=== PATIENT | female | born 1955 | race Caucasian/White ===

== ENCOUNTER 2018-09-18 10:20 | Inpatient (IN) | payer BC ==
[2018-09-18] MEDS ORDERED: Lactated Ringers 1,000 ML IV ONE (11:12)
[2018-09-18] MEDS ORDERED: Insulin Regular, Human 100 Units/ML 3 ML Vial IV STA (11:13)
[2018-09-18] MEDS ORDERED: cloNIDine 0.1 MG Tab PO ONE ×2 (11:16→13:33)
--- NOTE | 2018-09-18 11:22 | EDM.PDOC ---
ED HPI GENERAL MEDICAL PROBLEM - General Chief Complaint: Cardiovascular Problem Stated Complaint: COUGH AND COLD DIABETIC AND HBP Time Seen by Provider: 09/18/18 10:42 Source of Information: Reports: Patient, Family (Daughter), RN Notes Reviewed History Limitations: Reports: No Limitations (Somewhat sleepy, but able to answer all of my questions appropriately) - History of Present Illness INITIAL COMMENTS - FREE TEXT/NARRATIVE: The patient states that she developed decreased energy, decreased appetite, lethargy, a dry cough, occasionally productive of clear sputum, and chills, 3 days ago. She has not checked her temperature, but is found to have a temperature of 101.3 here in the ED. She reports both polydipsia and polyuria. She denies dyspnea or wheezing. No abdominal pain, nausea, vomiting, constipation, or diarrhea. No recent chest pain or palpitations. No recent rash. No similarly ill family members. The patient states that she had similar symptoms several years ago, and believes that she was diagnosed with a UTI, although she denies having recent dysuria. The patient has insulin-requiring type 2 diabetes mellitus, but states that she never checks her blood sugar at home. Her blood glucose here in the ED is found to be >400. The patient's PCP is Dr. Pittman. Her [employer] is Dr. Phan. The patient states that her vaccinations are up-to-date, however, she did not receive an influenza vaccine this season. 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: Endocrine/Metabolic History: Reports: Diabetes, Type II, Obesity/BMI 30+ - Past Surgical History HEENT Surgical History: Reports: Cataract Surgery, Eye Surgery (bilateral, for retinal hemorrhages) Female Surgical History: Reports: Section (x 2), Other (See Below) ( Cervical cerclage x 2) Social & Family History - Tobacco Use Smoking Status *Q: Never Smoker Second Hand Smoke Exposure: No - Caffeine Use Caffeine Use: Reports: Coffee, Soda, Tea - Alcohol Use Alcohol Use History: No - Recreational Drug Use Recreational Drug Use: No - Living Situation & Occupation Living situation: Reports: , with Spouse Occupation: Unemployed ED ROS GENERAL - Review of Systems Review Of Systems: ROS reveals no pertinent complaints other than HPI. ED EXAM, GENERAL - Physical Exam Exam: See Below Exam Limited By: No Limitations General Appearance: WD/WN, No Apparent Distress Eye Exam: Bilateral Eye: EOMI, Normal Inspection Ears: Normal External Exam, Hearing Grossly Normal Nose: Normal Inspection Throat/Mouth: Normal Inspection, Normal Lips, Normal Voice, No Airway Compromise Head: Atraumatic, Normocephalic Neck: Normal Inspection, Full Range of Motion Respiratory/Chest: No Respiratory Distress, Lungs Clear, Normal Breath Sounds, No Accessory Muscle Use Cardiovascular: Normal Peripheral Pulses, Regular Rate, Rhythm, No Gallop, No JVD, No Murmur, No Rub Peripheral Pulses: 4+: Radial (L), Radial (R) GI/Abdominal: Normal Bowel Sounds, Soft, Non-Tender, No Organomegaly, No Distention, No Abnormal Bruit, No Mass, Other (Obese) (Female) Exam: Deferred Rectal (Female) Exam: Deferred Back Exam: Normal Inspection, Full Range of Motion, NT Extremities: Normal Inspection, Normal Range of Motion, Normal Capillary Refill Neurological: Oriented, No Motor/Sensory Deficits, Other (Appears to be sleepy) Psychiatric: Normal Affect Skin Exam: Warm, Dry, Intact, Normal Color, No Rash EKG INTERPRETATION EKG Date: 09/18/18 Time: 12:16 Rhythm: NSR Rate (Beats/Min): 69 [place]: Normal P-Wave: Enlarged (LAE) QRS: Normal (Late transition) ST-T: Normal QT: Normal Comparison: NA - No Prior EKG Course - Vital Signs Last Recorded V/S: Last Vital Signs Temp 38.5 C H 09/18/18 10:51 Pulse 66 09/18/18 10:51 Resp 13 09/18/18 10:51 BP 190/56 H 09/18/18 13:49 Pulse Ox 90 L 09/18/18 10:51 - Orders/Labs/Meds Orders: Active Orders 24 hr Category Date Time Status Accu Check [Blood Glucose Check, Bedside] [RC] ONETIME Care 09/18/18 11:09 Active Accu Check [Blood Glucose Check, Bedside] [RC] ONETIME Care 09/18/18 12:54 Active Accu Check [Blood Glucose Check, Bedside] [RC] ONETIME Care 09/18/18 14:25 Inactive EKG Documentation Completion [RC] STAT Care 09/18/18 11:11 Active Chest 2V [CR] Stat Exams 09/18/18 11:10 Taken CULTURE BLOOD [BC] Stat Lab 09/18/18 11:36 Received CULTURE BLOOD [BC] Stat Lab 09/18/18 13:40 Received Insulin Regular, Human [HumuLIN R] 100 unit Med 09/18/18 11:15 Active Sodium Chloride 0.9% [Normal Saline] 99 ml IV TITRATE Blood Culture x2 Reflex Set [OM.PC] Stat Oth 09/18/18 11:11 Ordered Medication Orders Insulin Human Regular 100 unit (/ Sodium Chloride) 100 mls @ 10.43 mls/hr IV TITRATE CLIFF; Protocol Last Admin: 09/18/18 12:15 Dose: 0.1 units/kg/hr, 10.43 mls/hr Labs: Laboratory Tests 09/18/18 09/18/18 09/18/18 Range/Units 11:00 11:00 11:36 WBC 6.36 (3.98-10.04) K/mm3 RBC 5.05 (3.98-5.22) M/mm3 Hgb 15.1 (11.2-15.7) gm/L Hct 44.8 (34.1-44.9) % MCV 88.7 (79.4-94.8) fl MCH 29.9 (25.6-32.2) pg MCHC 33.7 (32.2-35.5) g/dl RDW Std Deviation 40.6 (36.4-46.3) fL Plt Count 196 (182-369) K/mm3 MPV 11.2 (9.4-12.3) fl Neutrophils % (Manual) 76 H (40-60) % Band Neutrophils % 4 (0-10) % Lymphocytes % (Manual) 11 L (20-40) % Atypical Lymphs % 0 % Monocytes % (Manual) 9 (2-10) % Eosinophils % (Manual) 0 L (0.7-5.8) % Basophils % (Manual) 0 L (0.1-1.2) Platelet Estimate Adequate Plt Morphology Comment Normal RBC Morph Comment Normal Sodium 126 L (136-145) mEq/L Potassium 5.6 H (3.5-5.1) mEq/L Chloride 86 L (98-107) mEq/L Carbon Dioxide 24 (21-32) mEq/L Anion Gap 21.6 H (5-15) BUN 50 H (7-18) mg/dL Creatinine 2.0 H (0.55-1.02) mg/dL Est Cr Clr Drug Dosing 25.51 mL/min Estimated GFR (MDRD) 25 (>60) mL/min BUN/Creatinine Ratio 25.0 H (14-18) Glucose 563 H (80-115) mg/dL Calcium 9.5 (8.5-10.1) mg/dL Magnesium 2.1 (1.8-2.4) mg/dl Total Bilirubin 0.6 (0.2-1.0) mg/dL AST 29 (15-37) U/L ALT 28 (14-59) U/L Alkaline Phosphatase 127 H (46-116) U/L Troponin I < 0.017 (0.00-0.056) ng/mL Total Protein 7.9 (6.4-8.2) g/dl Albumin 2.9 L (3.4-5.0) g/dl Globulin 5.0 gm/dL Albumin/Globulin Ratio 0.6 L (1-2) Urine Color (Yellow) Urine Appearance (Clear) Urine pH (5.0-8.0) Ur Specific [place] (1.005-1.030) Urine Protein (Negative) Urine Glucose (UA) (Negative) Urine Ketones (Negative) Urine Occult Blood (Negative) Urine Nitrite (Negative) Urine Bilirubin (Negative) Urine Urobilinogen (0.2-1.0) Ur Leukocyte Esterase (Negative) Urine RBC (0-5) /hpf Urine WBC (0-5) /hpf Ur Epithelial Cells (0-5) /hpf Amorphous Sediment (NOT SEEN) /hpf Urine Bacteria (FEW) /hpf Urine Mucus (FEW) /hpf Ketones 2.4 (0.0-0.3) mM 09/18/18 09/18/18 Range/Units 12:23 14:51 WBC (3.98-10.04) K/mm3 RBC (3.98-5.22) M/mm3 Hgb (11.2-15.7) gm/L Hct (34.1-44.9) % MCV (79.4-94.8) fl MCH (25.6-32.2) pg MCHC (32.2-35.5) g/dl RDW Std Deviation (36.4-46.3) fL Plt Count (182-369) K/mm3 MPV (9.4-12.3) fl Neutrophils % (Manual) (40-60) % Band Neutrophils % (0-10) % Lymphocytes % (Manual) (20-40) % Atypical Lymphs % % Monocytes % (Manual) (2-10) % Eosinophils % (Manual) (0.7-5.8) % Basophils % (Manual) (0.1-1.2) Platelet Estimate Plt Morphology Comment RBC Morph Comment Sodium (136-145) mEq/L Potassium (3.5-5.1) mEq/L Chloride (98-107) mEq/L Carbon Dioxide (21-32) mEq/L Anion Gap (5-15) BUN (7-18) mg/dL Creatinine (0.55-1.02) mg/dL Est Cr Clr Drug Dosing mL/min Estimated GFR (MDRD) (>60) mL/min BUN/Creatinine Ratio (14-18) Glucose 462 H (80-115) mg/dL Calcium (8.5-10.1) mg/dL Magnesium (1.8-2.4) mg/dl Total Bilirubin (0.2-1.0) mg/dL AST (15-37) U/L ALT (14-59) U/L Alkaline Phosphatase (46-116) U/L Troponin I (0.00-0.056) ng/mL Total Protein (6.4-8.2) g/dl Albumin (3.4-5.0) g/dl Globulin gm/dL Albumin/Globulin Ratio (1-2) Urine Color Yellow (Yellow) Urine Appearance Clear (Clear) Urine pH 5.5 (5.0-8.0) Ur Specific [place] 1.020 (1.005-1.030) Urine Protein 2+ H (Negative) Urine Glucose (UA) 2+ H (Negative) Urine Ketones 2+ H (Negative) Urine Occult Blood 2+ H (Negative) Urine Nitrite Negative (Negative) Urine Bilirubin Negative (Negative) Urine Urobilinogen 0.2 (0.2-1.0) Ur Leukocyte Esterase Negative (Negative) Urine RBC 0-5 (0-5) /hpf Urine WBC 0-5 (0-5) /hpf Ur Epithelial Cells Not seen (0-5) /hpf Amorphous Sediment Few H (NOT SEEN) /hpf Urine Bacteria Few (FEW) /hpf Urine Mucus Rare H (FEW) /hpf Ketones (0.0-0.3) mM Meds: Medications Generic Name Dose Route Start Last Admin Trade Name Yina PRN Reason Stop Dose Admin Insulin Human Regular 100 unit 100 mls @ 10.43 mls/hr 09/18/18 11:15 12:15 / Sodium Chloride IV 0.1 units/kg/hr TITRATE CLIFF 10.43 mls/hr Administration Protocol 0.1 UNITS/KG/HR Discontinued Medications Generic Name Dose Route Start Last Admin Trade Name Yina PRN Reason Stop Dose Admin Clonidine HCl 0.1 mg 09/18/18 11:16 09/18/18 11:35 Catapres PO 09/18/18 11:17 0.1 mg ONETIME ONE Administration Clonidine HCl Confirm 09/18/18 11:35 09/18/18 12:24 Catapres Administered 09/18/18 11:36 Not Given Dose 0.1 mg .ROUTE .STK-MED ONE Clonidine HCl 0.1 mg 09/18/18 13:33 09/18/18 13:49 Catapres PO 09/18/18 13:34 0.1 mg ONETIME ONE Administration Lactated Ringer's 1,000 mls @ 999 mls/hr 09/18/18 11:12 09/18/18 12:14 Ringers, Lactated IV 09/18/18 12:12 999 mls/hr .BOLUS ONE Administration Insulin Human Regular 10 unit 09/18/18 11:13 09/18/18 12:19 Humulin R IV 09/18/18 11:14 10 unit ONETIME STA Administration - Re-Assessments/Exams Free Text/Narrative Re-Assessment/Exam: 09/18/18 11:17 The patient's blood glucose is >400 on Accu-Chek. Her fever and cough strongly suggest influenza. Her systolic blood pressure is high. I have ordered a workup , and in the meantime will treat with IV fluid, IV insulin, and clonidine. 09/18/18 12:00 The patient's influenza swab has returned positive for influenza A, however, the patient has been symptomatic for 3 days, therefore Tamiflu is not recommended. The patient's sodium is depressed at 126, however, her blood glucose is elevated at 563. The patient's sodium corrects to 132. Her potassium is mildly elevated at 5.6, with a BUN/Cr of 50/2.0. We do not have prior labs to compare. The patient's magnesium level is within normal limits. The patient's troponin is undetectably he low. The patient's CBC is unremarkable. 09/18/18 12:27 The patient's ketone level is mildly elevated at 2.4, consistent with ketosis, not with ketoacidosis. The patient's ECG is unremarkable. 09/18/18 12:50 2-view chest radiograph reviewed. The cardiac silhouette is within normal limits. No pulmonary vascular congestion. No pleural effusions. There appear to be bilateral interstitial infiltrates, consistent with viral pneumonia. No pneumothorax. Formal read per the Radiologist pending. 09/18/18 13:32 The patient's urinalysis is unremarkable. The patient's most recent Accu-Chek is still >400. Despite being given clonidine 0.1 mg earlier, the patient's systolic blood pressure is still 218. I will order a repeat clonidine 0.1 mg. Due to the insulin drip, the patient will need to be admitted to the ICU. 09/18/18 14:[address] Saeed at 14:31. He accepted the patient for admission to the ICU. Departure - Departure Time of Disposition: 14:33 Disposition: Admitted As Inpatient 68 Condition: Fair Clinical Impression: Influenza A, Hypertension, Chronic renal insufficiency, Hyperglycemia due to type 2 diabetes mellitus, Hyponatremia - Discharge Information *PRESCRIPTION DRUG MONITORING PROGRAM REVIEWED*: Not Applicable *COPY OF PRESCRIPTION DRUG MONITORING REPORT IN PATIENT GABBIE: Not Applicable - My Orders Last 24 Hours: My Active Orders 09/18/18 11:09 Accu Check [Blood Glucose Check, Bedside] [RC] ONETIME 09/18/18 11:10 Chest 2V [CR] Stat 09/18/18 11:11 EKG Documentation Completion [RC] STAT Blood Culture x2 Reflex Set [OM.PC] Stat 09/18/18 11:15 Insulin Regular, Human [HumuLIN R] 100 unit Sodium Chloride 0.9% [Normal Saline] 99 ml IV TITRATE 09/18/18 11:36 CULTURE BLOOD [BC] Stat 09/18/18 12:54 Accu Check [Blood Glucose Check, Bedside] [RC] ONETIME 09/18/18 13:40 CULTURE BLOOD [BC] Stat 09/18/18 14:25 Accu Check [Blood Glucose Check, Bedside] [RC] ONETIME - Assessment/Plan Last 24 Hours: My Active Orders 09/18/18 11:09 Accu Check [Blood Glucose Check, Bedside] [RC] ONETIME 09/18/18 11:10 Chest 2V [CR] Stat 09/18/18 11:11 EKG Documentation Completion [RC] STAT Blood Culture x2 Reflex Set [OM.PC] Stat 09/18/18 11:15 Insulin Regular, Human [HumuLIN R] 100 unit Sodium Chloride 0.9% [Normal Saline] 99 ml IV TITRATE 09/18/18 11:36 CULTURE BLOOD [BC] Stat 09/18/18 12:54 Accu Check [Blood Glucose Check, Bedside] [RC] ONETIME 09/18/18 13:40 CULTURE BLOOD [BC] Stat 09/18/18 14:25 Accu Check [Blood Glucose Check, Bedside] [RC] ONETIME
[2018-09-18] MEDS ORDERED: cloNIDine 0.1 MG Tab ONE (11:35)
[2018-09-18] MEDS ORDERED: Docusate Sodium 100 MG Cap PO PRN (15:14)
[2018-09-18] MEDS ORDERED: Acetaminophen/HYDROcodone 325-5 MG Tab PO PRN (15:14)
[2018-09-18] MEDS ORDERED: Promethazine 6.25 MG in Sodium Chloride 0.9% 50 ML IV PRN (15:14)
[2018-09-18] MEDS ORDERED: Metoprolol Tartrate 5 MG/5 ML SDV IVPUSH PRN (15:14)
[2018-09-18] MEDS ORDERED: Ondansetron 4 MG/2 ML SDV IV PRN (15:14)
[2018-09-18] MEDS ORDERED: LORazepam 2 MG/ML SDV IV PRN (15:14)
[2018-09-18] MEDS ORDERED: HYDROmorphone 1 MG/ML Syringe IVPUSH PRN (15:14)
[2018-09-18] MEDS ORDERED: Ibuprofen 400 MG Tab PO PRN (15:14)
[2018-09-18] MEDS ORDERED: Bisacodyl 5 MG Tab PO PRN (15:14)
--- NOTE | 2018-09-18 15:14 | PCM.HP ---
H&P History of Present Illness - General Date of Service: 09/18/18 Admit Problem/Dx: Influenza and Hyperosmolar Hyperglycemic State Source of Information: Patient, Family, Old Records, Provider, RN Notes Reviewed History Limitations: Reports: Physical Impairment - History of Present Illness Initial Comments - Free Text/Narative: This is a 63 yo white female with past medical hx/o Impaired Vision, HTN, HLD, Hx/o HF Unknown EF, CKD Unknown Stage, and Class III Obesity who comes in for evaluation of 3 day hx/o flu-like symptoms: lethargy, dry cough, feeling feverish, chills, low energy and reduced appetite. She also reports polydipsia and polyuria. She denies any GI or issues. No skin rash, sore throat or difficulty eating or drinking. She denies any sick contact in the the house. She reports of a similar episode in the past wherein she was diagnosed with UTI. On presentation to ED, she was found to have a temperature of 101.3 with a glucose level on finger stick of over 400. Her initial work up shows a CBC remarkable for Neutrophils of 76% and Lymphocytes of 11%. Her chemistry is significant for Na of 126, K of 5.6, Cl of 86, AG of 21.6, BUN of 50, Cr of 2.0 , BS of 560, Alk Phos of 127, and Albumin of 127. Her UA is not suggestive of UTI. Her ketones level is 2.4. Her chest x-ray report reads patchy increased density within both side of chest most likely representing fairly severe bronchopneumonia. Patient is being admitted for influenza infection and hyperosmolar hyperglycemic state. She is DNR/DNI. Generalized Pain Score (Numeric/FACES): 0 - Related Data Allergies/Adverse Reactions: Allergies Allergy/AdvReac Type Severity Reaction Status Date / Time No Known Allergies Allergy Verified 12/08/14 08:54 Home Medications: Home Meds Aspirin 81 mg PO DAILY 09/18/18 [History] Chlorthalidone 25 mg PO DAILY 09/18/18 [History] Furosemide 20 mg PO DAILY 09/18/18 [History] Lisinopril 20 mg PO DAILY 09/18/18 [History] Metoprolol Succinate 200 mg PO DAILY 09/18/18 [History] Verapamil HCl [Verelan Pm] 200 mg pe PO DAILY 09/18/18 [History] Past Medical History HEENT History: Reports: Glaucoma, Impaired Vision Cardiovascular History: Reports: Heart Failure, High Cholesterol (untreated), Hypertension 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 History: 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: 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/Metabolic History: Reports: Diabetes, Type II, Obesity/BMI 30+ - Past Surgical History HEENT Surgical History: Reports: Cataract Surgery, Eye Surgery (bilateral, for retinal hemorrhages) Female Surgical History: Reports: Section (x 2), Other (See Below) ( Cervical cerclage x 2) Social & Family History - Tobacco Use Smoking Status *Q: Never Smoker Second Hand Smoke Exposure: No - Caffeine Use Caffeine Use: Reports: Coffee, Soda, Tea - Recreational Drug Use Recreational Drug Use: No - Living Situation & Occupation Living situation: Reports: , with Spouse Occupation: Unemployed H&P Review of Systems - Review of Systems: Review Of Systems: ROS reveals no pertinent complaints other than HPI. Exam - Exam Exam: See Below - Vital Signs Vital Signs: Last Vital Signs Temp 38.5 C H 09/18/18 10:51 Pulse 66 09/18/18 10:51 Resp 13 09/18/18 10:51 BP 190/56 H 09/18/18 13:49 Pulse Ox 90 L 09/18/18 10:51 Weight: 104.326 kg - Exam General: Alert, Oriented, Cooperative, Moderate Distress, Lethargic, Other ( Moderately Obese) HEENT: Conjunctiva Clear, EACs Clear, EOMI, Hearing Intact, Nares Patent, Normal Nasal Septum, Posterior Pharynx Clear, Pupils Equal, Pupils Reactive. No : Mucosa Moist & [place] Neck: Supple, Trachea Midline, Other (short and thick). No: JVD, Thyromegaly Lungs: Normal Respiratory Effort, Decreased Breath Sounds Cardiovascular: Regular Rate, Regular Rhythm GI/Abdominal Exam: Normal Bowel Sounds, Soft, Non-Tender, No Organomegaly, No Distention, No Mass, Pelvis Stable, Other (Obese) (Female) Exam: Deferred Rectal (Female) Exam: Deferred Back Exam: Normal Inspection, Decreased Range of Motion Extremities: Normal Inspection, Non-Tender, No Pedal Edema, Slow Capillary Refill, Limited Range of Motion Peripheral Pulses: 2+: Posterior Tibial (L), Posterior Tibial (R), Dorsalis Pedis (L), Dorsalis Pedis (R) Skin: Warm, Dry, Intact Neuro Extensive - Mental Status: Oriented x3, Normal Cognition, Memory Intact Neuro Extensive - Motor, Sensory, Reflexes: CN II-XII Intact (limited due to generalized weakness but grossly intac), Normal Gait Psychiatric: Alert, Normal Affect, Normal Mood - Patient Data Lab Results Last 24 hrs: Laboratory Results - last 24 hr 09/18/18 09/18/18 09/18/18 Range/Units 11:00 11:00 11:36 WBC 6.36 (3.98-10.04) K/mm3 RBC 5.05 (3.98-5.22) M/mm3 Hgb 15.1 (11.2-15.7) gm/L Hct 44.8 (34.1-44.9) % MCV 88.7 (79.4-94.8) fl MCH 29.9 (25.6-32.2) pg MCHC 33.7 (32.2-35.5) g/dl RDW Std Deviation 40.6 (36.4-46.3) fL Plt Count 196 (182-369) K/mm3 MPV 11.2 (9.4-12.3) fl Neutrophils % (Manual) 76 H (40-60) % Band Neutrophils % 4 (0-10) % Lymphocytes % (Manual) 11 L (20-40) % Atypical Lymphs % 0 % Monocytes % (Manual) 9 (2-10) % Eosinophils % (Manual) 0 L (0.7-5.8) % Basophils % (Manual) 0 L (0.1-1.2) Platelet Estimate Adequate Plt Morphology Comment Normal RBC Morph Comment Normal Sodium 126 L (136-145) mEq/L Potassium 5.6 H (3.5-5.1) mEq/L Chloride 86 L (98-107) mEq/L Carbon Dioxide 24 (21-32) mEq/L Anion Gap 21.6 H (5-15) BUN 50 H (7-18) mg/dL Creatinine 2.0 H (0.55-1.02) mg/dL Est Cr Clr Drug Dosing 25.51 mL/min Estimated GFR (MDRD) 25 (>60) mL/min BUN/Creatinine Ratio 25.0 H (14-18) Glucose 563 H (80-115) mg/dL Calcium 9.5 (8.5-10.1) mg/dL Magnesium 2.1 (1.8-2.4) mg/dl Total Bilirubin 0.6 (0.2-1.0) mg/dL AST 29 (15-37) U/L ALT 28 (14-59) U/L Alkaline Phosphatase 127 H (46-116) U/L Troponin I < 0.017 (0.00-0.056) ng/mL Total Protein 7.9 (6.4-8.2) g/dl Albumin 2.9 L (3.4-5.0) g/dl Globulin 5.0 gm/dL Albumin/Globulin Ratio 0.6 L (1-2) Urine Color (Yellow) Urine Appearance (Clear) Urine pH (5.0-8.0) Ur Specific [place] (1.005-1.030) Urine Protein (Negative) Urine Glucose (UA) (Negative) Urine Ketones (Negative) Urine Occult Blood (Negative) Urine Nitrite (Negative) Urine Bilirubin (Negative) Urine Urobilinogen (0.2-1.0) Ur Leukocyte Esterase (Negative) Urine RBC (0-5) /hpf Urine WBC (0-5) /hpf Ur Epithelial Cells (0-5) /hpf Amorphous Sediment (NOT SEEN) /hpf Urine Bacteria (FEW) /hpf Urine Mucus (FEW) /hpf Ketones 2.4 (0.0-0.3) mM 09/18/18 09/18/18 Range/Units 12:23 14:51 WBC (3.98-10.04) K/mm3 RBC (3.98-5.22) M/mm3 Hgb (11.2-15.7) gm/L Hct (34.1-44.9) % MCV (79.4-94.8) fl MCH (25.6-32.2) pg MCHC (32.2-35.5) g/dl RDW Std Deviation (36.4-46.3) fL Plt Count (182-369) K/mm3 MPV (9.4-12.3) fl Neutrophils % (Manual) (40-60) % Band Neutrophils % (0-10) % Lymphocytes % (Manual) (20-40) % Atypical Lymphs % % Monocytes % (Manual) (2-10) % Eosinophils % (Manual) (0.7-5.8) % Basophils % (Manual) (0.1-1.2) Platelet Estimate Plt Morphology Comment RBC Morph Comment Sodium (136-145) mEq/L Potassium (3.5-5.1) mEq/L Chloride (98-107) mEq/L Carbon Dioxide (21-32) mEq/L Anion Gap (5-15) BUN (7-18) mg/dL Creatinine (0.55-1.02) mg/dL Est Cr Clr Drug Dosing mL/min Estimated GFR (MDRD) (>60) mL/min BUN/Creatinine Ratio (14-18) Glucose 462 H (80-115) mg/dL Calcium (8.5-10.1) mg/dL Magnesium (1.8-2.4) mg/dl Total Bilirubin (0.2-1.0) mg/dL AST (15-37) U/L ALT (14-59) U/L Alkaline Phosphatase (46-116) U/L Troponin I (0.00-0.056) ng/mL Total Protein (6.4-8.2) g/dl Albumin (3.4-5.0) g/dl Globulin gm/dL Albumin/Globulin Ratio (1-2) Urine Color Yellow (Yellow) Urine Appearance Clear (Clear) Urine pH 5.5 (5.0-8.0) Ur Specific [place] 1.020 (1.005-1.030) Urine Protein 2+ H (Negative) Urine Glucose (UA) 2+ H (Negative) Urine Ketones 2+ H (Negative) Urine Occult Blood 2+ H (Negative) Urine Nitrite Negative (Negative) Urine Bilirubin Negative (Negative) Urine Urobilinogen 0.2 (0.2-1.0) Ur Leukocyte Esterase Negative (Negative) Urine RBC 0-5 (0-5) /hpf Urine WBC 0-5 (0-5) /hpf Ur Epithelial Cells Not seen (0-5) /hpf Amorphous Sediment Few H (NOT SEEN) /hpf Urine Bacteria Few (FEW) /hpf Urine Mucus Rare H (FEW) /hpf Ketones (0.0-0.3) mM Result Diagrams: 09/19/18 05:49 09/19/18 05:49 Zbigniew Results Last 24 hrs: Microbiology 09/18/18 11:30 Influenza Type A Antigen Screen - Final Nasopharyngeal Swab Positive Influenza A Ag Influenza Type B Antigen Screen - Final NEGATIVE INFLUENZA B VIRUS AG Problem List Initiated/Reviewed/Updated: Yes Orders Last 24hrs: Active Orders 24 hr Category Date Time Status Accu Check [Blood Glucose Check, Bedside] [RC] ONETIME Care 09/18/18 11:09 Active Accu Check [Blood Glucose Check, Bedside] [RC] ONETIME Care 09/18/18 12:54 Active Accu Check [Blood Glucose Check, Bedside] [RC] ONETIME Care 09/18/18 14:25 Inactive EKG Documentation Completion [RC] STAT Care 09/18/18 11:11 Active Chest 2V [CR] Stat Exams 09/18/18 11:10 Taken CULTURE BLOOD [BC] Stat Lab 09/18/18 11:36 Received CULTURE BLOOD [BC] Stat Lab 09/18/18 13:40 Received Insulin Regular, Human [HumuLIN R] 100 unit Med 09/18/18 11:15 Active Sodium Chloride 0.9% [Normal Saline] 99 ml IV TITRATE Blood Culture x2 Reflex Set [OM.PC] Stat Oth 09/18/18 11:11 Ordered Medication Orders Insulin Human Regular 100 unit (/ Sodium Chloride) 100 mls @ 10.43 mls/hr IV TITRATE CLIFF; Protocol Last Admin: 09/18/18 12:15 Dose: 0.1 units/kg/hr, 10.43 mls/hr Assessment/Plan Comment:: Assessment/Plan: Acute: Febrile Illness - 2/2 Influenza A - Positive on screening - Will give antiviral agent to lessen duration of her symptoms - Tamiflu 75 mg po BID for pharmacy to dose pending repeat BMP - Supportive Care - Encourage to eat and drink Influenza Infection - Viral Pneumonia - Tamiflu pharmacy to dose - May consider; antibacterial agents if she is worse tomorrow Hyperosmolar Hyperglycemic State in DM2 - 2/2 poor oral and hydration status - BS in the 500s - Started on insulin drip in ED; will d/c it - Lantus 30 units SC BID and Medium dose ISS; may add sulfonylureas if still uncontrolled - Accu-check Q2 w/ ISS; if 3 consecutive levels are in the 200s then switch to AC/HS - A1C, Thyroid Panel, Vit D level, Lipid panel and Microalbumin level - Ticket Maker Malignant Hypertension - Documented BP of 246/86 on presentation to ED - Received clonidine in ED - Home meds not verified yet - PRN Hydralazine, Norvasc 5 mg po BID, HCTZ 25 mg po daily; will resume home meds once we obtain it list Generalized Weakness - 2/2 above - Vit D level and Thyroid Panel - PT/OT to assess and treat Chronic: Impaired Vision HTN HLD Hx/o HF Unknown EF CKD Unknown Stage but it looks like 3-4; no baseline levels for comparison Class II Obesity Plan: Admitted to ICU Resume Some Home Meds Routine AM Labs Diabetic and Dietary consult for weight management PT/OT to asses and treat SW/CM for d/c planning DVT/GI PPx: SCDs and H2B Code status: 1
[2018-09-18] MEDS ORDERED: Insulin Glarg,Human.Rec.Analog 100 UNIT/ML ML SUBCUT SCH (16:00)
[2018-09-18 16:03] LABS: VITAMIN D,25-HYDROXY 40.8 ng/ml (30.0-100.0)
[2018-09-18] MEDS: Insulin Lispro 100 UNIT/ML 10 ML VIAL SUBCUT SCH ×4 (16:26→22:18)
[2018-09-18] MEDS ORDERED: Sodium Chloride 0.9% 1,000 ML IV SCH (16:30)
[2018-09-18] MEDS ORDERED: Insulin Lispro 100 UNIT/ML 10 ML VIAL SUBCUT SCH (17:00)
[2018-09-18] MEDS: hydrALAZINE 20 MG/ML SDV IVPUSH PRN (17:28)
[2018-09-18] MEDS: Insulin Glarg,Human.Rec.Analog 100 UNIT/ML ML SUBCUT SCH (20:39)
[2018-09-18] MEDS: amLODIPine 10 MG Tab PO SCH (20:40)
[2018-09-18] MEDS: Oseltamivir 30 MG Cap PO SCH (20:43)
[2018-09-18] MEDS: Sodium Chloride 0.9% 1,000 ML IV SCH (20:44)
[2018-09-18] MEDS ORDERED: Oseltamivir 75 MG Cap PO SCH (21:00)
[2018-09-19] MEDS: Insulin Lispro 100 UNIT/ML 10 ML VIAL SUBCUT SCH ×6 (01:53→20:04)
[2018-09-19] MEDS: Sodium Chloride 0.9% 1,000 ML IV SCH (03:14)
[2018-09-19] MEDS ORDERED: Hydrochlorothiazide 25 MG Tab PO SCH (06:00)
[2018-09-19] MEDS ORDERED: glipiZIDE 2.5 MG Tab.ER PO SCH (07:00)
--- NOTE | 2018-09-19 08:06 | PCM.PN ---
- General Info Date of Service: 09/19/18 Admission Dx/Problem (Free Text): Influenza and Hyperglycemia Subjective Update: Follow Up Functional Status: Reports: Pain Controlled, Ambulating, Urinating. Denies: New Symptoms - Review of Systems General: Reports: Weakness, Fatigue, Malaise. Denies: Fever, Chills HEENT: Reports: No Symptoms Pulmonary: Reports: Cough, Sputum. Denies: Pleuritic Chest Pain, Hemoptysis Cardiovascular: Denies: Chest Pain, Dyspnea on Exertion, Orthopnea, Lightheadedness Gastrointestinal: Reports: Decreased Appetite. Denies: Abdominal Pain, Nausea, Vomiting 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: Reports: No Symptoms Musculoskeletal: Reports: No Symptoms Skin: Denies: Cyanosis, Mottled, Pallor, Diaphoresis, Bruising Neurological: Reports: Weakness. Denies: Confusion, Gait Disturbance Psychiatric: Denies: Depression, Anxiety, Agitation, Hallucinations Systems Review Comment:: No significant overnight issues. She slept on and off. She felt about the same. She has no appetite and feeling tired. She is afebrile w/o leukocytosis. Her Cr seems to be a little worse but she got adequate fluids in ED and still has 125cc /hr running currently. Her blood pressures have improved considerably. - Patient Data Vitals - Most Recent: Last Vital Signs Temp 37.3 C 09/19/18 03:21 Pulse 65 09/19/18 03:21 Resp 17 09/19/18 03:21 BP 119/88 09/19/18 03:21 Pulse Ox 95 09/19/18 03:21 Weight - Most Recent: 106.367 kg I&O - Last 24 Hours: Intake & Output 09/18/18 09/19/18 09/19/18 22:59 06:59 14:59 Intake Total 640 1713 Output Total 400 Balance 640 1313 Lab Results Last 24 Hours: Laboratory Results - last 24 hr 09/18/18 09/18/18 09/18/18 Range/Units 11:00 11:00 11:36 WBC 6.36 (3.98-10.04) K/mm3 RBC 5.05 (3.98-5.22) M/mm3 Hgb 15.1 (11.2-15.7) gm/L Hct 44.8 (34.1-44.9) % MCV 88.7 (79.4-94.8) fl MCH 29.9 (25.6-32.2) pg MCHC 33.7 (32.2-35.5) g/dl RDW Std Deviation 40.6 (36.4-46.3) fL Plt Count 196 (182-369) K/mm3 MPV 11.2 (9.4-12.3) fl Neut % (Auto) (34.0-71.1) % Lymph % (Auto) (19.3-51.7) % [place] % (Auto) (4.7-12.5) % Eos % (Auto) (0.7-5.8) Baso % (Auto) (0.1-1.2) % Neut # (Auto) (1.56-6.13) K/mm3 Lymph # (Auto) (1.18-3.74) K/mm3 [place] # (Auto) (0.24-0.36) K/mm3 Eos # (Auto) (0.04-0.36) K/mm3 Baso # (Auto) (0.01-0.08) K/mm3 Neutrophils % (Manual) 76 H (40-60) % Band Neutrophils % 4 (0-10) % Lymphocytes % (Manual) 11 L (20-40) % Atypical Lymphs % 0 % Monocytes % (Manual) 9 (2-10) % Eosinophils % (Manual) 0 L (0.7-5.8) % Basophils % (Manual) 0 L (0.1-1.2) Manual Slide Review Platelet Estimate Adequate Plt Morphology Comment Normal RBC Morph Comment Normal Sodium 126 L (136-145) mEq/L Potassium 5.6 H (3.5-5.1) mEq/L Chloride 86 L (98-107) mEq/L Carbon Dioxide 24 (21-32) mEq/L Anion Gap 21.6 H (5-15) BUN 50 H (7-18) mg/dL Creatinine 2.0 H (0.55-1.02) mg/dL Est Cr Clr Drug Dosing 25.51 mL/min Estimated GFR (MDRD) 25 (>60) mL/min BUN/Creatinine Ratio 25.0 H (14-18) Glucose 563 H (80-115) mg/dL POC Glucose (80-115) mg/dL Hemoglobin A1c (4.50-6.20) % Calcium 9.5 (8.5-10.1) mg/dL Magnesium 2.1 (1.8-2.4) mg/dl Total Bilirubin 0.6 (0.2-1.0) mg/dL AST 29 (15-37) U/L ALT 28 (14-59) U/L Alkaline Phosphatase 127 H (46-116) U/L Troponin I < 0.017 (0.00-0.056) ng/mL C-Reactive Protein (<1.0) mg/dL Total Protein 7.9 (6.4-8.2) g/dl Albumin 2.9 L (3.4-5.0) g/dl Globulin 5.0 gm/dL Albumin/Globulin Ratio 0.6 L (1-2) Triglycerides (<150) mg/dL Cholesterol (<200) mg/dL LDL Cholesterol Direct (<100) mg/dL HDL Cholesterol (40-59) mg/dL Vitamin D 25-Hydroxy (30.0-100.0) ng/ml Free T4 (0.76-1.46) ng/dL TSH 3rd Generation (0.358-3.74) uIU/mL Urine Color (Yellow) Urine Appearance (Clear) Urine pH (5.0-8.0) Ur Specific [place] (1.005-1.030) Urine Protein (Negative) Urine Glucose (UA) (Negative) Urine Ketones (Negative) Urine Occult Blood (Negative) Urine Nitrite (Negative) Urine Bilirubin (Negative) Urine Urobilinogen (0.2-1.0) Ur Leukocyte Esterase (Negative) Urine RBC (0-5) /hpf Urine WBC (0-5) /hpf Ur Epithelial Cells (0-5) /hpf Amorphous Sediment (NOT SEEN) /hpf Urine Bacteria (FEW) /hpf Urine Mucus (FEW) /hpf Ur Random Microalbumin (1.3-20.0) mg/L Ketones 2.4 (0.0-0.3) mM 09/18/18 09/18/18 09/18/18 Range/Units 12:23 12:23 13:40 WBC (3.98-10.04) K/mm3 RBC (3.98-5.22) M/mm3 Hgb (11.2-15.7) gm/L Hct (34.1-44.9) % MCV (79.4-94.8) fl MCH (25.6-32.2) pg MCHC (32.2-35.5) g/dl RDW Std Deviation (36.4-46.3) fL Plt Count (182-369) K/mm3 MPV (9.4-12.3) fl Neut % (Auto) (34.0-71.1) % Lymph % (Auto) (19.3-51.7) % [place] % (Auto) (4.7-12.5) % Eos % (Auto) (0.7-5.8) Baso % (Auto) (0.1-1.2) % Neut # (Auto) (1.56-6.13) K/mm3 Lymph # (Auto) (1.18-3.74) K/mm3 [place] # (Auto) (0.24-0.36) K/mm3 Eos # (Auto) (0.04-0.36) K/mm3 Baso # (Auto) (0.01-0.08) K/mm3 Neutrophils % (Manual) (40-60) % Band Neutrophils % (0-10) % Lymphocytes % (Manual) (20-40) % Atypical Lymphs % % Monocytes % (Manual) (2-10) % Eosinophils % (Manual) (0.7-5.8) % Basophils % (Manual) (0.1-1.2) Manual Slide Review Platelet Estimate Plt Morphology Comment RBC Morph Comment Sodium (136-145) mEq/L Potassium (3.5-5.1) mEq/L Chloride (98-107) mEq/L Carbon Dioxide (21-32) mEq/L Anion Gap (5-15) BUN (7-18) mg/dL Creatinine (0.55-1.02) mg/dL Est Cr Clr Drug Dosing mL/min Estimated GFR (MDRD) (>60) mL/min BUN/Creatinine Ratio (14-18) Glucose (80-115) mg/dL POC Glucose (80-115) mg/dL Hemoglobin A1c 9.00 H (4.50-6.20) % Calcium (8.5-10.1) mg/dL Magnesium (1.8-2.4) mg/dl Total Bilirubin (0.2-1.0) mg/dL AST (15-37) U/L ALT (14-59) U/L Alkaline Phosphatase (46-116) U/L Troponin I (0.00-0.056) ng/mL C-Reactive Protein (<1.0) mg/dL Total Protein (6.4-8.2) g/dl Albumin (3.4-5.0) g/dl Globulin gm/dL Albumin/Globulin Ratio (1-2) Triglycerides (<150) mg/dL Cholesterol (<200) mg/dL LDL Cholesterol Direct (<100) mg/dL HDL Cholesterol (40-59) mg/dL Vitamin D 25-Hydroxy (30.0-100.0) ng/ml Free T4 (0.76-1.46) ng/dL TSH 3rd Generation (0.358-3.74) uIU/mL Urine Color Yellow (Yellow) Urine Appearance Clear (Clear) Urine pH 5.5 (5.0-8.0) Ur Specific [place] 1.020 (1.005-1.030) Urine Protein 2+ H (Negative) Urine Glucose (UA) 2+ H (Negative) Urine Ketones 2+ H (Negative) Urine Occult Blood 2+ H (Negative) Urine Nitrite Negative (Negative) Urine Bilirubin Negative (Negative) Urine Urobilinogen 0.2 (0.2-1.0) Ur Leukocyte Esterase Negative (Negative) Urine RBC 0-5 (0-5) /hpf Urine WBC 0-5 (0-5) /hpf Ur Epithelial Cells Not seen (0-5) /hpf Amorphous Sediment Few H (NOT SEEN) /hpf Urine Bacteria Few (FEW) /hpf Urine Mucus Rare H (FEW) /hpf Ur Random Microalbumin 1148.8 H (1.3-20.0) mg/L Ketones (0.0-0.3) mM 09/18/18 09/18/18 09/18/18 Range/Units 13:40 14:51 16:13 WBC (3.98-10.04) K/mm3 RBC (3.98-5.22) M/mm3 Hgb (11.2-15.7) gm/L Hct (34.1-44.9) % MCV (79.4-94.8) fl MCH (25.6-32.2) pg MCHC (32.2-35.5) g/dl RDW Std Deviation (36.4-46.3) fL Plt Count (182-369) K/mm3 MPV (9.4-12.3) fl Neut % (Auto) (34.0-71.1) % Lymph % (Auto) (19.3-51.7) % [place] % (Auto) (4.7-12.5) % Eos % (Auto) (0.7-5.8) Baso % (Auto) (0.1-1.2) % Neut # (Auto) (1.56-6.13) K/mm3 Lymph # (Auto) (1.18-3.74) K/mm3 [place] # (Auto) (0.24-0.36) K/mm3 Eos # (Auto) (0.04-0.36) K/mm3 Baso # (Auto) (0.01-0.08) K/mm3 Neutrophils % (Manual) (40-60) % Band Neutrophils % (0-10) % Lymphocytes % (Manual) (20-40) % Atypical Lymphs % % Monocytes % (Manual) (2-10) % Eosinophils % (Manual) (0.7-5.8) % Basophils % (Manual) (0.1-1.2) Manual Slide Review Platelet Estimate Plt Morphology Comment RBC Morph Comment Sodium (136-145) mEq/L Potassium (3.5-5.1) mEq/L Chloride (98-107) mEq/L Carbon Dioxide (21-32) mEq/L Anion Gap (5-15) BUN (7-18) mg/dL Creatinine (0.55-1.02) mg/dL Est Cr Clr Drug Dosing mL/min Estimated GFR (MDRD) (>60) mL/min BUN/Creatinine Ratio (14-18) Glucose 462 H (80-115) mg/dL POC Glucose 386 H (80-115) mg/dL Hemoglobin A1c (4.50-6.20) % Calcium (8.5-10.1) mg/dL Magnesium (1.8-2.4) mg/dl Total Bilirubin (0.2-1.0) mg/dL AST (15-37) U/L ALT (14-59) U/L Alkaline Phosphatase (46-116) U/L Troponin I (0.00-0.056) ng/mL C-Reactive Protein 22.8 H* (<1.0) mg/dL Total Protein (6.4-8.2) g/dl Albumin (3.4-5.0) g/dl Globulin gm/dL Albumin/Globulin Ratio (1-2) Triglycerides (<150) mg/dL Cholesterol (<200) mg/dL LDL Cholesterol Direct (<100) mg/dL HDL Cholesterol (40-59) mg/dL Vitamin D 25-Hydroxy 40.8 (30.0-100.0) ng/ml Free T4 1.29 (0.76-1.46) ng/dL TSH 3rd Generation 0.538 (0.358-3.74) uIU/mL Urine Color (Yellow) Urine Appearance (Clear) Urine pH (5.0-8.0) Ur Specific [place] (1.005-1.030) Urine Protein (Negative) Urine Glucose (UA) (Negative) Urine Ketones (Negative) Urine Occult Blood (Negative) Urine Nitrite (Negative) Urine Bilirubin (Negative) Urine Urobilinogen (0.2-1.0) Ur Leukocyte Esterase (Negative) Urine RBC (0-5) /hpf Urine WBC (0-5) /hpf Ur Epithelial Cells (0-5) /hpf Amorphous Sediment (NOT SEEN) /hpf Urine Bacteria (FEW) /hpf Urine Mucus (FEW) /hpf Ur Random Microalbumin (1.3-20.0) mg/L Ketones (0.0-0.3) mM 09/18/18 09/18/18 09/18/18 Range/Units 18:11 19:59 22:12 WBC (3.98-10.04) K/mm3 RBC (3.98-5.22) M/mm3 Hgb (11.2-15.7) gm/L Hct (34.1-44.9) % MCV (79.4-94.8) fl MCH (25.6-32.2) pg MCHC (32.2-35.5) g/dl RDW Std Deviation (36.4-46.3) fL Plt Count (182-369) K/mm3 MPV (9.4-12.3) fl Neut % (Auto) (34.0-71.1) % Lymph % (Auto) (19.3-51.7) % [place] % (Auto) (4.7-12.5) % Eos % (Auto) (0.7-5.8) Baso % (Auto) (0.1-1.2) % Neut # (Auto) (1.56-6.13) K/mm3 Lymph # (Auto) (1.18-3.74) K/mm3 [place] # (Auto) (0.24-0.36) K/mm3 Eos # (Auto) (0.04-0.36) K/mm3 Baso # (Auto) (0.01-0.08) K/mm3 Neutrophils % (Manual) (40-60) % Band Neutrophils % (0-10) % Lymphocytes % (Manual) (20-40) % Atypical Lymphs % % Monocytes % (Manual) (2-10) % Eosinophils % (Manual) (0.7-5.8) % Basophils % (Manual) (0.1-1.2) Manual Slide Review Platelet Estimate Plt Morphology Comment RBC Morph Comment Sodium 131 L (136-145) mEq/L Potassium 4.4 (3.5-5.1) mEq/L Chloride 91 L (98-107) mEq/L Carbon Dioxide 26 (21-32) mEq/L Anion Gap 18.4 H (5-15) BUN 49 H (7-18) mg/dL Creatinine 2.0 H (0.55-1.02) mg/dL Est Cr Clr Drug Dosing 25.51 mL/min Estimated GFR (MDRD) 25 (>60) mL/min BUN/Creatinine Ratio 24.5 H (14-18) Glucose 380 H 355 H (80-115) mg/dL POC Glucose 245 H (80-115) mg/dL Hemoglobin A1c (4.50-6.20) % Calcium 8.9 (8.5-10.1) mg/dL Magnesium 1.8 (1.8-2.4) mg/dl Total Bilirubin (0.2-1.0) mg/dL AST (15-37) U/L ALT (14-59) U/L Alkaline Phosphatase (46-116) U/L Troponin I (0.00-0.056) ng/mL C-Reactive Protein (<1.0) mg/dL Total Protein (6.4-8.2) g/dl Albumin (3.4-5.0) g/dl Globulin gm/dL Albumin/Globulin Ratio (1-2) Triglycerides (<150) mg/dL Cholesterol (<200) mg/dL LDL Cholesterol Direct (<100) mg/dL HDL Cholesterol (40-59) mg/dL Vitamin D 25-Hydroxy (30.0-100.0) ng/ml Free T4 (0.76-1.46) ng/dL TSH 3rd Generation (0.358-3.74) uIU/mL Urine Color (Yellow) Urine Appearance (Clear) Urine pH (5.0-8.0) Ur Specific [place] (1.005-1.030) Urine Protein (Negative) Urine Glucose (UA) (Negative) Urine Ketones (Negative) Urine Occult Blood (Negative) Urine Nitrite (Negative) Urine Bilirubin (Negative) Urine Urobilinogen (0.2-1.0) Ur Leukocyte Esterase (Negative) Urine RBC (0-5) /hpf Urine WBC (0-5) /hpf Ur Epithelial Cells (0-5) /hpf Amorphous Sediment (NOT SEEN) /hpf Urine Bacteria (FEW) /hpf Urine Mucus (FEW) /hpf Ur Random Microalbumin (1.3-20.0) mg/L Ketones (0.0-0.3) mM 09/18/18 09/19/18 09/19/18 Range/Units 23:49 01:49 05:49 WBC 5.03 (3.98-10.04) K/mm3 RBC 4.28 (3.98-5.22) M/mm3 Hgb 12.8 (11.2-15.7) gm/L Hct 38.5 (34.1-44.9) % MCV 90.0 (79.4-94.8) fl MCH 29.9 (25.6-32.2) pg MCHC 33.2 (32.2-35.5) g/dl RDW Std Deviation 41.6 (36.4-46.3) fL Plt Count 209 (182-369) K/mm3 MPV 10.8 (9.4-12.3) fl Neut % (Auto) 74.2 H (34.0-71.1) % Lymph % (Auto) 16.7 L (19.3-51.7) % [place] % (Auto) 8.5 (4.7-12.5) % Eos % (Auto) 0 L (0.7-5.8) Baso % (Auto) 0.4 (0.1-1.2) % Neut # (Auto) 3.73 (1.56-6.13) K/mm3 Lymph # (Auto) 0.84 L (1.18-3.74) K/mm3 [place] # (Auto) 0.43 H (0.24-0.36) K/mm3 Eos # (Auto) 0.00 L (0.04-0.36) K/mm3 Baso # (Auto) 0.02 (0.01-0.08) K/mm3 Neutrophils % (Manual) (40-60) % Band Neutrophils % (0-10) % Lymphocytes % (Manual) (20-40) % Atypical Lymphs % % Monocytes % (Manual) (2-10) % Eosinophils % (Manual) (0.7-5.8) % Basophils % (Manual) (0.1-1.2) Manual Slide Review Normal smear Platelet Estimate Plt Morphology Comment RBC Morph Comment Sodium (136-145) mEq/L Potassium (3.5-5.1) mEq/L Chloride (98-107) mEq/L Carbon Dioxide (21-32) mEq/L Anion Gap (5-15) BUN (7-18) mg/dL Creatinine (0.55-1.02) mg/dL Est Cr Clr Drug Dosing mL/min Estimated GFR (MDRD) (>60) mL/min BUN/Creatinine Ratio (14-18) Glucose (80-115) mg/dL POC Glucose 235 H 185 H (80-115) mg/dL Hemoglobin A1c (4.50-6.20) % Calcium (8.5-10.1) mg/dL Magnesium (1.8-2.4) mg/dl Total Bilirubin (0.2-1.0) mg/dL AST (15-37) U/L ALT (14-59) U/L Alkaline Phosphatase (46-116) U/L Troponin I (0.00-0.056) ng/mL C-Reactive Protein (<1.0) mg/dL Total Protein (6.4-8.2) g/dl Albumin (3.4-5.0) g/dl Globulin gm/dL Albumin/Globulin Ratio (1-2) Triglycerides (<150) mg/dL Cholesterol (<200) mg/dL LDL Cholesterol Direct (<100) mg/dL HDL Cholesterol (40-59) mg/dL Vitamin D 25-Hydroxy (30.0-100.0) ng/ml Free T4 (0.76-1.46) ng/dL TSH 3rd Generation (0.358-3.74) uIU/mL Urine Color (Yellow) Urine Appearance (Clear) Urine pH (5.0-8.0) Ur Specific [place] (1.005-1.030) Urine Protein (Negative) Urine Glucose (UA) (Negative) Urine Ketones (Negative) Urine Occult Blood (Negative) Urine Nitrite (Negative) Urine Bilirubin (Negative) Urine Urobilinogen (0.2-1.0) Ur Leukocyte Esterase (Negative) Urine RBC (0-5) /hpf Urine WBC (0-5) /hpf Ur Epithelial Cells (0-5) /hpf Amorphous Sediment (NOT SEEN) /hpf Urine Bacteria (FEW) /hpf Urine Mucus (FEW) /hpf Ur Random Microalbumin (1.3-20.0) mg/L Ketones (0.0-0.3) mM 09/19/18 09/19/18 Range/Units 05:49 05:49 WBC (3.98-10.04) K/mm3 RBC (3.98-5.22) M/mm3 Hgb (11.2-15.7) gm/L Hct (34.1-44.9) % MCV (79.4-94.8) fl MCH (25.6-32.2) pg MCHC (32.2-35.5) g/dl RDW Std Deviation (36.4-46.3) fL Plt Count (182-369) K/mm3 MPV (9.4-12.3) fl Neut % (Auto) (34.0-71.1) % Lymph % (Auto) (19.3-51.7) % [place] % (Auto) (4.7-12.5) % Eos % (Auto) (0.7-5.8) Baso % (Auto) (0.1-1.2) % Neut # (Auto) (1.56-6.13) K/mm3 Lymph # (Auto) (1.18-3.74) K/mm3 [place] # (Auto) (0.24-0.36) K/mm3 Eos # (Auto) (0.04-0.36) K/mm3 Baso # (Auto) (0.01-0.08) K/mm3 Neutrophils % (Manual) (40-60) % Band Neutrophils % (0-10) % Lymphocytes % (Manual) (20-40) % Atypical Lymphs % % Monocytes % (Manual) (2-10) % Eosinophils % (Manual) (0.7-5.8) % Basophils % (Manual) (0.1-1.2) Manual Slide Review Platelet Estimate Plt Morphology Comment RBC Morph Comment Sodium 133 L (136-145) mEq/L Potassium 3.9 (3.5-5.1) mEq/L Chloride 96 L (98-107) mEq/L Carbon Dioxide 30 (21-32) mEq/L Anion Gap 10.9 (5-15) BUN 54 H (7-18) mg/dL Creatinine 2.4 H (0.55-1.02) mg/dL Est Cr Clr Drug Dosing 21.26 mL/min Estimated GFR (MDRD) 21 (>60) mL/min BUN/Creatinine Ratio 22.5 H (14-18) Glucose 97 (80-115) mg/dL POC Glucose 115 (80-115) mg/dL Hemoglobin A1c (4.50-6.20) % Calcium 8.4 L (8.5-10.1) mg/dL Magnesium 1.9 (1.8-2.4) mg/dl Total Bilirubin (0.2-1.0) mg/dL AST (15-37) U/L ALT (14-59) U/L Alkaline Phosphatase (46-116) U/L Troponin I (0.00-0.056) ng/mL C-Reactive Protein 24.3 H* (<1.0) mg/dL Total Protein (6.4-8.2) g/dl Albumin (3.4-5.0) g/dl Globulin gm/dL Albumin/Globulin Ratio (1-2) Triglycerides 137 (<150) mg/dL Cholesterol 140 (<200) mg/dL LDL Cholesterol Direct 96 (<100) mg/dL HDL Cholesterol 22.0 L (40-59) mg/dL Vitamin D 25-Hydroxy (30.0-100.0) ng/ml Free T4 (0.76-1.46) ng/dL TSH 3rd Generation (0.358-3.74) uIU/mL Urine Color (Yellow) Urine Appearance (Clear) Urine pH (5.0-8.0) Ur Specific [place] (1.005-1.030) Urine Protein (Negative) Urine Glucose (UA) (Negative) Urine Ketones (Negative) Urine Occult Blood (Negative) Urine Nitrite (Negative) Urine Bilirubin (Negative) Urine Urobilinogen (0.2-1.0) Ur Leukocyte Esterase (Negative) Urine RBC (0-5) /hpf Urine WBC (0-5) /hpf Ur Epithelial Cells (0-5) /hpf Amorphous Sediment (NOT SEEN) /hpf Urine Bacteria (FEW) /hpf Urine Mucus (FEW) /hpf Ur Random Microalbumin (1.3-20.0) mg/L Ketones (0.0-0.3) mM Zbigniew Results Last 24 Hours: Microbiology 09/18/18 11:30 Influenza Type A Antigen Screen - Final Nasopharyngeal Swab Positive Influenza A Ag Influenza Type B Antigen Screen - Final NEGATIVE INFLUENZA B VIRUS AG Med Orders - Current: Current Medications Hydrocodone Bitart/Acetaminophen ([place] 325-5 Mg) 1 tab PO Q4H PRN PRN Reason: Pain (moderate 4-6) Last Admin: 09/19/18 03:19 Dose: 1 tab Albuterol/Ipratropium (Duoneb 3.0-0.5 Mg/3 Ml) 3 ml NEB Q4H PRN PRN Reason: Shortness Of Breath/wheezing Amlodipine Besylate (Norvasc) 5 mg PO BID [facility] Last Admin: 09/18/18 20:40 Dose: 5 mg Aspirin (Halfprin) 81 mg PO DAILY [facility] Bisacodyl (Dulcolax) 5 mg PO DAILY PRN PRN Reason: Constipation Docusate Sodium (Colace) 100 mg PO BID PRN PRN Reason: Constipation Glipizide (Glucotrol Xl) 2.5 mg PO BID [facility] Hydralazine HCl (Apresoline) 20 mg IVPUSH Q4H PRN PRN Reason: Hypertension Last Admin: 09/18/18 17:28 Dose: 20 mg Hydromorphone HCl (Dilaudid) 0.25 mg IVPUSH Q2H PRN PRN Reason: Pain (severe 7-10) Insulin Human Regular 100 unit (/ Sodium Chloride) 100 mls @ 10.43 mls/hr IV TITRATE [facility]; Protocol Last Titration: 09/18/18 16:27 Dose: 0 units/kg/hr, 0 mls/hr Promethazine HCl 6.25 mg/ (Sodium Chloride) 50.25 mls @ 100 mls/hr IV Q6H PRN PRN Reason: Nausea/Vomiting Sodium Chloride (Normal Saline) 1,000 mls @ 150 mls/hr IV ASDIRECTED [facility] Last Admin: 09/19/18 03:14 Dose: 150 mls/hr Insulin Glargine (Lantus) 30 unit SUBCUT BID [facility] Last Admin: 09/18/18 20:39 Dose: 30 units Insulin Human Lispro (Humalog) 0 unit SUBCUT QIDACANDBED [facility]; Protocol Last Admin: 09/19/18 06:35 Dose: Not Given Lisinopril (Prinivil) 20 mg PO DAILY [facility] Lorazepam (Ativan) 0.25 mg IV Q6H PRN PRN Reason: Anxiety Magnesium Sulfate (Pharmacy To Dose - Magnesium Replacement) 1 dose .XX ASDIRECTED [facility] Metoprolol Succinate (Toprol Xl) 200 mg PO DAILY [facility] Metoprolol Tartrate (Lopressor) 5 mg IVPUSH Q4H PRN PRN Reason: Tachycardia Non-Formulary Medication (Verapamil Hcl [Verelan Pm]) 200 mg pe PO DAILY [facility] Non-Formulary Medication (Chlorthalidone) 25 mg PO DAILY [facility] Ondansetron HCl (Zofran) 4 mg IV Q6H PRN PRN Reason: Nausea/Vomiting Oseltamivir Phosphate (Tamiflu) 30 mg PO Q24H [facility] Last Admin: 09/18/18 20:43 Dose: 30 mg Potassium Chloride (Pharmacy To Dose - Potassium Replacement) 1 dose .XX ASDIRECTED [facility] Senna/Docusate Sodium (Senna Plus) 1 tab PO BID PRN PRN Reason: Constipation Temazepam (Restoril) 7.5 mg PO BEDTIME PRN PRN Reason: Sleep Discontinued Medications Clonidine HCl (Catapres) 0.1 mg PO ONETIME ONE Stop: 09/18/18 11:17 Last Admin: 09/18/18 11:35 Dose: 0.1 mg Clonidine HCl (Catapres) Confirm Administered Dose 0.1 mg .ROUTE .STK-MED ONE Stop: 09/18/18 11:36 Last Admin: 09/18/18 12:24 Dose: Not Given Clonidine HCl (Catapres) 0.1 mg PO ONETIME ONE Stop: 09/18/18 13:34 Last Admin: 09/18/18 13:49 Dose: 0.1 mg Glipizide (Glucotrol Xl) 2.5 mg PO BIDMEALS CLIFF Glipizide (Glucotrol Xl) 5 mg PO BID CLIFF Hydrochlorothiazide (Hydrochlorothiazide) 25 mg PO BIDDIURETIC CLIFF Lactated Ringer's (Ringers, Lactated) 1,000 mls @ 999 mls/hr IV .BOLUS ONE Stop: 09/18/18 12:12 Last Admin: 09/18/18 12:14 Dose: 999 mls/hr Sodium Chloride (Normal Saline) 1,000 mls @ 25 mls/hr IV ASDIRECTED [facility] Last Admin: 09/18/18 18:04 Dose: 25 mls/hr Ibuprofen (Motrin) 400 mg PO Q6H PRN PRN Reason: Pain (mild 1-3) Last Admin: 09/18/18 17:27 Dose: 400 mg Insulin Glargine (Lantus) 30 unit SUBCUT BIDAC [facility] Last Admin: 09/18/18 16:16 Dose: Not Given Insulin Human Lispro (Humalog) 0 unit SUBCUT QIDACANDBED [facility]; Protocol Insulin Human Lispro (Humalog) 0 unit SUBCUT Q2H [facility]; Protocol Last Admin: 09/19/18 01:53 Dose: 2 units Insulin Human Regular (Humulin R) 10 unit IV ONETIME STA Stop: 09/18/18 11:14 Last Admin: 09/18/18 12:19 Dose: 10 unit Losartan Potassium (Cozaar) 25 mg PO DAILY CLIFF Oseltamivir Phosphate (Tamiflu) 75 mg PO BID CLIFF - Exam Quality Assessment: No: Supplemental Oxygen General: Alert, Oriented, Cooperative, Mild Distress, Other (looks worn out) HEENT: Pupils Equal, Pupils Reactive, EOMI. No: Mucous Membr. Moist/[place]: Supple, Trachea Midline, No JVD, No Thyromegaly, Other (short and thicl) Lungs: Normal Respiratory Effort, Decreased Breath Sounds, Crackles Cardiovascular: Regular Rate, Regular Rhythm GI/Abdominal Exam: Normal Bowel Sounds, Soft, Non-Tender, No Organomegaly, No Distention, No Abnormal Bruit, No Mass, Other (obese) (Female) Exam: Deferred Back Exam: Normal Inspection, Decreased Range of Motion Extremities: Normal Inspection, Normal Range of Motion, Non-Tender, No Pedal Edema, Normal Capillary Refill Peripheral Pulses: 2+: Dorsalis Pedis (L), Dorsalis Pedis (R) Skin: Warm, Dry, Intact Neurological: No New Focal Deficit (limited due to generalized weakness), Normal Gait Psy/Mental Status: Alert, Normal Affect, Normal Mood. No: Anxious, Depressed, Agitated, Hallucinations, Withdrawal Symptoms - Problem List Review Problem List Initiated/Reviewed/Updated: Yes - My Orders Last 24 Hours: My Active Orders 09/18/18 15:14 Height and Weight [RC] 04 Oxygen Therapy [RC] PRN Up With Assistance [RC] ASDIRECTED Up ad Yaima [RC] ASDIRECTED VTE/DVT Education [RC] , Vital Signs [RC] Q4HR Consult to Diabetic Nurse Specialist [CONS] Routine Consult to Qa Tech [CONS] Routine OT Evaluation and Treatment [CONS] Routine PT Evaluation and Treatment [CONS] Routine Acetaminophen/HYDROcodone [[place] 325-5 MG] 1 tab PO Q4H PRN Albuterol/Ipratropium [DuoNeb 3.0-0.5 MG/3 ML] 3 ml NEB Q4H PRN Bisacodyl [Dulcolax] 5 mg PO DAILY PRN Docusate Sodium [Colace] 100 mg PO BID PRN Docusate Sodium/Sennosides [Senna Plus] 1 tab PO BID PRN HYDROmorphone [Dilaudid] 0.25 mg IVPUSH Q2H PRN LORazepam [Ativan] 0.25 mg IV Q6H PRN Metoprolol Tartrate [Lopressor] 5 mg IVPUSH Q4H PRN Ondansetron [Zofran] 4 mg IV Q6H PRN Promethazine [Phenergan] 6.25 mg Sodium Chloride 0.9% [Normal Saline] 50 ml IV Q6H Temazepam [Restoril] 7.5 mg PO BEDTIME PRN hydrALAZINE [Apresoline] 20 mg IVPUSH Q4H PRN Resuscitation Status Routine 09/18/18 15:15 Cardiac Monitoring [RC] CONTINUOUS Intake and Output [RC] 04,16 Pharmacy to Dose - Magnesium R [Pharmacy to Dose - Magnesium Replacement] 1 dose .XX ASDIRECTED Pharmacy to Dose - Potassium R [Pharmacy to Dose - Potassium Replacement] 1 dose .XX ASDIRECTED 09/18/18 15:16 RT Aerosol Therapy [RC] ASDIRECTED 09/18/18 17:40 RESPIRATORY PANEL Stat 09/18/18 20:00 Oseltamivir [Tamiflu] 30 mg PO Q24H Sodium Chloride 0.9% [Normal Saline] 1,000 ml IV ASDIRECTED 09/18/18 21:00 Insulin Glarg,Human.Rec.Analog [LantUS] 30 unit SUBCUT BID amLODIPine [Norvasc] 5 mg PO BID 09/18/18 21:18 Antiembolic Devices [RC] PER UNIT ROUTINE SCD [Sequential Compression Device] [OM.PC] Routine 09/18/18 Dinner Consistent Carbohydrate Diet [DIET] Heart Healthy Diet [DIET] 09/19/18 01:59 Blood Glucose Check, Bedside [RC] QIDACANDBED 09/19/18 07:00 Insulin Lispro [HumaLOG] See Protocol SUBCUT QIDACANDBED 09/19/18 09:00 Aspirin [Halfprin] 81 mg PO DAILY Chlorthalidone 25 mg PO DAILY Lisinopril [Prinivil] 20 mg PO DAILY Metoprolol Succinate [Toprol XL] 200 mg PO DAILY Verapamil HCl [Verelan Pm] 200 mg pe PO DAILY glipiZIDE [Glucotrol XL] 2.5 mg PO BID 09/20/18 05:11 BASIC METABOLIC PANEL,BMP [CHEM] AM C-REACTIVE PROTEIN [CHEM] AM CBC WITH AUTO DIFF [HEME] AM MAGNESIUM [CHEM] AM 09/21/18 05:11 BASIC METABOLIC PANEL,BMP [CHEM] AM C-REACTIVE PROTEIN [CHEM] AM CBC WITH AUTO DIFF [HEME] AM MAGNESIUM [CHEM] AM 09/22/18 05:11 BASIC METABOLIC PANEL,BMP [CHEM] AM C-REACTIVE PROTEIN [CHEM] AM CBC WITH AUTO DIFF [HEME] AM MAGNESIUM [CHEM] AM 09/23/18 05:11 BASIC METABOLIC PANEL,BMP [CHEM] AM C-REACTIVE PROTEIN [CHEM] AM CBC WITH AUTO DIFF [HEME] AM MAGNESIUM [CHEM] AM - Plan Plan:: Assessment/Plan: Acute: Influenza Infection - Tamiflu 30 mg po daily has CKD likely from long standing diabetes - Still complaints of generalized malaise and no appetite - Permissive hyperglycemia since she is not eating - Continue supportive care Malignant Hypertension, Improved - Documented BP of 246/86 on presentation to ED - Received clonidine in ED; PRN clonidine - Home meds not verified yet - PRN Hydralazine, Norvasc 5 mg po BID, HCTZ 25 mg po daily; resumed home meds Pulmonary Edema - Currently on NS at 125 cc/hr; She is not eating or drinking - Saline lock and Bumex 1mg IVP x1 now; may repeat 0.5 mg IVP x1 at 1800 Cough/Bronchitis - Coughs up pinkish colored sputum - Sputum Cx, Mycoplasma and Strep Ag test - Decongestant/Expectorant - FV/SV as directed - Iv Azithromycin 500 mg daily Generalized Weakness - 2/2 above - Vit D level and Thyroid Panel- both wnl - PT/OT to assess and treat - Encourage to eat anything and drink Class III Obesity - BMI of 40.3 - Dietary consult for weight management Resolved: S/p Hyperosmolar Hyperglycemic State in DM2 - 2/2 poor oral and hydration status - BS in the 500s; now the 200s - Started on insulin drip in ED; will d/c it - Lantus 30 units SC BID and Medium dose ISS; may add sulfonylureas if still uncontrolled - Accu-check Q2 w/ ISS; if 3 consecutive levels are in the 200s then switch to AC/HS - A1C is 9.0 - Thyroid Panel and Vit D level- wnl - Lipid panel- low HLD level - Microalbumin level- 1148 (high) already on ARB but will hold it for now - Glove [place] S/p Febrile Illness - 2/2 Influenza A - Positive on screening - Will give antiviral agent to lessen duration of her symptoms - Tamiflu 75 mg po BID for pharmacy to dose pending repeat BMP; 30 mg po daily due CKD - Supportive Care - Encourage to eat and drink Chronic: Impaired Vision HTN HLD Hx/o HF Unknown EF CKD Unknown Stage but it looks like 3-4; no baseline levels for comparison Class III Obesity Plan: Essentially she looks about the same if not a little worse than yesterday Routine AM Labs Diabetic and Dietary consult for weight management PT/OT to asses and treat SW/CM for d/c planning DVT/GI PPx: SCDs and H2B Encourage to eat and drink Code status: 1 Prognosis is guarded
[2018-09-19] MEDS: amLODIPine 10 MG Tab PO SCH ×2 (08:48→20:02)
[2018-09-19] MEDS: Aspirin 81 MG Tab.EC PO SCH (08:54)
[2018-09-19] MEDS: Metoprolol Succinate 50 MG Tab.ER PO SCH (08:54)
[2018-09-19] MEDS: Insulin Glarg,Human.Rec.Analog 100 UNIT/ML ML SUBCUT SCH ×2 (08:57→20:04)
[2018-09-19] MEDS ORDERED: Lisinopril 20 MG Tab PO SCH (09:00)
[2018-09-19] MEDS ORDERED: VERAPAMIL HCL 200 MG PO SCH (09:00)
[2018-09-19] MEDS ORDERED: glipiZIDE 5 MG Tab.ER PO SCH (09:00)
[2018-09-19] MEDS ORDERED: Losartan 25 MG Tab PO SCH (09:00)
[2018-09-19] MEDS: CHLORTHALIDONE 25 MG PO SCH (09:09)
[2018-09-19] MEDS: glipiZIDE 2.5 MG Tab.ER PO SCH ×2 (09:12→20:01)
[2018-09-19] MEDS: Albuterol/Ipratropium 3.0-0.5 MG/3 ML Neb Soln NEB PRN ×2 (09:34→20:50)
[2018-09-19] MEDS ORDERED: guaiFENesin/Dextromethorphan 100-10 MG/5 ML Soln 5 ML Cup PO STA (09:38)
--- NOTE | 2018-09-19 10:45 | CR ---
Chest: Portable view of the chest was obtained. Comparison: Previous chest x-ray of 09/18/18. Heart size and mediastinum are within normal limits. Diffuse increasing parenchymal densities are noted on both sides of the chest as an interval finding from previous chest x-ray. Bony structures are grossly intact. Impression: 1. Worsening appearance of the chest from prior chest x-ray. Findings presumably represent worsening infection possibly becoming more prominent because of increased hydration. Diagnostic code #3
[2018-09-19] MEDS ORDERED: Bumetanide 1 MG/4 ML MDV IVPUSH ONE (13:08)
[2018-09-19] MEDS ORDERED: Sodium Chloride 0.9% 10 ML Syringe FLUSH PRN (13:08)
[2018-09-19] MEDS ORDERED: Hydrochlorothiazide 12.5 MG Cap PO STA (13:09)
[2018-09-19] MEDS: guaiFENesin/Dextromethorphan 100-10 MG/5 ML Soln 5 ML Cup PO SCH ×2 (13:42→20:03)
--- NOTE | 2018-09-19 13:59 | CR ---
Chest: Two views of the chest are obtained. Comparison: No prior chest x-ray. Cardiothymic silhouette is normal. Patchy increased density is seen on both sides of the chest. Slight scoliosis is noted within the spine. Mild degenerative change is scattered within the spine. Impression: 1. Patchy increased density within both sides of chest most likely representing fairly severe bronchopneumonia. Diagnostic code #3
[2018-09-19] MEDS ORDERED: cloNIDine 0.3 MG/Day Transdermal Patch TRDERM SCH (14:30)
[2018-09-19] MEDS ORDERED: cloNIDine 0.1 MG Tab PO ONE (16:30)
[2018-09-19] MEDS ORDERED: Labetalol 100 MG/20 ML MDV IVPUSH PRN (16:33)
[2018-09-19] MEDS ORDERED: Azithromycin 500 MG Vial ONE (16:55)
[2018-09-19] MEDS: Azithromycin 500 MG in Sodium Chloride 0.9% 250 ML IV SCH (17:17)
[2018-09-19] MEDS: cefTRIAXone 1 GM in Sodium Chloride 0.9% 100 ML IV SCH (18:53)
[2018-09-19] MEDS: Saccharomyces Boulardii (Probiotic) 250 MG Cap PO SCH (20:01)
[2018-09-19] MEDS: Oseltamivir 30 MG Cap PO SCH (20:01)
[2018-09-19] MEDS: Bumetanide 1 MG/4 ML MDV IVPUSH SCH (20:03)
[2018-09-19] MEDS: Temazepam 7.5 MG Cap PO PRN (20:03)
[2018-09-19] MEDS: VERAPAMIL HCL 200 MG PO SCH (20:05)
[2018-09-20] MEDS: Insulin Lispro 100 UNIT/ML 10 ML VIAL SUBCUT SCH ×4 (05:59→21:16)
[2018-09-20] MEDS: Bumetanide 1 MG/4 ML MDV IVPUSH SCH ×2 (08:32→21:15)
[2018-09-20] MEDS: Aspirin 81 MG Tab.EC PO SCH (08:47)
[2018-09-20] MEDS: Insulin Glarg,Human.Rec.Analog 100 UNIT/ML ML SUBCUT SCH ×2 (08:47→21:16)
[2018-09-20] MEDS: Saccharomyces Boulardii (Probiotic) 250 MG Cap PO SCH ×2 (08:47→20:59)
[2018-09-20] MEDS: Hydrochlorothiazide 12.5 MG Cap PO SCH (08:47)
[2018-09-20] MEDS: glipiZIDE 2.5 MG Tab.ER PO SCH ×2 (08:48→20:59)
[2018-09-20] MEDS: guaiFENesin/Dextromethorphan 100-10 MG/5 ML Soln 5 ML Cup PO SCH ×3 (08:48→21:00)
[2018-09-20] MEDS: Metoprolol Succinate 50 MG Tab.ER PO SCH (08:48)
[2018-09-20] MEDS: amLODIPine 10 MG Tab PO SCH ×2 (08:48→20:58)
[2018-09-20] MEDS: CHLORTHALIDONE 25 MG PO SCH (08:49)
--- NOTE | 2018-09-20 08:55 | CR ---
Chest: Portable view of the chest was obtained. Comparison: Prior chest x-ray of 09/19/18. Patchy areas of increased density are noted within both sides of the chest. Findings are slightly improved from previous exam. Heart is mildly enlarged. Bony structures are grossly intact. Impression: 1. Slightly improving chest x-ray from previous exam. Diagnostic code #3
--- NOTE | 2018-09-20 12:21 | PCM.PN ---
- General Info Date of Service: 09/20/18 Admission Dx/Problem (Free Text): Influenza and Hyperosmolar Hyperglycemic State Subjective Update: Follow Up Functional Status: Reports: Pain Controlled, Tolerating Diet, Ambulating, Urinating. Denies: New Symptoms - Review of Systems General: Reports: Weakness, Fatigue. Denies: Fever, Chills HEENT: Reports: No Symptoms Pulmonary: Reports: Shortness of Breath (with ambulation), Cough. Denies: Sputum Cardiovascular: Denies: Chest Pain, Dyspnea on Exertion, Lightheadedness Gastrointestinal: Denies: Abdominal Pain, Nausea, Vomiting 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: Reports: No Symptoms Musculoskeletal: Reports: No Symptoms Skin: Denies: Cyanosis, Mottled, Diaphoresis, Other Neurological: Reports: Weakness, Gait Disturbance. Denies: Confusion, Difficulty Walking Psychiatric: Denies: Depression, Anxiety, Agitation, Hallucinations Systems Review Comment:: She slept good and feeling better. She also starting to eat. Her supplemental O2 is now down to 2L from 4. Her HR is in the upper 50s, she has had clonidine and also took her high dose Metoprolol this morning. Her BS overall has improved. She is febrile w/o leukoctyosis. - Patient Data Vitals - Most Recent: Last Vital Signs Temp 36.4 C 09/20/18 11:27 Pulse 54 L 09/20/18 11:00 Resp 20 09/20/18 11:27 BP 118/52 L 09/20/18 11:27 Pulse Ox 94 L 09/20/18 11:27 Weight - Most Recent: 107.275 kg I&O - Last 24 Hours: Intake & Output 09/19/18 09/20/18 09/20/18 22:59 06:59 14:59 Intake Total 2270 300 400 Output Total 1100 450 Balance 1170 -150 400 Lab Results Last 24 Hours: Laboratory Results - last 24 hr 09/19/18 09/19/18 09/20/18 Range/Units 16:43 19:38 05:46 WBC 3.99 (3.98-10.04) K/mm3 RBC 4.53 (3.98-5.22) M/mm3 Hgb 13.5 (11.2-15.7) gm/L Hct 40.8 (34.1-44.9) % MCV 90.1 (79.4-94.8) fl MCH 29.8 (25.6-32.2) pg MCHC 33.1 (32.2-35.5) g/dl RDW Std Deviation 42.0 (36.4-46.3) fL Plt Count 229 (182-369) K/mm3 MPV 11.3 (9.4-12.3) fl Neut % (Auto) 52.8 (34.0-71.1) % Lymph % (Auto) 35.3 (19.3-51.7) % [place] % (Auto) 10.3 (4.7-12.5) % Eos % (Auto) 0 L (0.7-5.8) Baso % (Auto) 1.3 H (0.1-1.2) % Neut # (Auto) 2.11 (1.56-6.13) K/mm3 Lymph # (Auto) 1.41 (1.18-3.74) K/mm3 [place] # (Auto) 0.41 H (0.24-0.36) K/mm3 Eos # (Auto) 0.00 L (0.04-0.36) K/mm3 Baso # (Auto) 0.05 (0.01-0.08) K/mm3 Manual Slide Review Abnormal smear Sodium (136-145) mEq/L Potassium (3.5-5.1) mEq/L Chloride (98-107) mEq/L Carbon Dioxide (21-32) mEq/L Anion Gap (5-15) BUN (7-18) mg/dL Creatinine (0.55-1.02) mg/dL Est Cr Clr Drug Dosing mL/min Estimated GFR (MDRD) (>60) mL/min BUN/Creatinine Ratio (14-18) Glucose (80-115) mg/dL POC Glucose 356 H 298 H (80-115) mg/dL Calcium (8.5-10.1) mg/dL Magnesium (1.8-2.4) mg/dl C-Reactive Protein (<1.0) mg/dL 09/20/18 09/20/18 09/20/18 Range/Units 05:46 05:46 11:19 WBC (3.98-10.04) K/mm3 RBC (3.98-5.22) M/mm3 Hgb (11.2-15.7) gm/L Hct (34.1-44.9) % MCV (79.4-94.8) fl MCH (25.6-32.2) pg MCHC (32.2-35.5) g/dl RDW Std Deviation (36.4-46.3) fL Plt Count (182-369) K/mm3 MPV (9.4-12.3) fl Neut % (Auto) (34.0-71.1) % Lymph % (Auto) (19.3-51.7) % [place] % (Auto) (4.7-12.5) % Eos % (Auto) (0.7-5.8) Baso % (Auto) (0.1-1.2) % Neut # (Auto) (1.56-6.13) K/mm3 Lymph # (Auto) (1.18-3.74) K/mm3 [place] # (Auto) (0.24-0.36) K/mm3 Eos # (Auto) (0.04-0.36) K/mm3 Baso # (Auto) (0.01-0.08) K/mm3 Manual Slide Review Sodium 131 L (136-145) mEq/L Potassium 3.8 (3.5-5.1) mEq/L Chloride 93 L (98-107) mEq/L Carbon Dioxide 30 (21-32) mEq/L Anion Gap 11.8 (5-15) BUN 55 H (7-18) mg/dL Creatinine 2.0 H (0.55-1.02) mg/dL Est Cr Clr Drug Dosing 25.51 mL/min Estimated GFR (MDRD) 25 (>60) mL/min BUN/Creatinine Ratio 27.5 H (14-18) Glucose 125 H (80-115) mg/dL POC Glucose 136 H 306 H (80-115) mg/dL Calcium 8.4 L (8.5-10.1) mg/dL Magnesium 1.9 (1.8-2.4) mg/dl C-Reactive Protein 23.2 H* (<1.0) mg/dL Zbigniew Results Last 24 Hours: Microbiology 09/18/18 11:36 Aerobic Blood Culture - Preliminary Blood - Venous NO GROWTH AFTER 2 DAYS Anaerobic Blood Culture - Final 09/19/18 09:40 Gram Stain - Final Sputum - Expectorated Sputum Culture - Preliminary 09/18/18 13:40 Aerobic Blood Culture - Preliminary Blood - Venous - Lab Draw NO GROWTH AFTER 1 DAY Anaerobic Blood Culture - Preliminary NO GROWTH AFTER 1 DAY Med Orders - Current: Current Medications Hydrocodone Bitart/Acetaminophen ([place] 325-5 Mg) 1 tab PO Q4H PRN PRN Reason: Pain (moderate 4-6) Last Admin: 09/19/18 03:19 Dose: 1 tab Albuterol/Ipratropium (Duoneb 3.0-0.5 Mg/3 Ml) 3 ml NEB Q4H PRN PRN Reason: Shortness Of Breath/wheezing Last Admin: 09/19/18 20:50 Dose: 3 ml Amlodipine Besylate (Norvasc) 5 mg PO BID [facility] Last Admin: 09/20/18 08:48 Dose: 5 mg Aspirin (Halfprin) 81 mg PO DAILY [facility] Last Admin: 09/20/18 08:47 Dose: 81 mg Bisacodyl (Dulcolax) 5 mg PO DAILY PRN PRN Reason: Constipation Bumetanide (Bumex) 0.5 mg IVPUSH BID [facility] Stop: 09/21/18 09:01 Last Admin: 09/20/18 08:32 Dose: 0.5 mg Clonidine HCl (Catapres-Tts 3) 0.3 mg TRDERM Q7D [facility] Last Admin: 09/19/18 14:39 Dose: 0.3 mg Docusate Sodium (Colace) 100 mg PO BID PRN PRN Reason: Constipation Glipizide (Glucotrol Xl) 2.5 mg PO BID [facility] Last Admin: 09/20/18 08:48 Dose: 2.5 mg Guaifenesin/Phenylephrine HCl (Robitussin Dm) 10 ml PO TID@0900,1400,2100 [facility] Last Admin: 09/20/18 08:48 Dose: 10 ml Hydralazine HCl (Apresoline) 20 mg IVPUSH Q4H PRN PRN Reason: Hypertension Last Admin: 09/18/18 17:28 Dose: 20 mg Hydrochlorothiazide (Hydrochlorothiazide) 12.5 mg PO DAILY [facility] Stop: 09/22/18 09:01 Last Admin: 09/20/18 08:47 Dose: 12.5 mg Hydromorphone HCl (Dilaudid) 0.25 mg IVPUSH Q2H PRN PRN Reason: Pain (severe 7-10) Promethazine HCl 6.25 mg/ (Sodium Chloride) 50.25 mls @ 100 mls/hr IV Q6H PRN PRN Reason: Nausea/Vomiting Azithromycin 500 mg/ Sodium (Chloride) 250 mls @ 250 mls/hr IV Q24H [facility] Last Admin: 09/19/18 17:17 Dose: 250 mls/hr Ceftriaxone Sodium 1 gm/ (Sodium Chloride) 100 mls @ 200 mls/hr IV Q24H [facility] Last Admin: 09/19/18 18:53 Dose: 200 mls/hr Insulin Glargine (Lantus) 30 unit SUBCUT BID [facility] Last Admin: 09/20/18 08:47 Dose: Not Given Insulin Human Lispro (Humalog) 0 unit SUBCUT TIDAC [facility]; Protocol Last Admin: 09/20/18 11:24 Dose: 12 units Insulin Human Lispro (Humalog) 0 unit SUBCUT BEDTIME [facility]; Protocol Last Admin: 09/19/18 20:04 Dose: 9 units Labetalol HCl (Normodyne) 20 mg IVPUSH Q6H PRN; Protocol PRN Reason: Hypertension Lorazepam (Ativan) 0.25 mg IV Q6H PRN PRN Reason: Anxiety Magnesium Sulfate (Pharmacy To Dose - Magnesium Replacement) 0 dose .XX ASDIRECTED PRN PRN Reason: RX TO WATCH MAG Metoprolol Succinate (Toprol Xl) 200 mg PO DAILY [facility] Last Admin: 09/20/18 08:48 Dose: 200 mg Metoprolol Tartrate (Lopressor) 5 mg IVPUSH Q4H PRN PRN Reason: Tachycardia Miscellaneous Information (Remove Patch) 1 ea TRDERM Q7D [facility] Ondansetron HCl (Zofran) 4 mg IV Q6H PRN PRN Reason: Nausea/Vomiting Oseltamivir Phosphate (Tamiflu) 30 mg PO Q24H [facility] Last Admin: 09/19/18 20:01 Dose: 30 mg Chlorthalidone 25 Mg (Ptom) 0 each PO DAILY [facility] Last Admin: 09/20/18 08:49 Dose: 1 each Verapamil Hcl [ Verelan Pm] 200 Mg * *Ptom 0 each PO BEDTIME [facility] Last Admin: 09/19/18 20:05 Dose: Not Given Potassium Chloride (Pharmacy To Dose - Potassium Replacement) 0 dose .XX ASDIRECTED PRN PRN Reason: RX TO WATCH K Saccharomyces Boulardii (Florastor) 250 mg PO BID [facility] Last Admin: 09/20/18 08:47 Dose: 250 mg Senna/Docusate Sodium (Senna Plus) 1 tab PO BID PRN PRN Reason: Constipation Sodium Chloride (Saline Flush) 10 ml FLUSH ASDIRECTED PRN PRN Reason: Keep Vein Open Temazepam (Restoril) 7.5 mg PO BEDTIME PRN PRN Reason: Sleep Last Admin: 09/19/18 20:03 Dose: 7.5 mg Discontinued Medications Azithromycin (Zithromax) Confirm Administered Dose 500 mg .ROUTE .STK-MED ONE Stop: 09/19/18 16:56 Last Admin: 09/19/18 17:03 Dose: Not Given Bumetanide (Bumex) 1 mg IVPUSH ONETIME ONE Stop: 09/19/18 13:09 Last Admin: 09/19/18 13:43 Dose: 1 mg Clonidine HCl (Catapres) 0.1 mg PO ONETIME ONE Stop: 09/18/18 11:17 Last Admin: 09/18/18 11:35 Dose: 0.1 mg Clonidine HCl (Catapres) Confirm Administered Dose 0.1 mg .ROUTE .STK-MED ONE Stop: 09/18/18 11:36 Last Admin: 09/18/18 12:24 Dose: Not Given Clonidine HCl (Catapres) 0.1 mg PO ONETIME ONE Stop: 09/18/18 13:34 Last Admin: 09/18/18 13:49 Dose: 0.1 mg Clonidine HCl (Catapres) 0.1 mg PO ONETIME ONE Stop: 09/19/18 16:31 Last Admin: 09/19/18 17:04 Dose: 0.1 mg Glipizide (Glucotrol Xl) 2.5 mg PO BIDMEALS [facility] Glipizide (Glucotrol Xl) 5 mg PO BID [facility] Guaifenesin/Phenylephrine HCl (Robitussin Dm) 10 ml PO TID@0700,1400,2100 [facility] Last Admin: 09/19/18 20:03 Dose: 10 ml Guaifenesin/Phenylephrine HCl (Robitussin Dm) 10 ml PO NOW STA Stop: 09/19/18 09:39 Last Admin: 09/19/18 10:39 Dose: 10 ml Hydrochlorothiazide (Hydrochlorothiazide) 25 mg PO BIDDIURETIC [facility] Hydrochlorothiazide (Hydrochlorothiazide) 12.5 mg PO NOW [facility] Stop: 09/19/18 13:10 Last Admin: 09/19/18 13:42 Dose: 12.5 mg Insulin Human Regular 100 unit (/ Sodium Chloride) 100 mls @ 10.43 mls/hr IV TITRATE [facility]; Protocol Last Titration: 09/18/18 16:27 Dose: 0 units/kg/hr, 0 mls/hr Lactated Ringer's (Ringers, Lactated) 1,000 mls @ 999 mls/hr IV .BOLUS ONE Stop: 09/18/18 12:12 Last Admin: 09/18/18 12:14 Dose: 999 mls/hr Sodium Chloride (Normal Saline) 1,000 mls @ 25 mls/hr IV ASDIRECTED [facility] Last Admin: 09/18/18 18:04 Dose: 25 mls/hr Sodium Chloride (Normal Saline) 1,000 mls @ 150 mls/hr IV ASDIRECTED [facility] Last Admin: 09/19/18 03:14 Dose: 150 mls/hr Ibuprofen (Motrin) 400 mg PO Q6H PRN PRN Reason: Pain (mild 1-3) Last Admin: 09/18/18 17:27 Dose: 400 mg Insulin Glargine (Lantus) 30 unit SUBCUT BIDAC [facility] Last Admin: 09/18/18 16:16 Dose: Not Given Insulin Human Lispro (Humalog) 0 unit SUBCUT QIDACANDBED [facility]; Protocol Insulin Human Lispro (Humalog) 0 unit SUBCUT Q2H [facility]; Protocol Last Admin: 09/19/18 01:53 Dose: 2 units Insulin Human Lispro (Humalog) 0 unit SUBCUT QIDACANDBED [facility]; Protocol Last Admin: 09/19/18 17:04 Dose: 15 units Insulin Human Regular (Humulin R) 10 unit IV ONETIME [facility] Stop: 09/18/18 11:14 Last Admin: 09/18/18 12:19 Dose: 10 unit Lisinopril (Prinivil) 20 mg PO DAILY [facility] Last Admin: 09/19/18 08:51 Dose: 20 mg Losartan Potassium (Cozaar) 25 mg PO DAILY [facility] Oseltamivir Phosphate (Tamiflu) 75 mg PO BID [facility] Verapamil Hcl [ Verelan Pm] 200 Mg * *Ptom 0 each PO DAILY [facility] Last Admin: 09/19/18 09:07 Dose: Not Given - Exam Quality Assessment: Supplemental Oxygen General: Alert, Oriented, Cooperative, No Acute Distress, Other (Obese) HEENT: Pupils Equal, Pupils Reactive, EOMI, Mucous Membr. Moist/[place] Neck: Supple, Trachea Midline, No JVD, No Thyromegaly Lungs: Normal Respiratory Effort, Decreased Breath Sounds, Crackles (minimal) Cardiovascular: Regular Rhythm, Bradycardia GI/Abdominal Exam: Normal Bowel Sounds, Soft, Non-Tender, No Organomegaly, No Distention, No Abnormal Bruit, Other (Obese) (Female) Exam: Deferred Back Exam: Normal Inspection, Decreased Range of Motion Extremities: Normal Inspection, Normal Range of Motion, Non-Tender, No Pedal Edema, Normal Capillary Refill Peripheral Pulses: 2+: Dorsalis Pedis (L), Dorsalis Pedis (R) Skin: Warm, Dry, Intact Neurological: No New Focal Deficit (limited due to generalized weakness). No: Normal Gait Psy/Mental Status: Alert, Normal Affect, Normal Mood - Problem List Review Problem List Initiated/Reviewed/Updated: Yes - My Orders Last 24 Hours: My Active Orders 09/19/18 13:08 Flutter Valve Therapy [RT Chest Physiotherapy] [RC] ASDIRECTED Incentive Spirometry [RT Incentive Spirometry] [RC] Q2HWA Sodium Chloride 0.9% [Saline Flush] 10 ml FLUSH ASDIRECTED PRN Saline Lock Insert [OM.PC] Routine 09/19/18 14:30 cloNIDine [Catapres-TTS 3] 0.3 mg TRDERM Q7D 09/19/18 16:33 Labetalol [Normodyne] 20 mg IVPUSH Q6H PRN 09/19/18 17:00 Azithromycin [Zithromax] 500 mg Sodium Chloride 0.9% [Normal Saline] 250 ml IV Q24H 09/19/18 18:00 cefTRIAXone [Rocephin] 1 gm Sodium Chloride 0.9% [Normal Saline] 100 ml IV Q24H 09/19/18 21:00 Bumetanide [Bumex] 0.5 mg IVPUSH BID Insulin Lispro [HumaLOG] 0 unit SUBCUT BEDTIME Patient's Own Medication [Ptom] 0 each PO BEDTIME Saccharomyces Boulardii [Florastor] 250 mg PO BID 09/20/18 07:00 Insulin Lispro [HumaLOG] 0 unit SUBCUT TIDAC 09/20/18 09:00 Dextromethorphan/guaiFENesin [Robitussin DM] 10 ml PO TID@0900,1400,2100 hydroCHLOROthiazide 12.5 mg PO DAILY 09/21/18 05:11 BASIC METABOLIC PANEL,BMP [CHEM] AM C-REACTIVE PROTEIN [CHEM] AM CBC WITH AUTO DIFF [HEME] AM MAGNESIUM [CHEM] AM 09/22/18 05:11 BASIC METABOLIC PANEL,BMP [CHEM] AM C-REACTIVE PROTEIN [CHEM] AM CBC WITH AUTO DIFF [HEME] AM MAGNESIUM [CHEM] AM 09/23/18 05:11 BASIC METABOLIC PANEL,BMP [CHEM] AM C-REACTIVE PROTEIN [CHEM] AM CBC WITH AUTO DIFF [HEME] AM MAGNESIUM [CHEM] AM 09/26/18 14:30 Remove Patch 1 ea TRDERM Q7D - Plan Plan:: Assessment/Plan: Acute: Bronchopneumonia - Viral vs Bacterial - CXR shows worsening appearance of the chest from previous study - Continue 1 gram IV Rocephin and IV 500 mg Azithromycin daily plus probiotic - Sputum Cx- preliminary; Blood Cx negative so far - Mycoplasma- negative; Strep Ag test- pending - FV/SV as directed - Decongestant/Expectorant - Repeat CXR this AM shows improved lungs Influenza Infection - Tamiflu 30 mg po daily has CKD likely from long standing diabetes - Still complaints of generalized malaise and no appetite - Permissive hyperglycemia since she is not eating - Continue supportive care Hyperglycemia with DM2 - A1C 9.0 - BS is still not controlled; she just started eating this AM; refused Lantus this morning - Lantus 30 units SC BID and Medium dose ISS plus Glucotrol 2.5 mg po BID - Accu-check AC/HS plus ISS - [employer] and Dietary consult - Provided reading material for GLP1 and SGLT2 Inhibitors Generalized Weakness - 2/2 above - Vit D level and Thyroid Panel- both wnl - PT/OT to assess and treat - Encourage to eat anything and drink Class III Obesity - BMI of 40.3 - Dietary consult for weight management Resolved: S/p Hyperosmolar Hyperglycemic State in DM2 - 2/2 poor oral and hydration status - BS in the 500s; now the 200s - Started on insulin drip in ED; will d/c it - Lantus 30 units SC BID and Medium dose ISS; may add sulfonylureas if still uncontrolled - Accu-check Q2 w/ ISS; if 3 consecutive levels are in the 200s then switch to AC/HS - A1C is 9.0 - Thyroid Panel and Vit D level- wnl - Lipid panel- low HLD level - Microalbumin level- 1148 (high) already on ARB but will hold it for now - [employer] S/p Febrile Illness - 2/2 Influenza A - Positive on screening - Will give antiviral agent to lessen duration of her symptoms - Tamiflu 75 mg po BID for pharmacy to dose pending repeat BMP; 30 mg po daily due CKD - Supportive Care - Encourage to eat and drink S/p Malignant Hypertension - Documented BP of 246/86 on presentation to ED - Received clonidine in ED; PRN clonidine; d/c Clonidine - Home meds not verified yet - PRN Hydralazine, Norvasc 5 mg po BID, HCTZ 25 mg po daily; resumed home meds S/p Pulmonary Edema - Currently on NS at 125 cc/hr; She is not eating or drinking - Saline lock and Bumex 1mg IVP x1 now; may repeat 0.5 mg IVP x1 at 1800 Chronic: Impaired Vision HTN HLD Hx/o HF Unknown EF CKD Unknown Stage but it looks like 3-4; no baseline levels for comparison Class III Obesity Plan: She definitely look much better clinically Routine AM Labs Diabetic and Dietary consult for weight management PT/OT to asses and treat SW/CM for d/c planning DVT/GI PPx: SCDs and H2B Encourage to eat and drink as well as ambulate as tolerated Code status: 1
[2018-09-20] MEDS: Azithromycin 500 MG in Sodium Chloride 0.9% 250 ML IV SCH (17:02)
[2018-09-20] MEDS: cefTRIAXone 1 GM in Sodium Chloride 0.9% 100 ML IV SCH (18:05)
[2018-09-20] MEDS: Oseltamivir 30 MG Cap PO SCH (20:59)
[2018-09-20] MEDS: Temazepam 7.5 MG Cap PO PRN (21:17)
[2018-09-20] MEDS: VERAPAMIL HCL 200 MG PO SCH (22:46)
[2018-09-21] MEDS: Insulin Lispro 100 UNIT/ML 10 ML VIAL SUBCUT SCH ×4 (06:14→21:17)
[2018-09-21] MEDS: Albuterol/Ipratropium 3.0-0.5 MG/3 ML Neb Soln NEB PRN ×2 (08:24→15:20)
[2018-09-21] MEDS ORDERED: Potassium Chloride 20 MEQ Tab.ER PO ONE (09:00)
--- NOTE | 2018-09-21 09:39 | PCM.PN ---
- General Info Date of Service: 09/21/18 Admission Dx/Problem (Free Text): Influenza and Hyperosmolar Hyperglycemic State Subjective Update: Follow Up Functional Status: Reports: Pain Controlled, Tolerating Diet, Ambulating, Urinating. Denies: New Symptoms - Review of Systems General: Reports: Malaise. Denies: Fever, Weakness, Fatigue, Chills HEENT: Reports: Glasses Pulmonary: Reports: Cough. Denies: Shortness of Breath, Sputum Cardiovascular: Denies: Chest Pain, Dyspnea on Exertion, Lightheadedness Gastrointestinal: Denies: Abdominal Pain, Decreased Appetite, Nausea, Vomiting 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: Reports: No Symptoms Musculoskeletal: Reports: No Symptoms Skin: Reports: No Symptoms, Cyanosis Neurological: Denies: Confusion, Weakness, Gait Disturbance Psychiatric: Denies: Depression, Anxiety, Agitation, Hallucinations Systems Review Comment:: No significant overnight issues. However her glucose drop to as low as 59 this AM but she is asymptomatic (only got 12 units of ISS and 30 of LA insulin; never the oral agent). Her appetite has been inconsistent and may be picky with her diet. She is afebrile w/o leukocytosis. But overall she feels like she is getting better. She ambulated today down the lau with no issues. - Patient Data Vitals - Most Recent: Last Vital Signs Temp 36.9 C 09/21/18 07:52 Pulse 56 L 09/21/18 07:52 Resp 19 09/21/18 07:52 BP 145/49 H 09/21/18 07:52 Pulse Ox 93 L 09/21/18 08:24 Weight - Most Recent: 106.322 kg I&O - Last 24 Hours: Intake & Output 09/20/18 09/21/18 09/21/18 22:59 06:59 14:59 Intake Total 1030 500 Output Total 200 Balance 1030 500 -200 Lab Results Last 24 Hours: Laboratory Results - last 24 hr 09/18/18 09/20/18 09/20/18 Range/Units 17:40 05:46 11:19 WBC (3.98-10.04) K/mm3 RBC (3.98-5.22) M/mm3 Hgb (11.2-15.7) gm/L Hct (34.1-44.9) % MCV (79.4-94.8) fl MCH (25.6-32.2) pg MCHC (32.2-35.5) g/dl RDW Std Deviation (36.4-46.3) fL Plt Count (182-369) K/mm3 MPV (9.4-12.3) fl Neut % (Auto) (34.0-71.1) % Lymph % (Auto) (19.3-51.7) % [place] % (Auto) (4.7-12.5) % Eos % (Auto) (0.7-5.8) Baso % (Auto) (0.1-1.2) % Neut # (Auto) (1.56-6.13) K/mm3 Lymph # (Auto) (1.18-3.74) K/mm3 [place] # (Auto) (0.24-0.36) K/mm3 Eos # (Auto) (0.04-0.36) K/mm3 Baso # (Auto) (0.01-0.08) K/mm3 Manual Slide Review Sodium (136-145) mEq/L Potassium (3.5-5.1) mEq/L Chloride (98-107) mEq/L Carbon Dioxide (21-32) mEq/L Anion Gap (5-15) BUN (7-18) mg/dL Creatinine (0.55-1.02) mg/dL Est Cr Clr Drug Dosing mL/min Estimated GFR (MDRD) (>60) mL/min BUN/Creatinine Ratio (14-18) Glucose (80-115) mg/dL POC Glucose 136 H 306 H (80-115) mg/dL Calcium (8.5-10.1) mg/dL Magnesium (1.8-2.4) mg/dl C-Reactive Protein (<1.0) mg/dL Adenovirus (PCR) Not detected (Not Detected) B. pertussis DNA (PCR) Not detected (Not Detected) B.parapertussis DNA PCR Not detected (Not Detected) C. pneumoniae DNA (PCR) Not detected (Not Detected) Coronavirus (PCR) Not detected (Not Detected) Human Metapneumovir PCR Not detected (Not Detected) Influ A (H1N1/09) PCR Detected H (Not Detected) Influenza B (RT-PCR) Not detected (Not Detected) M. pneumoniae (PCR) Not detected (Not Detected) Parainfluen 1,2,3,4 PCR Not detected (Not Detected) RSV (PCR) Not detected (Not Detected) Entero/Rhino (PCR) Not detected (Not Detected) 09/20/18 09/20/18 09/21/18 Range/Units 17:19 21:04 06:12 WBC (3.98-10.04) K/mm3 RBC (3.98-5.22) M/mm3 Hgb (11.2-15.7) gm/L Hct (34.1-44.9) % MCV (79.4-94.8) fl MCH (25.6-32.2) pg MCHC (32.2-35.5) g/dl RDW Std Deviation (36.4-46.3) fL Plt Count (182-369) K/mm3 MPV (9.4-12.3) fl Neut % (Auto) (34.0-71.1) % Lymph % (Auto) (19.3-51.7) % [place] % (Auto) (4.7-12.5) % Eos % (Auto) (0.7-5.8) Baso % (Auto) (0.1-1.2) % Neut # (Auto) (1.56-6.13) K/mm3 Lymph # (Auto) (1.18-3.74) K/mm3 [place] # (Auto) (0.24-0.36) K/mm3 Eos # (Auto) (0.04-0.36) K/mm3 Baso # (Auto) (0.01-0.08) K/mm3 Manual Slide Review Sodium (136-145) mEq/L Potassium (3.5-5.1) mEq/L Chloride (98-107) mEq/L Carbon Dioxide (21-32) mEq/L Anion Gap (5-15) BUN (7-18) mg/dL Creatinine (0.55-1.02) mg/dL Est Cr Clr Drug Dosing mL/min Estimated GFR (MDRD) (>60) mL/min BUN/Creatinine Ratio (14-18) Glucose (80-115) mg/dL POC Glucose 248 H 312 H 59 L (80-115) mg/dL Calcium (8.5-10.1) mg/dL Magnesium (1.8-2.4) mg/dl C-Reactive Protein (<1.0) mg/dL Adenovirus (PCR) (Not Detected) B. pertussis DNA (PCR) (Not Detected) B.parapertussis DNA PCR (Not Detected) C. pneumoniae DNA (PCR) (Not Detected) Coronavirus (PCR) (Not Detected) Human Metapneumovir PCR (Not Detected) Influ A (H1N1/09) PCR (Not Detected) Influenza B (RT-PCR) (Not Detected) M. pneumoniae (PCR) (Not Detected) Parainfluen 1,2,3,4 PCR (Not Detected) RSV (PCR) (Not Detected) Entero/Rhino (PCR) (Not Detected) 09/21/18 09/21/18 09/21/18 Range/Units 06:18 06:18 08:30 WBC 5.27 (3.98-10.04) K/mm3 RBC 4.63 (3.98-5.22) M/mm3 Hgb 13.7 (11.2-15.7) gm/L Hct 41.3 (34.1-44.9) % MCV 89.2 (79.4-94.8) fl MCH 29.6 (25.6-32.2) pg MCHC 33.2 (32.2-35.5) g/dl RDW Std Deviation 41.0 (36.4-46.3) fL Plt Count 257 (182-369) K/mm3 MPV 11.0 (9.4-12.3) fl Neut % (Auto) 52.6 (34.0-71.1) % Lymph % (Auto) 32.8 (19.3-51.7) % [place] % (Auto) 10.8 (4.7-12.5) % Eos % (Auto) 0.6 L (0.7-5.8) Baso % (Auto) 2.8 H (0.1-1.2) % Neut # (Auto) 2.77 (1.56-6.13) K/mm3 Lymph # (Auto) 1.73 (1.18-3.74) K/mm3 [place] # (Auto) 0.57 H (0.24-0.36) K/mm3 Eos # (Auto) 0.03 L (0.04-0.36) K/mm3 Baso # (Auto) 0.15 H (0.01-0.08) K/mm3 Manual Slide Review Abnormal smear Sodium 132 L (136-145) mEq/L Potassium 3.2 L (3.5-5.1) mEq/L Chloride 95 L (98-107) mEq/L Carbon Dioxide 30 (21-32) mEq/L Anion Gap 10.2 (5-15) BUN 64 H (7-18) mg/dL Creatinine 1.9 H (0.55-1.02) mg/dL Est Cr Clr Drug Dosing 26.85 mL/min Estimated GFR (MDRD) 27 (>60) mL/min BUN/Creatinine Ratio 33.7 H (14-18) Glucose 58 L (80-115) mg/dL POC Glucose 106 (80-115) mg/dL Calcium 8.3 L (8.5-10.1) mg/dL Magnesium 1.9 (1.8-2.4) mg/dl C-Reactive Protein 11.0 H* (<1.0) mg/dL Adenovirus (PCR) (Not Detected) B. pertussis DNA (PCR) (Not Detected) B.parapertussis DNA PCR (Not Detected) C. pneumoniae DNA (PCR) (Not Detected) Coronavirus (PCR) (Not Detected) Human Metapneumovir PCR (Not Detected) Influ A (H1N1/09) PCR (Not Detected) Influenza B (RT-PCR) (Not Detected) M. pneumoniae (PCR) (Not Detected) Parainfluen 1,2,3,4 PCR (Not Detected) RSV (PCR) (Not Detected) Entero/Rhino (PCR) (Not Detected) Zbigniew Results Last 24 Hours: Microbiology 09/18/18 13:40 Aerobic Blood Culture - Preliminary Blood - Venous - Lab Draw NO GROWTH AFTER 2 DAYS Anaerobic Blood Culture - Preliminary NO GROWTH AFTER 2 DAYS 09/18/18 11:36 Aerobic Blood Culture - Preliminary Blood - Venous NO GROWTH AFTER 2 DAYS Anaerobic Blood Culture - Final 09/19/18 09:40 Gram Stain - Final Sputum - Expectorated Sputum Culture - Preliminary Med Orders - Current: Current Medications Hydrocodone Bitart/Acetaminophen ([place] 325-5 Mg) 1 tab PO Q4H PRN PRN Reason: Pain (moderate 4-6) Last Admin: 09/19/18 03:19 Dose: 1 tab Albuterol/Ipratropium (Duoneb 3.0-0.5 Mg/3 Ml) 3 ml NEB Q4H PRN PRN Reason: Shortness Of Breath/wheezing Last Admin: 09/21/18 08:24 Dose: 3 ml Amlodipine Besylate (Norvasc) 5 mg PO BID [facility] Last Admin: 09/20/18 20:58 Dose: 5 mg Aspirin (Halfprin) 81 mg PO DAILY [facility] Last Admin: 09/20/18 08:47 Dose: 81 mg Bisacodyl (Dulcolax) 5 mg PO DAILY PRN PRN Reason: Constipation Docusate Sodium (Colace) 100 mg PO BID PRN PRN Reason: Constipation Guaifenesin/Phenylephrine HCl (Robitussin Dm) 10 ml PO TID@0900,1400,2100 [facility] Last Admin: 09/20/18 21:00 Dose: Not Given Hydralazine HCl (Apresoline) 20 mg IVPUSH Q4H PRN PRN Reason: Hypertension Last Admin: 09/18/18 17:28 Dose: 20 mg Hydrochlorothiazide (Hydrochlorothiazide) 12.5 mg PO DAILY [facility] Stop: 09/22/18 09:01 Last Admin: 09/20/18 08:47 Dose: 12.5 mg Hydromorphone HCl (Dilaudid) 0.25 mg IVPUSH Q2H PRN PRN Reason: Pain (severe 7-10) Promethazine HCl 6.25 mg/ (Sodium Chloride) 50.25 mls @ 100 mls/hr IV Q6H PRN PRN Reason: Nausea/Vomiting Azithromycin 500 mg/ Sodium (Chloride) 250 mls @ 250 mls/hr IV Q24H [facility] Last Admin: 09/20/18 17:02 Dose: 250 mls/hr Ceftriaxone Sodium 1 gm/ (Sodium Chloride) 100 mls @ 200 mls/hr IV Q24H [facility] Last Admin: 09/20/18 18:05 Dose: 200 mls/hr Insulin Glargine (Lantus) 20 unit SUBCUT BID [facility] Insulin Human Lispro (Humalog) 0 unit SUBCUT TIDAC [facility]; Protocol Last Admin: 09/21/18 06:14 Dose: Not Given Insulin Human Lispro (Humalog) 0 unit SUBCUT BEDTIME [facility]; Protocol Last Admin: 09/20/18 21:16 Dose: 12 units Labetalol HCl (Normodyne) 20 mg IVPUSH Q6H PRN; Protocol PRN Reason: Hypertension Lorazepam (Ativan) 0.25 mg IV Q6H PRN PRN Reason: Anxiety Magnesium Sulfate (Pharmacy To Dose - Magnesium Replacement) 0 dose .XX ASDIRECTED PRN PRN Reason: RX TO WATCH MAG Metoprolol Succinate (Toprol Xl) 100 mg PO DAILY [facility] Metoprolol Tartrate (Lopressor) 5 mg IVPUSH Q4H PRN PRN Reason: Tachycardia Miscellaneous Information (Remove Patch) 1 ea TRDERM Q7D [facility] Ondansetron HCl (Zofran) 4 mg IV Q6H PRN PRN Reason: Nausea/Vomiting Oseltamivir Phosphate (Tamiflu) 30 mg PO Q24H [facility] Last Admin: 09/20/18 20:59 Dose: 30 mg Chlorthalidone 25 Mg (Ptom) 0 each PO DAILY [facility] Last Admin: 09/20/18 08:49 Dose: 1 each Verapamil Hcl [ Verelan Pm] 200 Mg * *Ptom 0 each PO BEDTIME [facility] Last Admin: 09/20/18 22:46 Dose: Not Given Potassium Chloride (Pharmacy To Dose - Potassium Replacement) 0 dose .XX ASDIRECTED PRN PRN Reason: RX TO WATCH K Saccharomyces Boulardii (Florastor) 250 mg PO BID [facility] Last Admin: 09/20/18 20:59 Dose: 250 mg Senna/Docusate Sodium (Senna Plus) 1 tab PO BID PRN PRN Reason: Constipation Sodium Chloride (Saline Flush) 10 ml FLUSH ASDIRECTED PRN PRN Reason: Keep Vein Open Temazepam (Restoril) 7.5 mg PO BEDTIME PRN PRN Reason: Sleep Last Admin: 09/20/18 21:17 Dose: 7.5 mg Discontinued Medications Azithromycin (Zithromax) Confirm Administered Dose 500 mg .ROUTE .STK-MED ONE Stop: 09/19/18 16:56 Last Admin: 09/19/18 17:03 Dose: Not Given Bumetanide (Bumex) 1 mg IVPUSH ONETIME ONE Stop: 09/19/18 13:09 Last Admin: 09/19/18 13:43 Dose: 1 mg Bumetanide (Bumex) 0.5 mg IVPUSH BID [facility] Stop: 09/21/18 09:01 Last Admin: 09/20/18 21:15 Dose: 0.5 mg Clonidine HCl (Catapres) 0.1 mg PO ONETIME ONE Stop: 09/18/18 11:17 Last Admin: 09/18/18 11:35 Dose: 0.1 mg Clonidine HCl (Catapres) Confirm Administered Dose 0.1 mg .ROUTE .STK-MED ONE Stop: 09/18/18 11:36 Last Admin: 09/18/18 12:24 Dose: Not Given Clonidine HCl (Catapres) 0.1 mg PO ONETIME ONE Stop: 09/18/18 13:34 Last Admin: 09/18/18 13:49 Dose: 0.1 mg Clonidine HCl (Catapres-Tts 3) 0.3 mg TRDERM Q7D [facility] Last Admin: 09/19/18 14:39 Dose: 0.3 mg Clonidine HCl (Catapres) 0.1 mg PO ONETIME ONE Stop: 09/19/18 16:31 Last Admin: 09/19/18 17:04 Dose: 0.1 mg Glipizide (Glucotrol Xl) 2.5 mg PO BIDMEALS [facility] Glipizide (Glucotrol Xl) 5 mg PO BID [facility] Glipizide (Glucotrol Xl) 2.5 mg PO BID [facility] Last Admin: 09/20/18 20:59 Dose: 2.5 mg Guaifenesin/Phenylephrine HCl (Robitussin Dm) 10 ml PO TID@0700,1400,2100 [facility] Last Admin: 09/19/18 20:03 Dose: 10 ml Guaifenesin/Phenylephrine HCl (Robitussin Dm) 10 ml PO NOW STA Stop: 09/19/18 09:39 Last Admin: 09/19/18 10:39 Dose: 10 ml Hydrochlorothiazide (Hydrochlorothiazide) 25 mg PO BIDDIURETIC [facility] Hydrochlorothiazide (Hydrochlorothiazide) 12.5 mg PO NOW STA Stop: 09/19/18 13:10 Last Admin: 09/19/18 13:42 Dose: 12.5 mg Insulin Human Regular 100 unit (/ Sodium Chloride) 100 mls @ 10.43 mls/hr IV TITRATE [facility]; Protocol Last Titration: 09/18/18 16:27 Dose: 0 units/kg/hr, 0 mls/hr Lactated Ringer's (Ringers, Lactated) 1,000 mls @ 999 mls/hr IV .BOLUS ONE Stop: 09/18/18 12:12 Last Admin: 09/18/18 12:14 Dose: 999 mls/hr Sodium Chloride (Normal Saline) 1,000 mls @ 25 mls/hr IV ASDIRECTED [facility] Last Admin: 09/18/18 18:04 Dose: 25 mls/hr Sodium Chloride (Normal Saline) 1,000 mls @ 150 mls/hr IV ASDIRECTED [facility] Last Admin: 09/19/18 03:14 Dose: 150 mls/hr Ibuprofen (Motrin) 400 mg PO Q6H PRN PRN Reason: Pain (mild 1-3) Last Admin: 09/18/18 17:27 Dose: 400 mg Insulin [facility]) [facility] Last Admin: 09/18/18 16:16 Dose: Not Given Insulin Glargine (Lantus) 30 unit SUBCUT BID [facility] Last Admin: 09/20/18 21:16 Dose: 30 units Insulin Human Lispro (Humalog) 0 unit SUBCUT QIDACANDBED [facility]; Protocol Insulin Human Lispro (Humalog) 0 unit SUBCUT Q2H [facility]; Protocol Last Admin: 09/19/18 01:53 Dose: 2 units Insulin Human Lispro (Humalog) 0 unit SUBCUT QIDACANDBED [facility]; Protocol Last Admin: 09/19/18 17:04 Dose: 15 units Insulin Human Regular (Humulin R) 10 unit IV ONETIME STA Stop: 09/18/18 11:14 Last Admin: 09/18/18 12:19 Dose: 10 unit Lisinopril (Prinivil) 20 mg PO DAILY [facility] Last Admin: 09/19/18 08:51 Dose: 20 mg Losartan Potassium (Cozaar) 25 mg PO DAILY [facility] Metoprolol Succinate (Toprol Xl) 200 mg PO DAILY [facility] Last Admin: 09/20/18 08:48 Dose: 200 mg Oseltamivir Phosphate (Tamiflu) 75 mg PO BID [facility] Verapamil Hcl [ Verelan Pm] 200 Mg * *Ptom 0 each PO DAILY [facility] Last Admin: 09/19/18 09:07 Dose: Not Given Potassium Chloride (Klor-Con M20) 40 meq PO ONETIME ONE Stop: 09/21/18 09:01 - Exam Quality Assessment: Supplemental Oxygen General: Alert, Oriented, Cooperative, No Acute Distress, Other (Obese) HEENT: Pupils Equal, Pupils Reactive, EOMI, Mucous Membr. Moist/[place] Neck: Supple, Trachea Midline, No JVD, No Thyromegaly Lungs: Clear to Auscultation (upper lungs), Normal Respiratory Effort, Decreased Breath Sounds Cardiovascular: Regular Rate, Regular Rhythm GI/Abdominal Exam: Normal Bowel Sounds, Soft, Non-Tender, No Organomegaly, No Distention, No Abnormal Bruit (Female) Exam: Deferred Back Exam: Normal Inspection, Decreased Range of Motion Extremities: Normal Inspection, Normal Range of Motion, Non-Tender, No Pedal Edema, Normal Capillary Refill Peripheral Pulses: 2+: Dorsalis Pedis (L), Dorsalis Pedis (R) Skin: Warm, Dry, Intact Neurological: No New Focal Deficit, Normal Gait Psy/Mental Status: Alert, Normal Affect, Normal Mood - Problem List Review Problem List Initiated/Reviewed/Updated: Yes - My Orders Last 24 Hours: My Active Orders 09/20/18 09:00 Dextromethorphan/guaiFENesin [Robitussin DM] 10 ml PO TID@0900,1400,2100 hydroCHLOROthiazide 12.5 mg PO DAILY 09/21/18 09:00 Insulin Glarg,Human.Rec.Analog [LantUS] 20 unit SUBCUT BID 09/22/18 05:11 BASIC METABOLIC PANEL,BMP [CHEM] AM C-REACTIVE PROTEIN [CHEM] AM CBC WITH AUTO DIFF [HEME] AM MAGNESIUM [CHEM] AM 09/22/18 09:00 Metoprolol Succinate [Toprol XL] 100 mg PO DAILY 09/23/18 05:11 BASIC METABOLIC PANEL,BMP [CHEM] AM C-REACTIVE PROTEIN [CHEM] AM CBC WITH AUTO DIFF [HEME] AM MAGNESIUM [CHEM] AM 09/26/18 14:30 Remove Patch 1 ea TRDERM Q7D - Plan Plan:: Assessment/Plan: Acute: Bronchopneumonia - Viral vs Bacterial - CXR 09/19/2018 shows worsening appearance of the chest from previous study; Repeat CXR this AM 09/20/2018 shows improved lungs - Continue 1 gram IV Rocephin and IV 500 mg Azithromycin daily plus probiotic - Sputum Cx- preliminary; Blood Cx negative so far - Mycoplasma- negative; Strep Ag test- pending - Continue FV/SV as directed; Decongestant/Expectorant - On 2L NC; goal titrate to come off - Repeat CXR in AM Influenza Infection - Tamiflu 30 mg po daily has CKD likely from long standing diabetes - Still complaints of generalized malaise and no appetite - Permissive hyperglycemia since she is not eating - Continue supportive care Hyperglycemia with DM2; Labile - A1C 9.0 - BS is still not controlled; her appetite is erratic - Change Lantus 20 units SC BID and Medium dose ISS and discontinued Glucotrol 2.5 mg po BID - Accu-check AC/HS plus ISS - Quality Improvement Specialist and Dietary consult - Provided reading material for GLP1 and SGLT2 Inhibitors Sinus Bradycardia - On Telemetry; HR IN the upper 50s - She is on Metoprolol Succinate 200 mg po daily; plan to cut it to 100 mg po daily with parameters Generalized Weakness, Improved - 2/2 above - Vit D level and Thyroid Panel- both wnl - PT/OT to assess and treat - Encourage to eat anything and drink Class III Obesity - BMI of 40.3 - Dietary consult for weight management Resolved: S/p Hyperosmolar Hyperglycemic State in DM2 - 2/2 poor oral and hydration status - BS in the 500s; now the 200s - Started on insulin drip in ED; will d/c it - Lantus 30 units SC BID and Medium dose ISS; may add sulfonylureas if still uncontrolled - Accu-check Q2 w/ ISS; if 3 consecutive levels are in the 200s then switch to AC/HS - A1C is 9.0 - Thyroid Panel and Vit D level- wnl - Lipid panel- low HLD level - Microalbumin level- 1148 (high) already on ARB but will hold it for now - Quality Improvement Specialist S/p Febrile Illness - 2/2 Influenza A - Positive on screening - Will give antiviral agent to lessen duration of her symptoms - Tamiflu 75 mg po BID for pharmacy to dose pending repeat BMP; 30 mg po daily due CKD - Supportive Care - Encourage to eat and drink S/p Malignant Hypertension - Documented BP of 246/86 on presentation to ED - Received clonidine in ED; PRN clonidine; d/c Clonidine - Home meds not verified yet - PRN Hydralazine, Norvasc 5 mg po BID, HCTZ 25 mg po daily; resumed home meds S/p Pulmonary Edema - Currently on NS at 125 cc/hr; She is not eating or drinking - Saline lock and Bumex 1mg IVP x1 now; may repeat 0.5 mg IVP x1 at 1800 Chronic: Impaired Vision HTN HLD Hx/o HF Unknown EF CKD Unknown Stage but it looks like 3-4; no baseline levels for comparison Class III Obesity Plan: She is doing much better today Routine AM Labs Diabetic and Dietary consult for weight management PT/OT to asses and treat SW/CM for d/c planning DVT/GI PPx: SCDs and H2B Encourage to eat and drink as well as ambulate as tolerated Code status: 1
[2018-09-21] MEDS: amLODIPine 10 MG Tab PO SCH ×2 (09:53→21:18)
[2018-09-21] MEDS: guaiFENesin/Dextromethorphan 100-10 MG/5 ML Soln 5 ML Cup PO SCH ×3 (09:53→21:19)
[2018-09-21] MEDS: Saccharomyces Boulardii (Probiotic) 250 MG Cap PO SCH ×2 (09:54→21:16)
[2018-09-21] MEDS: Aspirin 81 MG Tab.EC PO SCH (09:54)
[2018-09-21] MEDS: Hydrochlorothiazide 12.5 MG Cap PO SCH (09:54)
[2018-09-21] MEDS: Bumetanide 1 MG/4 ML MDV IVPUSH SCH (09:55)
[2018-09-21] MEDS: Insulin Glarg,Human.Rec.Analog 100 UNIT/ML ML SUBCUT SCH ×2 (09:59→21:16)
[2018-09-21] MEDS: CHLORTHALIDONE 25 MG PO SCH (10:00)
[2018-09-21] MEDS: Azithromycin 500 MG in Sodium Chloride 0.9% 250 ML IV SCH (17:48)
[2018-09-21] MEDS: cefTRIAXone 1 GM in Sodium Chloride 0.9% 100 ML IV SCH (19:04)
[2018-09-21] MEDS: Oseltamivir 30 MG Cap PO SCH (20:51)
[2018-09-21] MEDS: Temazepam 7.5 MG Cap PO PRN (21:16)
[2018-09-21] MEDS: VERAPAMIL HCL 200 MG PO SCH (21:19)
[2018-09-22] MEDS ORDERED: 50% Dextrose in Water 50 ML Syringe IVPUSH PRN (02:24)
--- NOTE | 2018-09-22 08:10 | CR ---
Chest: Portable view of the chest was obtained. Comparison: Prior chest x-ray of 09/20/18. Diffuse parenchymal densities are seen within both sides of the chest. When allowing for slight differences in technique, no appreciable change is seen from previous study. Heart is slightly enlarged. Bony structures are grossly intact. Impression: 1. No appreciable change is seen from prior chest x-ray of 09/20/18 Diagnostic code #3
[2018-09-22] MEDS ORDERED: Insulin Glarg,Human.Rec.Analog 100 UNIT/ML ML SUBCUT SCH ×2 (09:00)
[2018-09-22] MEDS: amLODIPine 10 MG Tab PO SCH ×2 (09:11→22:34)
[2018-09-22] MEDS: Metoprolol Succinate 50 MG Tab.ER PO SCH ×2 (09:11→23:39)
[2018-09-22] MEDS: Hydrochlorothiazide 12.5 MG Cap PO SCH (09:12)
[2018-09-22] MEDS: Oseltamivir 30 MG Cap PO SCH ×2 (09:12→22:34)
[2018-09-22] MEDS: Insulin Lispro 100 UNIT/ML 10 ML VIAL SUBCUT SCH (09:13)
[2018-09-22] MEDS: Aspirin 81 MG Tab.EC PO SCH (09:13)
[2018-09-22] MEDS: Saccharomyces Boulardii (Probiotic) 250 MG Cap PO SCH ×2 (09:13→22:34)
[2018-09-22] MEDS: CHLORTHALIDONE 25 MG PO SCH (09:18)
[2018-09-22] MEDS ORDERED: Insulin Lispro 100 Units/ML 3 ML Vial SUBCUT SCH (10:19)
[2018-09-22] MEDS: Insulin Lispro 100 Units/ML 3 ML Vial SUBCUT SCH ×2 (12:30→17:47)
[2018-09-22] MEDS: cefTRIAXone 1 GM in Sodium Chloride 0.9% 100 ML IV SCH (18:03)
[2018-09-22] MEDS: Azithromycin 250 MG Tab PO SCH (18:03)
[2018-09-22] MEDS: hydrALAZINE 20 MG/ML SDV IVPUSH PRN (18:15)
--- NOTE | 2018-09-22 18:42 | PCM.PN ---
- General Info Date of Service: 09/22/18 Functional Status: Reports: Pain Controlled, Tolerating Diet, Ambulating, Urinating - Review of Systems General: Reports: Weakness HEENT: Reports: No Symptoms Pulmonary: Reports: No Symptoms Cardiovascular: Reports: No Symptoms Gastrointestinal: Reports: No Symptoms 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: Reports: No Symptoms Musculoskeletal: Reports: No Symptoms Skin: Reports: No Symptoms Neurological: Reports: No Symptoms Psychiatric: Reports: No Symptoms - Patient Data Vitals - Most Recent: Last Vital Signs Temp 37.0 C 09/22/18 16:00 Pulse 61 09/22/18 16:00 Resp 16 09/22/18 12:00 BP 176/50 H 09/22/18 18:09 Pulse Ox 94 L 09/22/18 12:00 Weight - Most Recent: 107.229 kg I&O - Last 24 Hours: Intake & Output 09/22/18 09/22/18 09/22/18 06:59 14:59 22:59 Intake Total 846 113 7970 Output Total 150 1200 Balance 350 300 -180 Lab Results Last 24 Hours: Laboratory Results - last 24 hr 09/21/18 09/22/18 09/22/18 Range/Units 20:56 02:11 02:42 WBC (3.98-10.04) K/mm3 RBC (3.98-5.22) M/mm3 Hgb (11.2-15.7) gm/L Hct (34.1-44.9) % MCV (79.4-94.8) fl MCH (25.6-32.2) pg MCHC (32.2-35.5) g/dl RDW Std Deviation (36.4-46.3) fL Plt Count (182-369) K/mm3 MPV (9.4-12.3) fl Neut % (Auto) (34.0-71.1) % Lymph % (Auto) (19.3-51.7) % [place] % (Auto) (4.7-12.5) % Eos % (Auto) (0.7-5.8) Baso % (Auto) (0.1-1.2) % Neut # (Auto) (1.56-6.13) K/mm3 Lymph # (Auto) (1.18-3.74) K/mm3 [place] # (Auto) (0.24-0.36) K/mm3 Eos # (Auto) (0.04-0.36) K/mm3 Baso # (Auto) (0.01-0.08) K/mm3 Manual Slide Review Sodium (136-145) mEq/L Potassium (3.5-5.1) mEq/L Chloride (98-107) mEq/L Carbon Dioxide (21-32) mEq/L Anion Gap (5-15) BUN (7-18) mg/dL Creatinine (0.55-1.02) mg/dL Est Cr Clr Drug Dosing mL/min Estimated GFR (MDRD) (>60) mL/min BUN/Creatinine Ratio (14-18) Glucose (80-115) mg/dL POC Glucose 318 H 43 L 103 (80-115) mg/dL Calcium (8.5-10.1) mg/dL Magnesium (1.8-2.4) mg/dl C-Reactive Protein (<1.0) mg/dL 09/22/18 09/22/18 09/22/18 Range/Units 05:42 05:42 06:20 WBC 6.32 (3.98-10.04) K/mm3 RBC 4.39 (3.98-5.22) M/mm3 Hgb 13.2 (11.2-15.7) gm/L Hct 39.5 (34.1-44.9) % MCV 90.0 (79.4-94.8) fl MCH 30.1 (25.6-32.2) pg MCHC 33.4 (32.2-35.5) g/dl RDW Std Deviation 41.3 (36.4-46.3) fL Plt Count 275 (182-369) K/mm3 MPV 10.9 (9.4-12.3) fl Neut % (Auto) 62.8 (34.0-71.1) % Lymph % (Auto) 20.7 (19.3-51.7) % [place] % (Auto) 14.9 H (4.7-12.5) % Eos % (Auto) 0.8 (0.7-5.8) Baso % (Auto) 0.5 (0.1-1.2) % Neut # (Auto) 3.97 (1.56-6.13) K/mm3 Lymph # (Auto) 1.31 (1.18-3.74) K/mm3 [place] # (Auto) 0.94 H (0.24-0.36) K/mm3 Eos # (Auto) 0.05 (0.04-0.36) K/mm3 Baso # (Auto) 0.03 (0.01-0.08) K/mm3 Manual Slide Review Normal smear Sodium 134 L (136-145) mEq/L Potassium 4.3 (3.5-5.1) mEq/L Chloride 98 (98-107) mEq/L Carbon Dioxide 30 (21-32) mEq/L Anion Gap 10.3 (5-15) BUN 63 H (7-18) mg/dL Creatinine 1.6 H (0.55-1.02) mg/dL Est Cr Clr Drug Dosing 31.88 mL/min Estimated GFR (MDRD) 33 (>60) mL/min BUN/Creatinine Ratio 39.4 H (14-18) Glucose 221 H (80-115) mg/dL POC Glucose 254 H (80-115) mg/dL Calcium 8.2 L (8.5-10.1) mg/dL Magnesium 2.0 (1.8-2.4) mg/dl C-Reactive Protein 7.1 H* (<1.0) mg/dL 09/22/18 Range/Units 11:58 WBC (3.98-10.04) K/mm3 RBC (3.98-5.22) M/mm3 Hgb (11.2-15.7) gm/L Hct (34.1-44.9) % MCV (79.4-94.8) fl MCH (25.6-32.2) pg MCHC (32.2-35.5) g/dl RDW Std Deviation (36.4-46.3) fL Plt Count (182-369) K/mm3 MPV (9.4-12.3) fl Neut % (Auto) (34.0-71.1) % Lymph % (Auto) (19.3-51.7) % [place] % (Auto) (4.7-12.5) % Eos % (Auto) (0.7-5.8) Baso % (Auto) (0.1-1.2) % Neut # (Auto) (1.56-6.13) K/mm3 Lymph # (Auto) (1.18-3.74) K/mm3 [place] # (Auto) (0.24-0.36) K/mm3 Eos # (Auto) (0.04-0.36) K/mm3 Baso # (Auto) (0.01-0.08) K/mm3 Manual Slide Review Sodium (136-145) mEq/L Potassium (3.5-5.1) mEq/L Chloride (98-107) mEq/L Carbon Dioxide (21-32) mEq/L Anion Gap (5-15) BUN (7-18) mg/dL Creatinine (0.55-1.02) mg/dL Est Cr Clr Drug Dosing mL/min Estimated GFR (MDRD) (>60) mL/min BUN/Creatinine Ratio (14-18) Glucose (80-115) mg/dL POC Glucose 229 H (80-115) mg/dL Calcium (8.5-10.1) mg/dL Magnesium (1.8-2.4) mg/dl C-Reactive Protein (<1.0) mg/dL Zbigniew Results Last 24 Hours: Microbiology 09/19/18 09:40 Gram Stain - Final Sputum - Expectorated Sputum Culture - Final Normal Itzel 09/18/18 12:23 Streptococcus pneumoniae Antigen (M - Final Urine 09/18/18 13:40 Aerobic Blood Culture - Preliminary Blood - Venous - Lab Draw NO GROWTH AFTER 4 DAYS Anaerobic Blood Culture - Preliminary NO GROWTH AFTER 4 DAYS 09/18/18 11:36 Aerobic Blood Culture - Preliminary Blood - Venous NO GROWTH AFTER 4 DAYS Anaerobic Blood Culture - Final Med Orders - Current: Current Medications Hydrocodone Bitart/Acetaminophen ([place] 325-5 Mg) 1 tab PO Q4H PRN PRN Reason: Pain (moderate 4-6) Last Admin: 09/19/18 03:19 Dose: 1 tab Albuterol/Ipratropium (Duoneb 3.0-0.5 Mg/3 Ml) 3 ml NEB Q4H PRN PRN Reason: Shortness Of Breath/wheezing Last Admin: 09/21/18 15:20 Dose: 3 ml Amlodipine Besylate (Norvasc) 5 mg PO BID [facility] Last Admin: 09/22/18 09:11 Dose: 5 mg Aspirin (Halfprin) 81 mg PO DAILY [facility] Last Admin: 09/22/18 09:13 Dose: 81 mg Azithromycin (Zithromax) 250 mg PO Q24H [facility] Last Admin: 09/22/18 18:03 Dose: 250 mg Bisacodyl (Dulcolax) 5 mg PO DAILY PRN PRN Reason: Constipation Dextrose/Water (Dextrose 50% In Water) 50 ml IVPUSH ASDIRECTED PRN PRN Reason: Hypoglycemia Docusate Sodium (Colace) 100 mg PO BID PRN PRN Reason: Constipation Hydralazine HCl (Apresoline) 20 mg IVPUSH Q4H PRN PRN Reason: Hypertension Last Admin: 09/22/18 18:15 Dose: 20 mg Hydromorphone HCl (Dilaudid) 0.25 mg IVPUSH Q2H PRN PRN Reason: Pain (severe 7-10) Promethazine HCl 6.25 mg/ (Sodium Chloride) 50.25 mls @ 100 mls/hr IV Q6H PRN PRN Reason: Nausea/Vomiting Ceftriaxone Sodium 1 gm/ (Sodium Chloride) 100 mls @ 200 mls/hr IV Q24H [facility] Last Admin: 09/22/18 18:03 Dose: 200 mls/hr Insulin Glargine (Lantus) 28 unit SUBCUT DAILY [facility] Insulin Glargine (Lantus) 20 unit SUBCUT BEDTIME [facility] Insulin Human Lispro (Humalog) 0 unit SUBCUT TIDAC [facility]; Protocol Last Admin: 09/22/18 17:47 Dose: 2 units Labetalol HCl (Normodyne) 20 mg IVPUSH Q6H PRN; Protocol PRN Reason: Hypertension Lorazepam (Ativan) 0.25 mg IV Q6H PRN PRN Reason: Anxiety Metoprolol Succinate (Toprol Xl) 100 mg PO DAILY [facility] Last Admin: 09/22/18 09:11 Dose: 100 mg Metoprolol Tartrate (Lopressor) 5 mg IVPUSH Q4H PRN PRN Reason: Tachycardia Miscellaneous Information (Remove Patch) 1 ea TRDERM Q7D [facility] Ondansetron HCl (Zofran) 4 mg IV Q6H PRN PRN Reason: Nausea/Vomiting Oseltamivir Phosphate (Tamiflu) 30 mg PO BID [facility] Last Admin: 09/22/18 09:12 Dose: 30 mg Chlorthalidone 25 Mg (Ptom) 0 each PO DAILY [facility] Last Admin: 09/22/18 09:18 Dose: 1 each Verapamil Hcl [ Verelan Pm] 200 Mg * *Ptom 0 each PO BEDTIME [facility] Last Admin: 09/21/18 21:19 Dose: Not Given Saccharomyces Boulardii (Florastor) 250 mg PO BID [facility] Last Admin: 09/22/18 09:13 Dose: 250 mg Senna/Docusate Sodium (Senna Plus) 1 tab PO BID PRN PRN Reason: Constipation Sodium Chloride (Saline Flush) 10 ml FLUSH ASDIRECTED PRN PRN Reason: Keep Vein Open Temazepam (Restoril) 7.5 mg PO BEDTIME PRN PRN Reason: Sleep Last Admin: 09/21/18 21:16 Dose: 7.5 mg Discontinued Medications Azithromycin (Zithromax) Confirm Administered Dose 500 mg .ROUTE .STK-MED ONE Stop: 09/19/18 16:56 Last Admin: 09/19/18 17:03 Dose: Not Given Bumetanide (Bumex) 1 mg IVPUSH ONETIME ONE Stop: 09/19/18 13:09 Last Admin: 09/19/18 13:43 Dose: 1 mg Bumetanide (Bumex) 0.5 mg IVPUSH BID [facility] Stop: 09/21/18 09:01 Last Admin: 09/21/18 09:55 Dose: 0.5 mg Clonidine HCl (Catapres) 0.1 mg PO ONETIME ONE Stop: 09/18/18 11:17 Last Admin: 09/18/18 11:35 Dose: 0.1 mg Clonidine HCl (Catapres) Confirm Administered Dose 0.1 mg .ROUTE .STK-MED ONE Stop: 09/18/18 11:36 Last Admin: 09/18/18 12:24 Dose: Not Given Clonidine HCl (Catapres) 0.1 mg PO ONETIME ONE Stop: 09/18/18 13:34 Last Admin: 09/18/18 13:49 Dose: 0.1 mg Clonidine HCl (Catapres-Tts 3) 0.3 mg TRDERM Q7D [facility] Last Admin: 09/19/18 14:39 Dose: 0.3 mg Clonidine HCl (Catapres) 0.1 mg PO ONETIME ONE Stop: 09/19/18 16:31 Last Admin: 09/19/18 17:04 Dose: 0.1 mg Glipizide (Glucotrol Xl) 2.5 mg PO BIDMEALS CLIFF Glipizide (Glucotrol Xl) 5 mg PO BID CLIFF Glipizide (Glucotrol Xl) 2.5 mg PO BID CLIFF Last Admin: 09/20/18 20:59 Dose: 2.5 mg Guaifenesin/Phenylephrine HCl (Robitussin Dm) 10 ml PO TID@0700,1400,2100 CLIFF Last Admin: 09/19/18 20:03 Dose: 10 ml Guaifenesin/Phenylephrine HCl (Robitussin Dm) 10 ml PO NOW STA Stop: 09/19/18 09:39 Last Admin: 09/19/18 10:39 Dose: 10 ml Guaifenesin/Phenylephrine HCl (Robitussin Dm) 10 ml PO TID@0900,1400,2100 [facility] Last Admin: 09/21/18 21:19 Dose: Not Given Hydrochlorothiazide (Hydrochlorothiazide) 25 mg PO BIDDIURETIC [facility] Hydrochlorothiazide (Hydrochlorothiazide) 12.5 mg PO NOW STA Stop: 09/19/18 13:10 Last Admin: 09/19/18 13:42 Dose: 12.5 mg Hydrochlorothiazide (Hydrochlorothiazide) 12.5 mg PO DAILY CLIFF Stop: 09/22/18 09:01 Last Admin: 09/22/18 09:12 Dose: 12.5 mg Insulin Human Regular 100 unit (/ Sodium Chloride) 100 mls @ 10.43 mls/hr IV TITRATE CLIFF; Protocol Last Titration: 09/18/18 16:27 Dose: 0 units/kg/hr, 0 mls/hr Lactated Ringer's (Ringers, Lactated) 1,000 mls @ 999 mls/hr IV .BOLUS ONE Stop: 09/18/18 12:12 Last Admin: 09/18/18 12:14 Dose: 999 mls/hr Sodium Chloride (Normal Saline) 1,000 mls @ 25 mls/hr IV ASDIRECTED CLIFF Last Admin: 09/18/18 18:04 Dose: 25 mls/hr Sodium Chloride (Normal Saline) 1,000 mls @ 150 mls/hr IV ASDIRECTED CLIFF Last Admin: 09/19/18 03:14 Dose: 150 mls/hr Azithromycin 500 mg/ Sodium (Chloride) 250 mls @ 250 mls/hr IV Q24H CLIFF Stop: 09/21/18 20:00 Last Admin: 09/21/18 17:48 Dose: 250 mls/hr Ibuprofen (Motrin) 400 mg PO Q6H PRN PRN Reason: Pain (mild 1-3) Last Admin: 09/18/18 17:27 Dose: 400 mg Insulin Glargine (Lantus) 30 unit SUBCUT BIDAC [facility] Last Admin: 09/18/18 16:16 Dose: Not Given Insulin Glargine (Lantus) 30 unit SUBCUT BID [facility] Last Admin: 09/20/18 21:16 Dose: 30 units Insulin Glargine (Lantus) 20 unit SUBCUT BID [facility] Last Admin: 09/21/18 21:16 Dose: 20 units Insulin Glargine (Lantus) 30 unit SUBCUT BID CLIFF Insulin Glargine (Lantus) 25 unit SUBCUT BID [facility] Last Admin: 09/22/18 09:06 Dose: 25 units Insulin Human Lispro (Humalog) 0 unit SUBCUT QIDACANDBED [facility]; Protocol Insulin Human Lispro (Humalog) 0 unit SUBCUT Q2H [facility]; Protocol Last Admin: 09/19/18 01:53 Dose: 2 units Insulin Human Lispro (Humalog) 0 unit SUBCUT QIDACANDBED [facility]; Protocol Last Admin: 09/19/18 17:04 Dose: 15 units Insulin Human Lispro (Humalog) 0 unit SUBCUT TIDAC [facility]; Protocol Last Admin: 09/22/18 09:13 Dose: 6 units Insulin Human Lispro (Humalog) 0 unit SUBCUT BEDTIME [facility]; Protocol Last Admin: 09/21/18 21:17 Dose: 12 units Insulin Human Lispro (Humalog) 0 unit SUBCUT TIDAC [facility]; Protocol Insulin Human Regular (Humulin R) 10 unit IV ONETIME STA Stop: 09/18/18 11:14 Last Admin: 09/18/18 12:19 Dose: 10 unit Lisinopril (Prinivil) 20 mg PO DAILY [facility] Last Admin: 09/19/18 08:51 Dose: 20 mg Losartan Potassium (Cozaar) 25 mg PO DAILY [facility] Magnesium Sulfate (Pharmacy To Dose - Magnesium Replacement) 0 dose .XX ASDIRECTED PRN PRN Reason: RX TO WATCH MAG Metoprolol Succinate (Toprol Xl) 200 mg PO DAILY [facility] Last Admin: 09/20/18 08:48 Dose: 200 mg Oseltamivir Phosphate (Tamiflu) 75 mg PO BID [facility] Oseltamivir Phosphate (Tamiflu) 30 mg PO Q24H [facility] Last Admin: 09/21/18 20:51 Dose: 30 mg Verapamil Hcl [ Verelan Pm] 200 Mg * *Ptom 0 each PO DAILY [facility] Last Admin: 09/19/18 09:07 Dose: Not Given Potassium Chloride (Pharmacy To Dose - Potassium Replacement) 0 dose .XX ASDIRECTED PRN PRN Reason: RX TO WATCH K Potassium Chloride (Klor-Con M20) 40 meq PO ONETIME ONE Stop: 09/21/18 09:01 Last Admin: 09/21/18 09:53 Dose: 40 meq - Exam Quality Assessment: Supplemental Oxygen, DVT Prophylaxis General: Alert, Oriented, Cooperative, No Acute Distress HEENT: Pupils Equal, Pupils Reactive, EOMI Neck: Trachea Midline, No JVD Lungs: Normal Respiratory Effort Cardiovascular: Regular Rate, Regular Rhythm GI/Abdominal Exam: Normal Bowel Sounds, Soft, Non-Tender, No Organomegaly, No Distention (Female) Exam: Deferred Back Exam: Normal Inspection Extremities: Normal Inspection, Non-Tender, Normal Capillary Refill Skin: Warm Neurological: No New Focal Deficit, Normal Gait, Normal Speech Psy/Mental Status: Alert, Normal Affect, Normal Mood - Problem List Review Problem List Initiated/Reviewed/Updated: Yes - My Orders Last 24 Hours: My Active Orders 09/22/18 21:00 Insulin Glarg,Human.Rec.Analog [LantUS] 20 unit SUBCUT BEDTIME 09/23/18 05:00 LACTIC ACID [CHEM] DAILY 09/23/18 09:00 Insulin Glarg,Human.Rec.Analog [LantUS] 28 unit SUBCUT DAILY 09/24/18 05:00 LACTIC ACID [CHEM] DAILY 09/25/18 05:00 LACTIC ACID [CHEM] DAILY 09/26/18 05:00 LACTIC ACID [CHEM] DAILY - Plan Plan:: Assessment/Plan: Acute: Bronchopneumonia - Viral vs Bacterial - CXR 09/19/2018 shows worsening appearance of the chest from previous study; Repeat CXR this AM 09/20/2018 shows improved lungs - Continue 1 gram IV Rocephin and IV 500 mg Azithromycin daily plus probiotic - Sputum Cx- preliminary; Blood Cx negative so far - Mycoplasma- negative; Strep Ag test- pending - Continue FV/SV as directed; Decongestant/Expectorant - On 2L NC; goal titrate to come off - Repeat CXR in AM Influenza Infection - Tamiflu 30 mg po daily has CKD likely from long standing diabetes - Still complaints of generalized malaise and no appetite - Permissive hyperglycemia since she is not eating - Continue supportive care Hyperglycemia with DM2; Labile - A1C 9.0 - BS is still not controlled; her appetite is erratic - Change Lantus 20 units SC BID and Medium dose ISS and discontinued Glucotrol 2.5 mg po BID - Accu-check AC/HS plus ISS - General Studies Program Chair and Dietary consult - Provided reading material for GLP1 and SGLT2 Inhibitors Sinus Bradycardia - On Telemetry; HR IN the upper 50s - She is on Metoprolol Succinate 200 mg po daily; plan to cut it to 100 mg po daily with parameters Generalized Weakness, Improved - 2/2 above - Vit D level and Thyroid Panel- both wnl - PT/OT to assess and treat - Encourage to eat anything and drink Class III Obesity - BMI of 40.3 - Dietary consult for weight management Resolved: S/p Hyperosmolar Hyperglycemic State in DM2 - 2/2 poor oral and hydration status - BS in the 500s; now the 200s - Started on insulin drip in ED; will d/c it - Lantus 30 units SC BID and Medium dose ISS; may add sulfonylureas if still uncontrolled - Accu-check Q2 w/ ISS; if 3 consecutive levels are in the 200s then switch to AC/HS - A1C is 9.0 - Thyroid Panel and Vit D level- wnl - Lipid panel- low HLD level - Microalbumin level- 1148 (high) already on ARB but will hold it for now - General Studies Program Chair S/p Febrile Illness - 2/2 Influenza A - Positive on screening - Will give antiviral agent to lessen duration of her symptoms - Tamiflu 75 mg po BID for pharmacy to dose pending repeat BMP; 30 mg po daily due CKD - Supportive Care - Encourage to eat and drink S/p Malignant Hypertension - Documented BP of 246/86 on presentation to ED - Received clonidine in ED; PRN clonidine; d/c Clonidine - Home meds not verified yet - PRN Hydralazine, Norvasc 5 mg po BID, HCTZ 25 mg po daily; resumed home meds S/p Pulmonary Edema - Currently on NS at 125 cc/hr; She is not eating or drinking - Saline lock and Bumex 1mg IVP x1 now; may repeat 0.5 mg IVP x1 at 1800 Chronic: Impaired Vision HTN HLD Hx/o HF Unknown EF CKD Unknown Stage but it looks like 3-4; no baseline levels for comparison Class III Obesity Plan: She is doing much better today Routine AM Labs Diabetic and Dietary consult for weight management PT/OT to asses and treat SW/CM for d/c planning DVT/GI PPx: SCDs and H2B Encourage to eat and drink as well as ambulate as tolerated Code status: 1 LOS>96 hours with slow response to therapy, DC 24-48 hours
[2018-09-22] MEDS: Temazepam 7.5 MG Cap PO PRN (22:34)
[2018-09-22] MEDS: VERAPAMIL HCL 200 MG PO SCH (22:38)
[2018-09-22] MEDS: Insulin Glarg,Human.Rec.Analog 100 UNIT/ML ML SUBCUT SCH ×2 (22:41→23:39)
[2018-09-22] MEDS: glipiZIDE 2.5 MG Tab.ER PO SCH (23:39)
[2018-09-23] MEDS: hydrALAZINE 20 MG/ML SDV IVPUSH PRN ×2 (06:24→16:30)
[2018-09-23] MEDS: Saccharomyces Boulardii (Probiotic) 250 MG Cap PO SCH ×2 (09:06→21:38)
[2018-09-23] MEDS: Metoprolol Succinate 50 MG Tab.ER PO SCH (09:06)
[2018-09-23] MEDS: amLODIPine 10 MG Tab PO SCH ×2 (09:09→21:39)
[2018-09-23] MEDS: Aspirin 81 MG Tab.EC PO SCH (09:10)
[2018-09-23] MEDS: Insulin Glarg,Human.Rec.Analog 100 UNIT/ML ML SUBCUT SCH ×2 (09:11→21:37)
[2018-09-23] MEDS: CHLORTHALIDONE 25 MG PO SCH (09:15)
[2018-09-23] MEDS: Insulin Lispro 100 Units/ML 3 ML Vial SUBCUT SCH ×3 (09:15→18:00)
[2018-09-23] MEDS: Oseltamivir 30 MG Cap PO SCH ×2 (09:15→21:38)
--- NOTE | 2018-09-23 17:33 | PCM.PN ---
- General Info Date of Service: 09/23/18 Functional Status: Reports: Pain Controlled, Tolerating Diet, Ambulating, Urinating - Review of Systems General: Reports: No Symptoms HEENT: Reports: No Symptoms Pulmonary: Reports: No Symptoms Cardiovascular: Reports: No Symptoms Gastrointestinal: Reports: No Symptoms 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: Reports: No Symptoms Musculoskeletal: Reports: No Symptoms Skin: Reports: No Symptoms Neurological: Reports: No Symptoms Psychiatric: Reports: No Symptoms - Patient Data Vitals - Most Recent: Last Vital Signs Temp 37.2 C 09/23/18 15:46 Pulse 76 09/23/18 15:46 Resp 20 09/23/18 15:46 BP 163/72 H 09/23/18 16:00 Pulse Ox 95 09/23/18 15:46 Weight - Most Recent: 105.432 kg I&O - Last 24 Hours: Intake & Output 09/23/18 09/23/18 09/23/18 06:59 14:59 22:59 Intake Total 500 500 Output Total 800 Balance -300 500 Lab Results Last 24 Hours: Laboratory Results - last 24 hr 09/22/18 09/22/18 09/23/18 Range/Units 17:41 22:43 06:28 WBC (3.98-10.04) K/mm3 RBC (3.98-5.22) M/mm3 Hgb (11.2-15.7) gm/L Hct (34.1-44.9) % MCV (79.4-94.8) fl MCH (25.6-32.2) pg MCHC (32.2-35.5) g/dl RDW Std Deviation (36.4-46.3) fL Plt Count (182-369) K/mm3 MPV (9.4-12.3) fl Neut % (Auto) (34.0-71.1) % Lymph % (Auto) (19.3-51.7) % [place] % (Auto) (4.7-12.5) % Eos % (Auto) (0.7-5.8) Baso % (Auto) (0.1-1.2) % Neut # (Auto) (1.56-6.13) K/mm3 Lymph # (Auto) (1.18-3.74) K/mm3 [place] # (Auto) (0.24-0.36) K/mm3 Eos # (Auto) (0.04-0.36) K/mm3 Baso # (Auto) (0.01-0.08) K/mm3 Manual Slide Review Sodium (136-145) mEq/L Potassium (3.5-5.1) mEq/L Chloride (98-107) mEq/L Carbon Dioxide (21-32) mEq/L Anion Gap (5-15) BUN (7-18) mg/dL Creatinine (0.55-1.02) mg/dL Est Cr Clr Drug Dosing mL/min Estimated GFR (MDRD) (>60) mL/min BUN/Creatinine Ratio (14-18) Glucose (80-115) mg/dL POC Glucose 153 H 323 H 181 H (80-115) mg/dL Lactic Acid (0.4-2.0) mmol/L Calcium (8.5-10.1) mg/dL Magnesium (1.8-2.4) mg/dl C-Reactive Protein (<1.0) mg/dL 09/23/18 09/23/18 09/23/18 Range/Units 06:35 06:35 06:35 WBC 6.11 (3.98-10.04) K/mm3 RBC 4.45 (3.98-5.22) M/mm3 Hgb 13.4 (11.2-15.7) gm/L Hct 40.1 (34.1-44.9) % MCV 90.1 (79.4-94.8) fl MCH 30.1 (25.6-32.2) pg MCHC 33.4 (32.2-35.5) g/dl RDW Std Deviation 41.6 (36.4-46.3) fL Plt Count 354 (182-369) K/mm3 MPV 10.9 (9.4-12.3) fl Neut % (Auto) 55.5 (34.0-71.1) % Lymph % (Auto) 23.6 (19.3-51.7) % [place] % (Auto) 16.7 H (4.7-12.5) % Eos % (Auto) 3.1 (0.7-5.8) Baso % (Auto) 0.3 (0.1-1.2) % Neut # (Auto) 3.39 (1.56-6.13) K/mm3 Lymph # (Auto) 1.44 (1.18-3.74) K/mm3 [place] # (Auto) 1.02 H (0.24-0.36) K/mm3 Eos # (Auto) 0.19 (0.04-0.36) K/mm3 Baso # (Auto) 0.02 (0.01-0.08) K/mm3 Manual Slide Review Normal smear Sodium 135 L (136-145) mEq/L Potassium 4.9 (3.5-5.1) mEq/L Chloride 98 (98-107) mEq/L Carbon Dioxide 28 (21-32) mEq/L Anion Gap 13.9 (5-15) BUN 44 H (7-18) mg/dL Creatinine 1.3 H (0.55-1.02) mg/dL Est Cr Clr Drug Dosing 39.24 mL/min Estimated GFR (MDRD) 42 (>60) mL/min BUN/Creatinine Ratio 33.8 H (14-18) Glucose 180 H (80-115) mg/dL POC Glucose (80-115) mg/dL Lactic Acid 1.6 (0.4-2.0) mmol/L Calcium 8.9 (8.5-10.1) mg/dL Magnesium 2.0 (1.8-2.4) mg/dl C-Reactive Protein 5.6 H* (<1.0) mg/dL 09/23/18 Range/Units 11:05 WBC (3.98-10.04) K/mm3 RBC (3.98-5.22) M/mm3 Hgb (11.2-15.7) gm/L Hct (34.1-44.9) % MCV (79.4-94.8) fl MCH (25.6-32.2) pg MCHC (32.2-35.5) g/dl RDW Std Deviation (36.4-46.3) fL Plt Count (182-369) K/mm3 MPV (9.4-12.3) fl Neut % (Auto) (34.0-71.1) % Lymph % (Auto) (19.3-51.7) % [place] % (Auto) (4.7-12.5) % Eos % (Auto) (0.7-5.8) Baso % (Auto) (0.1-1.2) % Neut # (Auto) (1.56-6.13) K/mm3 Lymph # (Auto) (1.18-3.74) K/mm3 [place] # (Auto) (0.24-0.36) K/mm3 Eos # (Auto) (0.04-0.36) K/mm3 Baso # (Auto) (0.01-0.08) K/mm3 Manual Slide Review Sodium (136-145) mEq/L Potassium (3.5-5.1) mEq/L Chloride (98-107) mEq/L Carbon Dioxide (21-32) mEq/L Anion Gap (5-15) BUN (7-18) mg/dL Creatinine (0.55-1.02) mg/dL Est Cr Clr Drug Dosing mL/min Estimated GFR (MDRD) (>60) mL/min BUN/Creatinine Ratio (14-18) Glucose (80-115) mg/dL POC Glucose 317 H (80-115) mg/dL Lactic Acid (0.4-2.0) mmol/L Calcium (8.5-10.1) mg/dL Magnesium (1.8-2.4) mg/dl C-Reactive Protein (<1.0) mg/dL Zbigniew Results Last 24 Hours: Microbiology 09/18/18 13:40 Aerobic Blood Culture - Preliminary Blood - Venous - Lab Draw NO GROWTH AFTER 5 DAYS Anaerobic Blood Culture - Preliminary NO GROWTH AFTER 5 DAYS 09/18/18 11:36 Aerobic Blood Culture - Preliminary Blood - Venous NO GROWTH AFTER 5 DAYS Anaerobic Blood Culture - Final 09/19/18 09:40 Gram Stain - Final Sputum - Expectorated Sputum Culture - Final Normal Itzel 09/18/18 12:23 Streptococcus pneumoniae Antigen (M - Final Urine Med Orders - Current: Current Medications Hydrocodone Bitart/Acetaminophen ([place] 325-5 Mg) 1 tab PO Q4H PRN PRN Reason: Pain (moderate 4-6) Last Admin: 09/19/18 03:19 Dose: 1 tab Albuterol/Ipratropium (Duoneb 3.0-0.5 Mg/3 Ml) 3 ml NEB Q4H PRN PRN Reason: Shortness Of Breath/wheezing Last Admin: 09/21/18 15:20 Dose: 3 ml Amlodipine Besylate (Norvasc) 5 mg PO BID [facility] Last Admin: 09/23/18 09:09 Dose: 5 mg Aspirin (Halfprin) 81 mg PO DAILY [facility] Last Admin: 09/23/18 09:10 Dose: 81 mg Azithromycin (Zithromax) 250 mg PO Q24H [facility] Last Admin: 09/22/18 18:03 Dose: 250 mg Bisacodyl (Dulcolax) 5 mg PO DAILY PRN PRN Reason: Constipation Cephalexin (Keflex) 500 mg PO Q8H [facility] Dextrose/Water (Dextrose 50% In Water) 50 ml IVPUSH ASDIRECTED PRN PRN Reason: Hypoglycemia Docusate Sodium (Colace) 100 mg PO BID PRN PRN Reason: Constipation Hydralazine HCl (Apresoline) 20 mg IVPUSH Q4H PRN PRN Reason: Hypertension Last Admin: 09/23/18 16:30 Dose: 20 mg Hydromorphone HCl (Dilaudid) 0.25 mg IVPUSH Q2H PRN PRN Reason: Pain (severe 7-10) Promethazine HCl 6.25 mg/ (Sodium Chloride) 50.25 mls @ 100 mls/hr IV Q6H PRN PRN Reason: Nausea/Vomiting Insulin Glargine (Lantus) 28 unit SUBCUT DAILY [facility] Last Admin: 09/23/18 09:11 Dose: 28 unit Insulin Glargine (Lantus) 20 unit SUBCUT BEDTIME [facility] Last Admin: 09/22/18 22:41 Dose: 20 units Insulin Human Lispro (Humalog) 0 unit SUBCUT TIDAC [facility]; Protocol Last Admin: 09/23/18 12:55 Dose: 8 units Labetalol HCl (Normodyne) 20 mg IVPUSH Q6H PRN; Protocol PRN Reason: Hypertension Lorazepam (Ativan) 0.25 mg IV Q6H PRN PRN Reason: Anxiety Metoprolol Succinate (Toprol Xl) 100 mg PO DAILY [facility] Last Admin: 09/23/18 09:06 Dose: 100 mg Metoprolol Tartrate (Lopressor) 5 mg IVPUSH Q4H PRN PRN Reason: Tachycardia Miscellaneous Information (Remove Patch) 1 ea TRDERM Q7D [facility] Ondansetron HCl (Zofran) 4 mg IV Q6H PRN PRN Reason: Nausea/Vomiting Oseltamivir Phosphate (Tamiflu) 30 mg PO BID [facility] Last Admin: 09/23/18 09:15 Dose: 30 mg Chlorthalidone 25 Mg (Ptom) 0 each PO DAILY [facility] Last Admin: 09/23/18 09:15 Dose: 1 each Verapamil Hcl [ Verelan Pm] 200 Mg * *Ptom 0 each PO BEDTIME [facility] Last Admin: 09/22/18 22:38 Dose: 1 each Saccharomyces Boulardii (Florastor) 250 mg PO BID [facility] Last Admin: 09/23/18 09:06 Dose: 250 mg Senna/Docusate Sodium (Senna Plus) 1 tab PO BID PRN PRN Reason: Constipation Sodium Chloride (Saline Flush) 10 ml FLUSH ASDIRECTED PRN PRN Reason: Keep Vein Open Temazepam (Restoril) 7.5 mg PO BEDTIME PRN PRN Reason: Sleep Last Admin: 09/22/18 22:34 Dose: 7.5 mg Discontinued Medications Azithromycin (Zithromax) Confirm Administered Dose 500 mg .ROUTE .STK-MED ONE Stop: 09/19/18 16:56 Last Admin: 09/19/18 17:03 Dose: Not Given Bumetanide (Bumex) 1 mg IVPUSH ONETIME ONE Stop: 09/19/18 13:09 Last Admin: 09/19/18 13:43 Dose: 1 mg Bumetanide (Bumex) 0.5 mg IVPUSH BID [facility] Stop: 09/21/18 09:01 Last Admin: 09/21/18 09:55 Dose: 0.5 mg Clonidine HCl (Catapres) 0.1 mg PO ONETIME ONE Stop: 09/18/18 11:17 Last Admin: 09/18/18 11:35 Dose: 0.1 mg Clonidine HCl (Catapres) Confirm Administered Dose 0.1 mg .ROUTE .STK-MED ONE Stop: 09/18/18 11:36 Last Admin: 09/18/18 12:24 Dose: Not Given Clonidine HCl (Catapres) 0.1 mg PO ONETIME ONE Stop: 09/18/18 13:34 Last Admin: 09/18/18 13:49 Dose: 0.1 mg Clonidine HCl (Catapres-Tts 3) 0.3 mg TRDERM Q7D [facility] Last Admin: 09/19/18 14:39 Dose: 0.3 mg Clonidine HCl (Catapres) 0.1 mg PO ONETIME ONE Stop: 09/19/18 16:31 Last Admin: 09/19/18 17:04 Dose: 0.1 mg Glipizide (Glucotrol Xl) 2.5 mg PO BIDMEALS [facility] Glipizide (Glucotrol Xl) 5 mg PO BID [facility] Glipizide (Glucotrol Xl) 2.5 mg PO BID [facility] Last Admin: 09/22/18 23:39 Dose: Not Given Guaifenesin/Phenylephrine HCl (Robitussin Dm) 10 ml PO TID@0700,1400,2100 [facility] Last Admin: 09/19/18 20:03 Dose: 10 ml Guaifenesin/Phenylephrine HCl (Robitussin Dm) 10 ml PO NOW STA Stop: 09/19/18 09:39 Last Admin: 09/19/18 10:39 Dose: 10 ml Guaifenesin/Phenylephrine HCl (Robitussin Dm) 10 ml PO TID@0900,1400,2100 [facility] Last Admin: 09/21/18 21:19 Dose: Not Given Hydrochlorothiazide (Hydrochlorothiazide) 25 mg PO BIDDIURETIC [facility] Hydrochlorothiazide (Hydrochlorothiazide) 12.5 mg PO NOW STA Stop: 09/19/18 13:10 Last Admin: 09/19/18 13:42 Dose: 12.5 mg Hydrochlorothiazide (Hydrochlorothiazide) 12.5 mg PO DAILY [facility] Stop: 09/22/18 09:01 Last Admin: 09/22/18 09:12 Dose: 12.5 mg Insulin Human Regular 100 unit (/ Sodium Chloride) 100 mls @ 10.43 mls/hr IV TITRATE [facility]; Protocol Last Titration: 09/18/18 16:27 Dose: 0 units/kg/hr, 0 mls/hr Lactated Ringer's (Ringers, Lactated) 1,000 mls @ 999 mls/hr IV .BOLUS ONE Stop: 09/18/18 12:12 Last Admin: 09/18/18 12:14 Dose: 999 mls/hr Sodium Chloride (Normal Saline) 1,000 mls @ 25 mls/hr IV ASDIRECTED [facility] Last Admin: 09/18/18 18:04 Dose: 25 mls/hr Sodium Chloride (Normal Saline) 1,000 mls @ 150 mls/hr IV ASDIRECTED [facility] Last Admin: 09/19/18 03:14 Dose: 150 mls/hr Azithromycin 500 mg/ Sodium (Chloride) 250 mls @ 250 mls/hr IV Q24H [facility] Stop: 09/21/18 20:00 Last Admin: 09/21/18 17:48 Dose: 250 mls/hr Ceftriaxone Sodium 1 gm/ (Sodium Chloride) 100 mls @ 200 mls/hr IV Q24H [facility] Last Admin: 09/22/18 18:03 Dose: 200 mls/hr Ibuprofen (Motrin) 400 mg PO Q6H PRN PRN Reason: Pain (mild 1-3) Last Admin: 09/18/18 17:27 Dose: 400 mg Insulin Glargine (Lantus) 30 unit SUBCUT BIDAC [facility] Last Admin: 09/18/18 16:16 Dose: Not Given Insulin Glargine (Lantus) 30 unit SUBCUT BID [facility] Last Admin: 09/22/18 23:39 Dose: Not Given Insulin Glargine (Lantus) 20 unit SUBCUT BID [facility] Last Admin: 09/21/18 21:16 Dose: 20 units Insulin Glargine (Lantus) 30 unit SUBCUT BID [facility] Insulin Glargine (Lantus) 25 unit SUBCUT BID [facility] Last Admin: 09/22/18 09:06 Dose: 25 units Insulin Human Lispro (Humalog) 0 unit SUBCUT QIDACANDBED [facility]; Protocol Insulin Human Lispro (Humalog) 0 unit SUBCUT Q2H [facility]; Protocol Last Admin: 09/19/18 01:53 Dose: 2 units Insulin Human Lispro (Humalog) 0 unit SUBCUT QIDACANDBED [facility]; Protocol Last Admin: 09/19/18 17:04 Dose: 15 units Insulin Human Lispro (Humalog) 0 unit SUBCUT TIDAC [facility]; Protocol Last Admin: 09/22/18 09:13 Dose: 6 units Insulin Human Lispro (Humalog) 0 unit SUBCUT BEDTIME [facility]; Protocol Last Admin: 09/21/18 21:17 Dose: 12 units Insulin Human Lispro (Humalog) 0 unit SUBCUT TIDAC [facility]; Protocol Insulin Human Regular (Humulin R) 10 unit IV ONETIME STA Stop: 09/18/18 11:14 Last Admin: 09/18/18 12:19 Dose: 10 unit Lisinopril (Prinivil) 20 mg PO DAILY [facility] Last Admin: 09/19/18 08:51 Dose: 20 mg Losartan Potassium (Cozaar) 25 mg PO DAILY [facility] Magnesium Sulfate (Pharmacy To Dose - Magnesium Replacement) 0 dose .XX ASDIRECTED PRN PRN Reason: RX TO WATCH MAG Metoprolol Succinate (Toprol Xl) 200 mg PO DAILY [facility] Last Admin: 09/22/18 23:39 Dose: Not Given Oseltamivir Phosphate (Tamiflu) 75 mg PO BID [facility] Oseltamivir Phosphate (Tamiflu) 30 mg PO Q24H [facility] Last Admin: 09/21/18 20:51 Dose: 30 mg Verapamil Hcl [ Verelan Pm] 200 Mg * *Ptom 0 each PO DAILY [facility] Last Admin: 09/19/18 09:07 Dose: Not Given Potassium Chloride (Pharmacy To Dose - Potassium Replacement) 0 dose .XX ASDIRECTED PRN PRN Reason: RX TO WATCH K Potassium Chloride (Klor-Con M20) 40 meq PO ONETIME ONE Stop: 09/21/18 09:01 Last Admin: 09/21/18 09:53 Dose: 40 meq - Exam Quality Assessment: Supplemental Oxygen, DVT Prophylaxis General: Alert, Oriented, Cooperative, No Acute Distress HEENT: Pupils Equal, Pupils Reactive, EOMI Neck: Trachea Midline, No JVD Lungs: Normal Respiratory Effort Cardiovascular: Regular Rate, Regular Rhythm GI/Abdominal Exam: Normal Bowel Sounds, Soft, Non-Tender, No Organomegaly, No Distention (Female) Exam: Deferred Back Exam: Normal Inspection Extremities: Normal Inspection, Non-Tender, Normal Capillary Refill Skin: Warm Neurological: No New Focal Deficit Psy/Mental Status: Alert, Normal Affect, Normal Mood - Problem List Review Problem List Initiated/Reviewed/Updated: Yes - My Orders Last 24 Hours: My Active Orders 09/22/18 19:34 Admission Status [Patient Status] [ADT] Routine 09/22/18 21:00 Insulin Glarg,Human.Rec.Analog [LantUS] 20 unit SUBCUT BEDTIME 09/23/18 09:00 Insulin Glarg,Human.Rec.Analog [LantUS] 28 unit SUBCUT DAILY 09/23/18 20:00 cephALEXin [Keflex] 500 mg PO Q8H 09/24/18 05:00 LACTIC ACID [CHEM] DAILY 09/25/18 05:00 LACTIC ACID [CHEM] DAILY 09/26/18 05:00 LACTIC ACID [CHEM] DAILY - Plan Plan:: Assessment/Plan: Acute: Bronchopneumonia - Viral vs Bacterial - CXR 09/19/2018 shows worsening appearance of the chest from previous study; Repeat CXR this AM 09/20/2018 shows improved lungs - Continue 1 gram IV Rocephin and IV 500 mg Azithromycin daily plus probiotic - Sputum Cx- preliminary; Blood Cx negative so far - Mycoplasma- negative; Strep Ag test- pending - Continue FV/SV as directed; Decongestant/Expectorant - On 2L NC; goal titrate to come off - Repeat CXR in AM Influenza Infection - Tamiflu 30 mg po daily has CKD likely from long standing diabetes - Still complaints of generalized malaise and no appetite - Permissive hyperglycemia since she is not eating - Continue supportive care Hyperglycemia with DM2; Labile - A1C 9.0 - BS is still not controlled; her appetite is erratic - Change Lantus 20 units SC BID and Medium dose ISS and discontinued Glucotrol 2.5 mg po BID - Accu-check AC/HS plus ISS - Call Out Operator and Dietary consult - Provided reading material for GLP1 and SGLT2 Inhibitors Sinus Bradycardia - On Telemetry; HR IN the upper 50s - She is on Metoprolol Succinate 200 mg po daily; plan to cut it to 100 mg po daily with parameters Generalized Weakness, Improved - 2/2 above - Vit D level and Thyroid Panel- both wnl - PT/OT to assess and treat - Encourage to eat anything and drink Class III Obesity - BMI of 40.3 - Dietary consult for weight management Resolved: S/p Hyperosmolar Hyperglycemic State in DM2 - 2/2 poor oral and hydration status - BS in the 500s; now the 200s - Started on insulin drip in ED; will d/c it - Lantus 30 units SC BID and Medium dose ISS; may add sulfonylureas if still uncontrolled - Accu-check Q2 w/ ISS; if 3 consecutive levels are in the 200s then switch to AC/HS - A1C is 9.0 - Thyroid Panel and Vit D level- wnl - Lipid panel- low HLD level - Microalbumin level- 1148 (high) already on ARB but will hold it for now - Call Out Operator S/p Febrile Illness - 2/2 Influenza A - Positive on screening - Will give antiviral agent to lessen duration of her symptoms - Tamiflu 75 mg po BID for pharmacy to dose pending repeat BMP; 30 mg po daily due CKD - Supportive Care - Encourage to eat and drink S/p Malignant Hypertension - Documented BP of 246/86 on presentation to ED - Received clonidine in ED; PRN clonidine; d/c Clonidine - Home meds not verified yet - PRN Hydralazine, Norvasc 5 mg po BID, HCTZ 25 mg po daily; resumed home meds S/p Pulmonary Edema - Currently on NS at 125 cc/hr; She is not eating or drinking - Saline lock and Bumex 1mg IVP x1 now; may repeat 0.5 mg IVP x1 at 1800 Chronic: Impaired Vision HTN HLD Hx/o HF Unknown EF CKD Unknown Stage but it looks like 3-4; no baseline levels for comparison Class III Obesity Plan: She is doing much better today Routine AM Labs Diabetic and Dietary consult for weight management PT/OT to asses and treat SW/CM for d/c planning DVT/GI PPx: SCDs and H2B Encourage to eat and drink as well as ambulate as tolerated Code status: 1 LOS>96 hours with slow response to therapy DC 09/24/18
[2018-09-23] MEDS: Azithromycin 250 MG Tab PO SCH (17:48)
[2018-09-23] MEDS: Temazepam 7.5 MG Cap PO PRN (21:38)
[2018-09-23] MEDS: Cephalexin 500 MG Cap PO SCH (21:38)
[2018-09-23] MEDS: VERAPAMIL HCL 200 MG PO SCH (21:39)
[2018-09-24] MEDS: Cephalexin 500 MG Cap PO SCH ×2 (05:58→11:39)
[2018-09-24] MEDS: Insulin Lispro 100 Units/ML 3 ML Vial SUBCUT SCH ×2 (06:08→11:39)
--- NOTE | 2018-09-24 07:34 | PCM.DCSUM1 ---
Discharge Summary - Hospital Course Free Text/Narrative:: 63 year old female with PMH of DM type 1, was treated for Influenza A which was complicated with bacterial PNA. At DC, she required O2 to maintain an O2 sat>92 %. However the patient declined, stating that her insurance does not cover it, and she will not pay out of pocket. The patient remained hospitalized greater than 96 hours with acute resp distress, hypoxia requiring ICU care. She was seen by multiple consultants, see notes for complete details. Suggestions for self care regarding DM were offered but declined. The patient had been seen by the diabetic ed provider, but declined suggestions to improve diabetic management. On admission, she has a documented HA1C of 9. She was DCd to home in stable conditions; home meds were resumed. Recommendations/Meds at DC 1. CXR 2 View, week of 10/08/18 2. O2 via nc 2 l/m with activity 3. Zithromax 250 mg QD. 4. Keflex 500 mg Q 8H 5. TamiFlu 30 mg BID 6. Florstar 250 mg BID HPI Initial Comments: This is a 63 yo white female with past medical hx/o Impaired Vision, HTN, HLD, Hx/o HF Unknown EF, CKD Unknown Stage, and Class III Obesity who comes in for evaluation of 3 day hx/o flu-like symptoms: lethargy, dry cough, feeling feverish, chills, low energy and reduced appetite. She also reports polydipsia and polyuria. She denies any GI or issues. No skin rash, sore throat or difficulty eating or drinking. She denies any sick contact in the the house. She reports of a similar episode in the past wherein she was diagnosed with UTI. On presentation to ED, she was found to have a temperature of 101.3 with a glucose level on finger stick of over 400. Her initial work up shows a CBC remarkable for Neutrophils of 76% and Lymphocytes of 11%. Her chemistry is significant for Na of 126, K of 5.6, Cl of 86, AG of 21.6, BUN of 50, Cr of 2.0 , BS of 560, Alk Phos of 127, and Albumin of 127. Her UA is not suggestive of UTI. Her ketones level is 2.4. Her chest x-ray report reads patchy increased density within both side of chest most likely representing fairly severe bronchopneumonia. Patient is being admitted for influenza infection and hyperosmolar hyperglycemic state. She is DNR/DNI. Diagnosis: Stroke: No - Discharge Data Discharge Date: 09/24/18 Discharge Disposition: Home, Self-Care 01 Condition: Good - Patient Summary/Data Consults: Consultations 09/18/18 15:14 Consult to Diabetic Nurse Specialist [CONS] Routine Consult to Grain Broker [CONS] Routine OT Evaluation and Treatment [CONS] Routine PT Evaluation and Treatment [CONS] Routine - Patient Instructions Diet: Diabetic Diet Activity: As Tolerated Driving: Do Not Drive Showering/Bathing: May Shower Notify Provider of: Fever, Increased Pain, Nausea and/or Vomiting - Discharge Plan *PRESCRIPTION DRUG MONITORING PROGRAM REVIEWED*: Not Applicable *COPY OF PRESCRIPTION DRUG MONITORING REPORT IN PATIENT GABBIE: Not Applicable Prescriptions/Med Rec: Albuterol/Ipratropium [Combivent Respimat] 4 gm IH QID PRN #1 aer.w.adap PRN Reason: Shortness Of Breath Azithromycin [Zithromax] 250 mg PO Q24H #5 tablet cephALEXin [Keflex] 500 mg PO Q8H #15 cap Oseltamivir [Tamiflu] 30 mg PO BID #10 cap Saccharomyces Boulardii [Florastor] 250 mg PO BID #14 cap Home Medications: Home Meds Aspirin 81 mg PO DAILY 09/18/18 [History] Chlorthalidone 25 mg PO DAILY 09/18/18 [History] Furosemide 20 mg PO DAILY 09/18/18 [History] Lisinopril 20 mg PO DAILY 09/18/18 [History] Metoprolol Succinate 200 mg PO DAILY 09/18/18 [History] Verapamil HCl [Verelan Pm] 200 mg pe PO DAILY 09/18/18 [History] Insulin Aspart [NovoLOG] 6 unit SQ 0600 09/20/18 [History] Insulin Aspart [NovoLOG] 14 units SQ 1100 09/20/18 [History] Insulin Aspart [NovoLOG] 20 units SQ 1700 09/20/18 [History] Insulin Glarg,Human.Rec.Analog [Lantus] 30 unit SUBCUT QPM 09/20/18 [History] Albuterol/Ipratropium [Combivent Respimat] 4 gm IH QID PRN #1 aer.w.adap [Rx] Azithromycin [Zithromax] 250 mg PO Q24H #5 tablet 09/24/18 [Rx] Oseltamivir [Tamiflu] 30 mg PO BID #10 cap 09/24/18 [Rx] Saccharomyces Boulardii [Florastor] 250 mg PO BID #14 cap 09/24/18 [Rx] cephALEXin [Keflex] 500 mg PO Q8H #15 cap 09/24/18 [Rx] Oxygen Therapy Mode: Nasal Cannula Oxygen Flow Rate (L/min): 1 (w/ activity) Patient Handouts: Viral Respiratory Infection Referrals: López Pittman MD [Primary Care Provider] - 10/01/18 11:30 am (Please follow up with Dr. Pittman on ThursdayOctober 01 at 11:30 am) - Discharge Summary/Plan Comment DC Time >30 min.: No Discharge Summary/Plan Comment: Assessment/Plan: Acute: Bronchopneumonia - Viral vs Bacterial - CXR 09/19/2018 shows worsening appearance of the chest from previous study; Repeat CXR this AM 09/20/2018 shows improved lungs - Continue 1 gram IV Rocephin and IV 500 mg Azithromycin daily plus probiotic - Sputum Cx- preliminary; Blood Cx negative so far - Mycoplasma- negative; Strep Ag test- pending - Continue FV/SV as directed; Decongestant/Expectorant - On 2L NC; goal titrate to come off - Repeat CXR in AM Influenza Infection - Tamiflu 30 mg po daily has CKD likely from long standing diabetes - Still complaints of generalized malaise and no appetite - Permissive hyperglycemia since she is not eating - Continue supportive care Hyperglycemia with DM2; Labile - A1C 9.0 - BS is still not controlled; her appetite is erratic - Change Lantus 20 units SC BID and Medium dose ISS and discontinued Glucotrol 2.5 mg po BID - Accu-check AC/HS plus ISS - Global Marketing Specialist and Dietary consult - Provided reading material for GLP1 and SGLT2 Inhibitors Sinus Bradycardia - On Telemetry; HR IN the upper 50s - She is on Metoprolol Succinate 200 mg po daily; plan to cut it to 100 mg po daily with parameters Generalized Weakness, Improved - 2/2 above - Vit D level and Thyroid Panel- both wnl - PT/OT to assess and treat - Encourage to eat anything and drink Class III Obesity - BMI of 40.3 - Dietary consult for weight management Resolved: S/p Hyperosmolar Hyperglycemic State in DM2 - 2/2 poor oral and hydration status - BS in the 500s; now the 200s - Started on insulin drip in ED; will d/c it - Lantus 30 units SC BID and Medium dose ISS; may add sulfonylureas if still uncontrolled - Accu-check Q2 w/ ISS; if 3 consecutive levels are in the 200s then switch to AC/HS - A1C is 9.0 - Thyroid Panel and Vit D level- wnl - Lipid panel- low HLD level - Microalbumin level- 1148 (high) already on ARB but will hold it for now - Global Marketing Specialist S/p Febrile Illness - 2/2 Influenza A - Positive on screening - Will give antiviral agent to lessen duration of her symptoms - Tamiflu 75 mg po BID for pharmacy to dose pending repeat BMP; 30 mg po daily due CKD - Supportive Care - Encourage to eat and drink S/p Malignant Hypertension - Documented BP of 246/86 on presentation to ED - Received clonidine in ED; PRN clonidine; d/c Clonidine - Home meds not verified yet - PRN Hydralazine, Norvasc 5 mg po BID, HCTZ 25 mg po daily; resumed home meds S/p Pulmonary Edema - Currently on NS at 125 cc/hr; She is not eating or drinking - Saline lock and Bumex 1mg IVP x1 now; may repeat 0.5 mg IVP x1 at 1800 Chronic: Impaired Vision HTN HLD Hx/o HF Unknown EF CKD Unknown Stage but it looks like 3-4; no baseline levels for comparison Class III Obesity Plan: She is doing much better today Routine AM Labs Diabetic and Dietary consult for weight management PT/OT to asses and treat SW/CM for d/c planning DVT/GI PPx: SCDs and H2B Encourage to eat and drink as well as ambulate as tolerated Code status: 1 LOS>96 hours with slow response to therapy DC 09/24/18 PATIENT WAS ASSESSED FOR O2 NEED AT REST AND WITH EXERTION, REQUIRES 2L/M TO MAINTAIN O2 SAT>92% WITH EXERTION. PATIENT IS REFUSING OXYGEN THERAPY. SEE DOCUMENTATION IN NURSING NOTES. RISK OF HYPOXIA WAS EXPLAINED BY SEVERAL PROVIDERS OF CARE BEFORE DC, PATIENT ADAMANTLY REFUSED. DID NOT WANT TO PAY FOR IT OUT OF POCKET. - General Info Date of Service: 09/18/18 Functional Status: Reports: Tolerating Diet, Ambulating, Urinating - Review of Systems General: Reports: No Symptoms HEENT: Reports: No Symptoms Pulmonary: Reports: No Symptoms Cardiovascular: Reports: No Symptoms Gastrointestinal: Reports: No Symptoms 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: Reports: No Symptoms Musculoskeletal: Reports: No Symptoms Skin: Reports: No Symptoms Neurological: Reports: No Symptoms Psychiatric: Reports: No Symptoms - Patient Data Vitals - Most Recent: Last Vital Signs Temp 36.9 C 09/24/18 05:47 Pulse 68 09/24/18 05:47 Resp 18 09/24/18 05:47 BP 135/55 L 09/24/18 05:47 Pulse Ox 94 L 09/24/18 05:47 Weight - Most Recent: 105.233 kg I&O - Last 24 hours: Intake & Output 09/23/18 09/24/18 09/24/18 22:59 06:59 14:59 Intake Total 970 800 Output Total 1050 3 Balance -80 797 Lab Results - Last 24 hrs: Laboratory Results - last 24 hr 09/23/18 09/23/18 09/23/18 Range/Units 06:35 06:35 11:05 WBC 6.11 (3.98-10.04) K/mm3 RBC 4.45 (3.98-5.22) M/mm3 Hgb 13.4 (11.2-15.7) gm/L Hct 40.1 (34.1-44.9) % MCV 90.1 (79.4-94.8) fl MCH 30.1 (25.6-32.2) pg MCHC 33.4 (32.2-35.5) g/dl RDW Std Deviation 41.6 (36.4-46.3) fL Plt Count 354 (182-369) K/mm3 MPV 10.9 (9.4-12.3) fl Neut % (Auto) 55.5 (34.0-71.1) % Lymph % (Auto) 23.6 (19.3-51.7) % [place] % (Auto) 16.7 H (4.7-12.5) % Eos % (Auto) 3.1 (0.7-5.8) Baso % (Auto) 0.3 (0.1-1.2) % Neut # (Auto) 3.39 (1.56-6.13) K/mm3 Lymph # (Auto) 1.44 (1.18-3.74) K/mm3 [place] # (Auto) 1.02 H (0.24-0.36) K/mm3 Eos # (Auto) 0.19 (0.04-0.36) K/mm3 Baso # (Auto) 0.02 (0.01-0.08) K/mm3 Manual Slide Review Normal smear Sodium 135 L (136-145) mEq/L Potassium 4.9 (3.5-5.1) mEq/L Chloride 98 (98-107) mEq/L Carbon Dioxide 28 (21-32) mEq/L Anion Gap 13.9 (5-15) BUN 44 H (7-18) mg/dL Creatinine 1.3 H (0.55-1.02) mg/dL Est Cr Clr Drug Dosing 39.24 mL/min Estimated GFR (MDRD) 42 (>60) mL/min BUN/Creatinine Ratio 33.8 H (14-18) Glucose 180 H (80-115) mg/dL POC Glucose 317 H (80-115) mg/dL Lactic Acid (0.4-2.0) mmol/L Calcium 8.9 (8.5-10.1) mg/dL Magnesium 2.0 (1.8-2.4) mg/dl C-Reactive Protein 5.6 H* (<1.0) mg/dL 09/23/18 09/23/18 09/24/18 Range/Units 17:55 21:27 05:43 WBC (3.98-10.04) K/mm3 RBC (3.98-5.22) M/mm3 Hgb (11.2-15.7) gm/L Hct (34.1-44.9) % MCV (79.4-94.8) fl MCH (25.6-32.2) pg MCHC (32.2-35.5) g/dl RDW Std Deviation (36.4-46.3) fL Plt Count (182-369) K/mm3 MPV (9.4-12.3) fl Neut % (Auto) (34.0-71.1) % Lymph % (Auto) (19.3-51.7) % [place] % (Auto) (4.7-12.5) % Eos % (Auto) (0.7-5.8) Baso % (Auto) (0.1-1.2) % Neut # (Auto) (1.56-6.13) K/mm3 Lymph # (Auto) (1.18-3.74) K/mm3 [place] # (Auto) (0.24-0.36) K/mm3 Eos # (Auto) (0.04-0.36) K/mm3 Baso # (Auto) (0.01-0.08) K/mm3 Manual Slide Review Sodium (136-145) mEq/L Potassium (3.5-5.1) mEq/L Chloride (98-107) mEq/L Carbon Dioxide (21-32) mEq/L Anion Gap (5-15) BUN (7-18) mg/dL Creatinine (0.55-1.02) mg/dL Est Cr Clr Drug Dosing mL/min Estimated GFR (MDRD) (>60) mL/min BUN/Creatinine Ratio (14-18) Glucose (80-115) mg/dL POC Glucose 311 H 272 H 121 H (80-115) mg/dL Lactic Acid (0.4-2.0) mmol/L Calcium (8.5-10.1) mg/dL Magnesium (1.8-2.4) mg/dl C-Reactive Protein (<1.0) mg/dL 09/24/18 Range/Units 05:45 WBC (3.98-10.04) K/mm3 RBC (3.98-5.22) M/mm3 Hgb (11.2-15.7) gm/L Hct (34.1-44.9) % MCV (79.4-94.8) fl MCH (25.6-32.2) pg MCHC (32.2-35.5) g/dl RDW Std Deviation (36.4-46.3) fL Plt Count (182-369) K/mm3 MPV (9.4-12.3) fl Neut % (Auto) (34.0-71.1) % Lymph % (Auto) (19.3-51.7) % [place] % (Auto) (4.7-12.5) % Eos % (Auto) (0.7-5.8) Baso % (Auto) (0.1-1.2) % Neut # (Auto) (1.56-6.13) K/mm3 Lymph # (Auto) (1.18-3.74) K/mm3 [place] # (Auto) (0.24-0.36) K/mm3 Eos # (Auto) (0.04-0.36) K/mm3 Baso # (Auto) (0.01-0.08) K/mm3 Manual Slide Review Sodium (136-145) mEq/L Potassium (3.5-5.1) mEq/L Chloride (98-107) mEq/L Carbon Dioxide (21-32) mEq/L Anion Gap (5-15) BUN (7-18) mg/dL Creatinine (0.55-1.02) mg/dL Est Cr Clr Drug Dosing mL/min Estimated GFR (MDRD) (>60) mL/min BUN/Creatinine Ratio (14-18) Glucose (80-115) mg/dL POC Glucose (80-115) mg/dL Lactic Acid 1.0 (0.4-2.0) mmol/L Calcium (8.5-10.1) mg/dL Magnesium (1.8-2.4) mg/dl C-Reactive Protein (<1.0) mg/dL DENNIS Results - Last 24 hrs: Microbiology 09/18/18 13:40 Aerobic Blood Culture - Preliminary Blood - Venous - Lab Draw NO GROWTH AFTER 5 DAYS Anaerobic Blood Culture - Preliminary NO GROWTH AFTER 5 DAYS 09/18/18 11:36 Aerobic Blood Culture - Preliminary Blood - Venous NO GROWTH AFTER 5 DAYS Anaerobic Blood Culture - Final Med Orders - Current: Current Medications Hydrocodone Bitart/Acetaminophen ([place] 325-5 Mg) 1 tab PO Q4H PRN PRN Reason: Pain (moderate 4-6) Last Admin: 09/19/18 03:19 Dose: 1 tab Albuterol/Ipratropium (Duoneb 3.0-0.5 Mg/3 Ml) 3 ml NEB Q4H PRN PRN Reason: Shortness Of Breath/wheezing Last Admin: 09/21/18 15:20 Dose: 3 ml Amlodipine Besylate (Norvasc) 5 mg PO BID [facility] Last Admin: 09/23/18 21:39 Dose: 5 mg Aspirin (Halfprin) 81 mg PO DAILY [facility] Last Admin: 09/23/18 09:10 Dose: 81 mg Azithromycin (Zithromax) 250 mg PO Q24H [facility] Last Admin: 09/23/18 17:48 Dose: 250 mg Bisacodyl (Dulcolax) 5 mg PO DAILY PRN PRN Reason: Constipation Cephalexin (Keflex) 500 mg PO Q8H [facility] Last Admin: 09/24/18 05:58 Dose: 500 mg Dextrose/Water (Dextrose 50% In Water) 50 ml IVPUSH ASDIRECTED PRN PRN Reason: Hypoglycemia Docusate Sodium (Colace) 100 mg PO BID PRN PRN Reason: Constipation Hydralazine HCl (Apresoline) 20 mg IVPUSH Q4H PRN PRN Reason: Hypertension Last Admin: 09/23/18 16:30 Dose: 20 mg Hydromorphone HCl (Dilaudid) 0.25 mg IVPUSH Q2H PRN PRN Reason: Pain (severe 7-10) Promethazine HCl 6.25 mg/ (Sodium Chloride) 50.25 mls @ 100 mls/hr IV Q6H PRN PRN Reason: Nausea/Vomiting Insulin Glargine (Lantus) 28 unit SUBCUT DAILY [facility] Last Admin: 09/23/18 09:11 Dose: 28 unit Insulin Glargine (Lantus) 20 unit SUBCUT BEDTIME [facility] Last Admin: 09/23/18 21:37 Dose: 20 units Insulin Human Lispro (Humalog) 0 unit SUBCUT TIDAC [facility]; Protocol Last Admin: 09/24/18 06:08 Dose: Not Given Labetalol HCl (Normodyne) 20 mg IVPUSH Q6H PRN; Protocol PRN Reason: Hypertension Lorazepam (Ativan) 0.25 mg IV Q6H PRN PRN Reason: Anxiety Metoprolol Succinate (Toprol Xl) 100 mg PO DAILY [facility] Last Admin: 09/23/18 09:06 Dose: 100 mg Metoprolol Tartrate (Lopressor) 5 mg IVPUSH Q4H PRN PRN Reason: Tachycardia Miscellaneous Information (Remove Patch) 1 ea TRDERM Q7D [facility] Ondansetron HCl (Zofran) 4 mg IV Q6H PRN PRN Reason: Nausea/Vomiting Last Admin: 09/23/18 17:45 Dose: 4 mg Oseltamivir Phosphate (Tamiflu) 30 mg PO BID [facility] Last Admin: 09/23/18 21:38 Dose: 30 mg Chlorthalidone 25 Mg (Ptom) 0 each PO DAILY [facility] Last Admin: 09/23/18 09:15 Dose: 1 each Verapamil Hcl [ Verelan Pm] 200 Mg * *Ptom 0 each PO BEDTIME [facility] Last Admin: 09/23/18 21:39 Dose: 1 each Saccharomyces Boulardii (Florastor) 250 mg PO BID [facility] Last Admin: 09/23/18 21:38 Dose: 250 mg Senna/Docusate Sodium (Senna Plus) 1 tab PO BID PRN PRN Reason: Constipation Sodium Chloride (Saline Flush) 10 ml FLUSH ASDIRECTED PRN PRN Reason: Keep Vein Open Temazepam (Restoril) 7.5 mg PO BEDTIME PRN PRN Reason: Sleep Last Admin: 09/23/18 21:38 Dose: 7.5 mg Discontinued Medications Azithromycin (Zithromax) Confirm Administered Dose 500 mg .ROUTE .STK-MED ONE Stop: 09/19/18 16:56 Last Admin: 09/19/18 17:03 Dose: Not Given Bumetanide (Bumex) 1 mg IVPUSH ONETIME ONE Stop: 09/19/18 13:09 Last Admin: 09/19/18 13:43 Dose: 1 mg Bumetanide (Bumex) 0.5 mg IVPUSH BID [facility] Stop: 09/21/18 09:01 Last Admin: 09/21/18 09:55 Dose: 0.5 mg Clonidine HCl (Catapres) 0.1 mg PO ONETIME ONE Stop: 09/18/18 11:17 Last Admin: 09/18/18 11:35 Dose: 0.1 mg Clonidine HCl (Catapres) Confirm Administered Dose 0.1 mg .ROUTE .STK-MED ONE Stop: 09/18/18 11:36 Last Admin: 09/18/18 12:24 Dose: Not Given Clonidine HCl (Catapres) 0.1 mg PO ONETIME ONE Stop: 09/18/18 13:34 Last Admin: 09/18/18 13:49 Dose: 0.1 mg Clonidine HCl (Catapres-Tts 3) 0.3 mg TRDERM Q7D [facility] Last Admin: 09/19/18 14:39 Dose: 0.3 mg Clonidine HCl (Catapres) 0.1 mg PO ONETIME ONE Stop: 09/19/18 16:31 Last Admin: 09/19/18 17:04 Dose: 0.1 mg Glipizide (Glucotrol Xl) 2.5 mg PO BIDMEALS [facility] Glipizide (Glucotrol Xl) 5 mg PO BID [facility] Glipizide (Glucotrol Xl) 2.5 mg PO BID [facility] Last Admin: 09/22/18 23:39 Dose: Not Given Guaifenesin/Phenylephrine HCl (Robitussin Dm) 10 ml PO TID@0700,1400,2100 [facility] Last Admin: 09/19/18 20:03 Dose: 10 ml Guaifenesin/Phenylephrine HCl (Robitussin Dm) 10 ml PO NOW STA Stop: 09/19/18 09:39 Last Admin: 09/19/18 10:39 Dose: 10 ml Guaifenesin/Phenylephrine HCl (Robitussin Dm) 10 ml PO TID@0900,1400,2100 [facility] Last Admin: 09/21/18 21:19 Dose: Not Given Hydrochlorothiazide (Hydrochlorothiazide) 25 mg PO BIDDIURETIC [facility] Hydrochlorothiazide (Hydrochlorothiazide) 12.5 mg PO NOW STA Stop: 09/19/18 13:10 Last Admin: 09/19/18 13:42 Dose: 12.5 mg Hydrochlorothiazide (Hydrochlorothiazide) 12.5 mg PO DAILY [facility] Stop: 09/22/18 09:01 Last Admin: 09/22/18 09:12 Dose: 12.5 mg Insulin Human Regular 100 unit (/ Sodium Chloride) 100 mls @ 10.43 mls/hr IV TITRATE [facility]; Protocol Last Titration: 09/18/18 16:27 Dose: 0 units/kg/hr, 0 mls/hr Lactated Ringer's (Ringers, Lactated) 1,000 mls @ 999 mls/hr IV .BOLUS ONE Stop: 09/18/18 12:12 Last Admin: 09/18/18 12:14 Dose: 999 mls/hr Sodium Chloride (Normal Saline) 1,000 mls @ 25 mls/hr IV ASDIRECTED [facility] Last Admin: 09/18/18 18:04 Dose: 25 mls/hr Sodium Chloride (Normal Saline) 1,000 mls @ 150 mls/hr IV ASDIRECTED [facility] Last Admin: 09/19/18 03:14 Dose: 150 mls/hr Azithromycin 500 mg/ Sodium (Chloride) 250 mls @ 250 mls/hr IV Q24H [facility] Stop: 09/21/18 20:00 Last Admin: 09/21/18 17:48 Dose: 250 mls/hr Ceftriaxone Sodium 1 gm/ (Sodium Chloride) 100 mls @ 200 mls/hr IV Q24H [facility] Last Admin: 09/22/18 18:03 Dose: 200 mls/hr Ibuprofen (Motrin) 400 mg PO Q6H PRN PRN Reason: Pain (mild 1-3) Last Admin: 09/18/18 17:27 Dose: 400 mg Insulin Glargine (Lantus) 30 unit SUBCUT BIDAC [facility] Last Admin: 09/18/18 16:16 Dose: Not Given Insulin Glargine (Lantus) 30 unit SUBCUT BID [facility] Last Admin: 09/22/18 23:39 Dose: Not Given Insulin Glargine (Lantus) 20 unit SUBCUT BID [facility] Last Admin: 09/21/18 21:16 Dose: 20 units Insulin Glargine (Lantus) 30 unit SUBCUT BID [facility] Insulin Glargine (Lantus) 25 unit SUBCUT BID [facility] Last Admin: 09/22/18 09:06 Dose: 25 units Insulin Human Lispro (Humalog) 0 unit SUBCUT QIDACANDBED [facility]; Protocol Insulin Human Lispro (Humalog) 0 unit SUBCUT Q2H [facility]; Protocol Last Admin: 09/19/18 01:53 Dose: 2 units Insulin Human Lispro (Humalog) 0 unit SUBCUT QIDACANDBED [facility]; Protocol Last Admin: 09/19/18 17:04 Dose: 15 units Insulin Human Lispro (Humalog) 0 unit SUBCUT TIDAC [facility]; Protocol Last Admin: 09/22/18 09:13 Dose: 6 units Insulin Human Lispro (Humalog) 0 unit SUBCUT BEDTIME [facility]; Protocol Last Admin: 09/21/18 21:17 Dose: 12 units Insulin Human Lispro (Humalog) 0 unit SUBCUT TIDAC [facility]; Protocol Insulin Human Regular (Humulin R) 10 unit IV ONETIME STA Stop: 09/18/18 11:14 Last Admin: 09/18/18 12:19 Dose: 10 unit Lisinopril (Prinivil) 20 mg PO DAILY [facility] Last Admin: 09/19/18 08:51 Dose: 20 mg Losartan Potassium (Cozaar) 25 mg PO DAILY [facility] Magnesium Sulfate (Pharmacy To Dose - Magnesium Replacement) 0 dose .XX ASDIRECTED PRN PRN Reason: RX TO WATCH MAG Metoprolol Succinate (Toprol Xl) 200 mg PO DAILY [facility] Last Admin: 09/22/18 23:39 Dose: Not Given Oseltamivir Phosphate (Tamiflu) 75 mg PO BID [facility] Oseltamivir Phosphate (Tamiflu) 30 mg PO Q24H [facility] Last Admin: 09/21/18 20:51 Dose: 30 mg Verapamil Hcl [ Verelan Pm] 200 Mg * *Ptom 0 each PO DAILY [facility] Last Admin: 09/19/18 09:07 Dose: Not Given Potassium Chloride (Pharmacy To Dose - Potassium Replacement) 0 dose .XX ASDIRECTED PRN PRN Reason: RX TO WATCH K Potassium Chloride (Klor-Con M20) 40 meq PO ONETIME ONE Stop: 09/21/18 09:01 Last Admin: 09/21/18 09:53 Dose: 40 meq - Exam Quality Assessment: Reports: Supplemental Oxygen (w/ activity), DVT Prophylaxis General: Reports: Alert, Oriented, Cooperative, No Acute Distress HEENT: Reports: Pupils Equal, Pupils Reactive, EOMI Neck: Reports: Trachea Midline, No JVD Lungs: Reports: Normal Respiratory Effort Cardiovascular: Reports: Regular Rate, Regular Rhythm GI/Abdominal Exam: Normal Bowel Sounds, Soft, Non-Tender, No Organomegaly, No Distention (Female) Exam: Deferred Rectal (Female) Exam: Deferred Back Exam: Reports: Normal Inspection Extremities: Normal Inspection, Non-Tender, Normal Capillary Refill Skin: Reports: Warm Neurological: Reports: No New Focal Deficit Psy/Mental Status: Reports: Alert, Normal Affect, Normal Mood
[2018-09-24] MEDS: Aspirin 81 MG Tab.EC PO SCH (08:10)
[2018-09-24] MEDS: Oseltamivir 30 MG Cap PO SCH (08:10)
[2018-09-24] MEDS: Metoprolol Succinate 50 MG Tab.ER PO SCH (08:10)
[2018-09-24] MEDS: Saccharomyces Boulardii (Probiotic) 250 MG Cap PO SCH (08:10)
[2018-09-24] MEDS: Insulin Glarg,Human.Rec.Analog 100 UNIT/ML ML SUBCUT SCH (08:11)
[2018-09-24] MEDS: amLODIPine 10 MG Tab PO SCH (08:11)
[2018-09-24] MEDS: CHLORTHALIDONE 25 MG PO SCH (08:11)
== END 2018-09-24 12:46 | disposition home or self-care (01) | DRG 139 ==
LOC: JD.ED 10:20 → UNDOADMIN 15:08 → JD.ICU 15:08 → JD.MS 09-22 19:34
PROVIDERS: ADMIT Internal Medicine; ATTEND Internal Medicine
DX: J10.08 Influenza due to other identified influenza virus with other specified pneumonia (principal); E11.00 Type 2 diabetes mellitus with hyperosmolarity without nonketotic hyperglycemic-hyperosmolar coma (NKHHC); E11.22 Type 2 diabetes mellitus with diabetic chronic kidney disease; I13.0 Hypertensive heart and chronic kidney disease with heart failure and stage 1 through stage 4 chronic kidney disease, or unspecified chronic kidney disease; N18.4 Chronic kidney disease, stage 4 (severe); I50.9 Heart failure, unspecified; Z68.41 Body mass index [BMI] 40.0-44.9, adult; E87.1 Hypo-osmolality and hyponatremia; H54.7 Unspecified visual loss; J15.9 Unspecified bacterial pneumonia; N18.9 Chronic kidney disease, unspecified; R00.1 Bradycardia, unspecified; R09.02 Hypoxemia; H40.9 Unspecified glaucoma; E78.00 Pure hypercholesterolemia, unspecified; E78.5 Hyperlipidemia, unspecified; Z98.891 History of uterine scar from previous surgery; Z91.19 Patient's noncompliance with other medical treatment and regimen; Z79.82 Long term (current) use of aspirin; Z66 Do not resuscitate; Z91.14 Patient's other noncompliance with medication regimen
CPT/HCPCS: 36415; 71045; 71045-26; 71046; 71046-26; 80048; 80053; 80061; 81001; 82009; 82044; 82306; 82947; 82962; 83036; 83605; 83735; 84439; 84443; 84484; 85007; 85025; 85027; 86140; 86738; 87040; 87070; 87205; 87486; 87581; 87632; 87798; 87804; 87899; 93005; 93010; 94640; 94667; 94668; 94761; 96365; 96366; 97161-GP; 97165-GO; 97535-GO; 99285; 99285-25; A9270-GY; J0360; J0456; J0696; J1815-GY; J2405; J3490; J7030; J7040; J7050; J7120; J7620-GY

== ENCOUNTER 2019-08-04 05:48 | Inpatient (IN) | payer BC ==
--- NOTE | 2019-08-04 06:26 | EDM.PDOC ---
ED HPI GENERAL MEDICAL PROBLEM - General Chief Complaint: Gastrointestinal Problem Stated Complaint: CHILLS VOMITING NAUSEA Time Seen by Provider: 08/04/19 06:01 Source of Information: Reports: Patient, Family () History Limitations: Reports: No Limitations - History of Present Illness INITIAL COMMENTS - FREE TEXT/NARRATIVE: Mrs. Vieyra is a pleasant 64-year-old woman with a past medical history significant for hypertension, untreated dyslipidemia, CHF, diabetes, and diabetic nephropathy, who states that she has had malaise, fatigue, and lassitude for about a week, and that she just can't take it anymore. She reports having a cough productive of a small amount of sputum for the past week , and dyspnea on exertion, nausea and vomiting since 08/02/2019. No recent fever, constipation, diarrhea, or urinary symptoms. She states that she took some Coricidin HBP last week, and that it helped, but her last dose was on 07/30/2019, because she didn't like how it made her feel. The patient ordinarily checks her blood glucose twice a day, with her usual range being between 130 and 150. She reports that she has not checked it for the past few days, however, due to her fatigue. The patient's PCP is Dr. López Pittman. Her Master Control Operator is Dr. Arias Phan. She received an influenza vaccine in April 2019. - Related Data Allergies Allergy/AdvReac Type Severity Reaction Status Date / Time No Known Allergies Allergy Verified 08/04/19 05:55 Home Meds: Home Meds Aspirin 81 mg PO DAILY 09/18/18 [History] Chlorthalidone 25 mg PO DAILY 09/18/18 [History] Furosemide 20 mg PO DAILY 09/18/18 [History] Lisinopril 10 mg PO DAILY 09/18/18 [History] Metoprolol Succinate 200 mg PO DAILY 09/18/18 [History] Verapamil HCl [Verelan Pm] 200 mg pe PO DAILY 09/18/18 [History] Insulin Aspart [NovoLOG] 6 unit SQ 0600 09/20/18 [History] Insulin Aspart [NovoLOG] 14 units SQ 1100 09/20/18 [History] Insulin Aspart [NovoLOG] 20 units SQ 1700 09/20/18 [History] Insulin Glarg,Human.Rec.Analog [Lantus] 32 unit SUBCUT QPM 09/20/18 [History] Doxazosin [Doxazosin Mesylate] 1 mg PO DAILY 08/04/19 [History] Timolol [Betimol] 1 drop EYEBOTH DAILY 08/04/19 [History] Past Medical History HEENT History: Reports: Glaucoma, Impaired Vision Cardiovascular History: Reports: Heart Failure, High Cholesterol (untreated), Hypertension 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 History: Reports: Diabetic Nephropathy CABLE WIRER History: Reports: Endocrine/Metabolic History: Reports: Diabetes, Type II, Obesity/BMI 30+ - Past Surgical History HEENT Surgical History: Reports: Cataract Surgery (bilateral), Laser Surgery ( bilateral, for retinal hemorrhages) Female Surgical History: Reports: Section (x 2), Other (See Below) ( Cervical cerclage x 2) Social & Family History - Tobacco Use Smoking Status *Q: Never Smoker - Caffeine Use Caffeine Use: Reports: Coffee, Soda, Tea - Alcohol Use Alcohol Use History: No - Recreational Drug Use Recreational Drug Use: No - Living Situation & Occupation Living situation: Reports: , with Spouse Occupation: Unemployed ED ROS GENERAL - Review of Systems Review Of Systems: Comprehensive ROS is negative, except as noted in HPI. ED EXAM, GENERAL - Physical Exam Exam: See Below Exam Limited By: No Limitations General Appearance: WD/WN, No Apparent Distress, Other (Appers fatigued) Eye Exam: Bilateral Eye: EOMI, Normal Inspection Ears: Normal External Exam, Hearing Grossly Normal Nose: Normal Inspection Throat/Mouth: Normal Inspection, Normal Lips, Normal Voice, No Airway Compromise Head: Atraumatic, Normocephalic Neck: Normal Inspection, Full Range of Motion Respiratory/Chest: No Respiratory Distress, No Accessory Muscle Use, Crackles ( lower half of left lung field). No: Rhonchi, Wheezing, Prolonged Expiration Cardiovascular: Normal Peripheral Pulses, Regular Rate, Rhythm, No Edema, No Gallop, No JVD, No Murmur, No Rub Peripheral Pulses: 4+: Radial (L), Radial (R) GI/Abdominal: Normal Bowel Sounds, Soft, Non-Tender, No Organomegaly, No Distention, No Abnormal Bruit, No Mass (Female) Exam: Deferred Rectal (Female) Exam: Deferred Back Exam: Normal Inspection, Full Range of Motion, NT Extremities: Normal Inspection, Normal Range of Motion, No Pedal Edema, Normal Capillary Refill Neurological: Oriented, Normal Cognition, No Motor/Sensory Deficits Psychiatric: Flat Affect Skin Exam: Warm, Dry, Intact, Normal Color, No Rash Course - Vital Signs Last Recorded V/S: Last Vital Signs Temp 36.8 C 08/04/19 05:55 Pulse 70 08/04/19 05:55 Resp 16 08/04/19 05:55 BP 187/61 H 08/04/19 05:55 Pulse Ox 89 L 08/04/19 05:55 - Orders/Labs/Meds Orders: Active Orders 24 hr Category Date Time Status CULTURE BLOOD [BC] Stat Lab 08/04/19 07:25 Received CULTURE BLOOD [BC] Stat Lab 08/04/19 07:40 Received UA W/MICROSCOPIC [URIN] Stat Lab 08/04/19 06:20 Ordered Blood Culture x2 Reflex Set [OM.PC] Stat Oth 08/04/19 06:20 Ordered Labs: Laboratory Tests 08/04/19 08/04/19 08/04/19 Range/Units 07:25 07:25 07:25 WBC 20.95 H (3.98-10.04) K/mm3 RBC 3.93 L (3.98-5.22) M/mm3 Hgb 11.7 (11.2-15.7) gm/dl Hct 35.5 (34.1-44.9) % MCV 90.3 (79.4-94.8) fl MCH 29.8 (25.6-32.2) pg MCHC 33.0 (32.2-35.5) g/dl RDW Std Deviation 41.9 (36.4-46.3) fL Plt Count 232 D (182-369) K/mm3 MPV 11.4 (9.4-12.3) fl Neutrophils % (Manual) 90 H (40-60) % Band Neutrophils % 0 (0-10) % Lymphocytes % (Manual) 5 L (20-40) % Atypical Lymphs % 0 % Immat Monocytes % (Man) 0 Monocytes % (Manual) 5 (2-10) % Eosinophils % (Manual) 0 L (0.7-5.8) % Basophils % (Manual) 0 L (0.1-1.2) Metamyelocytes % 0 Myelocytes % 0 Promyelocytes % 0 Blast Cells % 0 Plasma Cell % (Manual) 0 Nucleated RBCs 0.0 % Platelet Estimate Adequate RBC Morph Comment Normal Puncture Site ABG pH (7.35-7.45) ABG pCO2 (35.0-45.0) mmHg ABG pO2 (80.0-100.0) mmHg ABG HCO3 (22.0-26.0) meq/L ABG O2 Saturation (96.0-97.0) % ABG Base Excess (-2-2.0) A-a Gradient mmHg O2 Delivery Device Oxygen Flow Rate FiO2 (21.00-100.00) % Sodium 129 L (136-145) mEq/L Potassium 4.4 (3.5-5.1) mEq/L Chloride 91 L (98-107) mEq/L Carbon Dioxide 26 (21-32) mEq/L Anion Gap 16.4 H (5-15) BUN 41 H (7-18) mg/dL Creatinine 1.8 H (0.55-1.02) mg/dL Est Cr Clr Drug Dosing 27.98 mL/min Estimated GFR (MDRD) 29 (>60) mL/min BUN/Creatinine Ratio 22.8 H (14-18) Glucose 401 H (80-115) mg/dL Lactic Acid (0.4-2.0) mmol/L Calcium 9.0 (8.5-10.1) mg/dL Magnesium 1.8 (1.8-2.4) mg/dl Total Bilirubin 0.9 (0.2-1.0) mg/dL AST 28 (15-37) U/L ALT 46 (14-59) U/L Alkaline Phosphatase 131 H (46-116) U/L Troponin I < 0.017 (0.00-0.056) ng/mL NT-Pro-B Natriuret Pep 3826 H (0-125) pg/mL Total Protein 6.9 (6.4-8.2) g/dl Albumin 2.9 L (3.4-5.0) g/dl Globulin 4.0 gm/dL Albumin/Globulin Ratio 0.7 L (1-2) 08/04/19 08/04/19 Range/Units 07:25 09:09 WBC (3.98-10.04) K/mm3 RBC (3.98-5.22) M/mm3 Hgb (11.2-15.7) gm/dl Hct (34.1-44.9) % MCV (79.4-94.8) fl MCH (25.6-32.2) pg MCHC (32.2-35.5) g/dl RDW Std Deviation (36.4-46.3) fL Plt Count (182-369) K/mm3 MPV (9.4-12.3) fl Neutrophils % (Manual) (40-60) % Band Neutrophils % (0-10) % Lymphocytes % (Manual) (20-40) % Atypical Lymphs % % Immat Monocytes % (Man) Monocytes % (Manual) (2-10) % Eosinophils % (Manual) (0.7-5.8) % Basophils % (Manual) (0.1-1.2) Metamyelocytes % Myelocytes % Promyelocytes % Blast Cells % Plasma Cell % (Manual) Nucleated RBCs % Platelet Estimate RBC Morph Comment Puncture Site Rt radial ABG pH 7.44 (7.35-7.45) ABG pCO2 35.3 (35.0-45.0) mmHg ABG pO2 69.0 L (80.0-100.0) mmHg ABG HCO3 23.3 (22.0-26.0) meq/L ABG O2 Saturation 92.2 L (96.0-97.0) % ABG Base Excess -0.1 (-2-2.0) A-a Gradient 37 mmHg O2 Delivery Device Room air Oxygen Flow Rate 0.0 FiO2 21.00 (21.00-100.00) % Sodium (136-145) mEq/L Potassium (3.5-5.1) mEq/L Chloride (98-107) mEq/L Carbon Dioxide (21-32) mEq/L Anion Gap (5-15) BUN (7-18) mg/dL Creatinine (0.55-1.02) mg/dL Est Cr Clr Drug Dosing mL/min Estimated GFR (MDRD) (>60) mL/min BUN/Creatinine Ratio (14-18) Glucose (80-115) mg/dL Lactic Acid 1.7 (0.4-2.0) mmol/L Calcium (8.5-10.1) mg/dL Magnesium (1.8-2.4) mg/dl Total Bilirubin (0.2-1.0) mg/dL AST (15-37) U/L ALT (14-59) U/L Alkaline Phosphatase (46-116) U/L Troponin I (0.00-0.056) ng/mL NT-Pro-B Natriuret Pep (0-125) pg/mL Total Protein (6.4-8.2) g/dl Albumin (3.4-5.0) g/dl Globulin gm/dL Albumin/Globulin Ratio (1-2) Meds: Medications Discontinued Medications Generic Name Dose Route Start Last Admin Trade Name Yina PRN Reason Stop Dose Admin Insulin Human Regular 7 unit 08/04/19 08:51 08/04/19 09:12 Humulin R SUBCUT 08/04/19 08:52 7 unit ONETIME STA Administration Ondansetron HCl 4 mg 08/04/19 06:27 08/04/19 07:41 Zofran IVPUSH 08/04/19 06:28 4 mg ONETIME ONE Administration - Re-Assessments/Exams Free Text/Narrative Re-Assessment/Exam: 08/04/19 06:23 As above, the patient is presenting with a week of cough, and 2 days of dyspnea on exertion, nausea, and vomiting. She is primarily complaining of malaise, fatigue, and lassitude. Her oxygen saturation is noted to be 89% on room air, and there are crackles to the lower half of her left lung field on auscultation. A bedside Accu-Chek is greater than 400, therefore concern for pneumonia or other infectious process is present. I have ordered a workup that includes blood work, a lactic acid level, an ABG, 2 sets of blood cultures, a urinalysis, a chest x-ray, and an influenza swab. I will order IV Zofran, but because of the patient's history of CHF, I am not going to order any IV fluid until I see her chest x-ray. 08/04/19 07:50 2-view chest radiograph reviewed. The cardiac silhouette is within normal limits. No pulmonary vascular congestion. No pleural effusion, however, both the horizontal and oblique fissures are visible. No focal infiltrate. No pneumothorax. Formal read per the Radiologist pending. 08/04/19 08:52 The patient's CBC is remarkable for a WBC count elevated at 20.95, but with 0% bandemia and 90% neutrophilia. The remainder of her CBC is unremarkable. Her CMP is remarkable for a sodium depressed at 129. Her anion gap is mildly elevated at 16.4 with a bicarbonate normal at 26. Her BUN/Cr are elevated at 41/ 1.8, and her blood glucose is elevated at 401. Her alkaline phosphatase is mildly elevated at 131, with the remainder of her CMP being unremarkable. Her magnesium level is within normal limits at 1.8. Her troponin is undetectably low. Her lactic acid level is within normal limits at 1.7. Her BNP is elevated at 3826. Her influenza swab is negative. The patient's sodium corrects to 133. Her BUN/Cr were 38/1.3 on 09/24/2018. The patient's elevated BNP is consistent with her chest x-ray, suggesting vascular fullness just shy of overload. Because of this, I am not ordering IV fluid, however, I have ordered 7 units of regular insulin SQ. The patient's ABG and urinalysis are still pending. 08/04/19 09:39 The patient's ABG shows no acid base derangement her oxygen saturation is 92.2% on room air. The patient's urinalysis is being collected at this time. Test results discussed with the patient and her . Unless the patient turns out to have a urinary tract infection, she is likely suffering from a viral illness. No source of bacterial infection has been found. I am recommending admission to the hospital to treat her hyperglycemia. The patient agreed. Case discussed with Dr. Saeed at 09:38. He accepted the patient for admission to the medical floor. He will check on the urinalysis results. Departure - Departure Time of Disposition: 09:40 Disposition: Admitted As Inpatient 68 Condition: Good Clinical Impression: Hyperglycemia, Lassitude, Acute on chronic renal failure - Discharge Information *PRESCRIPTION DRUG MONITORING PROGRAM REVIEWED*: Not Applicable *COPY OF PRESCRIPTION DRUG MONITORING REPORT IN PATIENT GABBIE: Not Applicable Referrals: López Pittman MD [Primary Care Provider] - Arias Phan MD [Ordering Only Provider] - Forms: ED Department Discharge Sepsis Event Note - Evaluation Sepsis Screening Result: No Definite Risk - Focused Exam Vital Signs: Vital Signs Temp Pulse Resp BP Pulse Ox 08/04/19 05:55 36.8 C 70 16 187/61 H 89 L Date Exam was Performed: 08/04/19 Time Exam was Performed: 09:39 - My Orders Last 24 Hours: My Active Orders 08/04/19 06:20 UA W/MICROSCOPIC [URIN] Stat Blood Culture x2 Reflex Set [OM.PC] Stat 08/04/19 07:25 CULTURE BLOOD [BC] Stat 08/04/19 07:40 CULTURE BLOOD [BC] Stat - Assessment/Plan Last 24 Hours: My Active Orders 08/04/19 06:20 UA W/MICROSCOPIC [URIN] Stat Blood Culture x2 Reflex Set [OM.PC] Stat 08/04/19 07:25 CULTURE BLOOD [BC] Stat 08/04/19 07:40 CULTURE BLOOD [BC] Stat
[2019-08-04] MEDS ORDERED: Ondansetron 4 MG/2 ML SDV IVPUSH ONE (06:27)
--- NOTE | 2019-08-04 07:49 | PCM.SN ---
- Free Text/Narrative Note: [id number]:Called for difficult IV start in the emergency room for Cailin. metal room dental technician in room on arrival needing blood cultures and specimen as well. 20 ga IV started with 2 attempts in the right AC with ultrasound. Flushed with 20 ml 0.9NS. Good blood return. Prepped and secured with IV start kit. Transparent dressing over site. Tolerated the procedure well. Report to nursing staff. Scott Thomas OIL RIG DRILLER
[2019-08-04] MEDS ORDERED: Insulin Regular, Human 100 Units/ML 3 ML Vial SUBCUT STA (08:51)
--- NOTE | 2019-08-04 09:08 | CR ---
Chest: Two views of the chest were obtained. Comparison: Prior chest x-ray of 09/22/18. Heart size and mediastinum are within normal limits. Lungs are clear with no acute parenchymal change. Degenerative endplate spurring is seen throughout the spine. Impression: 1. Nothing acute is appreciated on two-view chest x-ray. Diagnostic code #2 This report was dictated in [place] Standard Time
--- NOTE | 2019-08-04 12:15 | PCM.HP.2 ---
H&P History of Present Illness - General Date of Service: 08/04/19 Admit Problem/Dx: Admission Diagnosis/Problem Admission Diagnosis/Problem Hyperglycemia Source of Information: Patient, Old Records, Provider, RN Notes Reviewed History Limitations: Reports: No Limitations - History of Present Illness Initial Comments - Free Text/Narative: This is 64 yo white female with past medical hx/o HTN, HLD, HF with Unknown EF, DM2, Diabetic Nephropathy, CKD Stage 3, and Obesity who comes in for evaluation of generalized weakness primarily due to malaise, fatigue, and reduced appetite that have been going on for about a week now. She endorses a mild productive cough, dyspneas, as well as nausea and vomiting. She took OTC Coricidin to improve her symptoms but it she states she did not like how it made her feel. She denies any other GI/ symptoms. Her initial work up in ED shows a CBC remarkable for WBC of 20.95, RBC of 3.93, Neutrophils of 90%, and Lymphocytes of 5%. Her Chemistry is significant for Na of 129, Cl of 91, AG of 16.4, BUN of 41, Cr of 1.8, BS of 401, Alk Phos 131, and ProBNP of 3826. Her UA is not suggestive of UTI. Her CRX report read as nothing acute is appreciated. Patient received initial treatment in ED prior to coming in for further management. - Related Data Allergies/Adverse Reactions: Allergies Allergy/AdvReac Type Severity Reaction Status Date / Time No Known Allergies Allergy Verified 08/04/19 13:00 Home Medications: Home Meds Aspirin 81 mg PO DAILY 09/18/18 [History] Chlorthalidone 25 mg PO DAILY 09/18/18 [History] Furosemide 20 - 40 mg PO DAILY 09/18/18 [History] Lisinopril 10 mg PO DAILY 09/18/18 [History] Metoprolol Succinate 200 mg PO DAILY 09/18/18 [History] Verapamil HCl [Verelan Pm] 200 mg pe PO DAILY 09/18/18 [History] Insulin Aspart [NovoLOG] 6 unit SQ 0600 09/20/18 [History] Insulin Aspart [NovoLOG] 14 units SQ 1100 09/20/18 [History] Insulin Aspart [NovoLOG] 20 units SQ 1700 09/20/18 [History] Insulin Glarg,Human.Rec.Analog [Lantus] 32 unit SUBCUT QPM 02/25/19 [History] Doxazosin [Doxazosin Mesylate] 1 mg PO DAILY 08/04/19 [History] Timolol [Betimol] 1 drop EYEBOTH DAILY 08/04/19 [History] Past Medical History HEENT History: Reports: Glaucoma, Impaired Vision Cardiovascular History: Reports: Heart Failure, High Cholesterol (untreated), Hypertension 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 History: Reports: Diabetic Nephropathy 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: Endocrine/Metabolic History: Reports: Diabetes, Type II, Obesity/BMI 30+ - Past Surgical History HEENT Surgical History: Reports: Cataract Surgery (bilateral), Laser Surgery ( bilateral, for retinal hemorrhages) Female Surgical History: Reports: Section (x 2), Other (See Below) ( Cervical cerclage x 2) Social & Family History - Tobacco Use Smoking Status *Q: Never Smoker - Caffeine Use Caffeine Use: Reports: Coffee, Soda, Tea - Recreational Drug Use Recreational Drug Use: No - Living Situation & Occupation Living situation: Reports: , with Spouse Occupation: Unemployed H&P Review of Systems - Review of Systems: Review Of Systems: See Below General: Reports: Malaise, Weakness, Fatigue, Decreased Appetite. Denies: Fever , Chills HEENT: Reports: No Symptoms Pulmonary: Denies: Shortness of Breath, Pleuritic Chest Pain, Other Cardiovascular: Reports: Dyspnea on Exertion. Denies: Chest Pain, Lightheadedness Gastrointestinal: Reports: Decreased Appetite, Nausea, Vomiting. Denies: Abdominal Pain 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: Reports: No Symptoms Musculoskeletal: Reports: No Symptoms Skin: Denies: Cyanosis, Diaphoresis, Bruising, Pruritis, Rash Psychiatric: Denies: Depression, Anxiety, Agitation, Hallucinations Neurological: Denies: Confusion, Pre-Existing Deficit, Difficulty Walking, Weakness, Gait Disturbance Hematologic/Lymphatic: Reports: No Symptoms Immunologic: Reports: No Symptoms Exam - Exam Exam: See Below - Vital Signs Vital Signs: Last Vital Signs Temp 36.8 C 08/04/19 05:55 Pulse 70 08/04/19 05:55 Resp 16 08/04/19 05:55 BP 187/61 H 08/04/19 05:55 Pulse Ox 89 L 08/04/19 05:55 Weight: 104.326 kg - Exam General: Alert, Oriented, Cooperative, Other (Obese) HEENT: Conjunctiva Clear, EACs Clear, EOMI, Hearing Intact, Mucosa Moist & [place] , Nares Patent, Normal Nasal Septum, Posterior Pharynx Clear, Pupils Equal, Pupils Reactive Neck: Supple, Trachea Midline, Full Range of Motion, Other (neck short and thick ) Lungs: Clear to Auscultation, Normal Respiratory Effort, Decreased Breath Sounds Cardiovascular: Regular Rate, Regular Rhythm GI/Abdominal Exam: Normal Bowel Sounds, Soft, Non-Tender, No Organomegaly, No Distention, No Abnormal Bruit, Other (Obese) (Female) Exam: Deferred Rectal (Female) Exam: Deferred Back Exam: Normal Inspection, Decreased Range of Motion Extremities: Normal Inspection, Normal Range of Motion, Non-Tender, No Pedal Edema, Normal Capillary Refill Peripheral Pulses: 2+: Posterior Tibial (L), Posterior Tibial (R), Dorsalis Pedis (L), Dorsalis Pedis (R) Skin: Warm, Dry, Intact Neuro Extensive - Mental Status: Oriented x3, Normal Cognition, Memory Intact Neuro Extensive - Motor, Sensory, Reflexes: CN II-XII Intact (limited but grossly intact), Normal Gait Psychiatric: Alert, Normal Affect, Normal Mood - Patient Data Lab Results Last 24 hrs: Laboratory Results - last 24 hr 08/04/19 08/04/19 08/04/19 Range/Units 07:25 07:25 07:25 WBC 20.95 H (3.98-10.04) K/mm3 RBC 3.93 L (3.98-5.22) M/mm3 Hgb 11.7 (11.2-15.7) gm/dl Hct 35.5 (34.1-44.9) % MCV 90.3 (79.4-94.8) fl MCH 29.8 (25.6-32.2) pg MCHC 33.0 (32.2-35.5) g/dl RDW Std Deviation 41.9 (36.4-46.3) fL Plt Count 232 D (182-369) K/mm3 MPV 11.4 (9.4-12.3) fl Neutrophils % (Manual) 90 H (40-60) % Band Neutrophils % 0 (0-10) % Lymphocytes % (Manual) 5 L (20-40) % Atypical Lymphs % 0 % Immat Monocytes % (Man) 0 Monocytes % (Manual) 5 (2-10) % Eosinophils % (Manual) 0 L (0.7-5.8) % Basophils % (Manual) 0 L (0.1-1.2) Metamyelocytes % 0 Myelocytes % 0 Promyelocytes % 0 Blast Cells % 0 Plasma Cell % (Manual) 0 Nucleated RBCs 0.0 % Platelet Estimate Adequate RBC Morph Comment Normal Puncture Site ABG pH (7.35-7.45) ABG pCO2 (35.0-45.0) mmHg ABG pO2 (80.0-100.0) mmHg ABG HCO3 (22.0-26.0) meq/L ABG O2 Saturation (96.0-97.0) % ABG Base Excess (-2-2.0) A-a Gradient mmHg O2 Delivery Device Oxygen Flow Rate FiO2 (21.00-100.00) % Sodium 129 L (136-145) mEq/L Potassium 4.4 (3.5-5.1) mEq/L Chloride 91 L (98-107) mEq/L Carbon Dioxide 26 (21-32) mEq/L Anion Gap 16.4 H (5-15) BUN 41 H (7-18) mg/dL Creatinine 1.8 H (0.55-1.02) mg/dL Est Cr Clr Drug Dosing 27.98 mL/min Estimated GFR (MDRD) 29 (>60) mL/min BUN/Creatinine Ratio 22.8 H (14-18) Glucose 401 H (80-115) mg/dL POC Glucose (80-115) mg/dL Lactic Acid (0.4-2.0) mmol/L Calcium 9.0 (8.5-10.1) mg/dL Magnesium 1.8 (1.8-2.4) mg/dl Total Bilirubin 0.9 (0.2-1.0) mg/dL AST 28 (15-37) U/L ALT 46 (14-59) U/L Alkaline Phosphatase 131 H (46-116) U/L Troponin I < 0.017 (0.00-0.056) ng/mL NT-Pro-B Natriuret Pep 3826 H (0-125) pg/mL Total Protein 6.9 (6.4-8.2) g/dl Albumin 2.9 L (3.4-5.0) g/dl Globulin 4.0 gm/dL Albumin/Globulin Ratio 0.7 L (1-2) Urine Color (Yellow) Urine Appearance (Clear) Urine pH (5.0-8.0) Ur Specific [place] (1.005-1.030) Urine Protein (Negative) Urine Glucose (UA) (Negative) Urine Ketones (Negative) Urine Occult Blood (Negative) Urine Nitrite (Negative) Urine Bilirubin (Negative) Urine Urobilinogen (0.2-1.0) Ur Leukocyte Esterase (Negative) Urine RBC (0-5) /hpf Urine WBC (0-5) /hpf Ur Squamous Epith Cells (0-5) /hpf Urine Bacteria (FEW) /hpf Hyaline Casts (0-5) /lpf Urine Mucus (FEW) /hpf 08/04/19 08/04/19 08/04/19 Range/Units 07:25 09:09 09:40 WBC (3.98-10.04) K/mm3 RBC (3.98-5.22) M/mm3 Hgb (11.2-15.7) gm/dl Hct (34.1-44.9) % MCV (79.4-94.8) fl MCH (25.6-32.2) pg MCHC (32.2-35.5) g/dl RDW Std Deviation (36.4-46.3) fL Plt Count (182-369) K/mm3 MPV (9.4-12.3) fl Neutrophils % (Manual) (40-60) % Band Neutrophils % (0-10) % Lymphocytes % (Manual) (20-40) % Atypical Lymphs % % Immat Monocytes % (Man) Monocytes % (Manual) (2-10) % Eosinophils % (Manual) (0.7-5.8) % Basophils % (Manual) (0.1-1.2) Metamyelocytes % Myelocytes % Promyelocytes % Blast Cells % Plasma Cell % (Manual) Nucleated RBCs % Platelet Estimate RBC Morph Comment Puncture Site Rt radial ABG pH 7.44 (7.35-7.45) ABG pCO2 35.3 (35.0-45.0) mmHg ABG pO2 69.0 L (80.0-100.0) mmHg ABG HCO3 23.3 (22.0-26.0) meq/L ABG O2 Saturation 92.2 L (96.0-97.0) % ABG Base Excess -0.1 (-2-2.0) A-a Gradient 37 mmHg O2 Delivery Device Room air Oxygen Flow Rate 0.0 FiO2 21.00 (21.00-100.00) % Sodium (136-145) mEq/L Potassium (3.5-5.1) mEq/L Chloride (98-107) mEq/L Carbon Dioxide (21-32) mEq/L Anion Gap (5-15) BUN (7-18) mg/dL Creatinine (0.55-1.02) mg/dL Est Cr Clr Drug Dosing mL/min Estimated GFR (MDRD) (>60) mL/min BUN/Creatinine Ratio (14-18) Glucose (80-115) mg/dL POC Glucose (80-115) mg/dL Lactic Acid 1.7 (0.4-2.0) mmol/L Calcium (8.5-10.1) mg/dL Magnesium (1.8-2.4) mg/dl Total Bilirubin (0.2-1.0) mg/dL AST (15-37) U/L ALT (14-59) U/L Alkaline Phosphatase (46-116) U/L Troponin I (0.00-0.056) ng/mL NT-Pro-B Natriuret Pep (0-125) pg/mL Total Protein (6.4-8.2) g/dl Albumin (3.4-5.0) g/dl Globulin gm/dL Albumin/Globulin Ratio (1-2) Urine Color Yellow (Yellow) Urine Appearance Clear (Clear) Urine pH 6.0 (5.0-8.0) Ur Specific [place] 1.025 (1.005-1.030) Urine Protein 2+ H (Negative) Urine Glucose (UA) 2+ H (Negative) Urine Ketones 1+ H (Negative) Urine Occult Blood 1+ H (Negative) Urine Nitrite Negative (Negative) Urine Bilirubin Negative (Negative) Urine Urobilinogen 0.2 (0.2-1.0) Ur Leukocyte Esterase Negative (Negative) Urine RBC 0-5 (0-5) /hpf Urine WBC 0-5 (0-5) /hpf Ur Squamous Epith Cells 0-5 (0-5) /hpf Urine Bacteria Few (FEW) /hpf Hyaline Casts 0-5 (0-5) /lpf Urine Mucus Not seen (FEW) /hpf 08/04/19 Range/Units 11:39 WBC (3.98-10.04) K/mm3 RBC (3.98-5.22) M/mm3 Hgb (11.2-15.7) gm/dl Hct (34.1-44.9) % MCV (79.4-94.8) fl MCH (25.6-32.2) pg MCHC (32.2-35.5) g/dl RDW Std Deviation (36.4-46.3) fL Plt Count (182-369) K/mm3 MPV (9.4-12.3) fl Neutrophils % (Manual) (40-60) % Band Neutrophils % (0-10) % Lymphocytes % (Manual) (20-40) % Atypical Lymphs % % Immat Monocytes % (Man) Monocytes % (Manual) (2-10) % Eosinophils % (Manual) (0.7-5.8) % Basophils % (Manual) (0.1-1.2) Metamyelocytes % Myelocytes % Promyelocytes % Blast Cells % Plasma Cell % (Manual) Nucleated RBCs % Platelet Estimate RBC Morph Comment Puncture Site ABG pH (7.35-7.45) ABG pCO2 (35.0-45.0) mmHg ABG pO2 (80.0-100.0) mmHg ABG HCO3 (22.0-26.0) meq/L ABG O2 Saturation (96.0-97.0) % ABG Base Excess (-2-2.0) A-a Gradient mmHg O2 Delivery Device Oxygen Flow Rate FiO2 (21.00-100.00) % Sodium (136-145) mEq/L Potassium (3.5-5.1) mEq/L Chloride (98-107) mEq/L Carbon Dioxide (21-32) mEq/L Anion Gap (5-15) BUN (7-18) mg/dL Creatinine (0.55-1.02) mg/dL Est Cr Clr Drug Dosing mL/min Estimated GFR (MDRD) (>60) mL/min BUN/Creatinine Ratio (14-18) Glucose (80-115) mg/dL POC Glucose 394 H (80-115) mg/dL Lactic Acid (0.4-2.0) mmol/L Calcium (8.5-10.1) mg/dL Magnesium (1.8-2.4) mg/dl Total Bilirubin (0.2-1.0) mg/dL AST (15-37) U/L ALT (14-59) U/L Alkaline Phosphatase (46-116) U/L Troponin I (0.00-0.056) ng/mL NT-Pro-B Natriuret Pep (0-125) pg/mL Total Protein (6.4-8.2) g/dl Albumin (3.4-5.0) g/dl Globulin gm/dL Albumin/Globulin Ratio (1-2) Urine Color (Yellow) Urine Appearance (Clear) Urine pH (5.0-8.0) Ur Specific [place] (1.005-1.030) Urine Protein (Negative) Urine Glucose (UA) (Negative) Urine Ketones (Negative) Urine Occult Blood (Negative) Urine Nitrite (Negative) Urine Bilirubin (Negative) Urine Urobilinogen (0.2-1.0) Ur Leukocyte Esterase (Negative) Urine RBC (0-5) /hpf Urine WBC (0-5) /hpf Ur Squamous Epith Cells (0-5) /hpf Urine Bacteria (FEW) /hpf Hyaline Casts (0-5) /lpf Urine Mucus (FEW) /hpf Result Diagrams: 08/05/19 04:59 08/05/19 04:59 Zbigniew Results Last 24 hrs: Microbiology 08/04/19 06:26 Influenza Type A Antigen Screen - Final Nasopharyngeal Swab NEGATIVE INFLUENZA A VIRUS AG REFERENCE RANGE: NEGATIVE Influenza Type B Antigen Screen - Final NEGATIVE INFLUENZA B VIRUS AG REFERENCE RANGE: NEGATIVE Sepsis Event Note - Evaluation Sepsis Screening Result: No Definite Risk - Focused Exam Vital Signs: Vital Signs Temp Pulse Resp BP Pulse Ox 08/04/19 05:55 36.8 C 70 16 187/61 H 89 L Date Exam was Performed: 08/05/19 Time Exam was Performed: 13:26 Problem List Initiated/Reviewed/Updated: Yes Orders Last 24hrs: Active Orders 24 hr Category Date Time Status Patient Status [ADT] Routine ADT 08/04/19 11:35 Active CULTURE BLOOD [BC] Stat Lab 08/04/19 07:25 Received CULTURE BLOOD [BC] Stat Lab 08/04/19 07:40 Received Ondansetron [Zofran] Med 01/09/20 12:14 Ordered 4 mg IVPUSH Q6H PRN Blood Culture x2 Reflex Set [OM.PC] Stat Oth 08/04/19 06:20 Ordered Medication Orders Ondansetron HCl (Zofran) 4 mg IVPUSH Q6H PRN PRN Reason: Nausea/Vomiting Assessment/Plan Comment:: Acute: Generalized Weakness. Has malaise, fatigue, hyperglycemia, and reduced appetite. Cannot r/o Viral Illness. Unspecified Viral Illness. Blood and Sputum Cultures plus Respiratory Viral Panel. Supportive care. Nausea/Vomiting. Cannot r/o stomach flu. She denies any unusual diet or drinks. PRN anti-emetic agent. IVF for hydration and monitor e-lytes abnormality. Leukocytosis. WBC of 20.95 with Neutrophils of 90%. Unclear of source but suspect viral in etiology. Hyperglycemia with BS of 401. Carries a hx/o diabetes type 2. Last A1C was 9.0 on 09/18/1018. She is on LA and SA insulin regimen. Received 7 units of regular insulin in ED. Mild Pseudo-hyponatremia 2/2 Hyperglycemia. Expect to improve once glucose gets better and resumes oral intake. Will monitor. Mild Hypochloremia 2/2 GI loss. Expect to get better with improve oral intake. Elevated proBNP level of 3826. Has hx/o HF but she has no signs of central overload. CXR is negative and her lungs are clear. This is like due to peripheral edema. HTN. Documented BP of 187/61 and 158/58 mmHg on admission. This is likely due to poor oral intake and not able to take home medications. Resume home meds and PRN anti-hypertensive agent. Mild Proteinuria, Glucosuria, Ketonuria and hematuria. UA findings. Has baseline diabetic nephropathy. Obesity Class II. BMI of 39. Advised LSM. Dietary consult for weight management. Chronic: HTN, HLD, HF with Unknown EF, DM2, Diabetic Nephropathy, and CKD Stage3 Plan: Admit for the floor. Routine AM labs. Sepsis work up and Viral Panel. IVF for hydration. PRN meds for symptomatic control. Fall precautions. PT/OT for deconditioning. DVT/Stroke Prophylaxis. Code status is full - Mortality Measure Prognosis:: Good
[2019-08-04] MEDS ORDERED: Temazepam 7.5 MG Cap PO PRN (12:16)
[2019-08-04] MEDS ORDERED: Acetaminophen/HYDROcodone 325-5 MG Tab PO PRN (12:16)
[2019-08-04] MEDS ORDERED: Ondansetron 4 MG/2 ML SDV IV PRN (12:16)
[2019-08-04] MEDS ORDERED: Promethazine 6.25 MG in Sodium Chloride 0.9% 50 ML IV PRN (12:16)
[2019-08-04] MEDS ORDERED: HYDROmorphone 0.5 MG/0.5 ML Syringe IVPUSH PRN (12:16)
[2019-08-04] MEDS ORDERED: Albuterol/Ipratropium 3.0-0.5 MG/3 ML Neb Soln NEB PRN (12:16)
[2019-08-04] MEDS: Ondansetron 4 MG/2 ML SDV IVPUSH PRN ×2 (12:38→18:56)
[2019-08-04] MEDS ORDERED: Insulin Lispro 100 Units/ML 3 ML Vial SUBCUT SCH (18:00)
[2019-08-04] MEDS ORDERED: Insulin Glarg,Human.Rec.Analog 100 Unit/ML SUBCUT SCH ×2 (18:00→21:00)
[2019-08-04] MEDS ORDERED: guaiFENesin/Dextromethorphan 100-10 MG/5 ML Soln 5 ML Cup PO PRN (21:08)
[2019-08-04] MEDS ORDERED: Insulin Lispro 100 Units/ML 3 ML Vial SUBCUT ONE (21:51)
[2019-08-05] MEDS: Ondansetron 4 MG/2 ML SDV IVPUSH PRN ×2 (02:44→09:05)
[2019-08-05] MEDS ORDERED: Insulin Lispro 100 Units/ML 3 ML Vial SUBCUT SCH ×2 (06:00→11:00)
[2019-08-05 07:35] LABS: HEMOGLOBIN A1C 8.2 % (4.50-6.20)
--- NOTE | 2019-08-05 08:01 | PCM.PN ---
- General Info Date of Service: 08/05/19 Admission Dx/Problem (Free Text): Admission Diagnosis/Problem Admission Diagnosis/Problem Hyperglycemia Subjective Update: In to see Cailin. She reports she feels terrible. She had multiple sick contacts over [facility] with multiple family members having been sick. She is unsure of any specific diagnoses. She reports she has had a cough and generalized weakness. She reports she has been checking her blood sugars for a little while since she has been sick but states that they were normal prior to admission. Sugars have been 300-400 while here. Multiple lab tests are still pending. She denies diarrhea but reports she has been nauseous. Denies any vomiting. Functional Status: Reports: Pain Controlled, Ambulating, Urinating, Incentive Spirometry. Denies: Tolerating Diet (not eating much. ), New Symptoms - Review of Systems General: Reports: Weakness, Fatigue, Malaise, Chills. Denies: Fever, Appetite HEENT: Denies: Headaches, Sore Throat Pulmonary: Reports: Cough. Denies: Shortness of Breath, Pleuritic Chest Pain, Sputum, Wheezing Cardiovascular: Reports: No Symptoms. Denies: Chest Pain, Palpitations, Dyspnea on Exertion Gastrointestinal: Reports: Abdominal Pain (LUQ - states this is from coughing. ) , Nausea. Denies: Constipation, Diarrhea, Vomiting 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: Reports: No Symptoms. Denies: Pain Musculoskeletal: Reports: No Symptoms Skin: Reports: Diaphoresis. Denies: Cyanosis Neurological: Reports: No Symptoms. Denies: Confusion, Difficulty Walking, Gait Disturbance Psychiatric: Reports: No Symptoms - Patient Data Vitals - Most Recent: Last Vital Signs Temp 98.6 F 08/05/19 02:52 Pulse 78 08/05/19 02:52 Resp 20 08/05/19 02:52 BP 155/82 H 08/05/19 02:52 Pulse Ox 91 L 08/05/19 02:52 Weight - Most Recent: 235 lb I&O - Last 24 Hours: Intake & Output 08/04/19 08/05/19 08/05/19 22:59 06:59 14:59 Intake Total 445 900 Output Total 700 Balance 445 200 Lab Results Last 24 Hours: Laboratory Results - last 24 hr 08/04/19 08/04/19 08/04/19 Range/Units 07:25 07:25 07:25 WBC (3.98-10.04) K/mm3 RBC (3.98-5.22) M/mm3 Hgb (11.2-15.7) gm/dl Hct (34.1-44.9) % MCV (79.4-94.8) fl MCH (25.6-32.2) pg MCHC (32.2-35.5) g/dl RDW Std Deviation (36.4-46.3) fL Plt Count (182-369) K/mm3 MPV (9.4-12.3) fl Neut % (Auto) (34.0-71.1) % Lymph % (Auto) (19.3-51.7) % Burt % (Auto) (4.7-12.5) % Eos % (Auto) (0.7-5.8) Baso % (Auto) (0.1-1.2) % Neut # (Auto) (1.56-6.13) K/mm3 Lymph # (Auto) (1.18-3.74) K/mm3 Burt # (Auto) (0.24-0.36) K/mm3 Eos # (Auto) (0.04-0.36) K/mm3 Baso # (Auto) (0.01-0.08) K/mm3 Neutrophils % (Manual) 90 H (40-60) % Band Neutrophils % 0 (0-10) % Lymphocytes % (Manual) 5 L (20-40) % Atypical Lymphs % 0 % Immat Monocytes % (Man) 0 Monocytes % (Manual) 5 (2-10) % Eosinophils % (Manual) 0 L (0.7-5.8) % Basophils % (Manual) 0 L (0.1-1.2) Metamyelocytes % 0 Myelocytes % 0 Promyelocytes % 0 Blast Cells % 0 Plasma Cell % (Manual) 0 Nucleated RBCs 0.0 % Platelet Estimate Adequate RBC Morph Comment Normal Puncture Site ABG pH (7.35-7.45) ABG pCO2 (35.0-45.0) mmHg ABG pO2 (80.0-100.0) mmHg ABG HCO3 (22.0-26.0) meq/L ABG O2 Saturation (96.0-97.0) % ABG Base Excess (-2-2.0) Tyrell Test A-a Gradient mmHg O2 Delivery Device Oxygen Flow Rate FiO2 (21.00-100.00) % Sodium 129 L (136-145) mEq/L Potassium 4.4 (3.5-5.1) mEq/L Chloride 91 L (98-107) mEq/L Carbon Dioxide 26 (21-32) mEq/L Anion Gap 16.4 H (5-15) BUN 41 H (7-18) mg/dL Creatinine 1.8 H (0.55-1.02) mg/dL Est Cr Clr Drug Dosing 27.98 mL/min Estimated GFR (MDRD) 29 (>60) mL/min BUN/Creatinine Ratio 22.8 H (14-18) Glucose 401 H (80-115) mg/dL POC Glucose (80-115) mg/dL Hemoglobin A1c (4.50-6.20) % Lactic Acid (0.4-2.0) mmol/L Calcium 9.0 (8.5-10.1) mg/dL Magnesium 1.8 (1.8-2.4) mg/dl Total Bilirubin 0.9 (0.2-1.0) mg/dL AST 28 (15-37) U/L ALT 46 (14-59) U/L Alkaline Phosphatase 131 H (46-116) U/L Troponin I < 0.017 (0.00-0.056) ng/mL NT-Pro-B Natriuret Pep 3826 H (0-125) pg/mL Total Protein 6.9 (6.4-8.2) g/dl Albumin 2.9 L (3.4-5.0) g/dl Globulin 4.0 gm/dL Albumin/Globulin Ratio 0.7 L (1-2) Urine Color (Yellow) Urine Appearance (Clear) Urine pH (5.0-8.0) Ur Specific [place] (1.005-1.030) Urine Protein (Negative) Urine Glucose (UA) (Negative) Urine Ketones (Negative) Urine Occult Blood (Negative) Urine Nitrite (Negative) Urine Bilirubin (Negative) Urine Urobilinogen (0.2-1.0) Ur Leukocyte Esterase (Negative) Urine RBC (0-5) /hpf Urine WBC (0-5) /hpf Ur Squamous Epith Cells (0-5) /hpf Urine Bacteria (FEW) /hpf Hyaline Casts (0-5) /lpf Urine Mucus (FEW) /hpf 08/04/19 08/04/19 08/04/19 Range/Units 07:25 09:09 09:40 WBC (3.98-10.04) K/mm3 RBC (3.98-5.22) M/mm3 Hgb (11.2-15.7) gm/dl Hct (34.1-44.9) % MCV (79.4-94.8) fl MCH (25.6-32.2) pg MCHC (32.2-35.5) g/dl RDW Std Deviation (36.4-46.3) fL Plt Count (182-369) K/mm3 MPV (9.4-12.3) fl Neut % (Auto) (34.0-71.1) % Lymph % (Auto) (19.3-51.7) % Burt % (Auto) (4.7-12.5) % Eos % (Auto) (0.7-5.8) Baso % (Auto) (0.1-1.2) % Neut # (Auto) (1.56-6.13) K/mm3 Lymph # (Auto) (1.18-3.74) K/mm3 Burt # (Auto) (0.24-0.36) K/mm3 Eos # (Auto) (0.04-0.36) K/mm3 Baso # (Auto) (0.01-0.08) K/mm3 Neutrophils % (Manual) (40-60) % Band Neutrophils % (0-10) % Lymphocytes % (Manual) (20-40) % Atypical Lymphs % % Immat Monocytes % (Man) Monocytes % (Manual) (2-10) % Eosinophils % (Manual) (0.7-5.8) % Basophils % (Manual) (0.1-1.2) Metamyelocytes % Myelocytes % Promyelocytes % Blast Cells % Plasma Cell % (Manual) Nucleated RBCs % Platelet Estimate RBC Morph Comment Puncture Site Rt radial ABG pH 7.44 (7.35-7.45) ABG pCO2 35.3 (35.0-45.0) mmHg ABG pO2 69.0 L (80.0-100.0) mmHg ABG HCO3 23.3 (22.0-26.0) meq/L ABG O2 Saturation 92.2 L (96.0-97.0) % ABG Base Excess -0.1 (-2-2.0) Tyrell Test Positive A-a Gradient 37 mmHg O2 Delivery Device Room air Oxygen Flow Rate 0.0 FiO2 21.00 (21.00-100.00) % Sodium (136-145) mEq/L Potassium (3.5-5.1) mEq/L Chloride (98-107) mEq/L Carbon Dioxide (21-32) mEq/L Anion Gap (5-15) BUN (7-18) mg/dL Creatinine (0.55-1.02) mg/dL Est Cr Clr Drug Dosing mL/min Estimated GFR (MDRD) (>60) mL/min BUN/Creatinine Ratio (14-18) Glucose (80-115) mg/dL POC Glucose (80-115) mg/dL Hemoglobin A1c (4.50-6.20) % Lactic Acid 1.7 (0.4-2.0) mmol/L Calcium (8.5-10.1) mg/dL Magnesium (1.8-2.4) mg/dl Total Bilirubin (0.2-1.0) mg/dL AST (15-37) U/L ALT (14-59) U/L Alkaline Phosphatase (46-116) U/L Troponin I (0.00-0.056) ng/mL NT-Pro-B Natriuret Pep (0-125) pg/mL Total Protein (6.4-8.2) g/dl Albumin (3.4-5.0) g/dl Globulin gm/dL Albumin/Globulin Ratio (1-2) Urine Color Yellow (Yellow) Urine Appearance Clear (Clear) Urine pH 6.0 (5.0-8.0) Ur Specific [place] 1.025 (1.005-1.030) Urine Protein 2+ H (Negative) Urine Glucose (UA) 2+ H (Negative) Urine Ketones 1+ H (Negative) Urine Occult Blood 1+ H (Negative) Urine Nitrite Negative (Negative) Urine Bilirubin Negative (Negative) Urine Urobilinogen 0.2 (0.2-1.0) Ur Leukocyte Esterase Negative (Negative) Urine RBC 0-5 (0-5) /hpf Urine WBC 0-5 (0-5) /hpf Ur Squamous Epith Cells 0-5 (0-5) /hpf Urine Bacteria Few (FEW) /hpf Hyaline Casts 0-5 (0-5) /lpf Urine Mucus Not seen (FEW) /hpf 08/04/19 08/04/19 08/04/19 Range/Units 11:39 17:37 20:55 WBC (3.98-10.04) K/mm3 RBC (3.98-5.22) M/mm3 Hgb (11.2-15.7) gm/dl Hct (34.1-44.9) % MCV (79.4-94.8) fl MCH (25.6-32.2) pg MCHC (32.2-35.5) g/dl RDW Std Deviation (36.4-46.3) fL Plt Count (182-369) K/mm3 MPV (9.4-12.3) fl Neut % (Auto) (34.0-71.1) % Lymph % (Auto) (19.3-51.7) % Burt % (Auto) (4.7-12.5) % Eos % (Auto) (0.7-5.8) Baso % (Auto) (0.1-1.2) % Neut # (Auto) (1.56-6.13) K/mm3 Lymph # (Auto) (1.18-3.74) K/mm3 Burt # (Auto) (0.24-0.36) K/mm3 Eos # (Auto) (0.04-0.36) K/mm3 Baso # (Auto) (0.01-0.08) K/mm3 Neutrophils % (Manual) (40-60) % Band Neutrophils % (0-10) % Lymphocytes % (Manual) (20-40) % Atypical Lymphs % % Immat Monocytes % (Man) Monocytes % (Manual) (2-10) % Eosinophils % (Manual) (0.7-5.8) % Basophils % (Manual) (0.1-1.2) Metamyelocytes % Myelocytes % Promyelocytes % Blast Cells % Plasma Cell % (Manual) Nucleated RBCs % Platelet Estimate RBC Morph Comment Puncture Site ABG pH (7.35-7.45) ABG pCO2 (35.0-45.0) mmHg ABG pO2 (80.0-100.0) mmHg ABG HCO3 (22.0-26.0) meq/L ABG O2 Saturation (96.0-97.0) % ABG Base Excess (-2-2.0) Tyrell Test A-a Gradient mmHg O2 Delivery Device Oxygen Flow Rate FiO2 (21.00-100.00) % Sodium (136-145) mEq/L Potassium (3.5-5.1) mEq/L Chloride (98-107) mEq/L Carbon Dioxide (21-32) mEq/L Anion Gap (5-15) BUN (7-18) mg/dL Creatinine (0.55-1.02) mg/dL Est Cr Clr Drug Dosing mL/min Estimated GFR (MDRD) (>60) mL/min BUN/Creatinine Ratio (14-18) Glucose 410 H 470 H (80-115) mg/dL POC Glucose 394 H (80-115) mg/dL Hemoglobin A1c (4.50-6.20) % Lactic Acid (0.4-2.0) mmol/L Calcium (8.5-10.1) mg/dL Magnesium (1.8-2.4) mg/dl Total Bilirubin (0.2-1.0) mg/dL AST (15-37) U/L ALT (14-59) U/L Alkaline Phosphatase (46-116) U/L Troponin I (0.00-0.056) ng/mL NT-Pro-B Natriuret Pep (0-125) pg/mL Total Protein (6.4-8.2) g/dl Albumin (3.4-5.0) g/dl Globulin gm/dL Albumin/Globulin Ratio (1-2) Urine Color (Yellow) Urine Appearance (Clear) Urine pH (5.0-8.0) Ur Specific [place] (1.005-1.030) Urine Protein (Negative) Urine Glucose (UA) (Negative) Urine Ketones (Negative) Urine Occult Blood (Negative) Urine Nitrite (Negative) Urine Bilirubin (Negative) Urine Urobilinogen (0.2-1.0) Ur Leukocyte Esterase (Negative) Urine RBC (0-5) /hpf Urine WBC (0-5) /hpf Ur Squamous Epith Cells (0-5) /hpf Urine Bacteria (FEW) /hpf Hyaline Casts (0-5) /lpf Urine Mucus (FEW) /hpf 08/05/19 08/05/19 08/05/19 Range/Units 04:59 04:59 04:59 WBC 18.84 H (3.98-10.04) K/mm3 RBC 3.62 L (3.98-5.22) M/mm3 Hgb 10.6 L (11.2-15.7) gm/dl Hct 32.6 L (34.1-44.9) % MCV 90.1 (79.4-94.8) fl MCH 29.3 (25.6-32.2) pg MCHC 32.5 (32.2-35.5) g/dl RDW Std Deviation 42.4 (36.4-46.3) fL Plt Count 230 (182-369) K/mm3 MPV 11.9 (9.4-12.3) fl Neut % (Auto) 81.7 H (34.0-71.1) % Lymph % (Auto) 5.9 L (19.3-51.7) % Burt % (Auto) 11.8 (4.7-12.5) % Eos % (Auto) 0 L (0.7-5.8) Baso % (Auto) 0.1 (0.1-1.2) % Neut # (Auto) 15.39 H (1.56-6.13) K/mm3 Lymph # (Auto) 1.12 L (1.18-3.74) K/mm3 Burt # (Auto) 2.22 H (0.24-0.36) K/mm3 Eos # (Auto) 0.00 L (0.04-0.36) K/mm3 Baso # (Auto) 0.02 (0.01-0.08) K/mm3 Neutrophils % (Manual) (40-60) % Band Neutrophils % (0-10) % Lymphocytes % (Manual) (20-40) % Atypical Lymphs % % Immat Monocytes % (Man) Monocytes % (Manual) (2-10) % Eosinophils % (Manual) (0.7-5.8) % Basophils % (Manual) (0.1-1.2) Metamyelocytes % Myelocytes % Promyelocytes % Blast Cells % Plasma Cell % (Manual) Nucleated RBCs % Platelet Estimate RBC Morph Comment Puncture Site ABG pH (7.35-7.45) ABG pCO2 (35.0-45.0) mmHg ABG pO2 (80.0-100.0) mmHg ABG HCO3 (22.0-26.0) meq/L ABG O2 Saturation (96.0-97.0) % ABG Base Excess (-2-2.0) Tyrell Test A-a Gradient mmHg O2 Delivery Device Oxygen Flow Rate FiO2 (21.00-100.00) % Sodium 129 L (136-145) mEq/L Potassium 3.8 (3.5-5.1) mEq/L Chloride 92 L (98-107) mEq/L Carbon Dioxide 25 (21-32) mEq/L Anion Gap 15.8 H (5-15) BUN 38 H (7-18) mg/dL Creatinine 1.6 H (0.55-1.02) mg/dL Est Cr Clr Drug Dosing 31.48 mL/min Estimated GFR (MDRD) 33 (>60) mL/min BUN/Creatinine Ratio 23.8 H (14-18) Glucose 382 H (80-115) mg/dL POC Glucose (80-115) mg/dL Hemoglobin A1c 8.20 H (4.50-6.20) % Lactic Acid (0.4-2.0) mmol/L Calcium 8.8 (8.5-10.1) mg/dL Magnesium 1.8 (1.8-2.4) mg/dl Total Bilirubin (0.2-1.0) mg/dL AST (15-37) U/L ALT (14-59) U/L Alkaline Phosphatase (46-116) U/L Troponin I (0.00-0.056) ng/mL NT-Pro-B Natriuret Pep (0-125) pg/mL Total Protein (6.4-8.2) g/dl Albumin (3.4-5.0) g/dl Globulin gm/dL Albumin/Globulin Ratio (1-2) Urine Color (Yellow) Urine Appearance (Clear) Urine pH (5.0-8.0) Ur Specific [place] (1.005-1.030) Urine Protein (Negative) Urine Glucose (UA) (Negative) Urine Ketones (Negative) Urine Occult Blood (Negative) Urine Nitrite (Negative) Urine Bilirubin (Negative) Urine Urobilinogen (0.2-1.0) Ur Leukocyte Esterase (Negative) Urine RBC (0-5) /hpf Urine WBC (0-5) /hpf Ur Squamous Epith Cells (0-5) /hpf Urine Bacteria (FEW) /hpf Hyaline Casts (0-5) /lpf Urine Mucus (FEW) /hpf 08/05/19 Range/Units 06:29 WBC (3.98-10.04) K/mm3 RBC (3.98-5.22) M/mm3 Hgb (11.2-15.7) gm/dl Hct (34.1-44.9) % MCV (79.4-94.8) fl MCH (25.6-32.2) pg MCHC (32.2-35.5) g/dl RDW Std Deviation (36.4-46.3) fL Plt Count (182-369) K/mm3 MPV (9.4-12.3) fl Neut % (Auto) (34.0-71.1) % Lymph % (Auto) (19.3-51.7) % Burt % (Auto) (4.7-12.5) % Eos % (Auto) (0.7-5.8) Baso % (Auto) (0.1-1.2) % Neut # (Auto) (1.56-6.13) K/mm3 Lymph # (Auto) (1.18-3.74) K/mm3 Burt # (Auto) (0.24-0.36) K/mm3 Eos # (Auto) (0.04-0.36) K/mm3 Baso # (Auto) (0.01-0.08) K/mm3 Neutrophils % (Manual) (40-60) % Band Neutrophils % (0-10) % Lymphocytes % (Manual) (20-40) % Atypical Lymphs % % Immat Monocytes % (Man) Monocytes % (Manual) (2-10) % Eosinophils % (Manual) (0.7-5.8) % Basophils % (Manual) (0.1-1.2) Metamyelocytes % Myelocytes % Promyelocytes % Blast Cells % Plasma Cell % (Manual) Nucleated RBCs % Platelet Estimate RBC Morph Comment Puncture Site ABG pH (7.35-7.45) ABG pCO2 (35.0-45.0) mmHg ABG pO2 (80.0-100.0) mmHg ABG HCO3 (22.0-26.0) meq/L ABG O2 Saturation (96.0-97.0) % ABG Base Excess (-2-2.0) Tyrell Test A-a Gradient mmHg O2 Delivery Device Oxygen Flow Rate FiO2 (21.00-100.00) % Sodium (136-145) mEq/L Potassium (3.5-5.1) mEq/L Chloride (98-107) mEq/L Carbon Dioxide (21-32) mEq/L Anion Gap (5-15) BUN (7-18) mg/dL Creatinine (0.55-1.02) mg/dL Est Cr Clr Drug Dosing mL/min Estimated GFR (MDRD) (>60) mL/min BUN/Creatinine Ratio (14-18) Glucose (80-115) mg/dL POC Glucose 391 H (80-115) mg/dL Hemoglobin A1c (4.50-6.20) % Lactic Acid (0.4-2.0) mmol/L Calcium (8.5-10.1) mg/dL Magnesium (1.8-2.4) mg/dl Total Bilirubin (0.2-1.0) mg/dL AST (15-37) U/L ALT (14-59) U/L Alkaline Phosphatase (46-116) U/L Troponin I (0.00-0.056) ng/mL NT-Pro-B Natriuret Pep (0-125) pg/mL Total Protein (6.4-8.2) g/dl Albumin (3.4-5.0) g/dl Globulin gm/dL Albumin/Globulin Ratio (1-2) Urine Color (Yellow) Urine Appearance (Clear) Urine pH (5.0-8.0) Ur Specific [place] (1.005-1.030) Urine Protein (Negative) Urine Glucose (UA) (Negative) Urine Ketones (Negative) Urine Occult Blood (Negative) Urine Nitrite (Negative) Urine Bilirubin (Negative) Urine Urobilinogen (0.2-1.0) Ur Leukocyte Esterase (Negative) Urine RBC (0-5) /hpf Urine WBC (0-5) /hpf Ur Squamous Epith Cells (0-5) /hpf Urine Bacteria (FEW) /hpf Hyaline Casts (0-5) /lpf Urine Mucus (FEW) /hpf Zbigniew Results Last 24 Hours: Microbiology 08/04/19 07:40 Aerobic Blood Culture - Preliminary Blood - Venous - Lab Draw NO GROWTH AFTER 1 DAY Anaerobic Blood Culture - Final 08/04/19 07:25 Aerobic Blood Culture - Preliminary Blood - Venous NO GROWTH AFTER 1 DAY Anaerobic Blood Culture - Preliminary NO GROWTH AFTER 1 DAY 08/04/19 15:18 Gram Stain - Final Sputum - Expectorated Sputum Culture - Preliminary 08/04/19 06:26 Influenza Type A Antigen Screen - Final Nasopharyngeal Swab NEGATIVE INFLUENZA A VIRUS AG REFERENCE RANGE: NEGATIVE Influenza Type B Antigen Screen - Final NEGATIVE INFLUENZA B VIRUS AG REFERENCE RANGE: NEGATIVE Med Orders - Current: Current Medications Acetaminophen (Tylenol) 650 mg PO Q4H PRN PRN Reason: Pain (Mild 1-3)/fever Hydrocodone Bitart/Acetaminophen ([place] 325-5 Mg) 1 tab PO Q4H PRN PRN Reason: Pain (moderate 4-6) Albuterol/Ipratropium (Duoneb 3.0-0.5 Mg/3 Ml) 3 ml NEB Q4H PRN PRN Reason: Shortness Of Breath/wheezing Aspirin (Aspirin) 81 mg PO DAILY [facility] Chlorthalidone (Chlorthalidone) 25 mg PO DAILY [facility] Doxazosin Mesylate (Cardura) 1 mg PO DAILY [facility] Furosemide (Lasix) 20 - 40 mg PO DAILY [facility] Guaifenesin/Phenylephrine HCl (Robitussin Dm) 10 ml PO Q4H PRN PRN Reason: Cough Hydromorphone HCl (Dilaudid) 0.25 mg IVPUSH Q2H PRN PRN Reason: Pain (severe 7-10) Promethazine HCl 6.25 mg/ (Sodium Chloride) 50.25 mls @ 100 mls/hr IV Q6H PRN PRN Reason: Nausea/Vomiting Insulin Glargine (Lantus) 32 unit SUBCUT BEDTIME [facility] Last Admin: 08/04/19 21:59 Dose: 32 units Insulin Human Lispro (Humalog) 20 unit SUBCUT 1700 [facility] Last Admin: 08/04/19 18:56 Dose: 10 units Insulin Human Lispro (Humalog) 14 unit SUBCUT 1100 [facility] Insulin Human Lispro (Humalog) 6 unit SUBCUT 0600 [facility] Last Admin: 08/05/19 07:06 Dose: 6 unit Lisinopril (Prinivil) 10 mg PO DAILY [facility] Metoprolol Succinate (Toprol Xl) 200 mg PO DAILY [facility] Verapamil Hcl [ Verelan Pm] 200 Mg * *Ptom 200 mg pe PO DAILY [facility] Ondansetron HCl (Zofran) 4 mg IVPUSH Q6H PRN PRN Reason: Nausea/Vomiting Last Admin: 08/05/19 02:44 Dose: 4 mg Temazepam (Restoril) 7.5 mg PO BEDTIME PRN PRN Reason: Sleep Timolol Maleate (Timoptic 0.5% Ophth Soln) 0 ml EYEBOTH DAILY [facility] Discontinued Medications Insulin Glargine (Lantus) 32 unit SUBCUT QPM [facility] Last Admin: 08/04/19 19:21 Dose: Not Given Insulin Human Lispro (Humalog) 10 unit SUBCUT ONETIME ONE Stop: 08/04/19 21:52 Last Admin: 08/04/19 21:58 Dose: 10 unit Insulin Human Regular (Humulin R) 7 unit SUBCUT ONETIME STA Stop: 08/04/19 08:52 Last Admin: 08/04/19 09:12 Dose: 7 unit Ondansetron HCl (Zofran) 4 mg IVPUSH ONETIME ONE Stop: 08/04/19 06:28 Last Admin: 08/04/19 07:41 Dose: 4 mg Ondansetron HCl (Zofran) 4 mg IV Q6H PRN PRN Reason: Nausea/Vomiting - Exam Quality Assessment: DVT Prophylaxis General: Alert, Oriented, Cooperative, Mild Distress (Looks ill ) HEENT: Pupils Equal, Pupils Reactive, EOMI, Mucous Membr. Moist/[place] Neck: Supple, Trachea Midline Lungs: Normal Respiratory Effort, Crackles (LLQ - mild ) Cardiovascular: Regular Rate, Regular Rhythm GI/Abdominal Exam: Normal Bowel Sounds, Soft, No Organomegaly, No Distention, Tender (LUQ) (Female) Exam: Deferred Back Exam: Normal Inspection, Full Range of Motion Extremities: Normal Inspection, Normal Range of Motion, Non-Tender, No Pedal Edema, Normal Capillary Refill Peripheral Pulses: 2+: Radial (L), Radial (R), Dorsalis Pedis (L), Dorsalis Pedis (R) Skin: Warm, Intact, Other (Diaphoretic) Neurological: No New Focal Deficit Psy/Mental Status: Alert, Normal Affect, Normal Mood Sepsis Event Note - Evaluation Sepsis Screening Result: No Definite Risk - Focused Exam Vital Signs: Vital Signs Temp Pulse Resp BP Pulse Ox 08/05/19 02:52 98.6 F 78 20 155/82 H 91 L 08/05/19 00:00 98.8 F 80 18 148/67 H 94 L Date Exam was Performed: 08/05/19 Time Exam was Performed: 13:34 - Problem List & Annotations (1) Acute on chronic renal failure SNOMED Code(s): 795191008 Code(s): N17.9 - ACUTE KIDNEY FAILURE, UNSPECIFIED; N18.9 - CHRONIC KIDNEY DISEASE, UNSPECIFIED Status: Acute Current Visit: Yes (2) Hyperglycemia SNOMED Code(s): 25195671 Code(s): R73.9 - HYPERGLYCEMIA, UNSPECIFIED Status: Acute Current Visit: Yes (3) Lassitude SNOMED Code(s): 60075972 Code(s): R53.1 - WEAKNESS Status: Acute Current Visit: Yes (4) Chronic renal insufficiency SNOMED Code(s): 894249505 Code(s): N18.9 - CHRONIC KIDNEY DISEASE, UNSPECIFIED Status: Acute Current Visit: No (5) Hyperglycemia due to type 2 diabetes mellitus SNOMED Code(s): 165736877596001, 713581394834455 Code(s): E11.65 - TYPE 2 DIABETES MELLITUS WITH HYPERGLYCEMIA Status: Acute Current Visit: No (6) Hyponatremia SNOMED Code(s): 14287783 Code(s): E87.1 - HYPO-OSMOLALITY AND HYPONATREMIA Status: Acute Current Visit: No (7) Leukocytosis SNOMED Code(s): 889289452, 063990718 Code(s): D72.829 - ELEVATED WHITE BLOOD CELL COUNT, UNSPECIFIED Status: Acute Priority: High Current Visit: Yes Qualifiers: Leukocytosis type: unspecified Qualified Code(s): D72.829 - Elevated white blood cell count, unspecified (8) Hypochloremia SNOMED Code(s): 98790861 Code(s): E87.8 - OTH DISORDERS OF ELECTROLYTE AND FLUID BALANCE, NEC Status : Acute Current Visit: Yes - Problem List Review Problem List Initiated/Reviewed/Updated: Yes - Plan Plan:: Acute: Generalized Weakness. Has malaise, fatigue, hyperglycemia, and reduced appetite. Cannot r/o Viral Illness. Unspecified Viral Illness. Blood and Sputum Cultures plus Respiratory Viral Panel. Supportive care. -Influenza screen negative Nausea/Vomiting. Cannot r/o stomach flu. She denies any unusual diet or drinks. PRN anti-emetic agent. IVF for hydration and monitor e-lytes abnormality. Leukocytosis. WBC of 20.95-->18.84 with Neutrophils of 90%-->81.7. Unclear of source. -Preliminary sputum culture shows Moderate gram-positive cocci, moderate gram -negative coccobacilli. Will start IV Rocephin. Order mycobacteria, strep pneumo. -Blood cultures negative Hyperglycemia with BS of 300-400. Carries a hx/o diabetes type 2. Last A1C was 9.0 on 09/18/1018. She is on LA and SA insulin regimen. Received 7 units of regular insulin in ED. -Change LA insulin to 50 units nightly and SA insulin to 10 units pre-meal. Add high dose sliding scale and hypoglycemia protocol. -Data Operations Director and telehealth nurse educator consult Mild Pseudo-hyponatremia 2/2 Hyperglycemia. Expect to improve once glucose gets better and resumes oral intake. Will monitor. -Corrected sodium 134 today Mild Hypochloremia 2/2 GI loss. Expect to get better with improve oral intake. Elevated proBNP level of 3826. Has hx/o HF but she has no signs of central overload. CXR is negative and her lungs are clear. This is like due to peripheral edema. HTN. Documented BP of 187/61 and 158/58 on admission. This is likely due to poor oral intake and not able to take home medications. Resume home meds and PRN anti-hypertensive agent. -Resolved with resumption of home medications. Mild Proteinuria, Glucosuria, Ketonuria and hematuria. UA findings. Has baseline diabetic nephropathy. Obesity Class II. BMI of 39. Advised LSM. Dietary consult for weight management. Chronic: HTN, HLD, HF with Unknown EF, DM2, Diabetic Nephropathy, and CKD Stage3 Plan: Admit for the floor. Routine AM labs. Sepsis work up and Vial Panel. IVF for hydration. PRN meds for symptomatic control. Fall precautions. PT/OT for deconditioning. DVT/Stroke Prophylaxis. Code status is full
[2019-08-05] MEDS: Aspirin 81 MG Tab.Chew PO SCH (09:06)
[2019-08-05] MEDS: Doxazosin 2 MG Tab PO SCH (09:07)
[2019-08-05] MEDS: Chlorthalidone 25 MG Tab PO SCH (09:07)
[2019-08-05] MEDS: Timolol Maleate 0.5% Ophth Soln 5 ML Bottle EYEBOTH SCH (09:08)
[2019-08-05] MEDS: Furosemide 20 MG Tab PO SCH (09:08)
[2019-08-05] MEDS: Lisinopril 20 MG Tab PO SCH (09:08)
[2019-08-05] MEDS: VERAPAMIL HCL 200 MG PO SCH (09:09)
[2019-08-05] MEDS: Metoprolol Succinate 50 MG Tab.ER PO SCH (09:09)
[2019-08-05] MEDS: Acetaminophen 325 MG Tab PO PRN (12:39)
[2019-08-05] MEDS ORDERED: Sodium Chloride 0.9% 1,000 ML IV SCH (13:45)
[2019-08-05] MEDS: cefTRIAXone 2 GM in Sodium Chloride 0.9% 100 ML IV SCH (13:48)
[2019-08-05] MEDS: Insulin Lispro 100 Units/ML 3 ML Vial SUBCUT SCH ×3 (18:20→21:41)
[2019-08-05] MEDS: Insulin Glarg,Human.Rec.Analog 100 Unit/ML SUBCUT SCH (21:42)
[2019-08-06] MEDS: Acetaminophen 325 MG Tab PO PRN (09:56)
[2019-08-06] MEDS: Aspirin 81 MG Tab.Chew PO SCH (09:57)
[2019-08-06] MEDS: Doxazosin 2 MG Tab PO SCH (09:57)
[2019-08-06] MEDS: Chlorthalidone 25 MG Tab PO SCH (09:59)
[2019-08-06] MEDS: Furosemide 20 MG Tab PO SCH (09:59)
[2019-08-06] MEDS: Timolol Maleate 0.5% Ophth Soln 5 ML Bottle EYEBOTH SCH (10:00)
[2019-08-06] MEDS: VERAPAMIL HCL 200 MG PO SCH (10:00)
[2019-08-06] MEDS: Metoprolol Succinate 50 MG Tab.ER PO SCH (10:00)
[2019-08-06] MEDS: Lisinopril 20 MG Tab PO SCH (10:00)
[2019-08-06] MEDS: Ondansetron 4 MG/2 ML SDV IVPUSH PRN (10:05)
[2019-08-06] MEDS: Insulin Lispro 100 Units/ML 3 ML Vial SUBCUT SCH ×7 (10:18→21:40)
[2019-08-06] MEDS ORDERED: Magnesium Oxide 400 MG Tab PO ONE (12:18)
[2019-08-06] MEDS: Potassium Chloride 20 MEQ Tab.ER PO SCH ×2 (12:38→21:39)
[2019-08-06] MEDS: cefTRIAXone 2 GM in Sodium Chloride 0.9% 100 ML IV SCH (14:18)
[2019-08-06] MEDS ORDERED: Psyllium Husk Powder Sugar Free 3.4 GM Packet PO ONE (16:30)
--- NOTE | 2019-08-06 16:34 | PCM.PN ---
- General Info Date of Service: 08/06/19 Subjective Update: Feeling ok BM today - Patient Data Vitals - Most Recent: Last Vital Signs Temp 97.7 F 08/06/19 14:54 Pulse 60 08/06/19 14:54 Resp 16 08/06/19 14:54 BP 128/76 08/06/19 14:54 Pulse Ox 97 08/06/19 14:54 Weight - Most Recent: 106.458 kg - Exam General: Alert, Oriented, No Acute Distress HEENT: Pupils Equal, Pupils Reactive, EOMI, Mucous Membr. Moist/[place] Neck: Supple, Trachea Midline, No JVD, No Thyromegaly Lungs: Clear to Auscultation, Decreased Breath Sounds, Crackles. No: Rales, Rhonchi, Wheezing Cardiovascular: Regular Rate, Regular Rhythm, No Murmurs GI/Abdominal Exam: Normal Bowel Sounds, Soft, Non-Tender Extremities: Normal Inspection Neurological: No New Focal Deficit Sepsis Event Note - Evaluation Sepsis Screening Result: No Definite Risk - Focused Exam Vital Signs: Vital Signs Temp Temp Pulse Pulse Resp BP BP 08/06/19 14:54 97.7 F 60 16 128/76 08/06/19 12:00 98.3 F 56 L 18 122/71 08/06/19 10:00 74 122/89 08/06/19 09:57 122/89 08/06/19 09:56 122/89 08/06/19 09:00 20 08/06/19 08:00 99.9 F 74 22 H 148/38 H 08/06/19 07:44 99.9 F 74 148/38 H 08/06/19 06:10 98.6 F 69 20 133/77 Pulse Ox 08/06/19 14:54 97 08/06/19 12:00 94 L 08/06/19 10:00 08/06/19 09:57 08/06/19 09:56 08/06/19 09:00 08/06/19 08:00 95 08/06/19 07:44 95 08/06/19 06:10 95 Date Exam was Performed: 08/08/19 Time Exam was Performed: 10:12 - Problem List & Annotations (1) Rhinovirus infection SNOMED Code(s): 49110858 Code(s): B34.8 - OTHER VIRAL INFECTIONS OF UNSPECIFIED SITE Status: Acute Current Visit: Yes (2) Uncontrolled diabetes mellitus SNOMED Code(s): 03170764, 651267747 Code(s): E11.65 - TYPE 2 DIABETES MELLITUS WITH HYPERGLYCEMIA Status: Acute Current Visit: Yes (3) Acute on chronic renal failure SNOMED Code(s): 627213342 Code(s): N17.9 - ACUTE KIDNEY FAILURE, UNSPECIFIED; N18.9 - CHRONIC KIDNEY DISEASE, UNSPECIFIED Status: Acute Current Visit: Yes (4) Hyperglycemia SNOMED Code(s): 93768760 Code(s): R73.9 - HYPERGLYCEMIA, UNSPECIFIED Status: Acute Current Visit: Yes (5) Hypochloremia SNOMED Code(s): 25475251 Code(s): E87.8 - OTH DISORDERS OF ELECTROLYTE AND FLUID BALANCE, NEC Status : Acute Current Visit: Yes (6) Leukocytosis SNOMED Code(s): 257527011, 662110640 Code(s): D72.829 - ELEVATED WHITE BLOOD CELL COUNT, UNSPECIFIED Status: Acute Priority: High Current Visit: Yes Qualifiers: Leukocytosis type: unspecified Qualified Code(s): D72.829 - Elevated white blood cell count, unspecified (7) Chronic renal insufficiency SNOMED Code(s): 642489716 Code(s): N18.9 - CHRONIC KIDNEY DISEASE, UNSPECIFIED Status: Acute Current Visit: No (8) Hypertension SNOMED Code(s): 27861219 Code(s): I10 - ESSENTIAL (PRIMARY) HYPERTENSION Status: Acute Current Visit: No (9) Hyponatremia SNOMED Code(s): 93807010 Code(s): E87.1 - HYPO-OSMOLALITY AND HYPONATREMIA Status: Acute Current Visit: No (10) Pneumonia SNOMED Code(s): 912001094 Code(s): J18.9 - PNEUMONIA, UNSPECIFIED ORGANISM Status: Acute Current Visit: No Qualifiers: Lung location: unspecified part of lung - Problem List Review Problem List Initiated/Reviewed/Updated: Yes - Plan Plan:: Acute: Generalized Weakness. Has malaise, fatigue, hyperglycemia, and reduced appetite. Cannot r/o Viral Illness. Unspecified Viral Illness. Blood and Sputum Cultures plus Respiratory Viral Panel. Supportive care. -Influenza screen negative Nausea/Vomiting. Cannot r/o stomach flu. She denies any unusual diet or drinks. PRN anti-emetic agent. IVF for hydration and monitor e-lytes abnormality. Leukocytosis. WBC of 20.95-->18.84 with Neutrophils of 90%-->81.7. Unclear of source. -Preliminary sputum culture shows Moderate gram-positive cocci, moderate gram -negative coccobacilli. Will start IV Rocephin. Order mycobacteria, strep pneumo. -Blood cultures negative Hyperglycemia with BS of 300-400. Carries a hx/o diabetes type 2. Last A1C was 9.0 on 09/18/1018. She is on LA and SA insulin regimen. Received 7 units of regular insulin in ED. -Change LA insulin to 50 units nightly and SA insulin to 10 units pre-meal. Add high dose sliding scale and hypoglycemia protocol. -Furniture And Bedding Inspector and development educator consult Mild Pseudo-hyponatremia 2/2 Hyperglycemia. Expect to improve once glucose gets better and resumes oral intake. Will monitor. -Corrected sodium 134 today Mild Hypochloremia 2/2 GI loss. Expect to get better with improve oral intake. Elevated proBNP level of 3826. Has hx/o HF but she has no signs of central overload. CXR is negative and her lungs are clear. This is like due to peripheral edema. HTN. Documented BP of 187/61 and 158/58 on admission. This is likely due to poor oral intake and not able to take home medications. Resume home meds and PRN anti-hypertensive agent. -Resolved with resumption of home medications. Mild Proteinuria, Glucosuria, Ketonuria and hematuria. UA findings. Has baseline diabetic nephropathy. Obesity Class II. BMI of 39. Advised LSM. Dietary consult for weight management. Chronic: HTN, HLD, HF with Unknown EF, DM2, Diabetic Nephropathy, and CKD Stage3 Plan: Admit for the floor. Routine AM labs. Sepsis work up and Vial Panel. IVF for hydration. PRN meds for symptomatic control. Fall precautions. PT/OT for deconditioning. DVT/Stroke Prophylaxis. Code status is full
[2019-08-06] MEDS: Insulin Glarg,Human.Rec.Analog 100 Unit/ML SUBCUT SCH (21:41)
[2019-08-07] MEDS: Insulin Lispro 100 Units/ML 3 ML Vial SUBCUT SCH ×7 (08:24→21:11)
[2019-08-07] MEDS: Aspirin 81 MG Tab.Chew PO SCH (08:30)
[2019-08-07] MEDS: Doxazosin 2 MG Tab PO SCH (08:31)
[2019-08-07] MEDS: Chlorthalidone 25 MG Tab PO SCH (08:32)
[2019-08-07] MEDS: Timolol Maleate 0.5% Ophth Soln 5 ML Bottle EYEBOTH SCH (08:33)
[2019-08-07] MEDS: Furosemide 20 MG Tab PO SCH (08:33)
[2019-08-07] MEDS: Lisinopril 20 MG Tab PO SCH (08:33)
[2019-08-07] MEDS: Metoprolol Succinate 50 MG Tab.ER PO SCH (08:34)
[2019-08-07] MEDS: VERAPAMIL HCL 200 MG PO SCH (08:34)
[2019-08-07] MEDS: Acetaminophen 325 MG Tab PO PRN (11:11)
[2019-08-07] MEDS ORDERED: Azithromycin 250 MG Tab PO SCH (13:30)
[2019-08-07] MEDS ORDERED: Sodium Chloride 0.9% 1,000 ML IV ONE (13:32)
[2019-08-07] MEDS ORDERED: Levofloxacin 750 MG Tab PO ONE (13:45)
--- NOTE | 2019-08-07 13:46 | PCM.PN ---
- General Info Date of Service: 08/07/19 Subjective Update: Feeling ok Slept ok Ambulating - Patient Data Vitals - Most Recent: Last Vital Signs Temp 98.1 F 08/07/19 11:12 Pulse 66 08/07/19 11:12 Resp 16 08/07/19 11:12 BP 130/87 08/07/19 11:12 Pulse Ox 93 L 08/07/19 11:12 Weight - Most Recent: 106.277 kg - Exam Physical Findings Comments:: General: Alert, Oriented, No Acute Distress HEENT: Pupils Equal, Pupils Reactive, EOMI, Mucous Membr. Moist/[employer] Neck: Supple, Trachea Midline, No JVD, No Thyromegaly Lungs: Clear to Auscultation, Decreased Breath Sounds, Crackles. No: Rales, Rhonchi, Wheezing Cardiovascular: Regular Rate, Regular Rhythm, No Murmurs GI/Abdominal Exam: Normal Bowel Sounds, Soft, Non-Tender Extremities: Normal Inspection Neurological: No New Focal Deficit Sepsis Event Note - Evaluation Sepsis Screening Result: No Definite Risk - Focused Exam Vital Signs: Vital Signs Temp Pulse Resp BP Pulse Ox 08/07/19 11:12 98.1 F 66 16 130/87 93 L 08/07/19 08:34 66 128/47 L 08/07/19 08:33 128/47 L 08/07/19 08:31 182/47 H 08/07/19 08:26 66 128/47 L 98 08/07/19 07:43 66 95 08/07/19 07:41 98.8 F 65 16 93 L 08/07/19 04:23 98.2 F 64 19 134/75 94 L Date Exam was Performed: 08/24/19 Time Exam was Performed: 11:29 - Problem List & Annotations (1) Acute on chronic renal failure SNOMED Code(s): 133669447 Code(s): N17.9 - ACUTE KIDNEY FAILURE, UNSPECIFIED; N18.9 - CHRONIC KIDNEY DISEASE, UNSPECIFIED Status: Acute Priority: High (2) Cellulitis SNOMED Code(s): 905792907 Code(s): L03.90 - CELLULITIS, UNSPECIFIED Status: Acute (3) Hyperglycemia SNOMED Code(s): 88806655 Code(s): R73.9 - HYPERGLYCEMIA, UNSPECIFIED Status: Acute Priority: High (4) Hypertension SNOMED Code(s): 43755490 Code(s): I10 - ESSENTIAL (PRIMARY) HYPERTENSION Status: Acute (5) Hypochloremia SNOMED Code(s): 39586317 Code(s): E87.8 - OTH DISORDERS OF ELECTROLYTE AND FLUID BALANCE, NEC Status : Acute (6) Influenza A SNOMED Code(s): 679070309 Code(s): J10.1 - FLU DUE TO OTH IDENT INFLUENZA VIRUS W OTH RESP MANIFEST Status: Acute (7) Lassitude SNOMED Code(s): 57736178 Code(s): R53.1 - WEAKNESS Status: Acute Priority: High (8) Leukocytosis SNOMED Code(s): 349449495, 389867113 Code(s): D72.829 - ELEVATED WHITE BLOOD CELL COUNT, UNSPECIFIED Status: Acute Priority: High Qualifiers: Leukocytosis type: unspecified Qualified Code(s): D72.829 - Elevated white blood cell count, unspecified (9) Parainfluenza infection SNOMED Code(s): 09879296 Code(s): B34.8 - OTHER VIRAL INFECTIONS OF UNSPECIFIED SITE Status: Acute Priority: High (10) Pneumonia SNOMED Code(s): 772817537 Code(s): J18.9 - PNEUMONIA, UNSPECIFIED ORGANISM Status: Acute Qualifiers: Lung location: unspecified part of lung (11) Pneumonia and influenza Status: Acute - Problem List Review Problem List Initiated/Reviewed/Updated: Yes - Plan Plan:: Acute: Generalized Weakness. Has malaise, fatigue, hyperglycemia, and reduced appetite. Cannot r/o Viral Illness. Unspecified Viral Illness. Blood and Sputum Cultures plus Respiratory Viral Panel. Supportive care. -Influenza screen negative Nausea/Vomiting. Cannot r/o stomach flu. She denies any unusual diet or drinks. PRN anti-emetic agent. IVF for hydration and monitor e-lytes abnormality. Leukocytosis. WBC of 20.95-->18.84 with Neutrophils of 90%-->81.7. Unclear of source. -Preliminary sputum culture shows Moderate gram-positive cocci, moderate gram -negative coccobacilli. Will start IV Rocephin. Order mycobacteria, strep pneumo. -Blood cultures negative Hyperglycemia with BS of 300-400. Carries a hx/o diabetes type 2. Last A1C was 9.0 on 09/18/1018. She is on LA and SA insulin regimen. Received 7 units of regular insulin in ED. -Change LA insulin to 50 units nightly and SA insulin to 10 units pre-meal. Add high dose sliding scale and hypoglycemia protocol. -Footwear Sales Associate and hospice educator consult Mild Pseudo-hyponatremia 2/2 Hyperglycemia. Expect to improve once glucose gets better and resumes oral intake. Will monitor. -Corrected sodium 134 today Mild Hypochloremia 2/2 GI loss. Expect to get better with improve oral intake. Elevated proBNP level of 3826. Has hx/o HF but she has no signs of central overload. CXR is negative and her lungs are clear. This is like due to peripheral edema. HTN. Documented BP of 187/61 and 158/58 on admission. This is likely due to poor oral intake and not able to take home medications. Resume home meds and PRN anti-hypertensive agent. -Resolved with resumption of home medications. Mild Proteinuria, Glucosuria, Ketonuria and hematuria. UA findings. Has baseline diabetic nephropathy. Obesity Class II. BMI of 39. Advised LSM. Dietary consult for weight management. Chronic: HTN, HLD, HF with Unknown EF, DM2, Diabetic Nephropathy, and CKD Stage3 Plan: Admit for the floor. Routine AM labs. Sepsis work up and Vial Panel. IVF for hydration. PRN meds for symptomatic control. Fall precautions. PT/OT for deconditioning. DVT/Stroke Prophylaxis. Code status is full
[2019-08-07] MEDS: Sodium Chloride 0.9% 1,000 ML IV SCH ×2 (15:21→21:37)
[2019-08-07] MEDS ORDERED: Insulin Glarg,Human.Rec.Analog 100 Unit/ML SUBCUT SCH (21:00)
[2019-08-08] MEDS: Sodium Chloride 0.9% 1,000 ML IV SCH (04:22)
[2019-08-08] MEDS: Insulin Lispro 100 Units/ML 3 ML Vial SUBCUT SCH ×4 (06:31→12:51)
[2019-08-08] MEDS: Doxazosin 2 MG Tab PO SCH (09:00)
[2019-08-08] MEDS: Lisinopril 20 MG Tab PO SCH (09:01)
[2019-08-08] MEDS: Metoprolol Succinate 50 MG Tab.ER PO SCH (09:02)
[2019-08-08] MEDS: Chlorthalidone 25 MG Tab PO SCH (09:02)
[2019-08-08] MEDS: Aspirin 81 MG Tab.Chew PO SCH (09:03)
[2019-08-08] MEDS: Furosemide 20 MG Tab PO SCH (09:03)
[2019-08-08] MEDS: Timolol Maleate 0.5% Ophth Soln 5 ML Bottle EYEBOTH SCH (09:04)
[2019-08-08] MEDS: VERAPAMIL HCL 200 MG PO SCH (09:16)
--- NOTE | 2019-08-08 09:46 | PCM.PN ---
- General Info Date of Service: 08/08/19 Admission Dx/Problem (Free Text): Admission Diagnosis/Problem Admission Diagnosis/Problem Hyperglycemia - Patient Data Vitals - Most Recent: Last Vital Signs Temp 98.2 F 08/08/19 08:58 Pulse 67 08/08/19 09:02 Resp 20 08/08/19 08:58 BP 155/85 H 08/08/19 09:02 Pulse Ox 96 08/08/19 08:58 Weight - Most Recent: 239 lb 6.4 oz I&O - Last 24 Hours: Intake & Output 08/07/19 08/08/19 08/08/19 22:59 06:59 14:59 Intake Total 2340 1702 Output Total 400 1300 Balance 1940 402 Lab Results Last 24 Hours: Laboratory Results - last 24 hr 08/07/19 08/07/19 08/07/19 Range/Units 10:51 16:44 20:39 WBC (3.98-10.04) K/mm3 RBC (3.98-5.22) M/mm3 Hgb (11.2-15.7) gm/dl Hct (34.1-44.9) % MCV (79.4-94.8) fl MCH (25.6-32.2) pg MCHC (32.2-35.5) g/dl RDW Std Deviation (36.4-46.3) fL Plt Count (182-369) K/mm3 MPV (9.4-12.3) fl Neut % (Auto) (34.0-71.1) % Lymph % (Auto) (19.3-51.7) % Ida % (Auto) (4.7-12.5) % Eos % (Auto) (0.7-5.8) Baso % (Auto) (0.1-1.2) % Neut # (Auto) (1.56-6.13) K/mm3 Lymph # (Auto) (1.18-3.74) K/mm3 Ida # (Auto) (0.24-0.36) K/mm3 Eos # (Auto) (0.04-0.36) K/mm3 Baso # (Auto) (0.01-0.08) K/mm3 Manual Slide Review Sodium (136-145) mEq/L Potassium (3.5-5.1) mEq/L Chloride (98-107) mEq/L Carbon Dioxide (21-32) mEq/L Anion Gap (5-15) BUN (7-18) mg/dL Creatinine (0.55-1.02) mg/dL Est Cr Clr Drug Dosing mL/min Estimated GFR (MDRD) (>60) mL/min BUN/Creatinine Ratio (14-18) Glucose (80-115) mg/dL POC Glucose 266 H 267 H 205 H (80-115) mg/dL Calcium (8.5-10.1) mg/dL Magnesium (1.8-2.4) mg/dl 08/08/19 08/08/19 08/08/19 Range/Units 05:26 05:26 06:17 WBC 15.72 H (3.98-10.04) K/mm3 RBC 3.14 L (3.98-5.22) M/mm3 Hgb 10.1 L (11.2-15.7) gm/dl Hct 29.8 L (34.1-44.9) % MCV 94.9 H (79.4-94.8) fl MCH 32.2 (25.6-32.2) pg MCHC 33.9 (32.2-35.5) g/dl RDW Std Deviation 43.1 (36.4-46.3) fL Plt Count 306 (182-369) K/mm3 MPV 11.4 (9.4-12.3) fl Neut % (Auto) 71.4 H (34.0-71.1) % Lymph % (Auto) 9.9 L (19.3-51.7) % Ida % (Auto) 10.0 (4.7-12.5) % Eos % (Auto) 4.1 (0.7-5.8) Baso % (Auto) 0.1 (0.1-1.2) % Neut # (Auto) 11.23 H (1.56-6.13) K/mm3 Lymph # (Auto) 1.55 (1.18-3.74) K/mm3 Ida # (Auto) 1.57 H (0.24-0.36) K/mm3 Eos # (Auto) 0.64 H (0.04-0.36) K/mm3 Baso # (Auto) 0.02 (0.01-0.08) K/mm3 Manual Slide Review Abnormal smear Sodium 134 L (136-145) mEq/L Potassium 3.7 (3.5-5.1) mEq/L Chloride 100 (98-107) mEq/L Carbon Dioxide 24 (21-32) mEq/L Anion Gap 13.7 (5-15) BUN 58 H (7-18) mg/dL Creatinine 1.9 H (0.55-1.02) mg/dL Est Cr Clr Drug Dosing 26.51 mL/min Estimated GFR (MDRD) 27 (>60) mL/min BUN/Creatinine Ratio 30.5 H (14-18) Glucose 108 (80-115) mg/dL POC Glucose 106 (80-115) mg/dL Calcium 8.7 (8.5-10.1) mg/dL Magnesium 2.0 (1.8-2.4) mg/dl Zbigniew Results Last 24 Hours: Microbiology 08/04/19 07:40 Aerobic Blood Culture - Preliminary Blood - Venous - Lab Draw NO GROWTH AFTER 4 DAYS Anaerobic Blood Culture - Final 08/04/19 07:25 Aerobic Blood Culture - Preliminary Blood - Venous NO GROWTH AFTER 4 DAYS Anaerobic Blood Culture - Preliminary NO GROWTH AFTER 4 DAYS 08/04/19 15:18 Gram Stain - Final Sputum - Expectorated Sputum Culture - Final Haemophilus Parainfluenzae Med Orders - Current: Current Medications Acetaminophen (Tylenol) 650 mg PO Q4H PRN PRN Reason: Pain (Mild 1-3)/fever Last Admin: 08/07/19 11:11 Dose: 650 mg Aspirin (Aspirin) 81 mg PO DAILY [facility] Last Admin: 08/08/19 09:03 Dose: 81 mg Chlorthalidone (Chlorthalidone) 25 mg PO DAILY [facility] Last Admin: 08/08/19 09:02 Dose: 25 mg Doxazosin Mesylate (Cardura) 1 mg PO DAILY [facility] Last Admin: 08/08/19 09:00 Dose: 1 mg Furosemide (Lasix) 20 - 40 mg PO DAILY [facility] Last Admin: 08/08/19 09:03 Dose: 20 mg Guaifenesin/Phenylephrine HCl (Robitussin Dm) 10 ml PO Q4H PRN PRN Reason: Cough Sodium Chloride (Normal Saline) 1,000 mls @ 150 mls/hr IV ASDIRECTED [facility] Last Admin: 08/08/19 04:22 Dose: 150 mls/hr Insulin Glargine (Lantus) 65 unit SUBCUT BEDTIME [facility] Last Admin: 08/07/19 21:10 Dose: 65 units Insulin Glargine (Lantus) 10 unit SUBCUT ONETIME ONE Stop: 08/08/19 09:46 Insulin Human Lispro (Humalog) 0 unit SUBCUT QIDACANDBED [facility]; Protocol Last Admin: 08/08/19 06:31 Dose: Not Given Insulin Human Lispro (Humalog) 15 unit SUBCUT TIDAC [facility] Last Admin: 08/08/19 09:05 Dose: 15 units Levofloxacin (Levaquin) 500 mg PO Q48H [facility] Lisinopril (Prinivil) 10 mg PO DAILY [facility] Last Admin: 08/08/19 09:01 Dose: 10 mg Metoprolol Succinate (Toprol Xl) 200 mg PO DAILY [facility] Last Admin: 08/08/19 09:02 Dose: 200 mg Verapamil Hcl [ Verelan Pm] 200 Mg * *Ptom 200 mg pe PO DAILY [facility] Last Admin: 08/08/19 09:16 Dose: 200 mg pe Ondansetron HCl (Zofran) 4 mg IVPUSH Q6H PRN PRN Reason: Nausea/Vomiting Last Admin: 08/06/19 10:05 Dose: 4 mg Timolol Maleate (Timoptic 0.5% Ophth Soln) 0 ml EYEBOTH DAILY [facility] Last Admin: 08/08/19 09:04 Dose: 1 drop Discontinued Medications Hydrocodone Bitart/Acetaminophen (Rochert 325-5 Mg) 1 tab PO Q4H PRN PRN Reason: Pain (moderate 4-6) Albuterol/Ipratropium (Duoneb 3.0-0.5 Mg/3 Ml) 3 ml NEB Q4H PRN PRN Reason: Shortness Of Breath/wheezing Azithromycin (Zithromax) 500 mg PO DAILY [facility] Stop: 08/10/19 09:01 Last Admin: 08/07/19 14:18 Dose: Not Given Hydromorphone HCl (Dilaudid) 0.25 mg IVPUSH Q2H PRN PRN Reason: Pain (severe 7-10) Promethazine HCl 6.25 mg/ (Sodium Chloride) 50.25 mls @ 100 mls/hr IV Q6H PRN PRN Reason: Nausea/Vomiting Sodium Chloride (Normal Saline) 1,000 mls @ 50 mls/hr IV ASDIRECTED [facility] Ceftriaxone Sodium 2 gm/ (Sodium Chloride) 100 mls @ 200 mls/hr IV Q24H [facility] Last Admin: 08/06/19 14:18 Dose: 200 mls/hr Sodium Chloride (Normal Saline) 1,000 mls @ 999 mls/hr IV ONETIME ONE Stop: 08/07/19 14:32 Last Admin: 08/07/19 14:10 Dose: 999 mls/hr Insulin Glargine (Lantus) 32 unit SUBCUT QPM [facility] Last Admin: 08/04/19 19:21 Dose: Not Given Insulin Glargine (Lantus) 32 unit SUBCUT BEDTIME [facility] Last Admin: 08/04/19 21:59 Dose: 32 units Insulin Glargine (Lantus) 50 unit SUBCUT BEDTIME [facility] Last Admin: 08/06/19 21:41 Dose: 50 units Insulin Human Lispro (Humalog) 20 unit SUBCUT 1700 [facility] Last Admin: 08/04/19 18:56 Dose: 10 units Insulin Human Lispro (Humalog) 14 unit SUBCUT 1100 [facility] Last Admin: 08/05/19 12:33 Dose: 14 units Insulin Human Lispro (Humalog) 6 unit SUBCUT 0600 [facility] Last Admin: 08/05/19 07:06 Dose: 6 unit Insulin Human Lispro (Humalog) 10 unit SUBCUT ONETIME ONE Stop: 08/04/19 21:52 Last Admin: 08/04/19 21:58 Dose: 10 unit Insulin Human Lispro (Humalog) 10 unit SUBCUT TIDAC [facility] Last Admin: 08/07/19 11:10 Dose: 10 units Insulin Human Regular (Humulin R) 7 unit SUBCUT ONETIME STA Stop: 08/04/19 08:52 Last Admin: 08/04/19 09:12 Dose: 7 unit Levofloxacin (Levaquin) 750 mg PO ONETIME ONE Stop: 08/07/19 13:46 Last Admin: 08/07/19 14:09 Dose: 750 mg Magnesium Oxide (Magnesium Oxide) 400 mg PO ONETIME ONE Stop: 08/06/19 12:19 Last Admin: 08/06/19 12:38 Dose: 400 mg Ondansetron HCl (Zofran) 4 mg IVPUSH ONETIME ONE Stop: 08/04/19 06:28 Last Admin: 08/04/19 07:41 Dose: 4 mg Ondansetron HCl (Zofran) 4 mg IV Q6H PRN PRN Reason: Nausea/Vomiting Potassium Chloride (Klor-Con M20) 40 meq PO BID [facility] Stop: 08/06/19 21:01 Last Admin: 08/06/19 21:39 Dose: 40 meq Psyllium Husk (Metamucil Sugar Free) 1 packet PO ONETIME ONE Stop: 08/06/19 16:31 Last Admin: 08/06/19 16:45 Dose: 1 packet Temazepam (Restoril) 7.5 mg PO BEDTIME PRN PRN Reason: Sleep Sepsis Event Note - Evaluation Sepsis Screening Result: No Definite Risk - Focused Exam Vital Signs: Vital Signs Temp Pulse Resp BP Pulse Ox 08/08/19 09:02 67 155/85 H 08/08/19 09:01 155/85 H 08/08/19 09:00 155/85 H 08/08/19 08:58 98.2 F 67 20 155/85 H 96 08/08/19 04:26 98.6 F 67 18 152/78 H 97 Date Exam was Performed: 08/08/19 Time Exam was Performed: 09:46 - Problem List & Annotations (1) Acute on chronic renal failure SNOMED Code(s): 874989635 Code(s): N17.9 - ACUTE KIDNEY FAILURE, UNSPECIFIED; N18.9 - CHRONIC KIDNEY DISEASE, UNSPECIFIED Status: Acute Current Visit: Yes (2) Hyperglycemia SNOMED Code(s): 05802556 Code(s): R73.9 - HYPERGLYCEMIA, UNSPECIFIED Status: Acute Current Visit: Yes (3) Lassitude SNOMED Code(s): 06397007 Code(s): R53.1 - WEAKNESS Status: Acute Current Visit: Yes (4) Chronic renal insufficiency SNOMED Code(s): 468060856 Code(s): N18.9 - CHRONIC KIDNEY DISEASE, UNSPECIFIED Status: Acute Current Visit: No (5) Hyperglycemia due to type 2 diabetes mellitus SNOMED Code(s): 837455398183344, 310649271819872 Code(s): E11.65 - TYPE 2 DIABETES MELLITUS WITH HYPERGLYCEMIA Status: Acute Current Visit: No (6) Hyponatremia SNOMED Code(s): 52443925 Code(s): E87.1 - HYPO-OSMOLALITY AND HYPONATREMIA Status: Acute Current Visit: No (7) Leukocytosis SNOMED Code(s): 168842194, 747702136 Code(s): D72.829 - ELEVATED WHITE BLOOD CELL COUNT, UNSPECIFIED Status: Acute Priority: High Current Visit: Yes Qualifiers: Leukocytosis type: unspecified Qualified Code(s): D72.829 - Elevated white blood cell count, unspecified (8) Hypochloremia SNOMED Code(s): 85190261 Code(s): E87.8 - OTH DISORDERS OF ELECTROLYTE AND FLUID BALANCE, NEC Status : Acute Current Visit: Yes - My Orders Last 24 Hours: My Active Orders 08/08/19 09:45 Insulin Glarg,Human.Rec.Analog [LantUS] 10 unit SUBCUT ONETIME ONE - Plan Plan:: Acute: Generalized Weakness. Has malaise, fatigue, hyperglycemia, and reduced appetite. Cannot r/o Viral Illness. Unspecified Viral Illness. Blood and Sputum Cultures plus Respiratory Viral Panel. Supportive care. -Influenza screen negative Nausea/Vomiting. Cannot r/o stomach flu. She denies any unusual diet or drinks. PRN anti-emetic agent. IVF for hydration and monitor e-lytes abnormality. Leukocytosis. WBC of 20.95-->18.84 with Neutrophils of 90%-->81.7. Unclear of source. -Preliminary sputum culture shows Moderate gram-positive cocci, moderate gram -negative coccobacilli. Will start IV Rocephin. Order mycobacteria, strep pneumo. -Blood cultures negative Hyperglycemia with BS of 300-400. Carries a hx/o diabetes type 2. Last A1C was 9.0 on 09/18/1018. She is on LA and SA insulin regimen. Received 7 units of regular insulin in ED. -Change LA insulin to 50 units nightly and SA insulin to 10 units pre-meal. Add high dose sliding scale and hypoglycemia protocol. -Rubber Production Machine Operator and diabetes educator consult Mild Pseudo-hyponatremia 2/2 Hyperglycemia. Expect to improve once glucose gets better and resumes oral intake. Will monitor. -Corrected sodium 134 today Mild Hypochloremia 2/2 GI loss. Expect to get better with improve oral intake. Elevated proBNP level of 3826. Has hx/o HF but she has no signs of central overload. CXR is negative and her lungs are clear. This is like due to peripheral edema. HTN. Documented BP of 187/61 and 158/58 on admission. This is likely due to poor oral intake and not able to take home medications. Resume home meds and PRN anti-hypertensive agent. -Resolved with resumption of home medications. Mild Proteinuria, Glucosuria, Ketonuria and hematuria. UA findings. Has baseline diabetic nephropathy. Obesity Class II. BMI of 39. Advised LSM. Dietary consult for weight management. Chronic: HTN, HLD, HF with Unknown EF, DM2, Diabetic Nephropathy, and CKD Stage3 Plan: Admit for the floor. Routine AM labs. Sepsis work up and Vial Panel. IVF for hydration. PRN meds for symptomatic control. Fall precautions. PT/OT for deconditioning. DVT/Stroke Prophylaxis. Code status is full
--- NOTE | 2019-08-08 09:46 | PCM.DCSUM1 ---
Discharge Summary - Hospital Course HPI Initial Comments: This is 64 yo white female with past medical hx/o HTN, HLD, HF with Unknown EF, DM2, Diabetic Nephropathy, CKD Stage 3, and Obesity who comes in for evaluation of generalized weakness primarily due to malaise, fatigue, and reduced appetite that have been going on for about a week now. She endorses a mild productive cough, dyspneas, as well as nausea and vomiting. She took OTC Coricidin to improve her symptoms but it she states she did not like how it made her feel. She denies any other GI/ symptoms. Her initial work up in ED shows a CBC remarkable for WBC of 20.95, RBC of 3.93, Neutrophils of 90%, and Lymphocytes of 5%. Her Chemistry is significant for Na of 129, Cl of 91, AG of 16.4, BUN of 41, Cr of 1.8, BS of 401, Alk Phos 131, and ProBNP of 3826. Her UA is not suggestive of UTI. Her CRX report read as nothing acute is appreciated. Patient received initial treatment in ED prior to coming in for further management. Diagnosis: Stroke: No - Discharge Data Discharge Date: 08/08/19 (Admit date: 08/04/18) Discharge Disposition: Home, Self-Care 01 Condition: Good - Referral to Home Health Primary Care Physician: López Pittman MD - Discharge Diagnosis/Problem(s) (1) Acute on chronic renal failure SNOMED Code(s): 246594832 ICD Code: N17.9 - ACUTE KIDNEY FAILURE, UNSPECIFIED; N18.9 - CHRONIC KIDNEY DISEASE, UNSPECIFIED Status: Acute Priority: High Current Visit: Yes (2) Hyperglycemia SNOMED Code(s): 97780220 ICD Code: R73.9 - HYPERGLYCEMIA, UNSPECIFIED Status: Acute Priority: High Current Visit: Yes (3) Lassitude SNOMED Code(s): 73146584 ICD Code: R53.1 - WEAKNESS Status: Acute Priority: High Current Visit: Yes (4) Chronic renal insufficiency SNOMED Code(s): 943539297 ICD Code: N18.9 - CHRONIC KIDNEY DISEASE, UNSPECIFIED Status: Chronic Priority: Medium Current Visit: No (5) Hyperglycemia due to type 2 diabetes mellitus SNOMED Code(s): 096562995497321, 277059914080160 ICD Code: E11.65 - TYPE 2 DIABETES MELLITUS WITH HYPERGLYCEMIA Status: Acute Priority: High Current Visit: Yes (6) Hyponatremia SNOMED Code(s): 32554870 ICD Code: E87.1 - HYPO-OSMOLALITY AND HYPONATREMIA Status: Chronic Priority: Medium Current Visit: Yes (7) Leukocytosis SNOMED Code(s): 465303237, 433883350 ICD Code: D72.829 - ELEVATED WHITE BLOOD CELL COUNT, UNSPECIFIED Status: Acute Priority: High Current Visit: Yes Qualifiers: Leukocytosis type: unspecified Qualified Code(s): D72.829 - Elevated white blood cell count, unspecified (8) Hypochloremia SNOMED Code(s): 47186593 ICD Code: E87.8 - OTH DISORDERS OF ELECTROLYTE AND FLUID BALANCE, NEC Status: Acute Current Visit: Yes - Patient Summary/Data Consults: Consultations 08/04/19 12:16 Consult to Case Management/Diamond Mounter [CONS] Routine Consult to Harness Brusher [CONS] Routine Consult to Spiritual Care [CONS] Routine OT Evaluation and Treatment [CONS] Routine PT Evaluation and Treatment [CONS] Routine Respiratory Care Assess and Treatment [CONS] Routine 08/05/19 12:52 Consult to Diabetic Nurse Specialist [CONS] Routine Labs Pending at D/C: Procalcitonin Recommended Follow-up Testing/Procedures: Follow-up with primary care provider within 7-10 days of discharge, sooner if needed. Hospital Course: Cailin was admitted to the floor with nausea, vomiting, weakness, and hyperglycemia. Blood sugars were originally found to be 401 in the ED and remained in the upper 300s to 400s. A1c here was 8.20 patient reports she is a diabetic but she does admit while here that she rarely checks her sugars. She was noted to have leukocytosis. UA was negative and a viral panel was obtained that was positive for RSV. She never did require any oxygen while here. Sputum culture was obtained and was positive for Haemophilus parainfluenza A. She was recently started on Rocephin and this was changed to p.o. Levaquin. She does have a baseline kidney disease and sees nephrology. Creatinine is normally between 1.3 and 2.4. Her insulin was adjusted and ultimately Lantus 75 units at bedtime and Humalog 15 units 3 times daily before meals was found to be the most effective. We had a discussion about how she needs to ensure that she takes her blood grams 4 times a day, before meals and at bedtime. She was advised she needs to write these down in a journal and bring this with to all medical appointments as her dosing may need to be adjusted. She did see our art educator and was advised to follow-up with diabetic ed after discharge as an outpatient. She saw our dietitian while here. PT and OT did attempt to see the patient however she adamantly refused. We did discuss how her symptoms will likely linger for some time as she has both a viral infection and a bacterial infection. Was advised to exercise caution with who she exposes herself to given the RSV diagnosis. Due to her kidney function she was receiving Levaquin every 48 hours while here. She was discharged on 3 more doses of every 48 hour Levaquin with the first dose tomorrow, 08/09/2019. This will be a total of 7 days of treatment. She will also be discharged on the insulin changes as noted above. Home medications were otherwise continued. She was instructed to follow-up with her primary care provider within 5 to 7 days of discharge, sooner if needed. She was advised to return to the emergency room or seek care from her primary care provider should symptoms return or worsen. She was told to continue utilizing her incentive spirometer. She was discharged home today. - Patient Instructions Diet: Diabetic Diet Activity: As Tolerated Notify Provider of: Fever, Increased Pain, Nausea and/or Vomiting Other/Special Instructions: Follow-up with primary care provider, Dr. Pittman , within 7-10 days of discharge, sooner if needed. Continue to utilize your incentive spirometery (clear/blue device you inhale through) until symptoms resolve. Take all of your antibiotic as prescribed until gone, even if you feel 100% better. You will take one pill every other day. You should take your first pill tomorrow, 08/09/19. Take your blood sugare before every meal and before bedtime. Record this in a notebook or journal and bring this with to all medical appointments. Your insulin was adjusted. You should take your long acting lantus in the evening and us 75 units. You should take your short acting humalog, 15 units at every meal. Recommend you follow-up with a art educator after discharge. You were provided contact information for the [facility] art educator and our clinic art educator. You can contact these yourself or Dr. Pittman can help you set this up. If you start to feel like your blood sugars may be low (sweaty, shaky, weak) drink some orange juice and eat some crackers. Contact primary care provider and be sure to check your blood sugar. You have both a virus and a bacteria causing your infection. The bacteria will be killed with the antibiotic but the virus will just have to run its course. Stay hydrated and watch your blood sugars as they may fluctuate due to this infection and some of the medications you are on. Avoid contact with young children or older adults. RSV can affect the extremes of age quite severely. Stay hydrated and walk around frequently. Should symptoms return or worsen contact your primary care provider or return to the Emergency Department. - Discharge Plan *PRESCRIPTION DRUG MONITORING PROGRAM REVIEWED*: Not Applicable *COPY OF PRESCRIPTION DRUG MONITORING REPORT IN PATIENT GABBIE: Not Applicable Prescriptions/Med Rec: Insulin Glarg,Human.Rec.Analog [Lantus] 75 unit SUBCUT BEDTIME #1500 ml Insulin Lispro [HumaLOG] 15 unit SUBCUT TIDAC #9 vial levoFLOXacin [Levaquin] 750 mg PO Q48H #3 tablet Home Medications: Home Meds Aspirin 81 mg PO DAILY 09/18/18 [History] Chlorthalidone 25 mg PO DAILY 09/18/18 [History] Furosemide 20 - 40 mg PO DAILY 09/18/18 [History] Lisinopril 10 mg PO DAILY 09/18/18 [History] Metoprolol Succinate 200 mg PO DAILY 09/18/18 [History] Verapamil HCl [Verelan Pm] 200 mg pe PO DAILY 09/18/18 [History] Doxazosin [Cardura] 1 mg PO DAILY 08/04/19 [History] Timolol [Betimol] 1 drop EYEBOTH DAILY 08/04/19 [History] Insulin Glarg,Human.Rec.Analog [Lantus] 75 unit SUBCUT BEDTIME #1500 ml [Rx] Insulin Lispro [HumaLOG] 15 unit SUBCUT TIDAC #9 vial 08/08/19 [Rx] levoFLOXacin [Levaquin] 750 mg PO Q48H #3 tablet 08/08/19 [Rx] Oxygen Therapy Mode: Room Air Patient Handouts: Viral Respiratory Infection, [id number], Blood Glucose Monitoring, Adult, Respiratory Syncytial Virus, Adult Referrals: Arias Phan MD [Ordering Only Provider] - López Pittman MD [Primary Care Provider] - (Please follow up with Dr. Pittman. The clinic will call you with an appointment as they are very booked at this time. If you do not here from them by the end of the day, please call them tomorrow 08/09/2019 to arrange a follow up appointment in 7-10 days.) - Discharge Summary/Plan Comment DC Time >30 min.: Yes (45 mins ) - General Info Date of Service: 08/08/19 Admission Dx/Problem (Free Text: Admission Diagnosis/Problem Admission Diagnosis/Problem Hyperglycemia Functional Status: Reports: Pain Controlled, Tolerating Diet, Ambulating, Urinating, Incentive Spirometry. Denies: New Symptoms - Review of Systems General: Reports: Weakness (improved ). Denies: Fever, Fatigue, Malaise, Chills HEENT: Reports: No Symptoms. Denies: Headaches, Sore Throat Pulmonary: Reports: No Symptoms. Denies: Shortness of Breath, Cough, Sputum, Wheezing Cardiovascular: Reports: No Symptoms. Denies: Chest Pain, Palpitations Gastrointestinal: Reports: No Symptoms. Denies: Abdominal Pain, Constipation, Diarrhea, Nausea, Vomiting 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: Reports: No Symptoms. Denies: Pain Musculoskeletal: Reports: No Symptoms Skin: Reports: No Symptoms. Denies: Cyanosis Neurological: Reports: No Symptoms. Denies: Confusion Psychiatric: Reports: No Symptoms - Patient Data Vitals - Most Recent: Last Vital Signs Temp 98.2 F 08/08/19 08:58 Pulse 67 08/08/19 09:02 Resp 20 08/08/19 08:58 BP 155/85 H 08/08/19 09:02 Pulse Ox 96 08/08/19 08:58 Weight - Most Recent: 239 lb 6.4 oz I&O - Last 24 hours: Intake & Output 08/07/19 08/08/19 08/08/19 22:59 06:59 14:59 Intake Total 2340 1702 Output Total 400 1300 Balance 1940 402 Lab Results - Last 24 hrs: Laboratory Results - last 24 hr 08/07/19 08/07/1908/07/20 Range/Units 10:51 16:44 20:39 WBC (3.98-10.04) K/mm3 RBC (3.98-5.22) M/mm3 Hgb (11.2-15.7) gm/dl Hct (34.1-44.9) % MCV (79.4-94.8) fl MCH (25.6-32.2) pg MCHC (32.2-35.5) g/dl RDW Std Deviation (36.4-46.3) fL Plt Count (182-369) K/mm3 MPV (9.4-12.3) fl Neut % (Auto) (34.0-71.1) % Lymph % (Auto) (19.3-51.7) % [place] % (Auto) (4.7-12.5) % Eos % (Auto) (0.7-5.8) Baso % (Auto) (0.1-1.2) % Neut # (Auto) (1.56-6.13) K/mm3 Lymph # (Auto) (1.18-3.74) K/mm3 [place] # (Auto) (0.24-0.36) K/mm3 Eos # (Auto) (0.04-0.36) K/mm3 Baso # (Auto) (0.01-0.08) K/mm3 Manual Slide Review Sodium (136-145) mEq/L Potassium (3.5-5.1) mEq/L Chloride (98-107) mEq/L Carbon Dioxide (21-32) mEq/L Anion Gap (5-15) BUN (7-18) mg/dL Creatinine (0.55-1.02) mg/dL Est Cr Clr Drug Dosing mL/min Estimated GFR (MDRD) (>60) mL/min BUN/Creatinine Ratio (14-18) Glucose (80-115) mg/dL POC Glucose 266 H 267 H 205 H (80-115) mg/dL Calcium (8.5-10.1) mg/dL Magnesium (1.8-2.4) mg/dl 08/08/19 08/08/19 08/08/19 Range/Units 05:26 05:26 06:17 WBC 15.72 H (3.98-10.04) K/mm3 RBC 3.14 L (3.98-5.22) M/mm3 Hgb 10.1 L (11.2-15.7) gm/dl Hct 29.8 L (34.1-44.9) % MCV 94.9 H (79.4-94.8) fl MCH 32.2 (25.6-32.2) pg MCHC 33.9 (32.2-35.5) g/dl RDW Std Deviation 43.1 (36.4-46.3) fL Plt Count 306 (182-369) K/mm3 MPV 11.4 (9.4-12.3) fl Neut % (Auto) 71.4 H (34.0-71.1) % Lymph % (Auto) 9.9 L (19.3-51.7) % [place] % (Auto) 10.0 (4.7-12.5) % Eos % (Auto) 4.1 (0.7-5.8) Baso % (Auto) 0.1 (0.1-1.2) % Neut # (Auto) 11.23 H (1.56-6.13) K/mm3 Lymph # (Auto) 1.55 (1.18-3.74) K/mm3 [place] # (Auto) 1.57 H (0.24-0.36) K/mm3 Eos # (Auto) 0.64 H (0.04-0.36) K/mm3 Baso # (Auto) 0.02 (0.01-0.08) K/mm3 Manual Slide Review Abnormal smear Sodium 134 L (136-145) mEq/L Potassium 3.7 (3.5-5.1) mEq/L Chloride 100 (98-107) mEq/L Carbon Dioxide 24 (21-32) mEq/L Anion Gap 13.7 (5-15) BUN 58 H (7-18) mg/dL Creatinine 1.9 H (0.55-1.02) mg/dL Est Cr Clr Drug Dosing 26.51 mL/min Estimated GFR (MDRD) 27 (>60) mL/min BUN/Creatinine Ratio 30.5 H (14-18) Glucose 108 (80-115) mg/dL POC Glucose 106 (80-115) mg/dL Calcium 8.7 (8.5-10.1) mg/dL Magnesium 2.0 (1.8-2.4) mg/dl DENNIS Results - Last 24 hrs: Microbiology 08/04/19 07:40 Aerobic Blood Culture - Preliminary Blood - Venous - Lab Draw NO GROWTH AFTER 4 DAYS Anaerobic Blood Culture - Final 08/04/19 07:25 Aerobic Blood Culture - Preliminary Blood - Venous NO GROWTH AFTER 4 DAYS Anaerobic Blood Culture - Preliminary NO GROWTH AFTER 4 DAYS 08/04/19 15:18 Gram Stain - Final Sputum - Expectorated Sputum Culture - Final Haemophilus Parainfluenzae Med Orders - Current: Current Medications Acetaminophen (Tylenol) 650 mg PO Q4H PRN PRN Reason: Pain (Mild 1-3)/fever Last Admin: 08/07/19 11:11 Dose: 650 mg Aspirin (Aspirin) 81 mg PO DAILY [facility] Last Admin: 08/08/19 09:03 Dose: 81 mg Chlorthalidone (Chlorthalidone) 25 mg PO DAILY [facility] Last Admin: 08/08/19 09:02 Dose: 25 mg Doxazosin Mesylate (Cardura) 1 mg PO DAILY [facility] Last Admin: 08/08/19 09:00 Dose: 1 mg Furosemide (Lasix) 20 - 40 mg PO DAILY [facility] Last Admin: 08/08/19 09:03 Dose: 20 mg Guaifenesin/Phenylephrine HCl (Robitussin Dm) 10 ml PO Q4H PRN PRN Reason: Cough Sodium Chloride (Normal Saline) 1,000 mls @ 150 mls/hr IV ASDIRECTED [facility] Last Admin: 08/08/19 04:22 Dose: 150 mls/hr Insulin Glargine (Lantus) 65 unit SUBCUT BEDTIME [facility] Last Admin: 08/07/19 21:10 Dose: 65 units Insulin Glargine (Lantus) 10 unit SUBCUT ONETIME ONE Stop: 08/08/19 09:46 Insulin Human Lispro (Humalog) 0 unit SUBCUT QIDACANDBED [facility]; Protocol Last Admin: 08/08/19 06:31 Dose: Not Given Insulin Human Lispro (Humalog) 15 unit SUBCUT TIDAC [facility] Last Admin: 08/08/19 09:05 Dose: 15 units Levofloxacin (Levaquin) 500 mg PO Q48H [facility] Lisinopril (Prinivil) 10 mg PO DAILY [facility] Last Admin: 08/08/19 09:01 Dose: 10 mg Metoprolol Succinate (Toprol Xl) 200 mg PO DAILY [facility] Last Admin: 08/08/19 09:02 Dose: 200 mg Verapamil Hcl [ Verelan Pm] 200 Mg * *Ptom 200 mg pe PO DAILY [facility] Last Admin: 08/08/19 09:16 Dose: 200 mg pe Ondansetron HCl (Zofran) 4 mg IVPUSH Q6H PRN PRN Reason: Nausea/Vomiting Last Admin: 08/06/19 10:05 Dose: 4 mg Timolol Maleate (Timoptic 0.5% Ophth Soln) 0 ml EYEBOTH DAILY [facility] Last Admin: 08/08/19 09:04 Dose: 1 drop Discontinued Medications Hydrocodone Bitart/Acetaminophen ([place] 325-5 Mg) 1 tab PO Q4H PRN PRN Reason: Pain (moderate 4-6) Albuterol/Ipratropium (Duoneb 3.0-0.5 Mg/3 Ml) 3 ml NEB Q4H PRN PRN Reason: Shortness Of Breath/wheezing Azithromycin (Zithromax) 500 mg PO DAILY [facility] Stop: 08/10/19 09:01 Last Admin: 08/07/19 14:18 Dose: Not Given Hydromorphone HCl (Dilaudid) 0.25 mg IVPUSH Q2H PRN PRN Reason: Pain (severe 7-10) Promethazine HCl 6.25 mg/ (Sodium Chloride) 50.25 mls @ 100 mls/hr IV Q6H PRN PRN Reason: Nausea/Vomiting Sodium Chloride (Normal Saline) 1,000 mls @ 50 mls/hr IV ASDIRECTED [facility] Ceftriaxone Sodium 2 gm/ (Sodium Chloride) 100 mls @ 200 mls/hr IV Q24H [facility] Last Admin: 08/06/19 14:18 Dose: 200 mls/hr Sodium Chloride (Normal Saline) 1,000 mls @ 999 mls/hr IV ONETIME ONE Stop: 08/07/19 14:32 Last Admin: 08/07/19 14:10 Dose: 999 mls/hr Insulin Glargine (Lantus) 32 unit SUBCUT QPM [facility] Last Admin: 08/04/19 19:21 Dose: Not Given Insulin Glargine (Lantus) 32 unit SUBCUT BEDTIME [facility] Last Admin: 08/04/19 21:59 Dose: 32 units Insulin Glargine (Lantus) 50 unit SUBCUT BEDTIME [facility] Last Admin: 08/06/19 21:41 Dose: 50 units Insulin Human Lispro (Humalog) 20 unit SUBCUT 1700 [facility] Last Admin: 08/04/19 18:56 Dose: 10 units Insulin Human Lispro (Humalog) 14 unit SUBCUT 1100 [facility] Last Admin: 08/05/19 12:33 Dose: 14 units Insulin Human Lispro (Humalog) 6 unit SUBCUT 0600 [facility] Last Admin: 08/05/19 07:06 Dose: 6 unit Insulin Human Lispro (Humalog) 10 unit SUBCUT ONETIME ONE Stop: 08/04/19 21:52 Last Admin: 08/04/19 21:58 Dose: 10 unit Insulin Human Lispro (Humalog) 10 unit SUBCUT TIDAC [facility] Last Admin: 08/07/19 11:10 Dose: 10 units Insulin Human Regular (Humulin R) 7 unit SUBCUT ONETIME STA Stop: 08/04/19 08:52 Last Admin: 08/04/19 09:12 Dose: 7 unit Levofloxacin (Levaquin) 750 mg PO ONETIME ONE Stop: 08/07/19 13:46 Last Admin: 08/07/19 14:09 Dose: 750 mg Magnesium Oxide (Magnesium Oxide) 400 mg PO ONETIME ONE Stop: 08/06/19 12:19 Last Admin: 08/06/19 12:38 Dose: 400 mg Ondansetron HCl (Zofran) 4 mg IVPUSH ONETIME ONE Stop: 08/04/19 06:28 Last Admin: 08/04/19 07:41 Dose: 4 mg Ondansetron HCl (Zofran) 4 mg IV Q6H PRN PRN Reason: Nausea/Vomiting Potassium Chloride (Klor-Con M20) 40 meq PO BID [facility] Stop: 08/06/19 21:01 Last Admin: 08/06/19 21:39 Dose: 40 meq Psyllium Husk (Metamucil Sugar Free) 1 packet PO ONETIME ONE Stop: 08/06/19 16:31 Last Admin: 08/06/19 16:45 Dose: 1 packet Temazepam (Restoril) 7.5 mg PO BEDTIME PRN PRN Reason: Sleep - Exam Quality Assessment: Reports: DVT Prophylaxis. Denies: Supplemental Oxygen General: Reports: Alert, Oriented, Cooperative, No Acute Distress HEENT: Reports: Pupils Equal, Pupils Reactive, Mucous Membr. Moist/[place] Neck: Reports: Supple, Trachea Midline Lungs: Reports: Clear to Auscultation, Normal Respiratory Effort, Decreased Breath Sounds Cardiovascular: Reports: Regular Rate, Regular Rhythm GI/Abdominal Exam: Normal Bowel Sounds, Soft, Non-Tender, No Distention, No Abnormal Bruit (Female) Exam: Deferred Rectal (Female) Exam: Deferred Back Exam: Reports: Normal Inspection, Full Range of Motion Extremities: Normal Inspection, Normal Range of Motion, Non-Tender, No Pedal Edema, Normal Capillary Refill Skin: Reports: Warm, Dry, Intact Neurological: Reports: No New Focal Deficit Psy/Mental Status: Reports: Alert
[2019-08-08] MEDS ORDERED: Insulin Glarg,Human.Rec.Analog 100 Unit/ML SUBCUT ONE (10:00)
[2019-08-09] MEDS ORDERED: Lisinopril 10 MG Tab PO SCH (09:00)
[2019-08-09] MEDS ORDERED: Levofloxacin 750 MG Tab PO SCH (14:00)
== END 2019-08-08 16:48 | disposition still patient (30) | DRG 420 ==
LOC: JD.ED 05:48 → JD.MS 11:35 → UNDOADMOB 11:35 → JD.MS 08-05 15:04 → INTOOBSV 08-06 17:00 → OBSVTOIN 08-06 17:00 → JD.MS 08-08 13:50
PROVIDERS: ADMIT Internal Medicine; ATTEND Internal Medicine
DX: E11.65 Type 2 diabetes mellitus with hyperglycemia (principal); N17.9 Acute kidney failure, unspecified; E87.1 Hypo-osmolality and hyponatremia; E87.8 Other disorders of electrolyte and fluid balance, not elsewhere classified; N18.3 Chronic kidney disease, stage 3 (moderate); E66.9 Obesity, unspecified; E11.42 Type 2 diabetes mellitus with diabetic polyneuropathy; E11.22 Type 2 diabetes mellitus with diabetic chronic kidney disease; I13.0 Hypertensive heart and chronic kidney disease with heart failure and stage 1 through stage 4 chronic kidney disease, or unspecified chronic kidney disease; I50.9 Heart failure, unspecified; R82.4 Acetonuria; R31.9 Hematuria, unspecified; B34.8 Other viral infections of unspecified site; E78.5 Hyperlipidemia, unspecified; E78.00 Pure hypercholesterolemia, unspecified; Z68.39 Body mass index [BMI] 39.0-39.9, adult; Z79.82 Long term (current) use of aspirin; Z79.4 Long term (current) use of insulin; Z79.899 Other long term (current) drug therapy
CPT/HCPCS: 36415; 36600; 71046; 71046-26; 80048; 80053; 81001; 82009; 82803; 82947; 82962; 83036; 83605; 83735; 83880; 84145; 84484; 85007; 85025; 85027; 86738; 87040; 87070; 87077; 87184; 87205; 87486; 87581; 87632; 87641; 87798; 87804; 87899; 96365; 96366; 96374; 96375; 96376; 97165-GO; 99221; 99285; 99285-25; A9270-GY; G0378; J0696; J1815-GY; J2405; J7030; J7050

== ENCOUNTER 2019-08-11 14:53 | Emergency (ER) | payer BC ==
--- NOTE | 2019-08-11 16:19 | EDM.PDOC ---
ED HPI GENERAL MEDICAL PROBLEM - General Chief Complaint: Skin Complaint Stated Complaint: SKIN COMPLAINT (SKIN PEELING ON LEFT ABDOMEN) Time Seen by Provider: 08/11/19 15:23 Source of Information: Reports: Patient, RN Notes Reviewed - History of Present Illness INITIAL COMMENTS - FREE TEXT/NARRATIVE: 64-year-old female comes in with concern about some superficial sloughing of skin left lower abdomen. She first noticed this last evening. She was in the hospital very recently for complications of influenza. Those symptoms have all fairly well resolved. No severe cough dyspnea or difficulty breathing at this time. No recent fever or chills. She does have very mild localized discomfort and area of slight erythema and skin sloughing left lower abdomen. She is not aware of clothes rubbing or any reason to suspect some type of a topical inflammation or irritation. No other areas of skin rash or inflammation. She does have insulin-dependent diabetes. - Related Data Allergies Allergy/AdvReac Type Severity Reaction Status Date / Time No Known Allergies Allergy Verified 08/11/19 15:05 Home Meds: Home Meds Aspirin 81 mg PO DAILY 09/18/18 [History] Chlorthalidone 25 mg PO DAILY 09/18/18 [History] Furosemide 20 - 40 mg PO DAILY 09/18/18 [History] Lisinopril 10 mg PO DAILY 09/18/18 [History] Metoprolol Succinate 200 mg PO DAILY 09/18/18 [History] Verapamil HCl [Verelan Pm] 200 mg pe PO DAILY 09/18/18 [History] Doxazosin [Cardura] 1 mg PO DAILY 08/04/19 [History] Timolol [Betimol] 1 drop EYEBOTH DAILY 08/04/19 [History] Insulin Glarg,Human.Rec.Analog [Lantus] 75 unit SUBCUT BEDTIME #1500 ml [Rx] Insulin Lispro [HumaLOG] 15 unit SUBCUT TIDAC #9 vial 08/08/19 [Rx] levoFLOXacin [Levaquin] 750 mg PO Q48H #3 tablet 08/08/19 [Rx] Doxycycline [Vibramycin] 100 mg PO BID #14 tab 08/11/19 [Rx] Past Medical History HEENT History: Reports: Glaucoma, Impaired Vision Cardiovascular History: Reports: Heart Failure, High Cholesterol, Hypertension 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 History: Reports: Diabetic Nephropathy SLUBBER TENDER History: Reports: Endocrine/Metabolic History: Reports: Diabetes, Type II, Obesity/BMI 30+ - Past Surgical History HEENT Surgical History: Reports: Cataract Surgery, Laser Surgery Female Surgical History: Reports: Section, Other (See Below) Social & Family History - Family History Family Medical History: Noncontributory - Tobacco Use Smoking Status *Q: Never Smoker - Caffeine Use Caffeine Use: Reports: Coffee, Tea Other Caffeine Use: 1 cup/coffee - Recreational Drug Use Recreational Drug Use: No - Living Situation & Occupation Living situation: Reports: , with Spouse Occupation: Unemployed ED ROS GENERAL - Review of Systems Review Of Systems: See Below Constitutional: Denies: Fever, Chills, Diaphoresis HEENT: Reports: No Symptoms Respiratory: Reports: Cough. Denies: Shortness of Breath, Pleuritic Chest Pain , Sputum (Mostly gone) Cardiovascular: Denies: Chest Pain GI/Abdominal: Denies: Abdominal Pain (Slight erythema), Nausea, Vomiting Musculoskeletal: Reports: No Symptoms Skin: Reports: Erythema (Slight area of superficial skin sloughing, slight erythema left lower abdomen, skin otherwise totally clear) Neurological: Denies: Dizziness ED EXAM, SKIN/RASH Exam: See Below General Appearance: Alert, No Apparent Distress Eye Exam: Bilateral Eye: PERRL Throat/Mouth: Normal Inspection, Normal Oropharynx Head: Atraumatic. No: Facial Swelling Neck: Supple, Full Range of Motion Respiratory/Chest: No Respiratory Distress, Normal Breath Sounds Cardiovascular: Regular Rate, Rhythm GI/Abdominal: Soft, Non-Tender Back Exam: No: CVA Tenderness (L), CVA Tenderness (R) Extremities: Normal Inspection, Normal Range of Motion Neurological: Alert, Oriented Skin: Warm, Dry, Other (small about 3 x 5 cm area of very superficial skin sloughing left lower abdomen about right at the belt line, patient wearing blue jeans at time of exam and this is about where the waistband of her jeans are running. There is very slight erythema, minimal tenderness over this area. Nothing angry looking at this time. No palpable mass.) Course - Vital Signs Last Recorded V/S: Last Vital Signs Temp 97.3 F 08/11/19 15:00 Pulse 68 08/11/19 15:00 Resp 20 08/11/19 15:00 BP 159/54 H 08/11/19 15:00 Pulse Ox 94 L 08/11/19 15:00 - Re-Assessments/Exams Free Text/Narrative Re-Assessment/Exam: 08/14/19 08:06 It is really difficult to say at this time what is causing that area very superfiscial sloughing of skin. This is not typical looking cellulitis in that there is slight erythema if any at this time. No visible swelling at this time although patient feels like there is mild swelling with palpation over this area. We'll start her on doxycycline 100 mg twice a day. This could be some type of skin irritation reaction or possibly very early cellulitis. Departure - Departure Time of Disposition: 16:14 Disposition: Home, Self-Care 01 Condition: Fair Clinical Impression: Cellulitis Qualifiers: Site of cellulitis: trunk Site of cellulitis of trunk: abdominal wall Qualified Code(s): L03.311 - Cellulitis of abdominal wall - Discharge Information Prescriptions: Doxycycline [Vibramycin] 100 mg PO BID #14 tab Instructions: Cellulitis, Adult Referrals: López Pittman MD [Primary Care Provider] - Forms: ED Department Discharge Additional Instructions: Doxycycline 100 mg twice daily. Prescription has been sent electronic to [facility]. Take your first dose when you get your prescription filled and than you can take your second dose for today this evening at bedtime and than continue twice daily until gone. See Dr Azar next week as planned. Return to ED as discussed if symptoms worsening in any way. Sepsis Event Note - Evaluation Sepsis Screening Result: No Definite Risk - Focused Exam Date Exam was Performed: 08/14/19 Time Exam was Performed: 07:45
== END 2019-08-11 16:33 | disposition home or self-care (01) ==
LOC: JD.ED 14:53
CPT/HCPCS: 99282; 99283

== ENCOUNTER 2019-10-10 17:38 | Emergency (ER) | payer BC ==
[2019-10-10] MEDS ORDERED: Sodium Chloride 0.9% 10 ML Syringe FLUSH PRN (18:20)
[2019-10-10] MEDS ORDERED: Ondansetron 4 MG/2 ML SDV IVPUSH ONE (18:29)
--- NOTE | 2019-10-10 18:29 | EDM.PDOC ---
ED HPI GENERAL MEDICAL PROBLEM - General Chief Complaint: Skin Complaint Stated Complaint: POSSIBLE CELLULITIS SENT BY [facility] Time Seen by Provider: 10/10/19 18:02 Source of Information: Reports: Patient, Old Records (Visit from July), RN Notes Reviewed History Limitations: Reports: No Limitations - History of Present Illness INITIAL COMMENTS - FREE TEXT/NARRATIVE: Patient is a 64-year-old female who presents to the ED for the evaluation of a cellulitis. Patient did go to the walk-in clinic for management, but they sent her here, as they thought she might need an IV antibiotic. Area of concern is on the left lower abdomen near her belt line, this area is roughly 8 x 5 cm, erythematous, and hard to the touch. She does state that this area is quite tender. This was the area of concern in July for cellulitis and she was given doxycycline 100 mg twice daily for 7 days. The area at that time was measured by Dr. Davis to be 2 x 3 cm. She states she finished this antibiotic , and did not think that the infection resolved itself so went to clinic for follow-up, had an ultrasound done and demonstrated no abscess, so they did not restart any sort antibiotic. Patient states that she does think that the area has grown in size as well. Patient states she is a diabetic, and has noticed that her sugars have been out of control the past few days as well. Her blood sugar today was 340 at 11 AM, she did take 20 units of NovoLog for this. Patient is complaining of some mild nausea, and generalized chills. She does have a fever at time of triage of 100.2 F. Otherwise the patient has no major concerns. Left Abdomen Pain Score (Numeric/FACES): 2 - Related Data Allergies Allergy/AdvReac Type Severity Reaction Status Date / Time No Known Allergies Allergy Verified 08/11/19 15:05 Home Meds: Home Meds Aspirin 81 mg PO DAILY 09/18/18 [History] Chlorthalidone 25 mg PO DAILY 09/18/18 [History] Furosemide 20 - 40 mg PO DAILY 09/18/18 [History] Lisinopril 10 mg PO DAILY 09/18/18 [History] Metoprolol Succinate 200 mg PO DAILY 09/18/18 [History] Verapamil HCl [Verelan Pm] 200 mg pe PO DAILY 09/18/18 [History] Doxazosin [Cardura] 1 mg PO DAILY 08/04/19 [History] Timolol [Betimol] 1 drop EYEBOTH DAILY 08/04/19 [History] Insulin Lispro [HumaLOG] 15 unit SUBCUT TIDAC #9 vial 08/08/19 [Rx] Doxycycline [Vibramycin] 200 mg PO BID 7 Days #28 tab 10/10/19 [Rx] Insulin Glarg,Human.Rec.Analog [Lantus] 32 unit SUBCUT BEDTIME 10/10/19 [History ] Past Medical History HEENT History: Reports: Glaucoma, Impaired Vision Cardiovascular History: Reports: Heart Failure, High Cholesterol, Hypertension 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 History: Reports: Diabetic Nephropathy 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: Endocrine/Metabolic History: Reports: Diabetes, Type II, Obesity/BMI 30+ Dermatologic History: Reports: Cellulitis - Past Surgical History HEENT Surgical History: Reports: Cataract Surgery, Laser Surgery Female Surgical History: Reports: Section, Other (See Below) Social & Family History - Family History Family Medical History: Noncontributory - Tobacco Use Smoking Status *Q: Never Smoker - Caffeine Use Caffeine Use: Reports: Coffee Other Caffeine Use: 1 cup/coffee - Recreational Drug Use Recreational Drug Use: No - Living Situation & Occupation Living situation: Reports: , with Spouse Occupation: Unemployed ED ROS GENERAL - Review of Systems Review Of Systems: See Below Constitutional: Reports: Fever, Chills Respiratory: Denies: Shortness of Breath, Cough Cardiovascular: Denies: Chest Pain GI/Abdominal: Reports: Abdominal Pain (in area of concern for cellulits), Diarrhea, Nausea. Denies: Vomiting Skin: Reports: Erythema (sEE hpi) ED EXAM, SKIN/RASH Exam: See Below Exam Limited By: No Limitations General Appearance: Alert, WD/WN, No Apparent Distress Ears: Normal External Exam Nose: Normal Inspection Throat/Mouth: Normal Inspection, Normal Lips, Normal Teeth, Normal Gums, Normal Oropharynx, Normal Voice, No Airway Compromise Head: Atraumatic, Normocephalic Neck: Normal Inspection Respiratory/Chest: No Respiratory Distress, Lungs Clear, Normal Breath Sounds, No Accessory Muscle Use, Chest Non-Tender Cardiovascular: Normal Peripheral Pulses, Regular Rate, Rhythm, No Murmur GI/Abdominal: Normal Bowel Sounds, Soft, No Distention, Tender (in left lower abdomen over area of suspected cellulitis, see skin assessment for further details) Extremities: Normal Inspection, Normal Capillary Refill Neurological: Alert, Oriented, Normal Cognition, No Motor/Sensory Deficits Psychiatric: Normal Affect, Normal Mood Skin: Warm, Dry, Intact, Erythema (8x5cm area in L lower abdomen, this area is indurated to palpation but not fluctuant, is tender to touch, it is warmer than surrounding skin), Increased Warmth Course - Vital Signs Last Recorded V/S: Last Vital Signs Temp 100.2 F 10/10/19 18:09 Pulse 70 10/10/19 18:09 Resp 20 10/10/19 18:09 BP 180/78 H 10/10/19 18:09 Pulse Ox 98 10/10/19 18:09 - Orders/Labs/Meds Orders: Active Orders 24 hr Category Date Time Status Peripheral IV Care [RC] . DIRECTED Care 10/10/19 18:22 Ordered Abdomen Pelvis w Cont [CT] Stat Exams 10/10/19 20:14 Ordered Sodium Chloride 0.9% [Saline Flush] Med 10/10/19 18:20 Ordered 10 ml FLUSH ASDIRECTED PRN Peripheral IV Insertion Adult [OM.PC] Stat Oth 10/10/19 18:20 Ordered Medication Orders Sodium Chloride (Saline Flush) 10 ml FLUSH ASDIRECTED PRN PRN Reason: Keep Vein Open Last Admin: 10/10/19 21:45 Dose: 10 ml Labs: Laboratory Tests 10/10/19 10/10/19 Range/Units 18:50 18:50 WBC 17.72 H (3.98-10.04) K/mm3 RBC 3.75 L (3.98-5.22) M/mm3 Hgb 10.4 L (11.2-15.7) gm/dl Hct 33.5 L (34.1-44.9) % MCV 89.3 D (79.4-94.8) fl MCH 27.7 (25.6-32.2) pg MCHC 31.0 L (32.2-35.5) g/dl RDW Std Deviation 43.6 (36.4-46.3) fL Plt Count 397 H D (182-369) K/mm3 MPV 10.5 (9.4-12.3) fl Neutrophils % (Manual) 76 H (40-60) % Band Neutrophils % 2 (0-10) % Lymphocytes % (Manual) 13 L (20-40) % Atypical Lymphs % 0 % Monocytes % (Manual) 6 (2-10) % Eosinophils % (Manual) 3 (0.7-5.8) % Basophils % (Manual) 0 L (0.1-1.2) Toxic Granulation Few Platelet Estimate Adequate Poikilocytosis 1+ slight Ovalocytes 1+ slight RBC Morph Comment Not Reportable Sodium 135 L (136-145) mEq/L Potassium 4.0 (3.5-5.1) mEq/L Chloride 98 (98-107) mEq/L Carbon Dioxide 29 (21-32) mEq/L Anion Gap 12.0 (5-15) BUN 32 H D (7-18) mg/dL Creatinine 1.4 H (0.55-1.02) mg/dL Est Cr Clr Drug Dosing 35.98 mL/min Estimated GFR (MDRD) 38 (>60) mL/min BUN/Creatinine Ratio 22.9 H (14-18) Glucose 127 H (80-115) mg/dL Calcium 9.2 (8.5-10.1) mg/dL Total Bilirubin 0.6 (0.2-1.0) mg/dL AST 14 L (15-37) U/L ALT 21 (14-59) U/L Alkaline Phosphatase 112 (46-116) U/L Total Protein 6.9 (6.4-8.2) g/dl Albumin 2.7 L (3.4-5.0) g/dl Globulin 4.2 gm/dL Albumin/Globulin Ratio 0.6 L (1-2) Meds: Medications Generic Name Dose Route Start Last Admin Trade Name Freq PRN Reason Stop Dose Admin Sodium Chloride 10 ml 10/10/19 18:20 10/10/19 21:45 Saline Flush FLUSH 10 ml ASDIRECTED PRN Administration Keep Vein Open Discontinued Medications Generic Name Dose Route Start Last Admin Trade Name Freq PRN Reason Stop Dose Admin Acetaminophen 975 mg 10/10/19 18:34 10/10/19 19:32 Tylenol PO 10/10/19 18:35 975 mg NOW ONE Administration Sodium Chloride 1,000 mls @ 999 mls/hr 10/10/19 20:23 10/10/19 20:28 Normal Saline IV 10/10/19 21:23 999 mls/hr ONETIME ONE Administration Iopamidol 100 ml 10/10/19 21:44 10/10/19 21:44 Isovue-300 (61%) IVPUSH 10/10/19 21:45 100 ml ONETIME ONE Administration Ondansetron HCl 4 mg 10/10/19 18:29 Zofran IVPUSH 10/10/19 18:30 ONETIME ONE Ondansetron HCl 4 mg 10/10/19 19:23 10/10/19 19:31 Zofran Odt PO 10/10/19 19:24 4 mg ONETIME ONE Administration - Re-Assessments/Exams Free Text/Narrative Re-Assessment/Exam: 10/10/19 18:32 Patient presents to the ED for suspected cellulitis in her left lower abdomen. I have ordered IV to be placed, and have ordered a CBC, CMP, with a abdomen limited ultrasound of the area to assess for abscess. The area of concern is indurated but not fluctuant has grown in size since the last time she was evaluated in July. Patient will be given 4 mg Zofran for nausea, and 975 mg of Tylenol for fever relief. 10/10/19 20:15 Ultrasound is done and demonstrates fluid around what appears to be an abdominal wall hernia, abdomen pelvis CT with IV contrast is recommended for further evaluation. 10/10/19 22:15 Patient was given a bag of IV fluids due to kidney function prior to abdomen pelvis CT. The abdomen pelvis CT has been completed, and V-rad states that this looks like a very large fluid collection in nature, 10.3 cm at its biggest. But there is no bowel contents, or no other acute intra-abdominal processes noted. I did discuss the findings with Dr. Davis and discussed the patient's case with him as well, and he thinks it would be fair to send the patient home on oral antibiotics, and have her follow-up with a surgeon for further management on an outpatient basis. Departure - Departure Time of Disposition: 22:19 Disposition: Home, Self-Care 01 Condition: Fair Clinical Impression: Abscess of abdominal wall - Discharge Information *PRESCRIPTION DRUG MONITORING PROGRAM REVIEWED*: No *COPY OF PRESCRIPTION DRUG MONITORING REPORT IN PATIENT GABBIE: No Instructions: Skin Abscess, [id number] Referrals: López Pittman MD [Primary Care Provider] - Forms: ED Department Discharge Additional Instructions: You were evaluated in the ER today regarding your left lower abdominal wall pain. You had some labs drawn, an ultrasound, and a CT done at today's visit. This did demonstrate a rather large subcutaneous abscess, that measures 8.6 x 10.4 x 14.3 cm. You were given a dose of IV antibiotics, to help start the healing process. The area does not contain any sort of bowel contents which would be worrisome for a strangulated hernia of sorts. You have been given a copy of the CT report for review by general surgery. Highly recommend you call the [facility] tomorrow, for a follow -up appointment with any general surgeon that can see you either tomorrow or early the next day for possible drainage. Dr. Contreras, Dr. Johnson, or Dr. Jose rodgers are the general surgeons at [facility] that I am aware of. You may also call [phone], for consultation with Dr. Baldwin, our general surgeon if he is able to get you in sooner. Again urgency is recommended for further evaluation and possible drainage of the area. You have been given a prescription for oral antibiotics, doxycycline 200 mg (2 tabs) twice daily for the next 7 days or unless told otherwise by your provider. You will need to pick these up at [email or web address] located on [address], tomorrow morning and take as directed. Recommend you eat a meal before taking these antibiotics, as you related this seemed to cause you some GI upset the last time he took these medications. You may take 600 mg ibuprofen or 500 mg Tylenol every 6 hours as needed for further pain relief. Do not exceed 4000 mg Tylenol or 3200 mg ibuprofen in a 24 -hour time span. There were other incidental findings on your CT (none of which are emergent matters), with recommendations for follow-up studies, please schedule these as you discuss them with your primary care provider. Please return to the ER at any time if your symptoms change or worsen. Sepsis Event Note - Evaluation Sepsis Screening Result: No Definite Risk - Focused Exam Vital Signs: Vital Signs Temp Pulse Resp BP Pulse Ox 10/10/19 18:09 100.2 F 70 20 180/78 H 98 Date Exam was Performed: 10/10/19 Time Exam was Performed: 22:15 - My Orders Last 24 Hours: My Active Orders 10/10/19 18:20 Sodium Chloride 0.9% [Saline Flush] 10 ml FLUSH ASDIRECTED PRN Peripheral IV Insertion Adult [OM.PC] Stat 10/10/19 18:22 Peripheral IV Care [RC] . DIRECTED 10/10/19 20:14 Abdomen Pelvis w Cont [CT] Stat - Assessment/Plan Last 24 Hours: My Active Orders 10/10/19 18:20 Sodium Chloride 0.9% [Saline Flush] 10 ml FLUSH ASDIRECTED PRN Peripheral IV Insertion Adult [OM.PC] Stat 10/10/19 18:22 Peripheral IV Care [RC] . DIRECTED 10/10/19 20:14 Abdomen Pelvis w Cont [CT] Stat
[2019-10-10] MEDS ORDERED: Acetaminophen 325 MG Tab PO ONE (18:34)
[2019-10-10] MEDS ORDERED: Ondansetron 4 MG Tab.DIS PO ONE (19:23)
--- NOTE | 2019-10-10 20:04 | US ---
Limited abdominal ultrasound: Multiple real-time images of the abdominal wall were obtained of the left lower abdomen. Fluid around the structure is noted. There appears to be a hernia anterior abdominal wall in this area. Impression: 1. Fluid around what appears to be a hernia into the abdominal wall. If any clinical questions remain, CT study would be helpful to confirm. If CT is performed, no oral contrast will be needed but IV contrast should be utilized. Diagnostic code #3 Study was dictated in MDT
[2019-10-10] MEDS ORDERED: Sodium Chloride 0.9% 1,000 ML IV ONE (20:23)
[2019-10-10] MEDS ORDERED: Iopamidol 612 MG/ML 100 ML Bottle IVPUSH ONE (21:44)
[2019-10-10] MEDS ORDERED: Doxycycline 200 MG in Sodium Chloride 0.9% 100 ML IV ONE (22:17)
--- NOTE | 2019-10-10 22:18 | CT ---
CT abdomen and pelvis Technique: Multiple axial sections were obtained from above the dome of the diaphragm inferiorly through the pubic symphysis. Intravenous contrast was utilized. No oral contrast has been given. Comparison: Previous limited abdominal ultrasound performed earlier on the same day (7:39 PM. Findings: No abdominal wall hernia is seen as suggested on prior ultrasound exam. Low-density collection is seen within the lower anterior abdominal wall which measures about 8.6 x 10.4 x 14.3 cm. This remains external to the abdominal cavity and most likely represents an abscess. Visualized lung bases show nothing acute. Noncontrast appearance of the liver shows no focal abnormality. Spleen appears within normal limits. Adrenal gland on the right side shows a nodule measuring 1.9 cm in size which is nonspecific. Left adrenal gland is normal. Pancreas appears normal. Gallbladder contains no calcified gallstones. Spleen appears within normal limits. Kidneys show symmetric contrast enhancement with on hydronephrosis or mass. Aorta shows no aneurysm. Atherosclerotic change is noted within the aortoiliac vessels. No retroperitoneal adenopathy or mesenteric abnormalities are seen. No pelvic mass or adenopathy is seen. No free fluid or inflammatory change is seen within the abdomen. Delayed images shows contrast within the ureters as well as contrast within the bladder. Appendix is seen which is normal in size. Bone window settings were reviewed which shows scattered degenerative change throughout the spine. Small fat-containing umbilical hernia is noted. Impression: 1. Fluid-filled collection outside the abdominal cavity within the left lower abdomen with measurements of 8.6 x 10.4 x 14.3 cm. This most likely represents a subcutaneous abscess. 2. This area does not contain an abdominal wall hernia as suggested on ultrasound exam. 3. Small fat-containing umbilical hernia which is felt to be incidental. 4. Adrenal nodule measuring 1.9 cm. This is nonspecific but statistically most likely due to adenoma. Follow-up CT could be considered in 6 months to confirm stability. This follow-up study would occur in March,). 5. No additional abnormality is seen on CT study of the abdomen and pelvis. Diagnostic code #3 Study was dictated in MDT
== END 2019-10-11 | disposition home or self-care (01) ==
LOC: JD.ED 17:38
DX: L02.211 Cutaneous abscess of abdominal wall (principal); I11.0 Hypertensive heart disease with heart failure; I50.9 Heart failure, unspecified; E11.21 Type 2 diabetes mellitus with diabetic nephropathy; E78.00 Pure hypercholesterolemia, unspecified; E66.9 Obesity, unspecified; Z68.41 Body mass index [BMI] 40.0-44.9, adult; Z79.82 Long term (current) use of aspirin; Z79.899 Other long term (current) drug therapy; Z79.4 Long term (current) use of insulin
CPT/HCPCS: 36415; 74177; 76705; 80053; 85007; 85027; 96361; 96365; 99284; A9270; J3490; J7030; J7050; Q9967

== ENCOUNTER 2021-05-11 18:55 | Emergency (ER) | payer BC, OTHER ==
[2021-05-11] MEDS ORDERED: Lactated Ringers 1,000 ML IV ONE (20:39)
--- NOTE | 2021-05-11 22:31 | EDM.PDOC ---
ED HPI GENERAL MEDICAL PROBLEM - General Chief Complaint: Diabetic Complaint Stated Complaint: HIGH BLOOD SUGARS/COVID EXPOSURE Time Seen by Provider: 05/11/21 20:00 Source of Information: Reports: Patient History Limitations: Reports: No Limitations - History of Present Illness INITIAL COMMENTS - FREE TEXT/NARRATIVE: Patient 66-year-old female presented to emergency room with chief complaint of hyperglycemia and fatigue. Patient reports feeling fatigued for the past 3 to 4 days. States nothing seems to make symptoms better or worse. She reports symptoms occur all day. Patient reports some associated dry cough. Patient reports has been diagnosed yesterday with COVID-19. They are both unvaccinated. Otherwise, patient is denying chest pain, lower extremity swelling, rashes. She reports compliance with her diabetes medication. States she is even increased her insulin regimen but still has glucose readings in the 300s. - Related Data Allergies Allergy/AdvReac Type Severity Reaction Status Date / Time No Known Allergies Allergy Verified 05/11/21 19:14 Home Meds: Home Meds Aspirin 81 mg PO DAILY 09/18/18 [History] Chlorthalidone 25 mg PO DAILY 09/18/18 [History] Furosemide 20 - 40 mg PO DAILY 09/18/18 [History] Lisinopril 10 mg PO DAILY 09/18/18 [History] Metoprolol Succinate 200 mg PO DAILY 09/18/18 [History] Verapamil HCl [Verelan Pm] 200 mg pe PO DAILY 09/18/18 [History] Doxazosin [Cardura] 1 mg PO DAILY 08/04/19 [History] Timolol [Betimol] 1 drop EYEBOTH DAILY 08/04/19 [History] Insulin Lispro [HumaLOG] 15 unit SUBCUT TIDAC #9 vial 08/08/19 [Rx] Doxycycline [Vibramycin] 200 mg PO BID 7 Days #28 tab 10/10/19 [Rx] Insulin Glarg,Human.Rec.Analog [Lantus] 32 unit SUBCUT BEDTIME 10/10/19 [History] Past Medical History HEENT History: Reports: Glaucoma, Impaired Vision Cardiovascular History: Reports: Heart Failure, High Cholesterol, Hypertension 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 History: Reports: Diabetic Nephropathy 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: Endocrine/Metabolic History: Reports: Diabetes, Type II, Obesity/BMI 30+ Dermatologic History: Reports: Cellulitis - Past Surgical History HEENT Surgical History: Reports: Cataract Surgery, Laser Surgery Female Surgical History: Reports: Section, Other (See Below) Social & Family History - Family History Family Medical History: No Pertinent Family History - Tobacco Use Tobacco Use Status *Q: Never Tobacco User - Caffeine Use Caffeine Use: Reports: Coffee, Tea Other Caffeine Use: 1 cup/coffee - Recreational Drug Use Recreational Drug Use: No - Living Situation & Occupation Living situation: Reports: , with Spouse Occupation: Unemployed ED ROS GENERAL - Review of Systems Review Of Systems: See Below Free Text/Narrative/Comment: In addition to that documented in the HPI above, the additional ROS was obtained: Constitutional: Denies fevers or chills Eyes: Denies vision changes ENMT: Denies sore throat CV: Denies chest pain Resp: Per HPI GI: Denies vomiting or diarrhea : Denies painful urination MSK: Denies recent trauma Skin: Denies new rashes Neuro: Denies new numbness or tingling or weakness Endocrine: Denies unexpected weight loss Heme: Denies bleeding disorders ED EXAM GENERAL NO PERIP PULSE - Physical Exam Exam: See Below Text/Narrative:: I have reviewed the triage vital signs Const: Well nourished, well developed, appears stated age Eyes: Pupils Equal and reactive to light bilaterally, no conjunctival injection HENT: No signs of trauma or swelling, Neck supple without meningismus CV: Regular Rate Rhythm, Warm, well-perfused extremities RESP: Unlabored respiratory effort GI: soft, non-tender, non-distended, no masses MSK: No gross deformities appreciated Skin: Warm, dry. No rashes Neuro: Alert, apricot washer II-XII grossly intact. Sensation and motor function of extremities grossly intact. Psych: Appropriate mood and affect. Course - Vital Signs Last Recorded V/S: Last Vital Signs Temp 36.6 C 05/12/21 01:12 Pulse 65 05/12/21 01:12 Resp 16 05/12/21 01:12 BP 163/69 H 05/12/21 01:12 Pulse Ox 92 L 05/12/21 01:12 - Orders/Labs/Meds Labs: Laboratory Tests 05/11/21 05/11/21 05/11/21 Range/Units 19:17 19:27 21:23 WBC 4.01 (3.98-10.04) K/mm3 RBC 4.50 (3.98-5.22) M/mm3 Hgb 13.8 D (11.2-15.7) gm/dl Hct 41.0 (34.1-44.9) % MCV 91.1 (79.4-94.8) fl MCH 30.7 (25.6-32.2) pg MCHC 33.7 (32.2-35.5) g/dl RDW Std Deviation 42.2 (36.4-46.3) fL Plt Count 170 L D (182-369) K/mm3 MPV 10.8 (9.4-12.3) fl Neut % (Auto) 54.4 (34.0-71.1) % Lymph % (Auto) 23.2 (19.3-51.7) % Haines % (Auto) 21.2 H (4.7-12.5) % Eos % (Auto) 0 L (0.7-5.8) Baso % (Auto) 1.0 (0.1-1.2) % Neut # (Auto) 2.18 (1.56-6.13) K/mm3 Lymph # (Auto) 0.93 L (1.18-3.74) K/mm3 Haines # (Auto) 0.85 H (0.24-0.36) K/mm3 Eos # (Auto) 0.00 L (0.04-0.36) K/mm3 Baso # (Auto) 0.04 (0.01-0.08) K/mm3 Manual Slide Review Abnormal smear VBG pH (7.30-7.40) VBG pCO2 (41-51) mmHg VBG pO2 (40-80) mmHG VBG HCO3 (22-26) meq/L VBG O2 Saturation VBG Base Excess (-4.0-2.0) O2 Delivery Device Sodium (136-145) mEq/L Potassium (3.5-5.1) mEq/L Chloride (98-107) mEq/L Carbon Dioxide (21-32) mEq/L Anion Gap (5-15) BUN (7-18) mg/dL Creatinine (0.55-1.02) mg/dL Est Cr Clr Drug Dosing mL/min Estimated GFR (MDRD) (>60) mL/min BUN/Creatinine Ratio (14-18) Glucose (70-99) mg/dL POC Glucose 391 H (70-99) mg/dL Calcium (8.5-10.1) mg/dL Total Bilirubin (0.2-1.0) mg/dL AST (15-37) U/L ALT (14-59) U/L Alkaline Phosphatase (46-116) U/L Total Protein (6.4-8.2) g/dl Albumin (3.4-5.0) g/dl Globulin gm/dL Albumin/Globulin Ratio (1-2) Ketones (0.0-0.3) mM SARS-CoV-2 RNA (MARCO) Positive H (NEGATIVE) 05/11/21 05/11/21 05/11/21 Range/Units 21:23 21:23 21:25 WBC (3.98-10.04) K/mm3 RBC (3.98-5.22) M/mm3 Hgb (11.2-15.7) gm/dl Hct (34.1-44.9) % MCV (79.4-94.8) fl MCH (25.6-32.2) pg MCHC (32.2-35.5) g/dl RDW Std Deviation (36.4-46.3) fL Plt Count (182-369) K/mm3 MPV (9.4-12.3) fl Neut % (Auto) (34.0-71.1) % Lymph % (Auto) (19.3-51.7) % Haines % (Auto) (4.7-12.5) % Eos % (Auto) (0.7-5.8) Baso % (Auto) (0.1-1.2) % Neut # (Auto) (1.56-6.13) K/mm3 Lymph # (Auto) (1.18-3.74) K/mm3 Haines # (Auto) (0.24-0.36) K/mm3 Eos # (Auto) (0.04-0.36) K/mm3 Baso # (Auto) (0.01-0.08) K/mm3 Manual Slide Review VBG pH 7.42 H (7.30-7.40) VBG pCO2 39.9 L (41-51) mmHg VBG pO2 32.0 L (40-80) mmHG VBG HCO3 25.6 (22-26) meq/L VBG O2 Saturation 53.0 VBG Base Excess 1.6 (-4.0-2.0) O2 Delivery Device Room air Sodium 127 L (136-145) mEq/L Potassium 4.6 (3.5-5.1) mEq/L Chloride 88 L (98-107) mEq/L Carbon Dioxide 27 (21-32) mEq/L Anion Gap 16.6 H (5-15) BUN 59 H D (7-18) mg/dL Creatinine 2.5 H (0.55-1.02) mg/dL Est Cr Clr Drug Dosing 19.63 mL/min Estimated GFR (MDRD) 19 (>60) mL/min BUN/Creatinine Ratio 23.6 H (14-18) Glucose 446 H* (70-99) mg/dL POC Glucose (70-99) mg/dL Calcium 8.5 (8.5-10.1) mg/dL Total Bilirubin 0.6 (0.2-1.0) mg/dL AST 36 (15-37) U/L ALT 21 (14-59) U/L Alkaline Phosphatase 75 (46-116) U/L Total Protein 6.6 (6.4-8.2) g/dl Albumin 2.6 L (3.4-5.0) g/dl Globulin 4.0 gm/dL Albumin/Globulin Ratio 0.7 L (1-2) Ketones 2.23 (0.0-0.3) mM SARS-CoV-2 RNA (MARCO) (NEGATIVE) Meds: Medications Discontinued Medications Generic Name Dose Route Start Last Admin Trade Name Freq PRN Reason Stop Dose Admin Diphenhydramine HCl 50 mg 05/11/21 22:38 Diphenhydramine 50 Mg/Ml Sdv IVPUSH ASDIRECTED PRN hypersensitivity reaction Epinephrine HCl 0.3 mg 05/11/21 22:38 Epinephrine 1 Mg/Ml Sdv IM ASDIRECTED PRN hypersensitivity reaction Famotidine 20 mg 05/11/21 22:38 Famotidine 20 Mg/2 Ml Sdv IVPUSH ASDIRECTED PRN hypersensitivity reaction Lactated Ringer's 1,000 mls @ 1,000 mls/hr 05/11/21 20:39 05/11/21 21:14 Ringers, Lactated IV 05/11/21 21:38 1,000 mls/hr .BOLUS ONE Administration SOTROVIMAB 500 mg/ Sodium 108 mls @ 216 mls/hr 05/11/21 22:38 05/11/21 23:16 Chloride IV 05/11/21 23:07 216 mls/hr ONETIME ONE Administration Methylprednisolone Sodium Succinate 125 mg 05/11/21 22:38 Methylprednisolone Sodium Succinate 125 Mg/2 Ml Sdv IVPUSH ASDIRECTED PRN hypersensitivity reaction Sodium Chloride 30 ml 05/11/21 22:45 Sodium Chloride 0.9% 10 Ml Syringe FLUSH ASDIRECTED CLIFF Departure - Departure Time of Disposition: 22:30 Disposition: Home, Self-Care 01 Clinical Impression: COVID-19 - Discharge Information Instructions: COVID-19 Frequently Asked Questions Referrals: López Pittman MD [Primary Care Provider] - Forms: ED Department Discharge Sepsis Event Note (ED) - Evaluation Sepsis Screening Result: No Definite Risk - Focused Exam Vital Signs: Vital Signs Temp Pulse Resp BP Pulse Ox 05/12/21 01:12 36.6 C 65 16 163/69 H 92 L 05/12/21 00:15 37.3 C 76 16 170/38 H 91 L 05/12/21 00:00 75 16 166/43 H 90 L 05/11/21 23:49 37.3 C 73 16 192/59 H 91 L 05/11/21 23:30 67 16 192/57 H 90 L 05/11/21 23:20 36.9 C 69 16 199/52 H 94 L 05/11/21 19:11 37.1 C 65 20 143/41 H 97 - Assessment/Plan Assessment:: Patient 66-year-old female presenting to the emergency room with complaint of weakness, fatigue and hyperglycemia. Differential diagnosis and surface patient include electrolyte abnormality, renal failure, COVID-19, DKA/HHS. Patient patient evaluation in the emergency room, patient has evidence of Covid pneumonia but is not requiring any supplemental oxygen and therefore can be discharged home. Patient did receive antibiotic infusion in the emergency room.
[2021-05-11] MEDS ORDERED: EPINEPHrine 1 MG/ML SDV IM PRN (22:38)
[2021-05-11] MEDS ORDERED: diphenhydrAMINE 50 MG/ML SDV IVPUSH PRN (22:38)
[2021-05-11] MEDS ORDERED: Famotidine 20 MG/2 ML SDV IVPUSH PRN (22:38)
[2021-05-11] MEDS ORDERED: methylPREDNISolone Sodium Succinate 125 MG/2 ML SDV IVPUSH PRN (22:38)
[2021-05-11] MEDS ORDERED: Sodium Chloride 0.9% 10 ML Syringe FLUSH SCH (22:45)
== END 2021-05-12 01:00 | disposition home or self-care (01) ==
LOC: JD.ED 18:55
DX: U07.1 COVID-19 (principal); I11.0 Hypertensive heart disease with heart failure; I50.9 Heart failure, unspecified; E78.00 Pure hypercholesterolemia, unspecified; E11.21 Type 2 diabetes mellitus with diabetic nephropathy; E66.9 Obesity, unspecified; Z68.39 Body mass index [BMI] 39.0-39.9, adult; Z79.4 Long term (current) use of insulin; Z79.899 Other long term (current) drug therapy
CPT/HCPCS: 36415; 80053; 82009; 82803; 82947; 85025; 87635; 99284; J7120; M0247; Q0247; U0002

== ENCOUNTER 2021-05-14 12:53 | Emergency (ER) | payer OTHER ==
[2021-05-14] MEDS ORDERED: Sodium Chloride 0.9% 10 ML Syringe FLUSH PRN (13:14)
[2021-05-14] MEDS ORDERED: Ondansetron 4 MG/2 ML SDV IVPUSH ONE (13:14)
[2021-05-14] MEDS ORDERED: Sodium Chloride 0.9% 1,000 ML IV SCH (13:15)
[2021-05-14] MEDS ORDERED: Albuterol/Ipratropium 3.0-0.5 MG/3 ML Neb Soln NEB ONE (13:16)
--- NOTE | 2021-05-14 14:41 | CR ---
Chest: Frontal view of the chest was obtained. Comparison: Prior chest x-ray of 08/04/19. Heart size and mediastinum are within normal limits for technique. Patchy areas of increased density are seen on both sides of the chest which are an interval change from prior exam. Bony structures show degenerative change within the left shoulder. No acute osseous finding is appreciated. Impression: 1. Patchy increased density within both sides of the chest raising the possibility of diffuse COVID pneumonia. Please correlate. Diagnostic code #3
[2021-05-14] MEDS ORDERED: REMDESIVIR 200 MG in Sodium Chloride 0.9% 250 ML IV ONE (15:49)
[2021-05-14] MEDS ORDERED: Dexamethasone 4 MG/ML SDV IVPUSH ONE (15:49)
--- NOTE | 2021-05-14 16:10 | EDM.PDOC ---
ED HPI GENERAL MEDICAL PROBLEM - General Chief Complaint: Respiratory Problem Stated Complaint: MELCHOR AMB Time Seen by Provider: 05/14/21 13:05 Source of Information: Reports: Patient, EMS, Family History Limitations: Reports: No Limitations - History of Present Illness INITIAL COMMENTS - FREE TEXT/NARRATIVE: The patient presents by [facility] for COVID 19, generalized weakness, falls, cough and shortness of breath. This has been going on for about 7 days. She was seen here on the 16 and diagnosed with COVID 19. She was seen here and given Sotrovimab the monoclonal antibodies. She went home and got weaker. She has a fever, chills, cough, shortness of breath, no appetite and generalized weakness. She has no chest pain or abdominal pain. She has a history of diabetes and she is insulin dependent. She did not hit her head and she has no injuries from the fall. She has no nausea, vomiting or diarrhea. Onset: Gradual Duration: Day(s): (7) Severity: Moderate Improves with: Reports: None Worsens with: Reports: None Associated Symptoms: Reports: Cough, Fever/Chills. Denies: Chest Pain, Nausea/Vomiting - Related Data Allergies Allergy/AdvReac Type Severity Reaction Status Date / Time No Known Allergies Allergy Verified 05/14/21 12:57 Home Meds: Home Meds Aspirin 81 mg PO DAILY 09/18/18 [History] Chlorthalidone 25 mg PO DAILY 09/18/18 [History] Furosemide 20 - 40 mg PO DAILY 09/18/18 [History] Lisinopril 10 mg PO DAILY 09/18/18 [History] Metoprolol Succinate 200 mg PO DAILY 09/18/18 [History] Verapamil HCl [Verelan Pm] 200 mg pe PO DAILY 09/18/18 [History] Doxazosin [Cardura] 1 mg PO DAILY 08/04/19 [History] Timolol [Betimol] 1 drop EYEBOTH DAILY 08/04/19 [History] Insulin Lispro [HumaLOG] 15 unit SUBCUT TIDAC #9 vial 08/08/19 [Rx] Doxycycline [Vibramycin] 200 mg PO BID 7 Days #28 tab 10/10/19 [Rx] Insulin Glarg,Human.Rec.Analog [Lantus] 32 unit SUBCUT BEDTIME 10/10/19 [History] Past Medical History HEENT History: Reports: Glaucoma, Impaired Vision Cardiovascular History: Reports: Heart Failure, High Cholesterol, Hypertension 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 History: Reports: Diabetic Nephropathy 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: Endocrine/Metabolic History: Reports: Diabetes, Type II, Obesity/BMI 30+ Dermatologic History: Reports: Cellulitis - Infectious Disease History Infectious Disease History: Reports: Novel Coronavirus - Past Surgical History HEENT Surgical History: Reports: Cataract Surgery, Laser Surgery Female Surgical History: Reports: Section, Other (See Below) Social & Family History - Family History Family Medical History: No Pertinent Family History - Tobacco Use Tobacco Use Status *Q: Never Tobacco User - Caffeine Use Caffeine Use: Reports: Coffee, Tea Other Caffeine Use: 1 cup/coffee - Living Situation & Occupation Living situation: Reports: , with Spouse Occupation: Unemployed ED ROS GENERAL - Review of Systems Review Of Systems: See Below Constitutional: Reports: Fever, Chills, Malaise, Weakness, Fatigue HEENT: Reports: No Symptoms Respiratory: Reports: Shortness of Breath, Cough Cardiovascular: Reports: No Symptoms Endocrine: Reports: Fatigue GI/Abdominal: Reports: Decreased Appetite. Denies: Abdominal Pain, Diarrhea, Nausea, Vomiting : Reports: No Symptoms Musculoskeletal: Reports: No Symptoms ED EXAM, GENERAL - Physical Exam Exam: See Below Exam Limited By: No Limitations General Appearance: Alert, No Apparent Distress Ears: Normal External Exam Nose: Normal Inspection Head: Atraumatic, Normocephalic Neck: Normal Inspection Respiratory/Chest: No Respiratory Distress, Decreased Breath Sounds Cardiovascular: Regular Rate, Rhythm, No Edema, No Murmur GI/Abdominal: Soft, Non-Tender, No Organomegaly, No Mass Back Exam: Normal Inspection Extremities: Other (Abrasions to her right leg) Neurological: Alert, Oriented, No Motor/Sensory Deficits Course - Vital Signs Last Recorded V/S: Last Vital Signs Temp 97.8 F 05/14/21 12:55 Pulse 50 L 05/14/21 12:55 Resp 18 05/14/21 12:55 BP 171/65 H 05/14/21 12:55 Pulse Ox 91 L 05/14/21 14:24 - Orders/Labs/Meds Orders: Active Orders 24 hr Category Date Time Status Blood Glucose Check, Bedside [RC] ONETIME Care 05/14/21 15:55 Active Cardiac Monitoring [RC] . DIRECTED Care 05/14/21 13:14 Active Oxygen Therapy [RC] PRN Care 05/14/21 13:15 Active Peripheral IV Care [RC] . DIRECTED Care 05/14/21 13:15 Active RT Aerosol Therapy [RC] ASDIRECTED Care 05/14/21 13:16 Active LACTIC ACID [CHEM] Stat Lab 05/14/21 17:30 Received Sodium Chloride 0.9% [Normal Saline] 1,000 ml Med 05/14/21 13:15 Active IV .BOLUS Sodium Chloride 0.9% [Saline Flush] Med 05/14/21 13:14 Active 10 ml FLUSH ASDIRECTED PRN ED Antiemetic Medication Reflex [OM.PC] Stat Oth 05/14/21 13:15 Ordered Peripheral IV Insertion Adult [OM.PC] Stat Oth 05/14/21 13:14 Ordered Medication Orders Sodium Chloride (Normal Saline) 1,000 mls @ 1,000 mls/hr IV .BOLUS CLIFF Last Admin: 05/14/21 14:21 Dose: 1,000 mls/hr Documented by: MEDHAT Sodium Chloride (Sodium Chloride 0.9% 10 Ml Syringe) 10 ml FLUSH ASDIRECTED PRN PRN Reason: Keep Vein Open Last Admin: 05/14/21 14:21 Dose: 10 ml Documented by: MEDHAT Labs: Laboratory Tests 05/14/21 05/14/21 05/14/21 Range/Units 14:12 14:12 14:12 WBC 6.58 (3.98-10.04) K/mm3 RBC 4.74 (3.98-5.22) M/mm3 Hgb 14.3 (11.2-15.7) gm/dl Hct 42.2 (34.1-44.9) % MCV 89.0 (79.4-94.8) fl MCH 30.2 (25.6-32.2) pg MCHC 33.9 (32.2-35.5) g/dl RDW Std Deviation 40.9 (36.4-46.3) fL Plt Count 227 (182-369) K/mm3 MPV 11.1 (9.4-12.3) fl Neut % (Auto) 70.9 (34.0-71.1) % Lymph % (Auto) 17.0 L (19.3-51.7) % Dauphin % (Auto) 10.2 (4.7-12.5) % Eos % (Auto) 0.2 L (0.7-5.8) Baso % (Auto) 1.4 H (0.1-1.2) % Neut # (Auto) 4.67 (1.56-6.13) K/mm3 Lymph # (Auto) 1.12 L (1.18-3.74) K/mm3 Dauphin # (Auto) 0.67 H (0.24-0.36) K/mm3 Eos # (Auto) 0.01 L (0.04-0.36) K/mm3 Baso # (Auto) 0.09 H (0.01-0.08) K/mm3 Manual Slide Review Normal smear D-Dimer, Quantitative 4.40 H (0.19-0.50) mg/L Puncture Site ABG pH (7.35-7.45) ABG pCO2 (35.0-45.0) mmHg ABG pO2 (80.0-100.0) mmHg ABG HCO3 (22.0-26.0) meq/L ABG O2 Saturation (96.0-97.0) % ABG Base Excess (-2-2.0) Tyrell Test A-a Gradient mmHg O2 Delivery Device Oxygen Flow Rate FiO2 (21.00-100.00) % Sodium 127 L (136-145) mEq/L Potassium 3.8 (3.5-5.1) mEq/L Chloride 84 L (98-107) mEq/L Carbon Dioxide 31 (21-32) mEq/L Anion Gap 15.8 H (5-15) BUN 92 H D (7-18) mg/dL Creatinine 2.7 H (0.55-1.02) mg/dL Est Cr Clr Drug Dosing TNP Estimated GFR (MDRD) 18 (>60) mL/min BUN/Creatinine Ratio 34.1 H (14-18) Glucose 430 H* (70-99) mg/dL Lactic Acid (0.4-2.0) mmol/L Calcium 9.0 (8.5-10.1) mg/dL Total Bilirubin 0.6 (0.2-1.0) mg/dL AST 71 H (15-37) U/L ALT 33 (14-59) U/L Alkaline Phosphatase 74 (46-116) U/L Troponin I (0.00-0.056) ng/mL C-Reactive Protein 13.4 H* (<1.0) mg/dL Total Protein 6.8 (6.4-8.2) g/dl Albumin 2.5 L (3.4-5.0) g/dl Globulin 4.3 gm/dL Albumin/Globulin Ratio 0.6 L (1-2) 05/14/21 05/14/21 05/14/21 Range/Units 14:12 14:12 16:40 WBC (3.98-10.04) K/mm3 RBC (3.98-5.22) M/mm3 Hgb (11.2-15.7) gm/dl Hct (34.1-44.9) % MCV (79.4-94.8) fl MCH (25.6-32.2) pg MCHC (32.2-35.5) g/dl RDW Std Deviation (36.4-46.3) fL Plt Count (182-369) K/mm3 MPV (9.4-12.3) fl Neut % (Auto) (34.0-71.1) % Lymph % (Auto) (19.3-51.7) % Dauphin % (Auto) (4.7-12.5) % Eos % (Auto) (0.7-5.8) Baso % (Auto) (0.1-1.2) % Neut # (Auto) (1.56-6.13) K/mm3 Lymph # (Auto) (1.18-3.74) K/mm3 Dauphin # (Auto) (0.24-0.36) K/mm3 Eos # (Auto) (0.04-0.36) K/mm3 Baso # (Auto) (0.01-0.08) K/mm3 Manual Slide Review D-Dimer, Quantitative (0.19-0.50) mg/L Puncture Site Rt radial ABG pH 7.45 (7.35-7.45) ABG pCO2 40.8 (35.0-45.0) mmHg ABG pO2 103.0 H (80.0-100.0) mmHg ABG HCO3 27.6 H (22.0-26.0) meq/L ABG O2 Saturation 97.4 H (96.0-97.0) % ABG Base Excess 3.7 H (-2-2.0) Tyrell Test Positive A-a Gradient 103 mmHg O2 Delivery Device Nasal cannula Oxygen Flow Rate 4.0 FiO2 36.00 (21.00-100.00) % Sodium (136-145) mEq/L Potassium (3.5-5.1) mEq/L Chloride (98-107) mEq/L Carbon Dioxide (21-32) mEq/L Anion Gap (5-15) BUN (7-18) mg/dL Creatinine (0.55-1.02) mg/dL Est Cr Clr Drug Dosing Estimated GFR (MDRD) (>60) mL/min BUN/Creatinine Ratio (14-18) Glucose (70-99) mg/dL Lactic Acid 2.2 H* (0.4-2.0) mmol/L Calcium (8.5-10.1) mg/dL Total Bilirubin (0.2-1.0) mg/dL AST (15-37) U/L ALT (14-59) U/L Alkaline Phosphatase (46-116) U/L Troponin I 0.057 H* (0.00-0.056) ng/mL C-Reactive Protein (<1.0) mg/dL Total Protein (6.4-8.2) g/dl Albumin (3.4-5.0) g/dl Globulin gm/dL Albumin/Globulin Ratio (1-2) Meds: Medications Generic Name Dose Route Start Last Admin Trade Name Freq PRN Reason Stop Dose Admin Sodium Chloride 1,000 mls @ 1,000 mls/hr 05/14/21 13:15 05/14/21 14:21 Normal Saline IV 1,000 mls/hr .BOLUS CLIFF Administration Sodium Chloride 10 ml 05/14/21 13:14 05/14/21 14:21 Sodium Chloride 0.9% 10 Ml Syringe FLUSH 10 ml ASDIRECTED PRN Administration Keep Vein Open Discontinued Medications Generic Name Dose Route Start Last Admin Trade Name Freq PRN Reason Stop Dose Admin Albuterol/Ipratropium 3 ml 05/14/21 13:16 05/14/21 14:40 Albuterol/Ipratropium 3.0-0.5 Mg/3 Ml Neb Soln NEB 05/14/21 13:17 3 ml ONETIME ONE Administration Dexamethasone 6 mg 10/19/21 15:49 05/14/21 17:10 Dexamethasone 4 Mg/Ml Sdv IVPUSH 05/14/21 15:50 6 mg ONETIME ONE Administration Remdesivir 200 mg/ Sodium 250 mls @ 250 mls/hr 05/14/21 15:49 05/14/21 17:10 Chloride IV 05/14/21 15:50 250 mls/hr ONETIME ONE Administration Ondansetron HCl 4 mg 05/14/21 13:14 05/14/21 14:21 Ondansetron 4 Mg/2 Ml Sdv IVPUSH 05/14/21 13:15 4 mg ONETIME ONE Administration - Re-Assessments/Exams Free Text/Narrative Re-Assessment/Exam: 05/14/21 16:15 I ordered oxygen, IV NS 1L bolus, zofran 4mg IV, duoneb, CXR, and labs. Her CXR shows bilateral infiltrates consistent with COVID. Her CBC looks good. Her D- dimer is elevated at 4.4. Her Na was low at 127. Her anion gap was elevated at 15.8. Her creatinine is elevated at 2.7. Her creatinine a couple days ago was 2.5. Her GFR is low at 18. Her glucose is 430. Her lactic acid is elevated at 2.2. Her AST is elevated at 71. Her CRP is elevated at 13.4. I ordered insulin R 12 units subcutaneous, remdesivir 200mg IV 05/14/21 17:57 We have no beds. I called both [facility] and they are full. I called [facility] in [place] and they had a bed. I talked with Dr Roberson and she accepted the patient. She did want a troponin. I ordered one and it was 0.057. That is just barely elevated. I feel this is due to the COVID. The patient will be going by ambulance. 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 DIRECTED Sodium Chloride 0.9% [Saline Flush] 10 ml FLUSH ASDIRECTED PRN Peripheral IV Insertion Adult [OM.PC] Stat 05/14/21 13:15 Oxygen Therapy [RC] PRN Peripheral IV Care [RC] . DIRECTED Sodium Chloride 0.9% [Normal Saline] 1,000 ml IV .BOLUS ED Antiemetic Medication Reflex [OM.PC] Stat 05/14/21 13:16 RT Aerosol Therapy [RC] ASDIRECTED 05/14/21 15:55 Blood Glucose Check, Bedside [RC] ONETIME 05/14/21 17:30 LACTIC ACID [CHEM] Stat - Assessment/Plan Last 24 Hours: My Active Orders 05/14/21 13:14 Cardiac Monitoring [RC] . DIRECTED Sodium Chloride 0.9% [Saline Flush] 10 ml FLUSH ASDIRECTED PRN Peripheral IV Insertion Adult [OM.PC] Stat 05/14/21 13:15 Oxygen Therapy [RC] PRN Peripheral IV Care [RC] . DIRECTED Sodium Chloride 0.9% [Normal Saline] 1,000 ml IV .BOLUS ED Antiemetic Medication Reflex [OM.PC] Stat 05/14/21 13:16 RT Aerosol Therapy [RC] ASDIRECTED 05/14/21 15:55 Blood Glucose Check, Bedside [RC] ONETIME 05/14/21 17:30 LACTIC ACID [CHEM] Stat
== END 2021-05-14 18:16 ==
LOC: JD.ED 12:53
DX: U07.1 COVID-19 (principal); J12.82 Pneumonia due to coronavirus disease 2019; R09.02 Hypoxemia; E87.1 Hypo-osmolality and hyponatremia; I13.0 Hypertensive heart and chronic kidney disease with heart failure and stage 1 through stage 4 chronic kidney disease, or unspecified chronic kidney disease; E11.22 Type 2 diabetes mellitus with diabetic chronic kidney disease; N18.9 Chronic kidney disease, unspecified; I50.9 Heart failure, unspecified; E11.65 Type 2 diabetes mellitus with hyperglycemia; E11.21 Type 2 diabetes mellitus with diabetic nephropathy; E66.9 Obesity, unspecified; Z79.82 Long term (current) use of aspirin; Z79.4 Long term (current) use of insulin; Z79.899 Other long term (current) drug therapy
CPT/HCPCS: 36415; 36600; 71045; 80053; 82803; 83605; 84484; 85025; 85379; 86140; 94640; 96374; 96375; 99285; J1100; J2405; J7030; J7050; J7620-GY

== ENCOUNTER 2023-11-11 13:13 | Emergency (ER) | payer MEDICARE, OTHER ==
[2023-11-11 14:09] LABS: BASOPHILS PERCENT AUTO 0.3 % (0.0-1.0); EOSINOPHILS ABSOLUTE AUTO 0.2 K/mm3 (0.0-0.4); EOSINOPHILS PERCENT AUTO 1.2 % (0.0-6.0); HEMATOCRIT 43.6 % (37.0-47.0); IMMATURE GRAN ABSOLUTE AUTO 0.09 K/mm3 (0.00-0.05); IMMATURE GRAN PERCENT AUTO 0.7 % (0.0-0.4); LYMPHOCYTES ABSOLUTE AUTO 2.1 K/mm3 (1.0-4.8); MEAN CORPUSCULAR HEMOGLOBIN 30.5 pg (28.0-32.0); MEAN CORPUSCULAR HGB CONC 35.1 g/dl (32.0-36.0); MEAN CORPUSCULAR VOLUME 86.9 fl (83.0-99.0); MEAN PLATELET VOLUME 10.7 fl (9.4-12.3); MONOCYTES ABSOLUTE AUTO 1.4 K/mm3 (0.0-0.8); NEUTROPHILS ABSOLUTE AUTO 9.1 K/mm3 (1.8-7.7); NEUTROPHILS PERCENT AUTO 70.8 % (41.0-71.0); RED BLOOD CELL COUNT 5.02 M/mm3 (4.10-5.30)
[2023-11-11 14:13] LABS: HEMOGLOBIN 15.3 gm/dl (12.0-16.0); PLATELET COUNT,PLT 361 K/mm3 (150-400)
[2023-11-11 14:36] LABS: A/G RATIO 0.7 (1-2); ANION GAP 12.1 (5-15); BILIRUBIN TOTAL 0.5 mg/dL (0.2-1.0); BUN/CREATININE RATIO 26.2 (14-18); CREATININE 2.9 mg/dL (0.55-1.02); EST CRCL DRUG DOSING (CG) 15.78 mL/min; MAGNESIUM 2.4 mg/dL (1.8-2.4); POTASSIUM,K 3.1 mEq/L (3.5-5.1); PROTEIN TOTAL,TP 7.2 g/dl (6.4-8.2)
[2023-11-11 15:01] LABS: APPEARANCE,URINE CLEAR (Clear); BILIRUBIN,URINE NEGATIVE (Negative); COLOR,URINE YELLOW (Yellow); GLUCOSE,URINE 2+ (Negative); KETONES,URINE NEGATIVE (Negative); LEUKOCYTE ESTERASE,URINE NEGATIVE (Negative); NITRITE,URINE NEGATIVE (Negative); OCCULT BLOOD,URINE TRACE-LYSED (Negative); PH,URINE 5.5 (5.0-8.0); PROTEIN,URINE 1+ (Negative); UROBILINOGEN,URINE 0.2 (0.2-1.0)
[2023-11-11] MEDS: Sodium Chloride 0.9% 1,000 ML IV SCH (15:09)
[2023-11-11] MEDS: Potassium Chloride 20 MEQ Tab.ER PO ONE (15:25)
[2023-11-11] MEDS: Insulin Lispro 100 Unit/ML 3 ML KwikPen SUBCUT ONE (15:25)
[2023-11-11 15:38] LABS: RBC,URINE 0-5 /hpf (0-5); SQUAMOUS EPITHELIAL CELLS,UR 0-5 /hpf (0-5); WBC,URINE 0-5 /hpf (0-5)
[2023-11-11 15:39] LABS: BACTERIA,URINE FEW /hpf (FEW); MUCUS,URINE FEW /hpf (FEW)
[2023-11-11] MEDS: Sodium Chloride 0.9% 1,000 ML IV ONE (16:28)
== END 2023-11-11 17:46 | disposition home or self-care (01) ==
LOC: JD.ED 13:13
DX: I95.1 Orthostatic hypotension (principal); E87.6 Hypokalemia; I13.0 Hypertensive heart and chronic kidney disease with heart failure and stage 1 through stage 4 chronic kidney disease, or unspecified chronic kidney disease; I50.9 Heart failure, unspecified; E10.22 Type 1 diabetes mellitus with diabetic chronic kidney disease; N18.9 Chronic kidney disease, unspecified; E78.00 Pure hypercholesterolemia, unspecified; E66.9 Obesity, unspecified; E10.21 Type 1 diabetes mellitus with diabetic nephropathy; Z79.4 Long term (current) use of insulin; Z79.899 Other long term (current) drug therapy; Z86.16 Personal history of COVID-19; Z68.38 Body mass index [BMI] 38.0-38.9, adult
CPT/HCPCS: 36415; 80053; 81001; 82947; 83735; 83880; 84484; 85025; 93005; 96360; 96361; 99285; A9270; C1758; J1815; J7030; 93010; 99284

== ENCOUNTER 2023-11-12 06:56 | Observation (INO) | payer MEDICARE, OTHER ==
[2023-11-12 07:44] LABS: BASOPHILS PERCENT AUTO 0.3 % (0.0-1.0); EOSINOPHILS ABSOLUTE AUTO 0.1 K/mm3 (0.0-0.4); HEMATOCRIT 41.8 % (37.0-47.0); HEMOGLOBIN 14.6 gm/dl (12.0-16.0); IMMATURE GRAN ABSOLUTE AUTO 0.08 K/mm3 (0.00-0.05); IMMATURE GRAN PERCENT AUTO 0.6 % (0.0-0.4); LYMPHOCYTES ABSOLUTE AUTO 2.3 K/mm3 (1.0-4.8); LYMPHOCYTES PERCENT AUTO 16.2 % (24.0-44.0); MEAN CORPUSCULAR HEMOGLOBIN 30.9 pg (28.0-32.0); MEAN CORPUSCULAR HGB CONC 34.9 g/dl (32.0-36.0); MEAN CORPUSCULAR VOLUME 88.6 fl (83.0-99.0); MEAN PLATELET VOLUME 10.5 fl (9.4-12.3); MONOCYTES ABSOLUTE AUTO 1.7 K/mm3 (0.0-0.8); MONOCYTES PERCENT AUTO 11.8 % (0.0-8.0); NEUTROPHILS PERCENT AUTO 70.1 % (41.0-71.0); PLATELET COUNT,PLT 315 K/mm3 (150-400); RED BLOOD CELL COUNT 4.72 M/mm3 (4.10-5.30); WHITE BLOOD CELL COUNT,WBC 14.28 K/mm3 (3.9-11.3)
[2023-11-12 08:06] LABS: A/G RATIO 0.7 (1-2); ALBUMIN 2.7 g/dl (3.4-5.0); ANION GAP 9.2 (5-15); BILIRUBIN TOTAL 0.9 mg/dL (0.2-1.0); BUN/CREATININE RATIO 27.7 (14-18); CALCIUM 9.2 mg/dL (8.5-10.1); CREATININE 2.2 mg/dL (0.55-1.02); EST CRCL DRUG DOSING (CG) 19.89 mL/min; MAGNESIUM 2.1 mg/dL (1.8-2.4); POTASSIUM,K 3.2 mEq/L (3.5-5.1); PROTEIN TOTAL,TP 6.8 g/dl (6.4-8.2)
[2023-11-12 08:08] LABS: SLIDE REVIEW ABNORMAL SMEAR
[2023-11-12] MEDS: Potassium Chloride 20 MEQ Tab.ER PO ONE (08:32)
[2023-11-12] MEDS ORDERED: Docusate Sodium 100 MG Cap PO PRN (11:26)
[2023-11-12] MEDS ORDERED: Acetaminophen 325 MG Tab PO PRN (11:26)
[2023-11-12 11:47] LABS: HEMOGLOBIN A1C 12.2 %
[2023-11-12] MEDS ORDERED: INSULIN LISPRO 100 UNIT/ML SUBCUT SCH ×2 (12:00)
[2023-11-12] MEDS: Heparin Sodium 5,000 Units/ML Vial SUBCUT SCH (14:07)
[2023-11-12] MEDS: NS + KCl 20mEq/L 1,000 ML IV SCH (14:53)
[2023-11-12 15:06] LABS: TSH 1.338 uIU/mL (0.358-3.74)
[2023-11-12] MEDS ORDERED: Non-Formulary Medication 1 Each (Insulin Glarg,Human.Rec.Analog 100 UNIT/ML Ml) SUBCUT SCH (21:00)
[2023-11-12] MEDS ORDERED: Sodium Bicarbonate 650 MG Tab PO SCH ×2 (21:00)
[2023-11-12] MEDS: HUMALOG SUBCUT SCH ×2 (22:12→22:55)
[2023-11-12] MEDS: LANTUS SUBCUT SCH ×2 (22:16→22:55)
[2023-11-13 05:00] LABS: BASOPHILS PERCENT AUTO 0.3 % (0.0-1.0); EOSINOPHILS ABSOLUTE AUTO 0.3 K/mm3 (0.0-0.4); EOSINOPHILS PERCENT AUTO 2.7 % (0.0-6.0); HEMATOCRIT 37.1 % (37.0-47.0); HEMOGLOBIN 12.7 gm/dl (12.0-16.0); IMMATURE GRAN ABSOLUTE AUTO 0.06 K/mm3 (0.00-0.05); IMMATURE GRAN PERCENT AUTO 0.6 % (0.0-0.4); LYMPHOCYTES ABSOLUTE AUTO 2.6 K/mm3 (1.0-4.8); LYMPHOCYTES PERCENT AUTO 25.5 % (24.0-44.0); MEAN CORPUSCULAR HEMOGLOBIN 30.9 pg (28.0-32.0); MEAN CORPUSCULAR HGB CONC 34.2 g/dl (32.0-36.0); MEAN CORPUSCULAR VOLUME 90.3 fl (83.0-99.0); MEAN PLATELET VOLUME 10.4 fl (9.4-12.3); MONOCYTES ABSOLUTE AUTO 1.3 K/mm3 (0.0-0.8); MONOCYTES PERCENT AUTO 12.5 % (0.0-8.0); NEUTROPHILS PERCENT AUTO 58.4 % (41.0-71.0); PLATELET COUNT,PLT 267 K/mm3 (150-400); RED BLOOD CELL COUNT 4.11 M/mm3 (4.10-5.30); WHITE BLOOD CELL COUNT,WBC 10.24 K/mm3 (3.9-11.3)
[2023-11-13 05:13] LABS: ANION GAP 9.7 (5-15); BUN/CREATININE RATIO 27.1 (14-18); CALCIUM 8.5 mg/dL (8.5-10.1); CREATININE 1.7 mg/dL (0.55-1.02); EST CRCL DRUG DOSING (CG) 25.75 mL/min; MAGNESIUM 2.2 mg/dL (1.8-2.4); POTASSIUM,K 3.7 mEq/L (3.5-5.1)
[2023-11-13] MEDS: HUMALOG SUBCUT SCH (06:45)
[2023-11-13] MEDS ORDERED: HUMALOG SUBCUT SCH ×2 (07:30→11:30)
[2023-11-13] MEDS ORDERED: Potassium Chloride 20 MEQ Tab.ER PO SCH (09:00)
[2023-11-13] MEDS ORDERED: Chlorthalidone 25 MG Tab PO SCH (09:00)
[2023-11-13] MEDS ORDERED: Furosemide 20 MG Tab PO SCH (09:00)
[2023-11-13] MEDS ORDERED: Non-Formulary Medication 1 Each (Doxazosin 1 MG Tablet) PO SCH (09:00)
[2023-11-13] MEDS ORDERED: Verapamil 180 MG Tab.ER PO SCH ×2 (09:00)
[2023-11-13] MEDS: Potassium Chloride 20 MEQ Tab.ER PO SCH (09:51)
[2023-11-13] MEDS: Doxazosin 4 MG Tab PO SCH (09:51)
[2023-11-13] MEDS: Furosemide 40 MG Tab PO SCH (09:52)
[2023-11-13] MEDS: Lisinopril 10 MG Tab PO SCH (09:52)
[2023-11-13] MEDS: Chlorthalidone 25 MG Tab PO SCH (09:52)
== END 2023-11-13 13:00 ==
LOC: JD.ED 06:56 → JD.MS 11:24 → INTOOBSV 11:24
PROVIDERS: ADMIT Student in an Organized Health Care Education/Training Program; ATTEND Student in an Organized Health Care Education/Training Program
DX: S92.352A Displaced fracture of fifth metatarsal bone, left foot, initial encounter for closed fracture (principal); R29.6 Repeated falls; E87.6 Hypokalemia; D72.829 Elevated white blood cell count, unspecified; E10.65 Type 1 diabetes mellitus with hyperglycemia; E10.22 Type 1 diabetes mellitus with diabetic chronic kidney disease; I12.9 Hypertensive chronic kidney disease with stage 1 through stage 4 chronic kidney disease, or unspecified chronic kidney disease; N18.9 Chronic kidney disease, unspecified; N17.9 Acute kidney failure, unspecified; R60.0 Localized edema; R55 Syncope and collapse; E66.9 Obesity, unspecified; E88.09 Other disorders of plasma-protein metabolism, not elsewhere classified; Z86.79 Personal history of other diseases of the circulatory system; Z86.39 Personal history of other endocrine, nutritional and metabolic disease; Z68.30 Body mass index [BMI] 30.0-30.9, adult; Z79.4 Long term (current) use of insulin; Z79.899 Other long term (current) drug therapy; W18.30XA Fall on same level, unspecified, initial encounter
CPT/HCPCS: 36415; 73610; 73630; 80048; 80053; 82947; 83036; 83735; 84145; 84443; 85025; 93005; 93307; 97161; 99285; A9270; J1644; J3480; U0002; 96365; 96366; 96372; G0378; J3490

== ENCOUNTER 2023-12-09 04:01 | Emergency (ER) | payer MEDICARE, OTHER ==
[2023-12-09] MEDS: Ondansetron 4 MG/2 ML SDV IVPUSH ONE (05:27)
[2023-12-09] MEDS: Sodium Chloride 0.9% 1,000 ML IV SCH (05:27)
[2023-12-09] MEDS: Sodium Chloride 0.9% 10 ML Syringe FLUSH PRN (05:27)
[2023-12-09 05:28] LABS: APPEARANCE,URINE CLEAR (Clear); BILIRUBIN,URINE NEGATIVE (Negative); COLOR,URINE YELLOW (Yellow); GLUCOSE,URINE NEGATIVE (Negative); KETONES,URINE NEGATIVE (Negative); LEUKOCYTE ESTERASE,URINE NEGATIVE (Negative); NITRITE,URINE NEGATIVE (Negative); OCCULT BLOOD,URINE TRACE-INTACT (Negative); PROTEIN,URINE 3+ (Negative); UROBILINOGEN,URINE 0.2 (0.2-1.0)
[2023-12-09 05:43] LABS: AMORPHOUS SEDIMENT,URINE MODERATE /hpf (NOT SEEN); BACTERIA,URINE FEW /hpf (FEW); EPITHELIAL CELLS,URINE 0-5 /hpf (0-5); FINE GRANULAR CASTS,URINE 0-5 /lpf (0-5); MUCUS,URINE RARE /hpf (FEW); RBC,URINE 0-5 /hpf (0-5); WBC,URINE 0-5 /hpf (0-5)
[2023-12-09 05:45] LABS: A/G RATIO 0.6 (1-2); ALBUMIN 2.3 g/dl (3.4-5.0); ANION GAP 12.9 (5-15); BILIRUBIN TOTAL 0.5 mg/dL (0.2-1.0); C-REACTIVE PROTEIN 13.51 mg/dL (<0.30); CALCIUM 8.3 mg/dL (8.5-10.1); EST CRCL DRUG DOSING (CG) 22.89 mL/min; POTASSIUM,K 3.9 mEq/L (3.5-5.1); PROTEIN TOTAL,TP 6.1 g/dl (6.4-8.2)
[2023-12-09 05:56] LABS: CORONAVIRUS COVID-19 NAA NEGATIVE (NEGATIVE); INFLUENZA A NAA NEGATIVE (NEGATIVE); RESPIRATORY SYNCYTIAL VIR NAA NEGATIVE (NEGATIVE)
[2023-12-09 06:24] LABS: BASOPHILS PERCENT AUTO 0.4 % (0.0-1.0); HEMATOCRIT 35.3 % (37.0-47.0); HEMOGLOBIN 11.7 gm/dl (12.0-16.0); IMMATURE GRAN ABSOLUTE AUTO 0.05 K/mm3 (0.00-0.05); IMMATURE GRAN PERCENT AUTO 0.9 % (0.0-0.4); LYMPHOCYTES PERCENT AUTO 18.2 % (24.0-44.0); MEAN CORPUSCULAR HEMOGLOBIN 29.8 pg (28.0-32.0); MEAN CORPUSCULAR HGB CONC 33.1 g/dl (32.0-36.0); MEAN CORPUSCULAR VOLUME 90.1 fl (83.0-99.0); MEAN PLATELET VOLUME 12.1 fl (9.4-12.3); MONOCYTES ABSOLUTE AUTO 0.4 K/mm3 (0.0-0.8); NEUTROPHILS ABSOLUTE AUTO 3.9 K/mm3 (1.8-7.7); NEUTROPHILS PERCENT AUTO 72.5 % (41.0-71.0); PLATELET COUNT,PLT 228 K/mm3 (150-400); RED BLOOD CELL COUNT 3.92 M/mm3 (4.10-5.30); WHITE BLOOD CELL COUNT,WBC 5.37 K/mm3 (3.9-11.3)
[2023-12-09] MEDS: cefTRIAXone 1 GM in Sodium Chloride 0.9% 100 ML IV ONE (06:56)
[2023-12-09 08:44] LABS: SLIDE REVIEW ABNORMAL SMEAR
== END 2023-12-09 08:45 | disposition home or self-care (01) ==
LOC: JD.ED 04:01
DX: J18.9 Pneumonia, unspecified organism (principal); I13.0 Hypertensive heart and chronic kidney disease with heart failure and stage 1 through stage 4 chronic kidney disease, or unspecified chronic kidney disease; I50.9 Heart failure, unspecified; N18.9 Chronic kidney disease, unspecified; E10.22 Type 1 diabetes mellitus with diabetic chronic kidney disease; E10.21 Type 1 diabetes mellitus with diabetic nephropathy; Z88.6 Allergy status to analgesic agent; Z79.4 Long term (current) use of insulin; Z79.899 Other long term (current) drug therapy; E78.00 Pure hypercholesterolemia, unspecified; Z86.16 Personal history of COVID-19
CPT/HCPCS: 0241U; 36415; 71045; 71045-26; 80053; 81001; 82800; 82947; 83930; 85025; 86140; 96361; 96365; 96375; 99283-25; 99284; J0696; J2405; J3490; J7030